=== PATIENT | female | born 1950 | race Caucasian/White ===

== ENCOUNTER 2020-11-22 14:11 | Inpatient (IN) | payer MEDICARE ==
[2020-11-23] MEDS ORDERED: FLEET ENEMA ADULT 1 EA BTL PR PRN (09:00)
[2020-11-23] MEDS ORDERED: BISACODYL 10 MG SUPP (DULCOLAX) PR PRN (09:00)
[2020-11-23] MEDS ORDERED: diphenhydrAMINE 25 MG TAB (BENADRYL) PO PRN (09:00)
[2020-11-23] MEDS ORDERED: DOCUSATE SODIUM 100 MG (COLACE) CAP PO PRN (09:00)
[2020-11-23] MEDS ORDERED: LACTULOSE SYRUP 10GM/15ML (ENULOSE) 30ML UDC PO PRN (09:00)
[2020-11-23] MEDS ORDERED: ONDANSETRON 4 MG (ZOFRAN) ORAL DISSOLVE TAB PO PRN (09:00)
[2020-11-23] MEDS ORDERED: LOPERAMIDE 2 MG (IMODIUM) TABLET PO PRN (09:00)
[2020-11-23] MEDS ORDERED: ALPRAZolam 0.25 MG (XANAX) TAB PO PRN (09:00)
[2020-11-23] MEDS ORDERED: CALCIUM CARBONATE 500 MG (TUMS) TAB.CHEW PO PRN (09:00)
[2020-11-23] MEDS ORDERED: guaiFENesin/CODEINE (ROBITUSSIN AC) 10ML UDC PO PRN (09:00)
[2020-11-23 11:19] VITALS: BP 172/81
[2020-11-23] MEDS ORDERED: OMEP40CA27 PO (12:07)
[2020-11-23] MEDS ORDERED: HYDR-700 PO (12:07)
[2020-11-23] MEDS ORDERED: LISI40TA9 PO (12:07)
[2020-11-23] MEDS ORDERED: AMLO-251 PO (12:07)
[2020-11-23] MEDS ORDERED: ROSU20TA32 PO (12:07)
[2020-11-23] MEDS ORDERED: PREG75CA PO (12:07)
[2020-11-23] MEDS ORDERED: CLOP75TA28 PO (12:07)
[2020-11-23] MEDS ORDERED: CALC-250 PO (12:07)
[2020-11-23] MEDS ORDERED: CETI10TA17 PO (12:07)
[2020-11-23] MEDS ORDERED: HYDR-3922 PO (12:07)
[2020-11-23] MEDS ORDERED: INSU100I23 SQ (12:07)
[2020-11-23] MEDS ORDERED: INSU300I SQ (12:07)
[2020-11-23] MEDS ORDERED: NETA2.5D OU (12:07)
[2020-11-23] MEDS ORDERED: LATA2.5D19 OU (12:07)
--- NOTE | 2020-11-23 12:29 | PM&R Post Admission Assessment ---
PM&R Date of Visit: Nov 23, 2020 Time of Visit: 12:30 History of Present Illness CC: CVA with left sided weakness HPI: This is a 70yoWF who presents from [facility] after suffering a catastrophic CVA. 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 Patient began having symptoms of left sided weakness on 11/13/20 so she began using a walker so she went to ER and they imaged cervical spine due to severe spinal disease of cervical. Patient worsened and on 11/15/20 she went back to ER and dx with CVA right occiptial region. Currently she is still very weak on left side but has improved over the last few days but needs aggressive therapy in order to return to independent living. Dr Case is her PCP who recommended this IRF. Past Ervyliw-Tyvxqe-Pontrq Hx Past Med/Social Hx: Reviewed Nursing Past Med/Soc Hx, Reviewed and Corrections made Patient Social History Marrital Status: Employed/Student: employed Alcohol Use: Denies Use Smoking Status: Former Smoker Past Medical History Cardiac: High Cholesterol, Hypertension Neurological: Neuropathy Gastrointestinal: Gastroesophageal Reflux gastroparesis Musculoskeletal: Fibromyalgia, Chronic Back Pain Endocrine: Diabetes, Non-Insulin dep HEENT: Glaucoma PM&R Allergy/Meds/Data Review Allergies Coded Allergies: Penicillins (Verified Allergy, Unknown, RASH, 11/23/20) atorvastatin (Verified Adverse Reaction, Unknown, MADE LEGS LIKE JELLY, 11/23/20) gabapentin (Verified Adverse Reaction, Unknown, 11/23/20) Uncoded Allergies: MUSHROOMS (Allergy, Severe, 11/23/20) Home Medications Scheduled Amlodipine Besylate (Amlodipine Besylate), 10 MG PO DAILY, (Reported) Cetirizine HCl (Cetirizine HCl), 10 MG PO DAILY, (Reported) Cholecalciferol (Vitamin D3) (Vitamin D3), 125 MCG PO DAILY, (Reported) Clopidogrel Bisulfate (Clopidogrel), 75 MG PO DAILY, (Reported) Insulin Glargine,Hum.rec.anlog (Toujeo Solostar), 40 UNIT SQ DAILY, (Reported) Insulin Lispro (Humalog Kwikpen), 7 UNIT SQ TIDAC, (Reported) Latanoprost (Xalatan), 1 DROP OU HS, (Reported) Lisinopril (Lisinopril), 40 MG PO DAILY, (Reported) Netarsudil Mesylate (Rhopressa), 1 DROP OU HS, (Reported) Omeprazole (Omeprazole), 40 MG PO DAILY, (Reported) Pregabalin (Lyrica), 75 MG PO BID, (Reported) Rosuvastatin Calcium (Rosuvastatin Calcium), 20 MG PO DAILY, (Reported) Scheduled PRN Hydralazine HCl (Hydralazine HCl), 10 MG PO QID PRN for SBP>160 OR DBP>110, (Reported) Hydroxyzine HCl (Hydroxyzine HCl), 25 MG PO TID PRN for ITCHING, (Reported) Current Medications Current Medications Reviewed Review of Systems Constitutional: see HPI, malaise, weakness Psychiatric/Neurological: Numbness, Tingling, Weakness Physical Exam Physical Exam Vital Signs Vital Signs - First Documented 11/23/20 11:19 Temp 36.2 Pulse 70 Resp 22 B/P (MAP) 172/81 (111) Pulse Ox 99 O2 Delivery Room Air Capillary Refill : Height, Weight, BMI Height: '" Weight: lbs. oz. kg; BMI Method: General Appearance: No Apparent Distress, WD/WN, Chronically ill, Obese Eyes: Bilateral Eye Normal Inspection, Bilateral Eye PERRL HEENT: PERRL/EOMI, Normal ENT Inspection, Pharynx Normal Neck: Full Range of Motion, Normal Inspection, Non Tender, Supple, Carotid Bruit Respiratory: Chest Non Tender, Lungs Clear, Normal Breath Sounds, No Accessory Muscle Use, No Respiratory Distress Cardiovascular: Regular Rate, Rhythm, No Edema, No Gallop, No JVD, No Murmur, Normal Peripheral Pulses Gastrointestinal: Normal Bowel Sounds, No Organomegaly, No Pulsatile Mass, Non Tender, Soft Back: Normal Inspection, No CVA Tenderness, No Vertebral Tenderness Extremity: Normal Capillary Refill, Normal Inspection, Normal Range of Motion, Non Tender, No Calf Tenderness, No Pedal Edema Neurologic/Psychiatric: Alert, Oriented x3, No Motor/Sensory Deficits, 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 Norm as Tested, Abnormal Gait, Depressed Affect, Motor Weakness (left side 2/5 upper and lower extremity) Skin: Normal Color, Warm/Dry Lymphatic: No Adenopathy PM&R Medical Assessment & Plan REHAB/MEDICAL ASSESSMENT AND PLAN: REHAB IMPAIRMENT GROUP: CVA ETIOLOGIC DIAGNOSIS: CVA The comorbidities that impact the patients function and/or functional outcome by: obesity, gastroparesis severe, fibromyalgia, poor reserve, DM, cervical spine disease REHAB PLAN: The patient is being admitted to our comprehensive inpatient rehabilitation facility and can tolerate the intensity of service consisting of at least: 180 minutes of therapy a day, 5 out of 7 days a week Rehab treatment will consist of: PT OT will focus on regaining function of the left sided weakness and improve ADL independence and increase use if assistive devices in order to return home to live independently The patient/family has a good understanding of our discharge process and will benefit from an interdisciplinary inpatient rehabilitation program. The patient has potential to make improvement and is in need of at least two of the following multidisciplinary therapies including but not limited to physical, occupational, speech, and prosthetics and orthotics. Additionally the patient will need services from respiratory, nutritional services, wound care, psychology, etc. (Customize this to each patient). Given the patients complex condition and risk of further medical complications, rehabilitation services cannot be safely or effectively provided at a lower level of care such as a penitentiary facility. BARRIERS TO DISCHARGE: Left sided weakness severe ESTIMATED LOS: 14 days DISPOSITION: Home RELEVANT CHANGES SINCE PREADMISSION SCREENING: I have compared the patients medical and functional status at the time of the preadmission screening and there are: no changes PROGNOSIS: Good REHABILITATION GOALS: 1. PT OT will focus on regaining function of the left sided weakness and improve ADL independence and increase use if assistive devices in order to return home to live independently All the above goals were reviewed with the patient and he/she is in agreement. By signing this document, I acknowledge that I have personally performed a full physical examination on this patient within 24 hours of admission to this inpatient rehabilitation facility and have determined the patient to be able to tolerate the above course of treatment at an intensive level for a reasonable period of time. I will be completing a detailed individualized Plan of Care for this patient by day #4 of the patients stay based upon the Preadmission Screen, the Post-Admission Evaluation, and the therapy evaluations. Admission Dx/Comorbidities: (1) Fibromyalgia ICD Codes: M79.7 - Fibromyalgia (2) Cervical spine disease ICD Codes: M48.9 - Spondylopathy, unspecified (3) Obesity ICD Codes: E66.9 - Obesity, unspecified (4) Diabetes ICD Codes: E11.9 - Type 2 diabetes mellitus without complications (5) Gastroparesis ICD Codes: K31.84 - Gastroparesis (6) GERD (gastroesophageal reflux disease) ICD Codes: K21.9 - Gastro-esophageal reflux disease without esophagitis (7) Neuropathy ICD Codes: G62.9 - Polyneuropathy, unspecified (8) Glaucoma ICD Codes: H40.9 - Unspecified glaucoma (9) Former smoker ICD Codes: Z87.891 - Personal history of nicotine dependence (10) CVA (cerebral vascular accident) ICD Codes: I63.9 - Cerebral infarction, unspecified Assessment/Plan Assessment and Plan Assess & Plan/Chief Complaint Assessment: CVA with left sided weakness Fibromyalgia GERD Gastroparesis Neuropathy DM HTN HLP Glaucoma Diabetic retinopathy Obesity Plan: IRF protocol Home meds DM management SALVADOR SPARKS DO Nov 23, 2020 12:29
--- NOTE | 2020-11-23 13:05 | Occupational Therapy Eval ---
OT Evaluation-General/PLF Medical Diagnosis Admission Date Nov 23, 2020 at 11:05 Medical Diagnosis: CVA: R occ/ temporal; L side weakness Onset Date: Nov 13, 2020 Therapy Diagnosis Therapy Diagnosis: Decreased ADL status Precautions Precautions/Isolations: Standard Precautions Weight Bear Status Weight Bearing Restriction: Full Weight Bearing Referral Physician: Ashley Riddle Reason: Activity Tolerance, Self Care, Evaluation/Treatment, Strengthening/ROM Medical History Pertinent Medical History: CVA, DM, Neuropathy Additional Medical History Diabetic retinopathy, DMII, peripheral neuropathy, gastroparesis, glaucoma, fibromyalgia, former smoker, bulging discs (per pt, 5 out of 7 cervical discs). Current History Pt stated a decreased cognition/ decreased strength Saturday (11/13) at [facility]. States she then went to ED at [facility] 11/15 with L side weakness; scan of back completed due to pmhx of cervical disc bulge. Pt then dx with subacute CVA of the R posterior occipaital/ temporal/ thalamus regions. Pt admits to ARU 11/23. Reviewed History: Yes Social History Home: Single Level Current Living Status: Spouse Entry Into Home: Ramp Steps Into Home: 0 ADL-Prior Level of Function SCALE: Activities may be completed with or without assistive devices. 5-Dikxfdvupq-neytnpi completes the activity by him/herself with no assistance from a helper. 5-Set-up or Clean-up Assistance-helper sets up or cleans up; patient completes activity. [place] assists only prior to or following the activity. 4-Supervision or Touching Assistance-helper provides verbal cues and/or touching/steadying and/or contact guard assistance as patient completes activity. Assistance may be provided throughout the activity or intermittently. 3-Partial/Moderate Assistance-helper does LESS THAN HALF the effort. [place] lifts, holds or supports trunk or limbs, but provides less than half the effort. 2-Substantial/Maximal Assistance-helper does MORE THAN HALF the effort. [place] lifts or holds trunk or limbs and provides more than half the effort. 5-Ypcbrmdio-nrmbxt does ALL the effort. Patient does none of the effort to complete the activity. Or, the assistance of 2 or more helpers is required for the patient to complete the activity. If activity was not attempted, code reason: 7-Patient Refused. 9-Not Applicable-not attempted and the patient did not perform the activity before the current illness, exacerbation or injury. 10-Not Attempted due to Environmental Limitations-(lack of equipment, weather restraints, etc.). 88-Not Attempted due to Medical Conditions or Safety Concerns. ADL PLOF Comments Pt states was IND with ADL tasks with use of SPC, then use of FWW beginning 11/13 (onset of sx). Pt completes sponge baths rather than showers due to garden tub. 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 Pt is assisted [facility] bed from [facility]. Pt AxO. Pt is oriented to ARU and expectations. Pt denies pain. States hx, accurate with notes. Pt expresses a decrease of sensation through L UE, general weakness of LUE and weakness of LUE. Pt agrees to tx: OT evaluation: 0615-2713 PT evaluation: 6280-7724 OT/ PT co-treat: 9921-4477: OT addresses UE movement, ADLs, balance/ righting, problem solving; PT addresses LE movement, gait/ mobility/ transfers, balance/ righting. OT individual treatment: 7420-5116 Mental Status/Objective Patient Orientation: Person, Place, Situation, Normal For Age Current Glasses/Contacts: Yes Hearing Aids: No Dentures/Partials: No Hand Dominance: Right Upper Extremity ROM WFL RUE Decreased LUE: decreased shoulder elevation/ abduction/ shoulder flexion/ in and ext rotation, decreased elbow flexion, decreased sup/ pronation, slight wrist ext/ flexion, slight finger flexion Upper Extremity Coordination Decreased: delayed and decreased AROM Upper Extremity Sensation Decreased; in dermatome pattern rather than CVA; more testing needed. Upper Extremity Strength R: WFL, 4/5 strength Decreased LUE: shoulder elevation 0/5 abduction: 0/5 shoulder flexion 1/5 elbow flexion 1/5 supination: 2/5 slight wrist ext: 2+/5 wrist flexion 2+/5 finger flexion: 3/5 finger extension: 1/5 ADL-Treatment Eating (QC): 5 (with use of RUE s/u) Oral Hygiene (QC): 5 (per clinical judgment, will require s/u at this time. ) Shower/Bathe Self (QC): 1 (per clinical judgment, will require Ax2 for safety and mobilty) Upper Body Dressing (QC): 2 (per clinical judgment, max A) Lower Body Dressing (QC): 1 (Pt sit to stands with Ax1, one person to doff pants and one to assist in mobility. Pt sits on commode, requires Ax2 for LB dressing tasks. ) On/Off Footwear (QC): 1 (TD at this time ) Toileting Hygiene (QC): 1 (Require Ax2 for safety and mobilty. Sit to stand with OT with mod A. Pt stands with min A to right while assist for clean-up. ) Other Treatments OT evaluation: 7123-0627 PT evaluation: 3704-6123 OT/ PT co-treat: 8601-3584: OT addresses UE movement, ADLs, balance/ righting, problem solving; PT addresses LE movement, gait/ mobility/ transfers, balance/ righting. Pt completes bed mob to EOB with assist. Pt sits with SBA. Completes MMT/ ROM as outlined. Pt has limited cervical ROM due to bulging discs. Pt has limited peripheral vision from prior level, however L more diminished. Eye tracking good in all planes, however convergence of L eye diminished. Pt states double vision during up-close (~6" from face) tasks. Pt completes sit to stand and transfers to w/c with Ax2 (see PT for assist). Pt is pushed to gym, attempt to complete RUE/ LE pushing (requires max A for steering, though RUE able to maintain push, RLE unable to guide). Pt stands at parallel bars and takes ~5 steps with Ax2 (OT guides LUE, PT guides LEs and gait). Pt sits to rest. Returns to room, sits in recliner with Ax1. All needs met, introduced to room, water provided, call light in reach. Pt expresses needs for urination. OT attempts to find BSC at this time. OT individual treatment: 2845-4482 OT returns with BSC. Pt states urinated in undergarments. Pt completes sit to stand with mod A, 5 side steps to strong side (R) to BSC. Ax2 for stance and LB management. Completes urination in BSC, requires Ax2 for cleansing and new undergarment hike over hips. Pt safe and cognitively aware of all tasks. Pt returns to (L/ weak) side/ recliner. Pt unable to bring hips to back of chair, requires Ax2 for sliding in chair with assist from RLE as well. Pt's LUE propped, all needs met, call light in reach. Education OT Patient Education: Correct positioning, Exercise program, Home exercise program, Purpose of tx/functional activities, Rehab process, Safety issues, Transfer techniques, W/C management Teaching Recipient: Patient Teaching Methods: Demonstration, Discussion Response to Teaching: Verbalize Understanding, Return Demonstration, Reinforcement Needed OT Short Term Goals Short Term Goals Time Frame: Dec 07, 2020 Eatin Oral hygiene: 6 Toileting hygiene: 2 Shower/bathe self: 2 Upper body dressin Lower body dressin Putting on/taking off footwear: 2 OT Senior Living Goals Senior Living Goals Time Frame: Dec 24, 2020 Eating (QC): 6 Oral Hygiene (QC): 6 Toileting Hygiene (QC): 4 Shower/Bathe Self (QC): 4 Upper Body Dressing (QC): 6 Lower Body Dressing (QC): 4 On/Off Footwear (QC): 3 Additional Goals: 1-Demonstrate ADL Tasks, 2-Verbalize Understanding, 3- ImproveStrength/Sola 1=Demonstrate adherence to instructed precautions during ADL tasks. 2=Patient will verbalize/demonstrate understanding of assistive devic es/modifications for ADL. 3=Patient will improve strength/tolerance for activity to enable patient to perform ADL's. OT Education/Plan Problem List/Assessment Assessment: Decreased Activ Tolerance, Decreased UE Strength, Dependent Transfers, Impaired Bed Mobility, Impaired Coordination, Impaired Funct Balance, Impaired I ADL's, Impaired Self-Care Skills, Restricted Funct UE ROM, Visual- Perceptual Deficit Discharge Recommendations Plan/Recommendations: Continue POC Therapy Discharge Recommendati: Scheduled Assistance, Home & Family, Post Acute OT Treatment Plan/Plan of Care Treatment,Training & Education: Yes Patient would benefit from OT for education, treatment and training to promote independence in ADL's, mobility, safety and/or upper extremity function for ADL's. Plan of Care: ADL Retraining, Caregiver Training, Concurrent Therapy, Functional Mobility, Group Exercise/Act as Ind, Orthotic Fitting/Training, UE Funct Exercise/Act, UE Neuromus Re-Ed/Coord, Visual/Perceptual Retrain, W/C Management Training Treatment Duration: Dec 24, 2020 Frequency: At least 5 of 7 days/Wk (IRF) Estimated Hrs Per Day: 1.5 hours per day Agreement: Yes Rehab Potential: Fair Time/GCodes Start Time: 11:05 Stop Time: 12:25 Total Time Billed (hr/min): 55 (10+35+15) Billed Treatment Time OT evaluation: 6477-4476: 1, ADL (10) PT evaluation: 7149-9633 OT/ PT co-treat: 6004-7881: 1, NM, EX (35) OT individual treatment: 3891-5602 (15): 1, ADL (15) Total: 60 OLIVA CLARK OTR Nov 23, 2020 13:05
--- NOTE | 2020-11-23 13:51 | Occupational Ther Daily Note ---
OT Current Status-Daily Note Subjective Pt alert, sitting in recliner. Nrsg in room. Pt agrees to therapy. No c/o pain at this time. Mental Status/Objective Patient Orientation: Person, Place, Time, Situation ADL-Treatment Therapy Code Descriptions/Definitions Functional [place] Measure: 0=Not Assessed/NA 4=Minimal Assistance 1=Total Assistance 5=Supervision or Setup 2=Maximal Assistance 6=Modified [place] 3=Moderate Assistance 7=Complete IndependenceSCALE: Activities may be completed with or without assistive devices. 1-Jvypybgxuf-ywjvbhq completes the activity by him/herself with no assistance from a helper. 5-Set-up or Clean-up Assistance-helper sets up or cleans up; patient completes activity. [place] assists only prior to or following the activity. 4-Supervision or Touching Assistance-helper provides verbal cues and/or touching/steadying and/or contact guard assistance as patient completes activity. Assistance may be provided throughout the activity or intermittently. 3-Partial/Moderate Assistance-helper does LESS THAN HALF the effort. [place] lifts, holds or supports trunk or limbs, but provides less than half the effort. 2-Substantial/Maximal Assistance-helper does MORE THAN HALF the effort. [place] lifts or holds trunk or limbs and provides more than half the effort. 4-Zksisqvhb-tcemqy does ALL the effort. Patient does none of the effort to complete the activity. Or, the assistance of 2 or more helpers is required for the patient to complete the activity. If activity was not attempted, code reason: 7-Patient Refused. 9-Not Applicable-not attempted and the patient did not perform the activity before the current illness, exacerbation or injury. 10-Not Attempted due to Environmental Limitations-(lack of equipment, weather restraints, etc.). 88-Not Attempted due to Medical Conditions or Safety Concerns. Eating (QC): 5 Other Treatment Pt has slight L side facial droop and slight slurring of words. Trace movement noted in shldr elevation and scapular retraction. Poor bicep muscle, able to flex ~10* actively. Fair supination/pronation ~20*. Wrist extension through tendonesis. Pt able to flex fingers and wrist WNL. Difficulty with finger extension, fair. Pt able to hold onto pudding cup with R hand and use L hand to feed self after setup. Educated pt on ARU expectations/description. After session, pt sitting in recliner with call light/phone in reach. All needs met in room. OT Irrigation System Operator Goals Intermediate Goals Time Frame: Dec 24, 2020 Eating (QC): 6 Oral Hygiene (QC): 6 Toileting Hygiene (QC): 4 Shower/Bathe Self (QC): 4 Upper Body Dressing (QC): 6 Lower Body Dressing (QC): 4 On/Off Footwear (QC): 3 1=Demonstrate adherence to instructed precautions during ADL tasks. 2=Patient will verbalize/demonstrate understanding of assistive devices/modifications for ADL. 3=Patient will improve strength/tolerance for activity to enable patient to perform ADL's. OT Education/Plan Problem List/Assessment Assessment: Decreased Activ Tolerance, Decreased Safety Aware, Decreased UE Strength, Impaired Bed Mobility, Impaired Coordination, Impaired Funct Balance, Impaired Self-Care Skills, Restricted Funct UE ROM Discharge Recommendations Plan/Recommendations: Continue POC Treatment Plan/Plan of Care Patient would benefit from OT for education, treatment and training to promote independence in ADL's, mobility, safety and/or upper extremity function for ADL's. Plan of Care: ADL Retraining, Caregiver Training, Concurrent Therapy, Functional Mobility, Group Exercise/Act as Ind, Orthotic Fitting/Training, UE Funct Exercise/Act, UE Neuromus Re-Ed/Coord, Visual/Perceptual Retrain, W/C Management Training Treatment Duration: Dec 24, 2020 Frequency: At least 5 of 7 days/Wk (IRF) Estimated Hrs Per Day: 1.5 hours per day Agreement: Yes Rehab Potential: Fair Time/GCodes Start Time: 13:00 Stop Time: 13:40 Total Time Billed (hr/min): 40 Billed Treatment Time 1 visit-NM 1 (15 min) FA 2 (25 min) ALLA MACDONALD Nov 23, 2020 13:51
--- NOTE | 2020-11-23 15:29 | ST Cognitive Linguistic Eval ---
Speech Evaluation-General Medical Diagnosis CVA: R occ/ temporal; L side weakness Onset Date: Nov 13, 2020 Therapy Diagnosis Therapy Diagnosis: Cognitive-communication Referral Referring Physician: Dr. Ramirez Medical History Pertinent Medical History: CVA, DM, Neuropathy Reviewed History: Yes Social History Current Living Status: Spouse Speech PLF-Current Status Prior Level of Function Patient lives at home with her . She was very active in their yarsanism and independent for her daily needs. Language Eval: Auditory Comprehends Simple Yes/No Ques: Functional Indent/Objects Multiple [place]: Functional Ident/Pics in Multiple [place]: Functional Follows 1-Step Commands: Functional Follows Complex Directions: Mild Follows General Conversations: Functional Language Eval: Verbal Language Completes Spontaneous Greeting: Functional Produces Auto, Serial Info: Functional Imitates Simple Words/Phrases: Functional Word Finding: Mild Requests Basic Needs: Functional States Basic Personal Info: Functional Expresses Complex Ideas: Mild Objective Cognitive Domain Attention: WNL Memory: WNL Problem Solving: Functional Executive Functions: Mild Visuospatial Skills: WNL Composite Severity Rating: WNL Clock Drawing Severity Rating: WNL Objective Formal/Standardized Tests [facility] Mental Status ([facility]) Results 26/30, Mild Neurocognitive Disorder range of function Oral Motor/Speech Production Patient's speech is at 80% with mild slurring noted as the patient became more tired. Impression The patient is a pleasant 70 y/o female who was admitted to the ARU s/p CVA with left side weakness. 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 The patient was given the [facility] with a score of 26/30 obtained. Patient's score is in the MNCD range of function and is indicative of warranted ST services. The patient will receive skilled services with focus on speech production, memory and safety awareness. Speech Patient Assess Expression of Ideas/Wants: Exhibits (3) Understanding Verbal Content: Usually Understands (3) Brief Interview-Mental Status: Yes Repetition of Three Words: Three (3) Temporal Orientation: Year: Correct (3) Temporal Orientation: Month: Accurate within 5 days(2) Temporal Orientation: Day: Correct (1) Recall : Wear to say "Sock": Yes,after cueing (1) Recall : Color: Yes, after cueing (1) Recall : Bed: Yes, no cue required (2) Memory/Recall Ability: Current season, That he or she is in a hsp/hsp unit Speech Short Term Goals Short Term Goals Short Term Goals 1) The patient will complete memory tasks related to her daily needs at 90% or greater. 2) The patient will complete safety awareness tasks related to her daily needs at 90% or greater. 3) The patient will complete problem solving tasks related to her daily needs at 90% or greater. 4) The patient will complete speech production tasks related to her communication needs at 90% or greater. Speech Residential Goals Sports Official Goals Patient will improve speech production to 90% or greater for effective communication. Patient will improve cognitive-communication necessary for safety and daily living tasks with minimal assist. Speech-Plan Patient/Family Goals Patient/Family Goals: Patient plans on returning to her home where she lives with her . Treatment Plan Speech Therapy Treatment Plan: Continue Plan of Care Treatment Duration: Dec 09, 2020 Frequency: 4 times per week (Patient will receive skilled ST 4-5x per week) Estimated Hrs Per Day: .5 hour per day Rehab Potential: Fair Barriers to Learning: Patient's recent CVA Pt/Family Agrees to Plan: Yes Safety Risks/Education Teaching Recipient: Patient Teaching Methods: Demonstration, Discussion Response to Teaching: Verbalize Understanding, Return Demonstration Education Topics Provided: Safety within her room, utilization of the call light as needed Time Speech Therapy Time In: 14:45 Speech Therapy Time Out: 15:15 Total Billed Time: 30 Billed Treatment Time 1, MAGDY KHAN [address] ST Nov 23, 2020 15:28
--- NOTE | 2020-11-23 16:13 | Physical Therapy Evaluation ---
PT Evaluation-General Medical Diagnosis Admission Date Nov 23, 2020 at 11:05 Medical Diagnosis: CVA: R occ/ temporal; L side weakness Onset Date: Nov 13, 2020 Therapy Diagnosis Therapy Diagnosis: Impaired mobility Precautions Precautions/Isolations: Standard Precautions Referral Physician: Ashley Reason for Referral: Evaluation/Treatment Medical History Pertinent Medical History: CVA, DM, Neuropathy Reviewed History: Yes Social History Home: Single Level Current Living Status: Spouse Entry Into Home: Ramp PT Steps Into Home: 0 Prior Prior Level of Function SCALE: Activities may be completed with or without assistive devices. 3-Ucfcjpwstp-nakboid completes the activity by him/herself with no assistance from a helper. 5-Set-up or Clean-up Assistance-helper sets up or cleans up; patient completes activity. [place] assists only prior to or following the activity. 4-Supervision or Touching Assistance-helper provides verbal cues and/or touching/steadying and/or contact guard assistance as patient completes activity. Assistance may be provided throughout the activity or intermittently. 3-Partial/Moderate Assistance-helper does LESS THAN HALF the effort. [place] lifts, holds or supports trunk or limbs, but provides less than half the effort. 2-Substantial/Maximal Assistance-helper does MORE THAN HALF the effort. [place] lifts or holds trunk or limbs and provides more than half the effort. 5-Qyktkesxn-mrvmrx does ALL the effort. Patient does none of the effort to complete the activity. Or, the assistance of 2 or more helpers is required for the patient to complete the activity. If activity was not attempted, code reason: 7-Patient Refused. 9-Not Applicable-not attempted and the patient did not perform the activity before the current illness, exacerbation or injury. 10-Not Attempted due to Environmental Limitations-(lack of equipment, weather restraints, etc.). 88-Not Attempted due to Medical Conditions or Safety Concerns. Bed Mobility: 6 Transfers (B,C,W/C): 6 Gait: 6 Stairs: 3 Indoor Mobility (Ambulation): Independent Stairs: Needed Some Help Prior Devices Use: Other-see list below Prior Device Use: cane Limited use of stairs due to LE pain. PT Evaluation-Current Subjective Pt denies pain on arrival. (R) UE/LE weakness and feeling of instability. Pt is highly motivated to return to PLOF. Objective Patient Orientation: Person, Place, Time, Situation ROM/Strength ROM Upper Extremities (R) shoulder flex/abd limited to ~90 degrees. (L) UE is only capable of PROM, with similar limits. ROM Lower Extremities (R) LE ROM WFL. (L) LE only capable of PROM. Strength Upper Extremities (R) UE gross MMT 4/5. (L) UE is 0-1/5 MMT for shoulder, upper trap, biceps, triceps. Slight improvement in MMT for (L) wrist and hand 2/5. Strength Lower Extremities (R) LE gross MMT 4/5. (L) hip and knee gross MMT 2/5. (L) lower leg MMT 2+/5. Neuromuscular (Tone, Coordination, Reflexes) 3+ patellar tendon reflex (R). Sensory Vision: Wears Glasses Hearing: Functional Hand Dominance: Right Sensation Right Upper Extremit: Impaired Sensation Left Upper Extremity: Impaired Sensation Up. Extremities Pt noted prior N/T in the digits on the palmar aspect prior to CVA. Sensation Right Lower Extremit: Intact Sensation Left Lower Extremity: Impaired Sensation Lower Extremities (L) LE sensation diminished beginning at 4cm proximal to the malleoli, with sensation nearly absent in the plantar surface. Transfers Roll Left & Right (QC): 2 Sit to Lying (QC): 2 Lying to Sitting/Side of Bed(Q: 2 Sit to Stand (QC): 3 Chair/Zxu-jc-Qhyul Xfer(QC): 3 Toilet Transfer (QC): 88 Car Transfer (QC): 88 Gait Mode of Locomotion: Walk Anticipated Mode of Locomotion: Walk Walk 10 feet (QC): 88 Walk 50 ft with 2 Turns(QC): 88 Walk 150 ft (QC): 88 Walking 10ft/uneven surface-QC: 88 Distance: 8ft Gait Assistive Device: Walker Kvng Comments/Gait Description Pt ambulated 4ft forward and 4 ft to the (L) with the kvng walker. Wheelchair Training Does the Pt Use a Wheelchair?: No Wheel 50 ft with 2 turns (QC): 9 Wheel 150 ft (QC): 9 Stairs 1 Step (curb) (QC): 88 4 Steps (QC): 88 12 Steps (QC): 88 Balance Sitting Static: Normal Sitting Dynamic: Fair Standing Static: Fair Standing Dynamic: Fair Picking up an Object (QC): 88 Special Test Comments Pt is entirely too unsteady to attempt picking up an item from the floor. Treatment Pt performed a supine to sit to stand transfer with OT assisting with (L) UE control. Able to take steps forward and side with the kvng walker and moderate assist with OT assisting with UE control and VCs for stepping. Assessment/Needs All muscle groups in the (L) LE are intact and functioning, but with less strength available at this time. Rehab Potential: Good PT Manager Food Safety Goals Fpc Goals PT Manager Food Safety Goals Time Frame: Dec 14, 2020 Roll Left & Right (QC): 5 Sit to Lying (QC): 5 Lying-Sitting on Side/Bed(QC): 5 Sit to Stand (QC): 5 Chair/Jcn-dr-Jjpjd Xfer(QC): 5 Toilet Transfer (QC): 5 Car Transfer (QC): 5 Does the Patient Walk: Yes Walk 10 feet (QC): 5 Walk 50ft with 2 Turns (QC): 5 Walk 150 ft (QC): 5 Walking 10ft on Uneven Surface: 5 1 Step (curb) (QC): 4 4 Steps (QC): 9 12 Steps (QC): 9 Picking up an Object (QC): 4 Does the Pt use WC or Scooter?: No Wheel 50 feet with 2 turns (QC: 9 Wheel 150 feet: 9 PT Plan Treatment/Plan Treatment Plan: Continue Plan of Care Treatment Duration: Dec 14, 2020 Frequency: At least 5 of 7 days/Wk (IRF) Estimated Hrs Per Day: 1.5 hours per day Patient and/or Family Agrees t: Yes Time/GCodes Time In: 1115 Time Out: 1200 Total Billed Treatment Time: 45 Total Billed Treatment 1, evm 10, ex 15, fa 20 Co treat with OT following the evaluation, with both disciplines necessary to aid in transfers and general mobility. FEEDRICO DE LUNA PT Nov 23, 2020 16:13
[2020-11-23] MEDS: DOCUSATE SODIUM 100 MG (COLACE) CAP PO SCH ×2 (16:22→21:14)
[2020-11-23] MEDS: polyethylene glycoL POWDER 17 GM (MIRALAX) PACK PO SCH ×2 (16:26→21:14)
[2020-11-23] MEDS: SENNA W/DOCUSATE (SENOKOT S) TABLET PO SCH ×2 (16:26→21:14)
--- NOTE | 2020-11-23 16:29 | Physical Therapy Daily Note ---
PT Daily Note-Current Subjective No complaints on arrival. Pt requesting to return to bed after PT. Mental Status Patient Orientation: Person, Place, Time, Situation Transfers SCALE: Activities may be completed with or without assistive devices. 5-Pyopvddgch-acytvkr completes the activity by him/herself with no assistance from a helper. 5-Set-up or Clean-up Assistance-helper sets up or cleans up; patient completes activity. [place] assists only prior to or following the activity. 4-Supervision or Touching Assistance-helper provides verbal cues and/or touching/steadying and/or contact guard assistance as patient completes activity. Assistance may be provided throughout the activity or intermittently. 3-Partial/Moderate Assistance-helper does LESS THAN HALF the effort. [place] lifts, holds or supports trunk or limbs, but provides less than half the effort. 2-Substantial/Maximal Assistance-helper does MORE THAN HALF the effort. [place] lifts or holds trunk or limbs and provides more than half the effort. 3-Lshmzjuhu-twcwuv does ALL the effort. Patient does none of the effort to complete the activity. Or, the assistance of 2 or more helpers is required for the patient to complete the activity. If activity was not attempted, code reason: 7-Patient Refused. 9-Not Applicable-not attempted and the patient did not perform the activity before the current illness, exacerbation or injury. 10-Not Attempted due to Environmental Limitations-(lack of equipment, weather restraints, etc.). 88-Not Attempted due to Medical Conditions or Safety Concerns. Roll Left & Right (QC): 3 Sit to Lying (QC): 3 Lying to Sitting/Side of Bed(Q: 3 Sit to Stand (QC): 3 Chair/Ybh-ka-Egfho Xfer(QC): 3 Good LE support during sit to stand and throughout transfer. Much more stable than this am. Gait Training Does the Patient Walk?: Yes Distance: 10ft Walk 10 feet (QC): 3 Gait Persons Needed: 1 Gait Assistive Device: Walker Kvng Exercises Supine Ex: LE Protocol Supine Reps: 20 Treatments PROM/AROM for (L) LE in supine and seated. Assessment Current Status: Good Progress, Fair Progress Pt was able to better assist with sit to stand. Fairly good stability with transfer relative to this am. PT Assisted Goals Assisted Goals PT Hand Ornament Maker Goals Time Frame: Dec 14, 2020 Roll Left & Right (QC): 5 Sit to Lying (QC): 5 Lying-Sitting on Side/Bed(QC): 5 Sit to Stand (QC): 5 Chair/Mqn-bz-Rdvtr Xfer(QC): 5 Toilet Transfer (QC): 5 Car Transfer (QC): 5 Does the Patient Walk: Yes Walk 10 feet (QC): 5 Walk 50ft with 2 Turns (QC): 5 Walk 150 ft (QC): 5 Walking 10ft on Uneven Surface: 5 1 Step (curb) (QC): 4 4 Steps (QC): 9 12 Steps (QC): 9 Picking up an Object (QC): 4 Does the Pt use WC or Scooter?: No Wheel 50 feet with 2 turns (QC: 9 Wheel 150 feet: 9 PT Plan Treatment/Plan Treatment Plan: Continue Plan of Care Treatment Duration: Dec 14, 2020 Frequency: At least 5 of 7 days/Wk (IRF) Estimated Hrs Per Day: 1.5 hours per day Patient and/or Family Agrees t: Yes Time/GCodes Time In: 1530 Time Out: 1600 Total Billed Treatment Time: 30 Total Billed Treatment 1, ex 15, fa 15 FEDERICO DE LUNA PT Nov 23, 2020 16:29
[2020-11-23 18:09] VITALS: BP 132/62
[2020-11-23] MEDS ORDERED: NON-FORMULARY MEDICATION 1 EA EA (Hydroxyzine HCl 25 MG) PO PRN (18:15)
[2020-11-23] MEDS ORDERED: PATIENT MAY USE OWN MED,SINGLE MED PO SCH (20:00)
[2020-11-23] MEDS: LATANOPROST 0.005% (XALATAN) OPHTH SOLN 2.5 ML OU SCH (20:04)
[2020-11-23] MEDS: OPTH OU SCH (20:07)
[2020-11-23] MEDS: RHOPRESSA 0.02% OU SCH (20:07)
[2020-11-23] MEDS: PREGABALIN 75 MG (LYRICA) CAP PO SCH (21:09)
[2020-11-24] MEDS: inSUlin ASPART (NovoLOG) 1 UNIT/0.01 ML (CHARGE PER UNIT) SC SCH ×7 (05:53→21:55)
[2020-11-24 06:03] VITALS: BP 156/70
[2020-11-24 06:22] LABS: BASOPHILS % (AUTO) 1 % (0-10); EOSINOPHILS # (AUTO) 0.3 10^3/uL (0.0-0.3); EOSINOPHILS % (AUTO) 7 % (0-10); HEMATOCRIT 40 % (35-52); HEMOGLOBIN 12.8 g/dL (11.5-16.0); LYMPHOCYTES # (AUTO) 1.5 10^3/uL (1.0-4.0); LYMPHOCYTES % (AUTO) 31 % (12-44); MEAN CORPUSCULAR HEMOGLOBIN 28 pg (25-34); MEAN CORPUSCULAR HGB CONC 32 g/dL (32-36); MEAN CORPUSCULAR VOLUME 88 fL (80-99); MEAN PLATELET VOLUME 11.1 fL (9.0-12.2); MONOCYTES # (AUTO) 0.5 10^3/uL (0.0-1.0); MONOCYTES % (AUTO) 10 % (0-12); NEUTROPHILS # (AUTO) 2.4 10^3/uL (1.8-7.8); NEUTROPHILS % (AUTO) 52 % (42-75); PLATELET COUNT 155 10^3/uL (130-400); WHITE BLOOD COUNT 4.7 10^3/uL (4.3-11.0)
[2020-11-24 06:40] LABS: ALBUMIN 3.5 GM/DL (3.2-4.5); BILIRUBIN,TOTAL 0.5 MG/DL (0.1-1.0); CALCIUM 9.4 MG/DL (8.5-10.1); CREATININE SERUM 1.05 MG/DL (0.60-1.30); POTASSIUM 4.1 MMOL/L (3.6-5.0); TOTAL PROTEIN 6.5 GM/DL (6.4-8.2)
[2020-11-24] MEDS ORDERED: INSULIN LISPRO 7 UNIT SQ SCH (07:00)
[2020-11-24] MEDS: PREGABALIN 75 MG (LYRICA) CAP PO SCH ×2 (07:45→20:33)
[2020-11-24] MEDS: VITAMIN D3 125 MCG (5,000 UNITS) CAPSULE PO SCH (07:45)
[2020-11-24] MEDS: SENNA W/DOCUSATE (SENOKOT S) TABLET PO SCH ×2 (07:45→21:55)
[2020-11-24] MEDS: LORATADINE (CLARITIN) 10 MG TAB PO SCH (07:45)
[2020-11-24] MEDS: CLOPIDOGREL 75 MG (PLAVIX) TABLET PO SCH (07:45)
[2020-11-24] MEDS: lisINopril 40 MG (PRINIVIL) TABLET PO SCH (07:45)
[2020-11-24] MEDS: DOCUSATE SODIUM 100 MG (COLACE) CAP PO SCH ×2 (07:45→21:54)
[2020-11-24] MEDS: amLODIPine 10 MG (NORVASC) TAB PO SCH (07:46)
[2020-11-24] MEDS: PANTOPRAZOLE 40 MG (PROTONIX) TAB PO SCH (07:46)
[2020-11-24] MEDS ORDERED: INSULIN GLARGINE HUM REC ANLOG 40 UNIT SQ SCH (09:00)
[2020-11-24] MEDS ORDERED: NON-FORMULARY MEDICATION 1 EA EA (Cetirizine HCl 10 MG) PO SCH (09:00)
[2020-11-24] MEDS ORDERED: [UNRECOGNIZED DRUG - OTHER] SQ SCH (09:00)
[2020-11-24] MEDS ORDERED: NON-FORMULARY MEDICATION 1 EA EA (Omeprazole 40 MG) PO SCH (09:00)
[2020-11-24] MEDS: polyethylene glycoL POWDER 17 GM (MIRALAX) PACK PO SCH ×2 (09:26→21:55)
--- NOTE | 2020-11-24 11:34 | Physical Therapy Daily Note ---
PT Daily Note-Current Subjective Pt on [facility] upon arrival. Pt agrees to PT/OT co-treat. Transfers SCALE: Activities may be completed with or without assistive devices. 8-Trbrkkcera-gvpvprc completes the activity by him/herself with no assistance from a helper. 5-Set-up or Clean-up Assistance-helper sets up or cleans up; patient completes activity. [place] assists only prior to or following the activity. 4-Supervision or Touching Assistance-helper provides verbal cues and/or touching/steadying and/or contact guard assistance as patient completes activity. Assistance may be provided throughout the activity or intermittently. 3-Partial/Moderate Assistance-helper does LESS THAN HALF the effort. [place] lifts, holds or supports trunk or limbs, but provides less than half the effort. 2-Substantial/Maximal Assistance-helper does MORE THAN HALF the effort. [place] lifts or holds trunk or limbs and provides more than half the effort. 0-Ljgeopmij-cfspaa does ALL the effort. Patient does none of the effort to complete the activity. Or, the assistance of 2 or more helpers is required for the patient to complete the activity. If activity was not attempted, code reason: 7-Patient Refused. 9-Not Applicable-not attempted and the patient did not perform the activity before the current illness, exacerbation or injury. 10-Not Attempted due to Environmental Limitations-(lack of equipment, weather restraints, etc.). 88-Not Attempted due to Medical Conditions or Safety Concerns. Exercises Supine Ex: Ankle pumps, Quad Set, Glut sets, Heel Slides, Straight leg raise, Hip abd/add Supine Reps: 10 Seated Therapy Exercises: Ankle pumps, Long arc quads, Hip flexion, Kicking activity Seated Reps: 10 Treatments PT/OT co-treat ([id number]), skilled instruction, care and modification required from 2 clinicians due to pt's fatigue, decreased mobility and fall prevention. PT focusing on transfers, standing and mobility while OT focusing on ADLs, L UE positioning during all mobility and standing. Mod to min A for sit to stand, blocking L knee to prevent buckling during standing or transfers. Pt able to complete upper body bathing except under L arm and all of R arm. Pt able to reach under pants to cleanse though required assist for elvis area/buttocks and lower legs/feet. Assist x2, one to stand and one to cleanse. Pt dependent with donning lower body clothing, max A for socks and max A for upper body clothing. Pt working on w/c mobility with assist to propel to therapy gym. Pt working on standing at parallel bars with assist from PT for standing and assist from OT to place L hand on bar. Pt able to stabilize hand on bar and was able to loosen police communications operator and move left hand on bar. After session, pt sitting in recliner with call light/phone in reach. All needs met in room. [id number]: Pt reviewed and was issued written HEP for Supine & Seated Ex. Pt rests in recliner with all needs met, call light in hand. Assessment Current Status: Good Progress Pt still remains weak, needing assist x2 for transfers but is very motivated and works as hard as possible to assist. L side still showing affect from CVA. PT Saturation Diver Goals Saturation Diver Goals PT Saturation Diver Goals Time Frame: Dec 14, 2020 Roll Left & Right (QC): 5 Sit to Lying (QC): 5 Lying-Sitting on Side/Bed(QC): 5 Sit to Stand (QC): 5 Chair/Htf-gt-Qxizy Xfer(QC): 5 Toilet Transfer (QC): 5 Car Transfer (QC): 5 Does the Patient Walk: Yes Walk 10 feet (QC): 5 Walk 50ft with 2 Turns (QC): 5 Walk 150 ft (QC): 5 Walking 10ft on Uneven Surface: 5 1 Step (curb) (QC): 4 4 Steps (QC): 9 12 Steps (QC): 9 Picking up an Object (QC): 4 Does the Pt use WC or Scooter?: No Wheel 50 feet with 2 turns (QC: 9 Wheel 150 feet: 9 PT Plan Problem List Problem List: Activity Tolerance, Functional Strength, Safety, Balance, Transfer Treatment/Plan Treatment Plan: Continue Plan of Care Treatment Duration: Dec 14, 2020 Frequency: At least 5 of 7 days/Wk (IRF) Estimated Hrs Per Day: 1.5 hours per day Patient and/or Family Agrees t: Yes Safety Risks/Education Patient Education: Transfer Techniques, Correct Positioning, W/C Management, Safety Issues Teaching Recipient: Patient Teaching Methods: Discussion Response to Teaching: Verbalize Understanding Time/GCodes Time In: 1000 Time Out: 1430 Total Billed Treatment Time: 75 Total Billed Treatment 1, FA x4 (60m) Co-treat w/OT for 60m ([id number]) [id number]: 1, EX (15m) EMILE CASTILLO EXTERNAL RELATIONS MANAGER Nov 24, 2020 11:34
--- NOTE | 2020-11-24 12:06 | Individualized Plan of Care ---
Individualized Plan of Care Rehab Nursing IPOC Order Admission Date Nov 23, 2020 at 11:05 Current Orders Orders Admission Order(Inpt,Obs,Sdc) (11/23/20 08:51) Vital Signs: Per Unit Policy ( 08,16,00 (11/23/20 08:51) Lang Al , (11/23/20 08:51) Sequential Compression Device Q4H (11/23/20 08:51) Drivematic Machine Operator-Inpt Rehab Con (11/23/20 08:51) Rehab Nursing Orders-Ipoc (11/23/20 08:51) Physical Therapy Rehab Orders (11/23/20 08:51) Occupational Therapy Rehab Ord (11/23/20 08:51) Speech Therapy Rehab Orders (11/23/20 08:51) Cbc With Automated Diff (11/24/20 06:00) Comprehensive Metabolic Panel (11/24/20 06:00) General/Regular (11/23/20 Breakfast) Intake & Output 06,14,22 (11/23/20 08:51) Precautions (Aru) (11/23/20 08:51) Weekly Weight WEEK (11/23/20 08:51) Rehab-Intensity Of Therapy (11/23/20 08:51) Initiate Admission Nursing Pro .admission (11/23/20 08:51) Alprazolam Tablet (Xanax Tablet) (11/23/20 09:00) Calcium Carbonate Chew Tablet (Antacid C (11/23/20 09:00) Diphenhydramine Tablet (Benadryl Tablet) (11/23/20 09:00) Docusate Sodium Capsule (Colace Capsule) (11/23/20 09:00) Docusate Sodium Capsule (Colace Capsule) (11/23/20 09:00) Bisacodyl Suppository (Dulcolax Supposit (11/23/20 09:00) Lactulose Oral Solution (Enulose Oral So (11/23/20 09:00) Na Phos/Na Biphos Enema (Fleet Enema Neno (11/23/20 09:00) Guaifenesin/Codeine Syrup (Robitussin Ac (11/23/20 09:00) Loperamide Tablet (Imodium Tablet) (11/23/20 09:00) Melatonin Tablet (Melatonin Tablet) (11/23/20 09:00) Polyethylene Glycol Powder Pkt (Miralax (11/23/20 09:00) Ondansetron Oral Dissolve Tab (Zofran (11/23/20 09:00) Senna S Tablet (Senokot S Tablet) (11/23/20 09:00) Initiate Admission Nursing Pro .admission (11/23/20 08:51) Admission Arrival Bed Request (11/23/20 11:17) General/Regular (11/23/20 Lunch) Acetaminophen Tablet/Caplet (Tylenol T (11/23/20 13:00) Dietary Consult (11/23/20 13:00) Dietary Consult (11/23/20 13:08) Dietary Consult (11/23/20 13:08) Patient Visit (11/23/20 ) Speech Sound Lang Comp (11/23/20 ) Treat. Speech/Lang/Voice (11/23/20 ) Patient Visit (11/23/20 ) Pt Eval Moderate Complexity (11/23/20 ) Exercise Therap, Ea 15 Min (11/23/20 ) Functional Activities, Ea 15 (11/23/20 ) Patient Visit (11/23/20 ) Exercise Therap, Ea 15 Min (11/23/20 ) Functional Activities, Ea 15 (11/23/20 ) Amlodipine Tablet (Norvasc Tablet) (11/24/20 09:00) Cholecalciferol Capsule/Tablet (Vitamin (11/24/20 09:00) Clopidogrel Tablet (Plavix Tablet) (11/24/20 09:00) Hydralazine Tablet (Apresoline Tablet) (11/23/20 18:15) Latanoprost 0.005% Ophth Soln (Xalatan 0 (11/23/20 21:00) Lisinopril Tablet (Zestril Tablet) (11/24/20 09:00) Pregabalin Capsule (Lyrica Capsule) (11/23/20 21:00) (Nf) Cetirizine Hcl (11/24/20 09:00) (Nf) Hydroxyzine Hcl (11/23/20 18:15) (Nf) Insulin Glargine,Hum.Rec.Anlog (Iker (11/24/20 09:00) (Nf) Insulin Lispro (Humalog Kwikpen) (11/24/20 07:00) (Nf) Netarsudil Mesylate (Rhopressa) (11/23/20 21:00) (Nf) Omeprazole (11/24/20 09:00) Loratadine Tablet (Claritin Tablet) (11/24/20 09:00) Pantoprazole Tablet (Protonix Tablet) (11/24/20 09:00) Insulin Aspart (Novolog) (Novolog (Charg (11/24/20 07:00) Hydroxyzine Cap/Tab (Vistaril) (11/23/20 18:30) Insulin Determir (Per Unit) (Levemir (Pe (11/24/20 09:00) Patient May Use Own Med,Single (Patient (11/23/20 20:00) Cho 75g/M 1snack (21-2400 Rufino) (11/24/20 Breakfast) Accucheck Achs ACHS (11/24/20 05:42) Insulin Aspart (Novolog) (Novolog (Charg (11/24/20 06:00) Hemoglobin A1c (11/24/20 06:00) Consult Cardiology (11/24/20 12:34) Patient Visit (11/24/20 ) Treat. Speech/Lang/Voice (11/24/20 ) Patient Visit (11/24/20 ) Functional Activities, Ea 15 (11/24/20 ) Exercise Therap, Ea 15 Min (11/24/20 ) Rehab Nursing Orders: Ongoing Assess. of Cognitive Status, Ongoing Assess. of Function Status, Bladder Management, Bladder Scan, Bladder Training, Bowel Management, Bowel Training, Disease Management & Educaiton, DVT Prophylaxis, Fall Prevention, Fluid/Electrolyte/Nutrition Mgmt, Infection Prevention, Medication Management & Education, Management of Risks & Complications, Management of Skin Intergrity, Nutrition Management, Pain Management, Patient/Family Support, Safety Management, Swallow Precautions Intensity of Therapy to be met Patient to be seen: Min.3h per day/5 of 7d PT IPOC Problem List: Activity Tolerance, Functional Strength, Safety, Balance, Gait, Transfer, ROM Treatment Plan: Continue Plan of Care Treatment Duration: Dec 14, 2020 Frequency: At least 5 of 7 days/Wk (IRF) Estimated Hrs Per Day: 1.5 hours per day OT IPOC Problems: Decreased Activ Tolerance, Decreased Safety Aware, Decreased UE Strength, Impaired Bed Mobility, Impaired Coordination, Impaired Funct Balance, Impaired Self-Care Skills, Restricted Funct UE ROM OT Treatment, Training and Edu: Yes Plan of Care: ADL Retraining, Caregiver Training, Concurrent Therapy, Functional Mobility, Group Exercise/Act as Ind, Orthotic Fitting/Training, UE Funct Exercise/Act, UE Neuromus Re-Ed/Coord, Visual/Perceptual Retrain, W/C Management Training Treatment Duration: Dec 24, 2020 Frequency: At least 5 of 7 days/Wk (IRF) Estimated Hrs Per Day: 1.[address] IPOC Speech Therapy Treatment Plan: Continue Plan of Care Treatment Duration: Dec 09, 2020 Frequency: 4 times per week (Patient will receive skilled ST 4-5x per week) Estimated Hrs Per Day: .5 hour per day Drivematic Machine Operator/Case Mgmt Drivematic Machine Operator/Case Managemen: Discharge Planning Dietitian/Gas Combustion Engineer Dietitian/Gas Combustion Engineer to monitor nutritional status and make changes and/or recommendations as needed and work with speech pathology on dietary upgrades as the occur. Physician IPOC Medical Issues being managed closely and that require the 24 hour availability of a physician: Recent catastrophic CVA will require close monitoring and Cardiology evaluation to prevent extension of the CVA and monitor sugar and BP closely Medical Issues: Bowel/Bladder Function, DVT Prophylaxis, Falls Precautions, Fluid/Electrolyte/Nutrition Balance, Infection Protection, Pain Management Brief Synthesis of Preadmission Screen, Post-Admission Evaluation, and Therapy Evaluations: PT OT will focus on regaining function of the left sided weakness and monitor for falls and teach energy conservation Medical Prognosis: Good Anticipated Length of Stay: 14 days SALVADOR SPARKS DO Nov 24, 2020 12:06
--- NOTE | 2020-11-24 12:06 | PM&R Progress Note ---
Subjective HPI/CC On Admission Date Seen by Provider: Nov 24, 2020 Time Seen by Provider: 12:30 Subjective/Events-last exam 11/24/20: Pt settling in pretty well Dizziness noted Bowels moved yesterday Reviewed home medications Review of Systems General: Fatigue, Malaise Neurological: Weakness, Incoordination Objective Exam Vital Signs Vital Signs Date Time Temp Pulse Resp B/P (MAP) Pulse Ox O2 Delivery O2 Flow Rate FiO2 11/24/20 20:20 Room Air 11/24/20 18:00 38.0 62 18 98/64 (75) 95 Capillary Refill : General Appearance: No Apparent Distress, WD/WN, Chronically ill, Obese HEENT: PERRL/EOMI, Normal ENT Inspection, Pharynx Normal Neck: Full Range of Motion, Normal Inspection, Non Tender, Supple, Carotid Br uit Respiratory: Chest Non Tender, Lungs Clear, Normal Breath Sounds, No Accessory Muscle Use, No Respiratory Distress Cardiovascular: Regular Rate, Rhythm, No Edema, No Gallop, No JVD, No Murmur, Normal Peripheral Pulses Gastrointestinal: Normal Bowel Sounds, No Organomegaly, No Pulsatile Mass, Non Tender, Soft Back: Normal Inspection, No CVA Tenderness, No Vertebral Tenderness Extremity: Normal Capillary Refill, Normal Inspection, Normal Range of Motion, Non Tender, No Calf Tenderness, No Pedal Edema Neurologic/Psychiatric: Alert, Oriented x3, No Motor/Sensory Deficits, bicycle inspector II- XII Norm as Tested, Abnormal Gait, Depressed Affect, Motor Weakness (left side 2/5 upper and lower extremity) Skin: Normal Color, Warm/Dry Lymphatic: No Adenopathy Results/Procedures Lab Laboratory Tests 11/24/20 06:11 Patient resulted labs reviewed. FIM Transfers Therapy Code Descriptions/Definitions Functional [place] Measure: 0=Not Assessed/NA 4=Minimal Assistance 1=Total Assistance 5=Supervision or Setup 2=Maximal Assistance 6=Modified [place] 3=Moderate Assistance 7=Complete IndependenceSCALE: Activities may be completed with or without assistive devices. 9-Fjlwdnbfmh-ihagxmb completes the activity by him/herself with no assistance from a helper. 5-Set-up or Clean-up Assistance-helper sets up or cleans up; patient completes activity. [place] assists only prior to or following the activity. 4-Supervision or Touching Assistance-helper provides verbal cues and/or touching/steadying and/or contact guard assistance as patient completes activity. Assistance may be provided throughout the activity or intermittently. 3-Partial/Moderate Assistance-helper does LESS THAN HALF the effort. [place] lifts, holds or supports trunk or limbs, but provides less than half the effort. 2-Substantial/Maximal Assistance-helper does MORE THAN HALF the effort. [place] lifts or holds trunk or limbs and provides more than half the effort. 6-Ipbilhyup-ztvhow does ALL the effort. Patient does none of the effort to complete the activity. Or, the assistance of 2 or more helpers is required for the patient to complete the activity. If activity was not attempted, code reason: 7-Patient Refused. 9-Not Applicable-not attempted and the patient did not perform the activity before the current illness, exacerbation or injury. 10-Not Attempted due to Environmental Limitations-(lack of equipment, weather restraints, etc.). 88-Not Attempted due to Medical Conditions or Safety Concerns. Roll Left to Right (QC): 3 Sit to Lying (QC): 3 Sit to Stand (QC): 3 Chair/Urz-li-Kcroa Xfer(QC): 3 Car Transfer (QC): 88 Gait Training Does the Patient Walk?: Yes Distance: 10ft Walk 10 feet (QC): 3 Walk 50 ft with 2 Turns(QC): 88 Walk 150 ft (QC): 88 Walking 10ft/uneven surface-QC: 88 Gait Persons Needed: 1 Gait Assistive Device: Walker Kvng Wheelchair Training Does the Pt Use a Wheelchair?: No Wheel 50 ft with 2 turns (QC): 9 Wheel 150 ft (QC): 9 Stair Training 1 Step (curb) (QC): 88 4 Steps (QC): 88 12 Steps (QC): 88 Balance Picking up an Object (QC): 88 ADL-Treatment Eating (QC): 5 (with use of RUE s/u) Oral Hygiene (QC): 5 (per clinical judgment, will require s/u at this time. ) Shower/Bathe Self (QC): 1 (per clinical judgment, will require Ax2 for safety and mobilty) Upper Body Dressing (QC): 2 (per clinical judgment, max A) Lower Body Dressing (QC): 1 (Pt sit to stands with Ax1, one person to doff pants and one to assist in mobility. Pt sits on commode, requires Ax2 for LB dressing tasks. ) On/Off Footwear (QC): 1 (TD at this time ) Toileting Hygiene (QC): 1 (Require Ax2 for safety and mobilty. Sit to stand with OT with mod A. Pt stands with min A to right while assist for clean-up. ) Assessment/Plan Assessment and Plan Assess & Plan/Chief Complaint Assessment: CVA with left sided weakness Fibromyalgia GERD Gastroparesis Neuropathy DM HTN HLP Glaucoma Diabetic retinopathy Obesity Plan: IRF protocol Home meds DM management 11/24/20: Sugar management Monitor pain Monitor dizziness (1) Fibromyalgia (2) Cervical spine disease (3) Obesity (4) Diabetes (5) Gastroparesis (6) GERD (gastroesophageal reflux disease) (7) Neuropathy (8) Glaucoma (9) Former smoker (10) CVA (cerebral vascular accident) SALVADOR SPARKS DO Nov 24, 2020 12:06
--- NOTE | 2020-11-24 13:04 | Occupational Ther Daily Note ---
OT Current Status-Daily Note Subjective Pt drowsy, sitting in recliner. Took pt BP 123/84. Pt had difficulty clearing drowsiness. Pt agrees to therapy. Mental Status/Objective Patient Orientation: Person, Place, Time, Situation Attachments: Other-See Comments (heart monitor) ADL-Treatment Pt agrees to sponge bath. Pt states that she has a garden tub at home and is not able to get into it so typically takes sponge bath. Pt requested to use BSC, 1 person to assist with transfer and 2nd person to manipulate clothing and cleanse after voiding. PT/OT co-treat ([id number]), skilled instruction, care and modification required from 2 clinicians due to pt's fatigue, decreased mobility and fall prevention. PT focusing on transfers, standing and mobility while OT focusing on ADLs, L UE positioning during all mobility and standing. Mod to min A for sit to stand, blocking L knee to prevent buckling during standing or transfers. Pt able to complete upper body bathing except under L arm and all of R arm. Pt able to reach under [place]annis to cleanse though required assist for elvis area/buttocks and lower legs/feet. Assist x2, one to stand and one to cleanse. Pt dependent with donning lower body clothing, max A for socks and max A for upper body clothing. Set up for oral care and eating. Therapy Code Descriptions/Definitions Functional [place] Measure: 0=Not Assessed/NA 4=Minimal Assistance 1=Total Assistance 5=Supervision or Setup 2=Maximal Assistance 6=Modified [place] 3=Moderate Assistance 7=Complete IndependenceSCALE: Activities may be completed with or without assistive devices. 0-Fkgfotaumq-yzmiafl completes the activity by him/herself with no assistance from a helper. 5-Set-up or Clean-up Assistance-helper sets up or cleans up; patient completes activity. [place] assists only prior to or following the activity. 4-Supervision or Touching Assistance-helper provides verbal cues and/or touching/steadying and/or contact guard assistance as patient completes activity. Assistance may be provided throughout the activity or intermittently. 3-Partial/Moderate Assistance-helper does LESS THAN HALF the effort. [place] lifts, holds or supports trunk or limbs, but provides less than half the effort. 2-Substantial/Maximal Assistance-helper does MORE THAN HALF the effort. [place] lifts or holds trunk or limbs and provides more than half the effort. 0-Npppnbtxx-rhrccv does ALL the effort. Patient does none of the effort to complete the activity. Or, the assistance of 2 or more helpers is required for the patient to complete the activity. If activity was not attempted, code reason: 7-Patient Refused. 9-Not Applicable-not attempted and the patient did not perform the activity befo re the current illness, exacerbation or injury. 10-Not Attempted due to Environmental Limitations-(lack of equipment, weather re straints, etc.). 88-Not Attempted due to Medical Conditions or Safety Concerns. Eating (QC): 5 Oral Hygiene (QC): 5 Shower/Bathe Self (QC): 1 Upper Body Dressing (QC): 2 Lower Body Dressing (QC): 1 On/Off Footwear: 2 Toileting Hygiene (QC): 1 Toilet Transfer (QC): 1 Other Treatment Pt working on w/c mobility with assist to propel to therapy gym. Pt working on standing at parallel bars with assist from PT for standing and assist from OT to place L hand on bar. Pt able to stabilize hand on bar and was able to loosen investigative analyst and move left hand on bar. After session, pt sitting in recliner with call light/phone in reach. All needs met in room. OT Short Term Goals Short Term Goals Time Frame: Dec 07, 2020 Eatin Oral hygiene: 6 Toileting hygiene: 2 Shower/bathe self: 2 Upper body dressin Lower body dressin Putting on/taking off footwear: 2 OT Strategic Marketing Specialist Goals Halfway Goals Time Frame: Dec 24, 2020 Eating (QC): 6 Oral Hygiene (QC): 6 Toileting Hygiene (QC): 4 Shower/Bathe Self (QC): 4 Upper Body Dressing (QC): 6 Lower Body Dressing (QC): 4 On/Off Footwear (QC): 3 Additional Goals: 1-Demonstrate ADL Tasks, 2-Verbalize Understanding, 3-ImproveStrength/Sola 1=Demonstrate adherence to instructed precautions during ADL tasks. 2=Patient will verbalize/demonstrate understanding of assistive devices/modifications for ADL. 3=Patient will improve strength/tolerance for activity to enable patient to perform ADL's. OT Education/Plan Problem List/Assessment Assessment: Decreased Activ Tolerance, Decreased UE Strength, Impaired Bed Mobility, Impaired Coordination, Impaired Funct Balance, Impaired I ADL's, Impaired Self-Care Skills, Restricted Funct UE ROM Discharge Recommendations Plan/Recommendations: Continue POC Treatment Plan/Plan of Care Patient would benefit from OT for education, treatment and training to promote independence in ADL's, mobility, safety and/or upper extremity function for ADL's. Plan of Care: ADL Retraining, Caregiver Training, Concurrent Therapy, Functional Mobility, Group Exercise/Act as Ind, Orthotic Fitting/Training, UE Funct Exercise/Act, UE Neuromus Re-Ed/Coord, Visual/Perceptual Retrain, W/C Management Training Treatment Duration: Dec 24, 2020 Frequency: At least 5 of 7 days/Wk (IRF) Estimated Hrs Per Day: 1.5 hours per day Agreement: Yes Rehab Potential: Good Time/GCodes Start Time: 09:45 Stop Time: 11:00 Total Time Billed (hr/min): 75 Billed Treatment Time 1 visit-ADL 4 (55 min) FA 1 (20 min) co-treat with PT [id number], individual [id number] ALLA MACDONALD Nov 24, 2020 13:04
--- NOTE | 2020-11-24 13:30 | Speech Therapy Daily Note ---
Speech Daily Progress Note Subjective Date Seen by Provider: Nov 24, 2020 Time Seen by Provider: 00:30 Patient was speaking with the regulatory affairs analyst when I entered her room. Patient participated well with ST today. Objective Patient completed a series of speech exercises with 80% accuracy given min to mod cues. Assessment Assessment Current Status: Good Progress Treatment Plan Continue Plan of Care Speech Short Term Goals Short Term Goals Short Term Goals 1) The patient will complete memory tasks related to her daily needs at 90% or greater. 2) The patient will complete safety awareness tasks related to her daily needs at 90% or greater. 3) The patient will complete problem solving tasks related to her daily needs at 90% or greater. 4) The patient will complete speech production tasks related to her communication needs at 90% or greater. Speech Spotter Goals [facility] Goals Patient will improve speech production to 90% or greater for effective communication. Patient will improve cognitive-communication necessary for safety and daily living tasks with minimal assist. Speech-Plan Patient/Family Goals Patient/Family Goals: Patient plans on returning home upon discharge. Treatment Plan Speech Therapy Treatment Plan: Continue Plan of Care Treatment Duration: Dec 09, 2020 Frequency: 4 times per week (Patient will receive skilled ST 4-5x per week) Estimated Hrs Per Day: .5 hour per day Rehab Potential: Good Barriers to Learning: Patient's recent CVA Pt/Family Agrees to Plan: Yes Safety Risks/Education Teaching Recipient: Patient Teaching Methods: Demonstration, Discussion Response to Teaching: Verbalize Understanding, Return Demonstration Education Topics Provided: Safety within her room, communication of wants/needs Time Speech Therapy Time In: 11:00 Speech Therapy Time Out: 11:30 Total Billed Time: 30 Billed Treatment Time 1MAGDY BETHANIA ST Nov 24, 2020 13:30
[2020-11-24 18:00] VITALS: BP 98/64
[2020-11-24] MEDS: ACETAMINOPHEN 325 MG TABLET PO PRN (18:54)
[2020-11-24] MEDS: RHOPRESSA 0.02% OU SCH (20:33)
[2020-11-24] MEDS: LATANOPROST 0.005% (XALATAN) OPHTH SOLN 2.5 ML OU SCH (20:33)
[2020-11-24] MEDS: OPTH OU SCH (20:33)
[2020-11-25] MEDS: inSUlin ASPART (NovoLOG) 1 UNIT/0.01 ML (CHARGE PER UNIT) SC SCH ×8 (06:08→21:08)
[2020-11-25 06:17] VITALS: BP 147/68
[2020-11-25] MEDS: CLOPIDOGREL 75 MG (PLAVIX) TABLET PO SCH (08:59)
[2020-11-25] MEDS: lisINopril 40 MG (PRINIVIL) TABLET PO SCH (08:59)
[2020-11-25] MEDS: PANTOPRAZOLE 40 MG (PROTONIX) TAB PO SCH (08:59)
[2020-11-25] MEDS: DOCUSATE SODIUM 100 MG (COLACE) CAP PO SCH ×2 (09:00→21:00)
[2020-11-25] MEDS: SENNA W/DOCUSATE (SENOKOT S) TABLET PO SCH ×2 (09:00→21:01)
[2020-11-25] MEDS: amLODIPine 10 MG (NORVASC) TAB PO SCH (09:00)
[2020-11-25] MEDS: PREGABALIN 75 MG (LYRICA) CAP PO SCH ×2 (09:00→21:00)
[2020-11-25] MEDS: VITAMIN D3 125 MCG (5,000 UNITS) CAPSULE PO SCH (09:00)
[2020-11-25] MEDS: polyethylene glycoL POWDER 17 GM (MIRALAX) PACK PO SCH ×2 (09:19→21:02)
[2020-11-25] MEDS: LORATADINE (CLARITIN) 10 MG TAB PO SCH (09:19)
--- NOTE | 2020-11-25 10:07 | Physical Therapy Daily Note ---
PT Daily Note-Current Subjective Pt. agrees to PT OT co Rx. No c/o except slight dizziness at times Pain Location: No Pain Reported Mental Status Patient Orientation: Normal For Age Transfers SCALE: Activities may be completed with or without assistive devices. 2-Zlmsgrxzse-noykgfd completes the activity by him/herself with no assistance from a helper. 5-Set-up or Clean-up Assistance-helper sets up or cleans up; patient completes activity. [place] assists only prior to or following the activity. 4-Supervision or Touching Assistance-helper provides verbal cues and/or touching/steadying and/or contact guard assistance as patient completes activity. Assistance may be provided throughout the activity or intermittently. 3-Partial/Moderate Assistance-helper does LESS THAN HALF the effort. [place] lifts, holds or supports trunk or limbs, but provides less than half the effort. 2-Substantial/Maximal Assistance-helper does MORE THAN HALF the effort. [place] lifts or holds trunk or limbs and provides more than half the effort. 3-Fvrhmffjr-vapjns does ALL the effort. Patient does none of the effort to complete the activity. Or, the assistance of 2 or more helpers is required for the patient to complete the activity. If activity was not attempted, code reason: 7-Patient Refused. 9-Not Applicable-not attempted and the patient did not perform the activity before the current illness, exacerbation or injury. 10-Not Attempted due to Environmental Limitations-(lack of equipment, weather restraints, etc.). 88-Not Attempted due to Medical Conditions or Safety Concerns. Roll Left & Right (QC): 3 Sit to Lying (QC): 3 Sit to Stand (QC): 3 Chair/Opi-zp-Jtqdr Xfer(QC): 3 Toilet Transfer (QC): 3 sit to stand and SPTs with OT focusing on UEs and instruction and PT on balance and wt shift and LE movement and steps Gait Training Does the Patient Walk?: Yes Gait Assistive Device: Parallel Bars 2-3 steps inside // bars pregait activity wt shift and sway OT focusing on safety with PT as well as LUE use and function Wheelchair Training Does the Pt Use a Wheelchair?: Yes Wheel 50 ft with 2 turns (QC): 3 Type of Wheelchair: Manual needs mod assist for steering and use of propulsion with RU&L extr Exercises Seated Therapy Exercises: Ankle pumps, Sit to stand, Long arc quads, Shoulder Abd Seated Reps: 12 Treatments PT OT co Rx for dressing, toileting, w/c ,mob, sit to stand and pre gait activity. pt. at low level activity requiring the participation of 2 skilled clinicians Assessment Current Status: Good Progress PT Senior Care Goals Senior Care Goals PT Hair Weaver Goals Time Frame: Dec 14, 2020 Roll Left & Right (QC): 5 Sit to Lying (QC): 5 Lying-Sitting on Side/Bed(QC): 5 Sit to Stand (QC): 5 Chair/Lft-br-Mmhqv Xfer(QC): 5 Toilet Transfer (QC): 5 Car Transfer (QC): 5 Does the Patient Walk: Yes Walk 10 feet (QC): 5 Walk 50ft with 2 Turns (QC): 5 Walk 150 ft (QC): 5 Walking 10ft on Uneven Surface: 5 1 Step (curb) (QC): 4 4 Steps (QC): 9 12 Steps (QC): 9 Picking up an Object (QC): 4 Does the Pt use WC or Scooter?: No Wheel 50 feet with 2 turns (QC: 9 Wheel 150 feet: 9 PT Plan Treatment/Plan Treatment Plan: Continue Plan of Care Treatment Duration: Dec 14, 2020 Frequency: At least 5 of 7 days/Wk (IRF) Estimated Hrs Per Day: 1.5 hours per day Patient and/or Family Agrees t: Yes Safety Risks/Education Patient Education: Gait Training, Transfer Techniques, Correct Positioning, W/C Management, Disease Process, Safety Issues Teaching Recipient: Patient Teaching Methods: Demonstration, Discussion Response to Teaching: Verbalize Understanding, Return Demonstration, Reinforcement Needed Time/GCodes Time In: 900 Time Out: 1000 Total Billed Treatment Time: 60 Total Billed Treatment 1,FA45m,WC15m RAVIN MANCERA YOKER MACHINE OPERATOR Nov 25, 2020 10:07
--- NOTE | 2020-11-25 10:18 | Occupational Ther Daily Note ---
OT Current Status-Daily Note Subjective Pt alert, sitting in recliner. Pt agrees to therapy. No c/o pain. Pt c/o increased blurriness in eyes. Mental Status/Objective Patient Orientation: Person, Place, Time, Situation Attachments: Other-See Comments (heart monitor) ADL-Treatment PT/OT co-treat ([id number]), skilled instruction, care and modification required from 2 clinicians due to pt's fatigue, decreased mobility and fall prevention. PT focusing on transfers, standing and mobility while OT focusing on ADLs, L UE positioning during all mobility and standing. Mod A x1 to transfer from recliner to [facility]. Assist x2 to complete toileting, clothing manipulation and hygiene. Pt dependent with lower body clothing. Max A for upper body dressing. Therapy Code Descriptions/Definitions Functional [place] Measure: 0=Not Assessed/NA 4=Minimal Assistance 1=Total Assistance 5=Supervision or Setup 2=Maximal Assistance 6=Modified [place] 3=Moderate Assistance 7=Complete IndependenceSCALE: Activities may be completed with or without assistive devices. 0-Zeabwpancy-rmhotoc completes the activity by him/herself with no assistance from a helper. 5-Set-up or Clean-up Assistance-helper sets up or cleans up; patient completes activity. [place] assists only prior to or following the activity. 4-Supervision or Touching Assistance-helper provides verbal cues and/or touching/steadying and/or contact guard assistance as patient completes activity. Assistance may be provided throughout the activity or intermittently. 3-Partial/Moderate Assistance-helper does LESS THAN HALF the effort. [place] lifts, holds or supports trunk or limbs, but provides less than half the effort. 2-Substantial/Maximal Assistance-helper does MORE THAN HALF the effort. [place] lifts or holds trunk or limbs and provides more than half the effort. 3-Rgbdemjfp-tqcbit does ALL the effort. Patient does none of the effort to complete the activity. Or, the assistance of 2 or more helpers is required for the patient to complete the activity. If activity was not attempted, code reason: 7-Patient Refused. 9-Not Applicable-not attempted and the patient did not perform the activity before the current illness, exacerbation or injury. 10-Not Attempted due to Environmental Limitations-(lack of equipment, weather restraints, etc.). 88-Not Attempted due to Medical Conditions or Safety Concerns. Upper Body Dressing (QC): 2 Lower Body Dressing (QC): 1 On/Off Footwear: 2 Toileting Hygiene (QC): 1 Toilet Transfer (QC): 2 Other Treatment Pt required assist to propel chair while attempting to propel on own. Pt standing at parallel bars using L hand to grasp bar after being placed, assist to bear weight thru arm by stabilizing L elbow. See PT notes for standing progress. Mod A for SPT from w/c to bed then mod A to go from sitting to supine. Pt then working on L UE AROM. Pt's L UE weak though is demonstrating increased AROM throughout L UE. Pt able to complete 10 shlr shrugs, 10 scapular retractions with movement diminishing by the end. APROM for shldr flexion. Tricep and bicep movement noted against gravity. Wrist extension noted when positioned to discourage compensatory patterns from bicep. Pt able to flex/extend fingers though requires concentration for extension. After therapy, pt on phone with . Call light/phone in reach. All needs met in room. OT Short Term Goals Short Term Goals Time Frame: Dec 07, 2020 Eatin Oral hygiene: 6 Toileting hygiene: 2 Shower/bathe self: 2 Upper body dressin Lower body dressin Putting on/taking off footwear: 2 OT [employer] Goals Residential Goals Time Frame: Dec 24, 2020 Eating (QC): 6 Oral Hygiene (QC): 6 Toileting Hygiene (QC): 4 Shower/Bathe Self (QC): 4 Upper Body Dressing (QC): 6 Lower Body Dressing (QC): 4 On/Off Footwear (QC): 3 Additional Goals: 1-Demonstrate ADL Tasks, 2-Verbalize Understanding, 3- ImproveStrength/Sola 1=Demonstrate adherence to instructed precautions during ADL tasks. 2=Patient will verbalize/demonstrate understanding of assistive devices/modifications for ADL. 3=Patient will improve strength/tolerance for activity to enable patient to perform ADL's. OT Education/Plan Problem List/Assessment Assessment: Decreased Activ Tolerance, Decreased UE Strength, Impaired Bed Mobility, Impaired Coordination, Impaired Funct Balance, Impaired Self-Care Skills, Restricted Funct UE ROM Discharge Recommendations Plan/Recommendations: Continue POC Treatment Plan/Plan of Care Patient would benefit from OT for education, treatment and training to promote independence in ADL's, mobility, safety and/or upper extremity function for ADL's. Plan of Care: ADL Retraining, Caregiver Training, Concurrent Therapy, Functional Mobility, Group Exercise/Act as Ind, Orthotic Fitting/Training, UE Funct Exercise/Act, UE Neuromus Re-Ed/Coord, Visual/Perceptual Retrain, W/C M anagement Training Treatment Duration: Dec 24, 2020 Frequency: At least 5 of 7 days/Wk (IRF) Estimated Hrs Per Day: 1.5 hours per day Agreement: Yes Rehab Potential: Good Time/GCodes Start Time: 09:00 Stop Time: 10:15 Total Time Billed (hr/min): 75 Billed Treatment Time 1 visit-ADL2 (30 min) NM 3 (45 min) co-treat with PT [id number], individual [id number] ALLA MACDONALD Nov 25, 2020 10:18
--- NOTE | 2020-11-25 12:40 | Consultation-Cardiology ---
HPI-Cardiology Cardiology Consultation Date of Consultation 11/25/20 Date of Admission Time Seen by Provider: 12:35 Indication: acute CVA HPI 70-year-old lady with history of hypertension, [facility]. She did not any previous history of stroke. She started to have signs and symptoms of left-sided weakness on November 13, 2020 and started using a walker then went to the emergency room and reported spinal disease, symptoms heart worsened and went to the emergency room and she was diagnosed with CVA in the right occipital region. She still having weakness on the left side. No chest pain. No palpitation. She had an event recorder placed to monitor for arrhythmia. Home Medications & Allergies Allergies: Coded Allergies: Penicillins (Verified Allergy, Unknown, RASH, 11/23/20) mushroom (Verified Adverse Reaction, Severe, 11/24/20) atorvastatin (Verified Adverse Reaction, Unknown, MADE LEGS LIKE JELLY, 11/23/20) gabapentin (Verified Adverse Reaction, Unknown, 11/23/20) Uncoded Allergies: MUSHROOMS (Allergy, Severe, Anaphylaxis, 11/24/20) Home Medication List Reviewed: Yes LYK-Nsvuvf-Rcfasx Hx Patient Social History Marital Status: Employed/Student: employed Recreational Drug Use: No Smoking Status: Former Smoker Recent Hopitalizations: Yes Physical Abuse Screen: No Sexual Abuse: No Have you traveled recently?: No Alcohol Use?: No Immunizations Up To Date Date of Influenza Vaccine: Sep 23, 2020 Past Medical History Discussed below Family Medical History Family Medical Hx Noncontributory Review of Systems-General Review of Systems Constitutional: see HPI, malaise, weakness EENTM: see HPI, no symptoms reported Respiratory: no symptoms reported, see HPI Cardiovascular: see HPI Gastrointestinal: no symptoms reported, see HPI Genitourinary: no symptoms reported, see HPI Musculoskeletal: see HPI, muscle weakness, other (CVA) Skin: no symptoms reported, see HPI Psychiatric/Neurological: Numbness, Tingling, Weakness Reviewed Test Results Reviewed Test Results Lab Laboratory Tests Test 11/24/20 16:12 11/24/20 20:32 11/25/20 06:05 11/25/20 11:00 Range/Units Glucometer 141 H 142 H 138 H 202 H 70-110 MG/DL Physical Exam Physical Exam Vital Signs Vital Signs - First Documented 11/23/20 11:19 Temp 36.2 Pulse 70 Resp 22 B/P (MAP) 172/81 (111) Pulse Ox 99 O2 Delivery Room Air Capillary Refill : Height, Weight, BMI Height: '" Weight: lbs. oz. kg; BMI Method: General Appearance: No Apparent Distress, WD/WN, Chronically ill, Obese Eyes: Bilateral Eye Normal Inspection, Bilateral Eye PERRL HEENT: PERRL/EOMI, Normal ENT Inspection, Pharynx Normal Neck: Full Range of Motion, Normal Inspection, Non Tender, Supple, Carotid Bruit Respiratory: Chest Non Tender, Lungs Clear, Normal Breath Sounds, No Accessory Muscle Use, No Respiratory Distress Cardiovascular: Regular Rate, Rhythm, No Edema, No Gallop, No JVD, No Murmur, Normal Peripheral Pulses Gastrointestinal: Normal Bowel Sounds, No Organomegaly, No Pulsatile Mass, Non Tender, Soft Back: Normal Inspection, No CVA Tenderness, No Vertebral Tenderness Extremity: Normal Capillary Refill, Normal Inspection, Non Tender, No Pedal Edema Neurologic/Psychiatric: Alert, Oriented x3, Abnormal Gait, Depressed Affect, Motor Weakness (left side 2/5 upper and lower extremity) Skin: Normal Color, Warm/Dry Lymphatic: No Adenopathy A/P-Cardiology Admission Diagnosis Cryptogenic stroke Hypertension Hyperlipidemia Diabetes mellitus Assessment/Plan 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 Continue with physical therapy at this time. Hypertension, restart home medication monitor blood pressure Diabetes mellitus, followed and managed by primary care physician Hyperlipidemia, patient is diabetic, had a recent stroke, will need to initiate statin treatment after evaluating lipid profile Diabetic retinopathy, followed and managed by primary care physician Fibromyalgia, followed and managed by primary care physician Gastroesophageal reflux disease, gastroparesis, obesity. RAMEZ THAKKAR MD Nov 25, 2020 12:40
--- NOTE | 2020-11-25 13:14 | PM&R Progress Note ---
Subjective HPI/CC On Admission Date Seen by Provider: Nov 25, 2020 Time Seen by Provider: 12:45 Subjective/Events-last exam 11/25/20: Vision is a significant issue for her now Cardiology will place loop recorder on Saturday No falls Able to regain some function left hand and leg 11/24/20: Pt settling in pretty well Dizziness noted Bowels moved yesterday Reviewed home medications Review of Systems General: Fatigue, Malaise Neurological: Weakness, Incoordination Objective Exam Vital Signs Vital Signs Date Time Temp Pulse Resp B/P (MAP) Pulse Ox O2 Delivery O2 Flow Rate FiO2 11/26/20 05:17 36.9 66 18 136/67 (90) 95 Room Air Capillary Refill : General Appearance: No Apparent Distress, WD/WN, Chronically ill, Obese HEENT: PERRL/EOMI, Normal ENT Inspection, Pharynx Normal Neck: Full Range of Motion, Normal Inspection, Non Tender, Supple, Carotid Bruit Respiratory: Chest Non Tender, Lungs Clear, Normal Breath Sounds, No Accessory Muscle Use, No Respiratory Distress Cardiovascular: Regular Rate, Rhythm, No Edema, No Gallop, No JVD, No Murmur, Normal Peripheral Pulses Gastrointestinal: Normal Bowel Sounds, No Organomegaly, No Pulsatile Mass, Non Tender, Soft Back: Normal Inspection, No CVA Tenderness, No Vertebral Tenderness Extremity: Normal Capillary Refill, Normal Inspection, Non Tender, No Pedal Edema Neurologic/Psychiatric: Alert, Oriented x3, Abnormal Gait, Depressed Affect, Motor Weakness (left side 2/5 upper and lower extremity) Skin: Normal Color, Warm/Dry Lymphatic: No Adenopathy Results/Procedures Lab Laboratory Tests 11/26/20 05:17 Patient resulted labs reviewed. FIM Transfers Therapy Code Descriptions/Definitions Functional [place] Measure: 0=Not Assessed/NA 4=Minimal Assistance 1=Total Assistance 5=Supervision or Setup 2=Maximal Assistance 6=Modified [place] 3=Moderate Assistance 7=Complete IndependenceSCALE: Activities may be completed with or without assistive devices. 4-Fmtchamoqa-lhphqbt completes the activity by him/herself with no assistance from a helper. 5-Set-up or Clean-up Assistance-helper sets up or cleans up; patient completes activity. [place] assists only prior to or following the activity. 4-Supervision or Touching Assistance-helper provides verbal cues and/or touching/steadying and/or contact guard assistance as patient completes activity. Assistance may be provided throughout the activity or intermittently. 3-Partial/Moderate Assistance-helper does LESS THAN HALF the effort. [place] lifts, holds or supports trunk or limbs, but provides less than half the effort. 2-Substantial/Maximal Assistance-helper does MORE THAN HALF the effort. [place] lifts or holds trunk or limbs and provides more than half the effort. 7-Blcmoonuf-uyerud does ALL the effort. Patient does none of the effort to complete the activity. Or, the assistance of 2 or more helpers is required for the patient to complete the activity. If activity was not attempted, code reason: 7-Patient Refused. 9-Not Applicable-not attempted and the patient did not perform the activity before the current illness, exacerbation or injury. 10-Not Attempted due to Environmental Limitations-(lack of equipment, weather restraints, etc.). 88-Not Attempted due to Medical Conditions or Safety Concerns. Roll Left to Right (QC): 3 Sit to Lying (QC): 3 Sit to Stand (QC): 3 Chair/Cac-ov-Agktz Xfer(QC): 3 Car Transfer (QC): 88 Gait Training Does the Patient Walk?: Yes Distance: 10ft Walk 10 feet (QC): 3 Walk 50 ft with 2 Turns(QC): 88 Walk 150 ft (QC): 88 Walking 10ft/uneven surface-QC: 88 Gait Persons Needed: 1 Gait Assistive Device: Parallel Bars Wheelchair Training Does the Pt Use a Wheelchair?: Yes Wheel 50 ft with 2 turns (QC): 3 Wheel 150 ft (QC): 9 Type of Wheelchair: Manual Stair Training 1 Step (curb) (QC): 88 4 Steps (QC): 88 12 Steps (QC): 88 Balance Picking up an Object (QC): 88 ADL-Treatment Eating (QC): 5 Oral Hygiene (QC): 5 Shower/Bathe Self (QC): 1 Upper Body Dressing (QC): 2 Lower Body Dressing (QC): 1 On/Off Footwear (QC): 2 Toileting Hygiene (QC): 1 Toilet Transfer (QC): 2 Assessment/Plan Assessment and Plan Assess & Plan/Chief Complaint Assessment: CVA with left sided weakness Fibromyalgia GERD Gastroparesis Neuropathy DM HTN HLP Glaucoma Diabetic retinopathy Obesity Plan: IRF protocol Home meds DM management 11/24/20: Sugar management Monitor pain Monitor dizziness 11/25/20: Vision loss is problematic Cardiology appreciated Monitor closely (1) Fibromyalgia (2) Cervical spine disease (3) Obesity (4) Diabetes (5) Gastroparesis (6) GERD (gastroesophageal reflux disease) (7) Neuropathy (8) Glaucoma (9) Former smoker (10) CVA (cerebral vascular accident) SALVADOR SPARKS DO Nov 25, 2020 13:14
[2020-11-25] MEDS: ACETAMINOPHEN 325 MG TABLET PO PRN (13:27)
--- NOTE | 2020-11-25 13:36 | Physical Therapy Daily Note ---
PT Daily Note-Current Subjective Up in recliner, agrees to Rx. Has headache at 7/10, requests pain meds. Wants to sit up in recliner this aftn Pain Numeric Pain Scale: 7 Location: Medial Location Body Site: Head Pain Description: Ache Mental Status Patient Orientation: Person, Place, Time, Situation Transfers SCALE: Activities may be completed with or without assistive devices. 6-Uyjxzvvdcw-pludaet completes the activity by him/herself with no assistance from a helper. 5-Set-up or Clean-up Assistance-helper sets up or cleans up; patient completes activity. [place] assists only prior to or following the activity. 4-Supervision or Touching Assistance-helper provides verbal cues and/or touching/steadying and/or contact guard assistance as patient completes activity. Assistance may be provided throughout the activity or intermittently. 3-Partial/Moderate Assistance-helper does LESS THAN HALF the effort. [place] lifts, holds or supports trunk or limbs, but provides less than half the effort. 2-Substantial/Maximal Assistance-helper does MORE THAN HALF the effort. [place] lifts or holds trunk or limbs and provides more than half the effort. 7-Gohbpnxsb-iwltna does ALL the effort. Patient does none of the effort to complete the activity. Or, the assistance of 2 or more helpers is required for the patient to complete the activity. If activity was not attempted, code reason: 7-Patient Refused. 9-Not Applicable-not attempted and the patient did not perform the activity before the current illness, exacerbation or injury. 10-Not Attempted due to Environmental Limitations-(lack of equipment, weather restraints, etc.). 88-Not Attempted due to Medical Conditions or Safety Concerns. pt. instructed in pushing up in recliner using bilat LEs and right UE, pt. in fully recliner position then rolled left to right slightly, sit to stand x 2 with mod to min assist and use of lift chair mechanism Exercises Supine Ex: Ankle pumps (assisted left'), Quad Set, Rolling, Glut sets, Heel Slides (assistd left), Scooting, Straight leg raise (assisted left), Hip abd/add (assisted left) Supine Reps: 15 Seated Therapy Exercises: Ankle pumps, Sit to stand, Long arc quads, Hip flexion Seated Reps: 15 Assessment Current Status: Good Progress PT [employer] Counselor Goals Snf Goals PT [employer] Counselor Goals Time Frame: Dec 14, 2020 Roll Left & Right (QC): 5 Sit to Lying (QC): 5 Lying-Sitting on Side/Bed(QC): 5 Sit to Stand (QC): 5 Chair/Lnt-dd-Qfsdf Xfer(QC): 5 Toilet Transfer (QC): 5 Car Transfer (QC): 5 Does the Patient Walk: Yes Walk 10 feet (QC): 5 Walk 50ft with 2 Turns (QC): 5 Walk 150 ft (QC): 5 Walking 10ft on Uneven Surface: 5 1 Step (curb) (QC): 4 4 Steps (QC): 9 12 Steps (QC): 9 Picking up an Object (QC): 4 Does the Pt use WC or Scooter?: No Wheel 50 feet with 2 turns (QC: 9 Wheel 150 feet: 9 PT Plan Treatment/Plan Treatment Plan: Continue Plan of Care Treatment Duration: Dec 14, 2020 Frequency: At least 5 of 7 days/Wk (IRF) Estimated Hrs Per Day: 1.5 hours per day Patient and/or Family Agrees t: Yes Safety Risks/Education Patient Education: Transfer Techniques, Correct Positioning, Disease Process, Safety Issues Teaching Recipient: Patient Teaching Methods: Demonstration, Discussion Response to Teaching: Verbalize Understanding, Return Demonstration, Reinforcement Needed Time/GCodes Time In: 1300 Time Out: 1330 Total Billed Treatment Time: 30 Total Billed Treatment 1,FA15,EX15m RAVIN MANCERA MECHANICAL REPAIR WORKER Nov 25, 2020 13:36
--- NOTE | 2020-11-25 15:15 | Speech Therapy Daily Note ---
Speech Daily Progress Note Subjective Date Seen by Provider: Nov 25, 2020 Time Seen by Provider: 00:30 Patient was sitting up in her recliner, c/o being unable to see to read the white board, her menu or her phone. Clinician called her to relay her room phone # and address. Objective Patient completed a series of "what if?" scenarios she may encounter upon her discharge home with 80% given moderate cues. Assessment Assessment Current Status: Fair Progress Treatment Plan Continue Plan of Care Speech Short Term Goals Short Term Goals Short Term Goals 1) The patient will complete memory tasks related to her daily needs at 90% or greater. 2) The patient will complete safety awareness tasks related to her daily needs at 90% or greater. 3) The patient will complete problem solving tasks related to her daily needs at 90% or greater. 4) The patient will complete speech production tasks related to her communication needs at 90% or greater. Speech [employer] Research Engineer Goals Assisted Goals Patient will improve speech production to 90% or greater for effective communication. Patient will improve cognitive-communication necessary for safety and daily living tasks with minimal assist. Speech-Plan Patient/Family Goals Patient/Family Goals: Patient plans on returning to her home where she lives with her . Treatment Plan Speech Therapy Treatment Plan: Continue Plan of Care Treatment Duration: Dec 09, 2020 Frequency: 4 times per week (Patient will receive skilled ST 4-5x per week) Estimated Hrs Per Day: .5 hour per day Rehab Potential: Good Barriers to Learning: Patient's recent CVA, decline in function Pt/Family Agrees to Plan: Yes Safety Risks/Education Teaching Recipient: Patient Teaching Methods: Demonstration, Discussion Response to Teaching: Verbalize Understanding, Return Demonstration Education Topics Provided: Safety within her room, communication of wants/needs Time Speech Therapy Time In: 08:30 Speech Therapy Time Out: 09:00 Total Billed Time: 30 Billed Treatment Time 1, PELON Gastelum Nov 25, 2020 15:15
[2020-11-25 16:21] VITALS: BP 118/56
[2020-11-25] MEDS: LATANOPROST 0.005% (XALATAN) OPHTH SOLN 2.5 ML OU SCH (20:59)
[2020-11-25] MEDS: MELATONIN 3 MG TABLET PO PRN (21:00)
[2020-11-25] MEDS: OPTH OU SCH (21:11)
[2020-11-25] MEDS: RHOPRESSA 0.02% OU SCH (21:11)
[2020-11-26 05:17] VITALS: BP 136/67
[2020-11-26 05:46] LABS: MEAN PLATELET VOLUME 11.8 fL (9.0-12.2); WHITE BLOOD COUNT 4.8 10^3/uL (4.3-11.0)
[2020-11-26 06:11] LABS: POTASSIUM 4.4 MMOL/L (3.6-5.0)
[2020-11-26 06:12] LABS: ALBUMIN 3.3 GM/DL (3.2-4.5)
[2020-11-26 06:13] LABS: CALCIUM 8.9 MG/DL (8.5-10.1)
[2020-11-26 06:14] LABS: TOTAL PROTEIN 6.2 GM/DL (6.4-8.2)
[2020-11-26 06:16] LABS: BILIRUBIN,TOTAL 0.5 MG/DL (0.1-1.0)
[2020-11-26] MEDS: inSUlin ASPART (NovoLOG) 1 UNIT/0.01 ML (CHARGE PER UNIT) SC SCH ×7 (06:16→20:40)
[2020-11-26 06:18] LABS: CREATININE SERUM 0.93 MG/DL (0.60-1.30)
[2020-11-26] MEDS: LORATADINE (CLARITIN) 10 MG TAB PO SCH (10:06)
[2020-11-26] MEDS: amLODIPine 10 MG (NORVASC) TAB PO SCH (10:07)
[2020-11-26] MEDS: DOCUSATE SODIUM 100 MG (COLACE) CAP PO SCH ×2 (10:07→20:35)
[2020-11-26] MEDS: lisINopril 40 MG (PRINIVIL) TABLET PO SCH (10:07)
[2020-11-26] MEDS: CLOPIDOGREL 75 MG (PLAVIX) TABLET PO SCH (10:07)
[2020-11-26] MEDS: PANTOPRAZOLE 40 MG (PROTONIX) TAB PO SCH (10:07)
[2020-11-26] MEDS: PREGABALIN 75 MG (LYRICA) CAP PO SCH ×2 (10:07→20:35)
[2020-11-26] MEDS: SENNA W/DOCUSATE (SENOKOT S) TABLET PO SCH ×2 (10:07→20:40)
[2020-11-26] MEDS: VITAMIN D3 125 MCG (5,000 UNITS) CAPSULE PO SCH (10:07)
[2020-11-26] MEDS: polyethylene glycoL POWDER 17 GM (MIRALAX) PACK PO SCH ×2 (10:08→20:40)
--- NOTE | 2020-11-26 10:32 | Cardiology Progress Note ---
Subjective Date Seen by Provider: Nov 26, 2020 Time Seen by Provider: 10:30 Subjective/Events-last exam Patient was seen at bedside, sitting comfortably, denied any active pain, improving slowly Review of Systems General: No Chills, No Night Sweats; Fatigue, Malaise; No Appetite, No Other HEENT: No Head Aches, No Visual Changes, No Eye Pain, No Ear Pain, No Dysphasi a, No Sinus Congestion, No Post Nasal Drip, No Sore Throat, No Other Pulmonary: No Dyspnea, No Cough, No Pleuritic Chest Pain, No Other Cardiovascular: No: Chest Pain, Palpitations, Orthopnea, Paroxysmal Noc. Dyspnea, Edema, Lt Headedness, Other Objective-Cardiology Exam Last Set of Vital Signs Vital Signs 11/26/20 05:17 Temp 36.9 Pulse 66 Resp 18 B/P (MAP) 136/67 (90) Pulse Ox 95 O2 Delivery Room Air Capillary Refill : I&O Intake and Output 11/26/20 00:00 Intake Total 1790 ml Balance 1790 ml Intake Oral 1790 ml # Voids 5 # Bowel Movements 1 General: Alert, Oriented X3, Cooperative HEENT: Atraumatic, PERRLA Neck: Supple, No JVD, No Thyromegaly Lungs: Clear to Auscultation, Normal Air Movement Heart: Regular Rate, Normal S1, Normal S2, No Murmurs Abdomen: Normal Bowel Sounds, Soft, No Tenderness, No Hepatosplenomegaly, No Masses Extremities: No Clubbing, No Cyanosis, No Edema, Normal Pulses, No Tenderness/Swelling Skin: No Rashes, No Breakdown, No Significant Lesion Neuro: Strength at 5/5 X4 Ext, Sensation Intact, Other (hemiplegia) Psych/Mental Status: Mood NL Results Lab Laboratory Tests 11/26/20 05:17 A/P-Cardiology Admission Diagnosis Cryptogenic stroke Hypertension Hyperlipidemia Diabetes mellitus Assessment/Plan 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 Continue with physical therapy at this time. Hypertension, continue current medication monitor blood pressure Diabetes mellitus, followed and managed by primary care physician Lipid profile done on November 26, 2020 showing total cholesterol 122, LDL 64. Continue to monitor Diabetic retinopathy, followed and managed by primary care physician Fibromyalgia, followed and managed by primary care physician Gastroesophageal reflux disease, gastroparesis, obesity. RAMEZ THAKKAR MD Nov 26, 2020 10:32
--- NOTE | 2020-11-26 12:08 | Physical Therapy Daily Note ---
PT Daily Note-Current Subjective Pt up in recliner, ready for PT. Pt requests to put on her clothes. Pt expresses at the end of treatment she is pleased with her performance and progress made today. Mental Status Patient Orientation: Person, Place, Situation Transfers SCALE: Activities may be completed with or without assistive devices. 7-Iiprgfpswc-fwfjpfv completes the activity by him/herself with no assistance from a helper. 5-Set-up or Clean-up Assistance-helper sets up or cleans up; patient completes activity. [place] assists only prior to or following the activity. 4-Supervision or Touching Assistance-helper provides verbal cues and/or touching/steadying and/or contact guard assistance as patient completes activity. Assistance may be provided throughout the activity or intermittently. 3-Partial/Moderate Assistance-helper does LESS THAN HALF the effort. [place] lifts, holds or supports trunk or limbs, but provides less than half the effort. 2-Substantial/Maximal Assistance-helper does MORE THAN HALF the effort. [place] lifts or holds trunk or limbs and provides more than half the effort. 8-Yepprujun-tlaxky does ALL the effort. Patient does none of the effort to complete the activity. Or, the assistance of 2 or more helpers is required for the patient to complete the activity. If activity was not attempted, code reason: 7-Patient Refused. 9-Not Applicable-not attempted and the patient did not perform the activity before the current illness, exacerbation or injury. 10-Not Attempted due to Environmental Limitations-(lack of equipment, weather restraints, etc.). 88-Not Attempted due to Medical Conditions or Safety Concerns. Treatments (L) LE ther ex: AP, LAQ and hip flexion x 10. Pt donned sweats and sweat shirt with mod A. Pt amb with lucita walker 1 x 10' and 1 x 6' with close f/u of w/c. Provided manual support and (L) shoulder joint approximation during ambulation. Pt felt she needed it for balance. Pt back to recliner with call light and all needs met. Assessment Current Status: Good Progress Pt able to advance (L) LE nicely. Pt showed good balance. Pt might benefit from platform walker as she felt she needed support to (L) UE for balance. Pt progressing nicely per pt. PT Grinder And Plater Goals Group Home Goals PT Grinder And Plater Goals Time Frame: Dec 14, 2020 Roll Left & Right (QC): 5 Sit to Lying (QC): 5 Lying-Sitting on Side/Bed(QC): 5 Sit to Stand (QC): 5 Chair/Utp-mz-Gmuxo Xfer(QC): 5 Toilet Transfer (QC): 5 Car Transfer (QC): 5 Does the Patient Walk: Yes Walk 10 feet (QC): 5 Walk 50ft with 2 Turns (QC): 5 Walk 150 ft (QC): 5 Walking 10ft on Uneven Surface: 5 1 Step (curb) (QC): 4 4 Steps (QC): 9 12 Steps (QC): 9 Picking up an Object (QC): 4 Does the Pt use WC or Scooter?: No Wheel 50 feet with 2 turns (QC: 9 Wheel 150 feet: 9 PT Plan Treatment/Plan Treatment Plan: Continue Plan of Care Treatment Duration: Dec 14, 2020 Frequency: At least 5 of 7 days/Wk (IRF) Estimated Hrs Per Day: 1.5 hours per day Patient and/or Family Agrees t: Yes Time/GCodes Time In: 850 Time Out: 915 Total Billed Treatment Time: 25 Total Billed Treatment 1, gait x 25' JOSE LUIS TEJEDA CPTA Nov 26, 2020 12:08
--- NOTE | 2020-11-26 12:34 | PM&R Progress Note ---
Subjective HPI/CC On Admission Date Seen by Provider: Nov 26, 2020 Time Seen by Provider: 12:45 Subjective/Events-last exam 11/26/20: Patient sleepy today Home CPAP will be brought in by family soon BM daily Walked 16 feet with hemicane Transfers are easier 11/25/20: Vision is a significant issue for her now Cardiology will place loop recorder on Saturday No falls Able to regain some function left hand and leg 11/24/20: Pt settling in pretty well Dizziness noted Bowels moved yesterday Reviewed home medications Review of Systems HEENT: Visual Changes Neurological: Weakness, Incoordination Objective Exam Vital Signs Vital Signs Date Time Temp Pulse Resp B/P (MAP) Pulse Ox O2 Delivery O2 Flow Rate FiO2 11/27/20 05:56 36.2 62 18 133/62 (85) 96 Room Air Capillary Refill : General Appearance: No Apparent Distress, WD/WN, Chronically ill, Obese HEENT: PERRL/EOMI, Normal ENT Inspection, Pharynx Normal Neck: Full Range of Motion, Normal Inspection, Non Tender, Supple, Carotid Bruit Respiratory: Chest Non Tender, Lungs Clear, Normal Breath Sounds, No Accessory Muscle Use, No Respiratory Distress Cardiovascular: Regular Rate, Rhythm, No Edema, No Gallop, No JVD, No Murmur, Normal Peripheral Pulses Gastrointestinal: Normal Bowel Sounds, No Organomegaly, No Pulsatile Mass, Non Tender, Soft Back: Normal Inspection, No CVA Tenderness, No Vertebral Tenderness Extremity: Normal Capillary Refill, Normal Inspection, Non Tender, No Pedal Edema Neurologic/Psychiatric: Alert, Oriented x3, Abnormal Gait, Depressed Affect, Motor Weakness (left side 2/5 upper and lower extremity) Skin: Normal Color, Warm/Dry Lymphatic: No Adenopathy Results/Procedures Lab Patient resulted labs reviewed. FIM Transfers Therapy Code Descriptions/Definitions Functional [place] Measure: 0=Not Assessed/NA 4=Minimal Assistance 1=Total Assistance 5=Supervision or Setup 2=Maximal Assistance 6=Modified [place] 3=Moderate Assistance 7=Complete IndependenceSCALE: Activities may be completed with or without assistive devices. 5-Ghkcnwoboz-uzqyypt completes the activity by him/herself with no assistance from a helper. 5-Set-up or Clean-up Assistance-helper sets up or cleans up; patient completes activity. [place] assists only prior to or following the activity. 4-Supervision or Touching Assistance-helper provides verbal cues and/or touching/steadying and/or contact guard assistance as patient completes activity. Assistance may be provided throughout the activity or intermittently. 3-Partial/Moderate Assistance-helper does LESS THAN HALF the effort. [place] lifts, holds or supports trunk or limbs, but provides less than half the effort. 2-Substantial/Maximal Assistance-helper does MORE THAN HALF the effort. [place] lifts or holds trunk or limbs and provides more than half the effort. 0-Vrrehumyo-wpruxd does ALL the effort. Patient does none of the effort to complete the activity. Or, the assistance of 2 or more helpers is required for the patient to complete the activity. If activity was not attempted, code reason: 7-Patient Refused. 9-Not Applicable-not attempted and the patient did not perform the activity before the current illness, exacerbation or injury. 10-Not Attempted due to Environmental Limitations-(lack of equipment, weather restraints, etc.). 88-Not Attempted due to Medical Conditions or Safety Concerns. Roll Left to Right (QC): 3 Sit to Lying (QC): 3 Sit to Stand (QC): 3 Chair/Ekt-xr-Tqibb Xfer(QC): 3 Car Transfer (QC): 88 Gait Training Does the Patient Walk?: Yes Distance: 10ft Walk 10 feet (QC): 3 Walk 50 ft with 2 Turns(QC): 88 Walk 150 ft (QC): 88 Walking 10ft/uneven surface-QC: 88 Gait Persons Needed: 1 Gait Assistive Device: Parallel Bars Wheelchair Training Does the Pt Use a Wheelchair?: Yes Wheel 50 ft with 2 turns (QC): 3 Wheel 150 ft (QC): 9 Type of Wheelchair: Manual Stair Training 1 Step (curb) (QC): 88 4 Steps (QC): 88 12 Steps (QC): 88 Balance Picking up an Object (QC): 88 ADL-Treatment Eating (QC): 5 Oral Hygiene (QC): 5 Shower/Bathe Self (QC): 1 Upper Body Dressing (QC): 2 Lower Body Dressing (QC): 1 On/Off Footwear (QC): 2 Toileting Hygiene (QC): 1 Toilet Transfer (QC): 2 Assessment/Plan Assessment and Plan Assess & Plan/Chief Complaint Assessment: CVA with left sided weakness Fibromyalgia GERD Gastroparesis Neuropathy DM HTN HLP Glaucoma Diabetic retinopathy Obesity Plan: IRF protocol Home meds DM management 11/24/20: Sugar management Monitor pain Monitor dizziness 11/25/20: Vision loss is problematic Cardiology appreciated Monitor closely 11/26/20: Improved ambulation with lucita-cane Doing well Vision loss limiting factor (1) Fibromyalgia (2) Cervical spine disease (3) Obesity (4) Diabetes (5) Gastroparesis (6) GERD (gastroesophageal reflux disease) (7) Neuropathy (8) Glaucoma (9) Former smoker (10) CVA (cerebral vascular accident) SALVADOR SPARKS DO Nov 26, 2020 12:34
[2020-11-26 16:34] VITALS: BP 130/63
[2020-11-26] MEDS: MELATONIN 3 MG TABLET PO PRN (20:35)
[2020-11-26] MEDS: LATANOPROST 0.005% (XALATAN) OPHTH SOLN 2.5 ML OU SCH (20:37)
[2020-11-26] MEDS: OPTH OU SCH (20:44)
[2020-11-26] MEDS: RHOPRESSA 0.02% OU SCH (20:44)
[2020-11-27 05:56] VITALS: BP 133/62
[2020-11-27] MEDS: inSUlin ASPART (NovoLOG) 1 UNIT/0.01 ML (CHARGE PER UNIT) SC SCH ×7 (06:00→20:57)
[2020-11-27 09:50] VITALS: BP 113/64
[2020-11-27] MEDS: lisINopril 40 MG (PRINIVIL) TABLET PO SCH (09:59)
[2020-11-27] MEDS: PREGABALIN 75 MG (LYRICA) CAP PO SCH ×2 (09:59→20:50)
[2020-11-27] MEDS: VITAMIN D3 125 MCG (5,000 UNITS) CAPSULE PO SCH (09:59)
[2020-11-27] MEDS: DOCUSATE SODIUM 100 MG (COLACE) CAP PO SCH ×2 (09:59→20:50)
[2020-11-27] MEDS: amLODIPine 10 MG (NORVASC) TAB PO SCH (09:59)
[2020-11-27] MEDS: SENNA W/DOCUSATE (SENOKOT S) TABLET PO SCH ×2 (09:59→20:56)
[2020-11-27] MEDS: CLOPIDOGREL 75 MG (PLAVIX) TABLET PO SCH (09:59)
[2020-11-27] MEDS: PANTOPRAZOLE 40 MG (PROTONIX) TAB PO SCH (09:59)
[2020-11-27] MEDS: LORATADINE (CLARITIN) 10 MG TAB PO SCH (09:59)
[2020-11-27] MEDS: polyethylene glycoL POWDER 17 GM (MIRALAX) PACK PO SCH ×2 (10:03→20:56)
--- NOTE | 2020-11-27 12:42 | PM&R Progress Note ---
Subjective HPI/CC On Admission Date Seen by Provider: Nov 27, 2020 Time Seen by Provider: 13:30 Subjective/Events-last exam 11/27/20: Used CPAP last night BM today BP good Feels like she is progressing 11/26/20: Patient sleepy today Home CPAP will be brought in by family soon BM daily Walked 16 feet with hemicane Transfers are easier 11/25/20: Vision is a significant issue for her now Cardiology will place loop recorder on Saturday No falls Able to regain some function left hand and leg 11/24/20: Pt settling in pretty well Dizziness noted Bowels moved yesterday Reviewed home medications Review of Systems General: Fatigue Pulmonary: Dyspnea Neurological: Weakness, Incoordination Objective Exam Vital Signs Vital Signs Date Time Temp Pulse Resp B/P (MAP) Pulse Ox O2 Delivery O2 Flow Rate FiO2 11/27/20 09:50 64 113/64 (80) 95 Room Air 11/27/20 05:56 36.2 18 Capillary Refill : General Appearance: No Apparent Distress, WD/WN, Chronically ill, Obese HEENT: PERRL/EOMI, Normal ENT Inspection, Pharynx Normal Neck: Full Range of Motion, Normal Inspection, Non Tender, Supple, Carotid Bruit Respiratory: Chest Non Tender, Lungs Clear, Normal Breath Sounds, No Accessory Muscle Use, No Respiratory Distress Cardiovascular: Regular Rate, Rhythm, No Edema, No Gallop, No JVD, No Murmur, Normal Peripheral Pulses Gastrointestinal: Normal Bowel Sounds, No Organomegaly, No Pulsatile Mass, Non Tender, Soft Back: Normal Inspection, No CVA Tenderness, No Vertebral Tenderness Extremity: Normal Capillary Refill, Normal Inspection, Non Tender, No Pedal Edema Neurologic/Psychiatric: Alert, Oriented x3, Abnormal Gait, Depressed Affect, Motor Weakness (left side 2/5 upper and lower extremity) Skin: Normal Color, Warm/Dry Lymphatic: No Adenopathy Results/Procedures Lab Patient resulted labs reviewed. FIM Transfers Therapy Code Descriptions/Definitions Functional [place] Measure: 0=Not Assessed/NA 4=Minimal Assistance 1=Total Assistance 5=Supervision or Setup 2=Maximal Assistance 6=Modified [place] 3=Moderate Assistance 7=Complete IndependenceSCALE: Activities may be completed with or without assistive devices. 0-Milcnvvpvp-jmpenpq completes the activity by him/herself with no assistance from a helper. 5-Set-up or Clean-up Assistance-helper sets up or cleans up; patient completes activity. [place] assists only prior to or following the activity. 4-Supervision or Touching Assistance-helper provides verbal cues and/or touching/steadying and/or contact guard assistance as patient completes activity. Assistance may be provided throughout the activity or intermittently. 3-Partial/Moderate Assistance-helper does LESS THAN HALF the effort. [place] lifts, holds or supports trunk or limbs, but provides less than half the effort. 2-Substantial/Maximal Assistance-helper does MORE THAN HALF the effort. [place] lifts or holds trunk or limbs and provides more than half the effort. 0-Ufktdezcc-nmlapg does ALL the effort. Patient does none of the effort to complete the activity. Or, the assistance of 2 or more helpers is required for the patient to complete the activity. If activity was not attempted, code reason: 7-Patient Refused. 9-Not Applicable-not attempted and the patient did not perform the activity before the current illness, exacerbation or injury. 10-Not Attempted due to Environmental Limitations-(lack of equipment, weather restraints, etc.). 88-Not Attempted due to Medical Conditions or Safety Concerns. Roll Left to Right (QC): 3 Sit to Lying (QC): 3 Sit to Stand (QC): 3 Chair/Bkl-hk-Shmuf Xfer(QC): 3 Car Transfer (QC): 88 Gait Training Does the Patient Walk?: Yes Distance: 10ft Walk 10 feet (QC): 3 Walk 50 ft with 2 Turns(QC): 88 Walk 150 ft (QC): 88 Walking 10ft/uneven surface-QC: 88 Gait Persons Needed: 1 Gait Assistive Device: Parallel Bars Wheelchair Training Does the Pt Use a Wheelchair?: Yes Wheel 50 ft with 2 turns (QC): 3 Wheel 150 ft (QC): 9 Type of Wheelchair: Manual Stair Training 1 Step (curb) (QC): 88 4 Steps (QC): 88 12 Steps (QC): 88 Balance Picking up an Object (QC): 88 ADL-Treatment Eating (QC): 5 Oral Hygiene (QC): 5 Shower/Bathe Self (QC): 1 Upper Body Dressing (QC): 2 Lower Body Dressing (QC): 1 On/Off Footwear (QC): 2 Toileting Hygiene (QC): 1 Toilet Transfer (QC): 2 Assessment/Plan Assessment and Plan Assess & Plan/Chief Complaint Assessment: CVA with left sided weakness Fibromyalgia GERD Gastroparesis Neuropathy GEREMIAS on CPAP DM HTN HLP Glaucoma Diabetic retinopathy Obesity Plan: IRF protocol Home meds DM management 11/24/20: Sugar management Monitor pain Monitor dizziness 11/25/20: Vision loss is problematic Cardiology appreciated Monitor closely 11/26/20: Improved ambulation with lucita-cane Doing well Vision loss limiting factor 11/27/20: Monitor BP Improved status CPAP use (1) Fibromyalgia (2) Cervical spine disease (3) Obesity (4) Diabetes (5) Gastroparesis (6) GERD (gastroesophageal reflux disease) (7) Neuropathy (8) Glaucoma (9) Former smoker (10) CVA (cerebral vascular accident) SALVADOR SPARKS DO Nov 27, 2020 12:42
--- NOTE | 2020-11-27 13:34 | Cardiology Progress Note ---
Subjective Date Seen by Provider: Nov 27, 2020 Time Seen by Provider: 13:33 Subjective/Events-last exam Vanita Morin is laying down in bed, complaining of itching and erythema at the site of the Zio patch Review of Systems General: No Chills, No Night Sweats, No Fatigue, No Malaise, No Appetite, No Other HEENT: No Head Aches, No Visual Changes, No Eye Pain, No Ear Pain, No Dysphasia, No Sinus Congestion, No Post Nasal Drip, No Sore Throat, No Other Pulmonary: No Dyspnea, No Cough, No Pleuritic Chest Pain, No Other Cardiovascular: No: Chest Pain, Palpitations, Orthopnea, Paroxysmal Noc. Dyspne a, Edema, Lt Headedness, Other Objective-Cardiology Exam Last Set of Vital Signs Vital Signs 11/27/20 11/27/20 05:56 09:50 Temp 36.2 Pulse 64 Resp 18 B/P (MAP) 113/64 (80) Pulse Ox 95 O2 Delivery Room Air Capillary Refill : I&O Intake and Output0 11/27/20 00:00 Intake Total 1330 ml Balance 1330 ml Intake Oral 1330 ml # Voids 5 General: Alert, Oriented X3, Cooperative HEENT: Atraumatic, PERRLA Neck: Supple, No JVD, No Thyromegaly Lungs: Clear to Auscultation, Normal Air Movement Heart: Regular Rate, Normal S1, Normal S2, No Murmurs Abdomen: Normal Bowel Sounds, Soft, No Tenderness, No Hepatosplenomegaly, No Masses Extremities: No Clubbing, No Cyanosis, No Edema, Normal Pulses, No Tenderness/Swelling Skin: No Rashes, No Breakdown, No Significant Lesion Neuro: Strength at 5/5 X4 Ext, Sensation Intact, Other (hemiplegia) Psych/Mental Status: Mood NL A/P-Cardiology Admission Diagnosis Cryptogenic stroke Hypertension Hyperlipidemia Diabetes mellitus Assessment/Plan 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 Continue to monitor Diabetic retinopathy, followed and managed by primary care physician Fibromyalgia, followed and managed by primary care physician Gastroesophageal reflux disease, gastroparesis, obesity. RAMEZ THAKKAR MD Nov 27, 2020 13:34
[2020-11-27 17:16] VITALS: BP 120/59
[2020-11-27 20:48] VITALS: BP 138/63
[2020-11-27] MEDS: LATANOPROST 0.005% (XALATAN) OPHTH SOLN 2.5 ML OU SCH (20:51)
[2020-11-27] MEDS: MELATONIN 3 MG TABLET PO PRN (20:51)
[2020-11-27] MEDS: OPTH OU SCH (20:55)
[2020-11-27] MEDS: RHOPRESSA 0.02% OU SCH (20:55)
[2020-11-28 05:41] LABS: BASOPHILS % (AUTO) 1 % (0-10); EOSINOPHILS # (AUTO) 0.3 10^3/uL (0.0-0.3); EOSINOPHILS % (AUTO) 6 % (0-10); HEMATOCRIT 37 % (35-52); HEMOGLOBIN 11.9 g/dL (11.5-16.0); LYMPHOCYTES # (AUTO) 1.4 10^3/uL (1.0-4.0); LYMPHOCYTES % (AUTO) 27 % (12-44); MEAN CORPUSCULAR HEMOGLOBIN 28 pg (25-34); MEAN CORPUSCULAR HGB CONC 32 g/dL (32-36); MEAN CORPUSCULAR VOLUME 88 fL (80-99); MONOCYTES # (AUTO) 0.5 10^3/uL (0.0-1.0); MONOCYTES % (AUTO) 10 % (0-12); NEUTROPHILS # (AUTO) 2.9 10^3/uL (1.8-7.8); NEUTROPHILS % (AUTO) 56 % (42-75); PLATELET COUNT 136 10^3/uL (130-400); WHITE BLOOD COUNT 5.1 10^3/uL (4.3-11.0)
[2020-11-28 05:42] VITALS: BP 105/58
[2020-11-28 05:43] LABS: ALBUMIN 3.4 GM/DL (3.2-4.5); POTASSIUM 4.6 MMOL/L (3.6-5.0)
[2020-11-28 05:44] LABS: CALCIUM 9.1 MG/DL (8.5-10.1)
[2020-11-28 05:46] LABS: TOTAL PROTEIN 6.4 GM/DL (6.4-8.2)
[2020-11-28 05:47] LABS: BILIRUBIN,TOTAL 0.5 MG/DL (0.1-1.0)
[2020-11-28 05:49] LABS: CREATININE SERUM 1.05 MG/DL (0.60-1.30)
[2020-11-28] MEDS: inSUlin ASPART (NovoLOG) 1 UNIT/0.01 ML (CHARGE PER UNIT) SC SCH ×7 (06:00→21:44)
[2020-11-28 07:58] VITALS: BP 110/54
[2020-11-28] MEDS: VITAMIN D3 125 MCG (5,000 UNITS) CAPSULE PO SCH (08:19)
[2020-11-28] MEDS: PANTOPRAZOLE 40 MG (PROTONIX) TAB PO SCH (08:20)
[2020-11-28] MEDS: SENNA W/DOCUSATE (SENOKOT S) TABLET PO SCH ×2 (08:20→21:50)
[2020-11-28] MEDS: lisINopril 40 MG (PRINIVIL) TABLET PO SCH (08:20)
[2020-11-28] MEDS: LORATADINE (CLARITIN) 10 MG TAB PO SCH (08:20)
[2020-11-28] MEDS: DOCUSATE SODIUM 100 MG (COLACE) CAP PO SCH ×2 (08:20→21:50)
[2020-11-28] MEDS: CLOPIDOGREL 75 MG (PLAVIX) TABLET PO SCH (08:20)
[2020-11-28] MEDS: amLODIPine 10 MG (NORVASC) TAB PO SCH (08:20)
[2020-11-28] MEDS: PREGABALIN 75 MG (LYRICA) CAP PO SCH ×2 (08:20→21:48)
[2020-11-28] MEDS: ACETAMINOPHEN 325 MG TABLET PO PRN (08:20)
[2020-11-28] MEDS: polyethylene glycoL POWDER 17 GM (MIRALAX) PACK PO SCH ×2 (08:21→21:56)
--- NOTE | 2020-11-28 08:37 | PM&R Progress Note ---
Subjective HPI/CC On Admission Date Seen by Provider: Nov 28, 2020 Time Seen by Provider: 08:45 Subjective/Events-last exam 11/28/20: Pt feels like she is progressing Loop recorder will be placed today Bowels moved yesterday will come to visit today Overall doing very well 11/27/20: Used CPAP last night BM today BP good Feels like she is progressing 11/26/20: Patient sleepy today Home CPAP will be brought in by family soon BM daily Walked 16 feet with hemicane Transfers are easier 11/25/20: Vision is a significant issue for her now Cardiology will place loop recorder on Saturday No falls Able to regain some function left hand and leg 11/24/20: Pt settling in pretty well Dizziness noted Bowels moved yesterday Reviewed home medications Review of Systems Neurological: Weakness, Incoordination Objective Exam Vital Signs Vital Signs Date Time Temp Pulse Resp B/P (MAP) Pulse Ox O2 Delivery O2 Flow Rate FiO2 11/28/20 20:10 Room Air 11/28/20 16:00 36.4 64 18 111/63 (79) 96 Capillary Refill : General Appearance: No Apparent Distress, WD/WN, Chronically ill, Obese HEENT: PERRL/EOMI, Normal ENT Inspection, Pharynx Normal Neck: Full Range of Motion, Normal Inspection, Non Tender, Supple, Carotid Bruit Respiratory: Chest Non Tender, Lungs Clear, Normal Breath Sounds, No Accessory Muscle Use, No Respiratory Distress Cardiovascular: Regular Rate, Rhythm, No Edema, No Gallop, No JVD, No Murmur, Normal Peripheral Pulses Gastrointestinal: Normal Bowel Sounds, No Organomegaly, No Pulsatile Mass, Non Tender, Soft Back: Normal Inspection, No CVA Tenderness, No Vertebral Tenderness Extremity: Normal Capillary Refill, Normal Inspection, Non Tender, No Pedal Edema Neurologic/Psychiatric: Alert, Oriented x3, Abnormal Gait, Depressed Affect, Motor Weakness (left side 2/5 upper and lower extremity) Skin: Normal Color, Warm/Dry Lymphatic: No Adenopathy Results/Procedures Lab Patient resulted labs reviewed. FIM Transfers Therapy Code Descriptions/Definitions Functional [place] Measure: 0=Not Assessed/NA 4=Minimal Assistance 1=Total Assistance 5=Supervision or Setup 2=Maximal Assistance 6=Modified [place] 3=Moderate Assistance 7=Complete IndependenceSCALE: Activities may be completed with or without assistive devices. 4-Srogoelawl-chzdrjc completes the activity by him/herself with no assistance from a helper. 5-Set-up or Clean-up Assistance-helper sets up or cleans up; patient completes activity. [place] assists only prior to or following the activity. 4-Supervision or Touching Assistance-helper provides verbal cues and/or touching/steadying and/or contact guard assistance as patient completes activity. Assistance may be provided throughout the activity or intermittently. 3-Partial/Moderate Assistance-helper does LESS THAN HALF the effort. [place] lifts, holds or supports trunk or limbs, but provides less than half the effort. 2-Substantial/Maximal Assistance-helper does MORE THAN HALF the effort. [place] lifts or holds trunk or limbs and provides more than half the effort. 3-Usowwokjn-qytufj does ALL the effort. Patient does none of the effort to complete the activity. Or, the assistance of 2 or more helpers is required for the patient to complete the activity. If activity was not attempted, code reason: 7-Patient Refused. 9-Not Applicable-not attempted and the patient did not perform the activity before the current illness, exacerbation or injury. 10-Not Attempted due to Environmental Limitations-(lack of equipment, weather restraints, etc.). 88-Not Attempted due to Medical Conditions or Safety Concerns. Roll Left to Right (QC): 3 Sit to Lying (QC): 3 Sit to Stand (QC): 3 Chair/Cpm-hm-Dxrki Xfer(QC): 3 Car Transfer (QC): 88 Gait Training Does the Patient Walk?: Yes Distance: 10ft Walk 10 feet (QC): 3 Walk 50 ft with 2 Turns(QC): 88 Walk 150 ft (QC): 88 Walking 10ft/uneven surface-QC: 88 Gait Persons Needed: 1 Gait Assistive Device: Parallel Bars Wheelchair Training Does the Pt Use a Wheelchair?: Yes Wheel 50 ft with 2 turns (QC): 3 Wheel 150 ft (QC): 9 Type of Wheelchair: Manual Stair Training 1 Step (curb) (QC): 88 4 Steps (QC): 88 12 Steps (QC): 88 Balance Picking up an Object (QC): 88 ADL-Treatment Eating (QC): 5 Oral Hygiene (QC): 5 Shower/Bathe Self (QC): 1 Upper Body Dressing (QC): 2 Lower Body Dressing (QC): 1 On/Off Footwear (QC): 2 Toileting Hygiene (QC): 1 Toilet Transfer (QC): 2 Assessment/Plan Assessment and Plan Assess & Plan/Chief Complaint Assessment: CVA with left sided weakness Fibromyalgia GERD Gastroparesis Neuropathy GEREMIAS on CPAP DM HTN HLP Glaucoma Diabetic retinopathy Obesity Plan: IRF protocol Home meds DM management 11/24/20: Sugar management Monitor pain Monitor dizziness 11/25/20: Vision loss is problematic Cardiology appreciated Monitor closely 11/26/20: Improved ambulation with lucita-cane Doing well Vision loss limiting factor 11/27/20: Monitor BP Improved status CPAP use 11/28/11: Monitor BP Labs reviewed Fall risk (1) Fibromyalgia (2) Cervical spine disease (3) Obesity (4) Diabetes (5) Gastroparesis (6) GERD (gastroesophageal reflux disease) (7) Neuropathy (8) Glaucoma (9) Former smoker (10) CVA (cerebral vascular accident) SALVADOR SPARKS DO Nov 28, 2020 08:37
--- NOTE | 2020-11-28 09:49 | Speech Therapy Daily Note ---
Speech Daily Progress Note Subjective Date Seen by Provider: Nov 28, 2020 Time Seen by Provider: 00:30 Patient was resting in her recliner waiting for Dr. Watson to place the loop for her heart. She states her vision has not improved over the weekend. Objective Patient completed a series of general information questions with 90% given minimal cuing. Assessment Assessment Current Status: Good Progress Treatment Plan Continue Plan of Care Speech Short Term Goals Short Term Goals Short Term Goals 1) The patient will complete memory tasks related to her daily needs at 90% or greater. 2) The patient will complete safety awareness tasks related to her daily needs at 90% or greater. 3) The patient will complete problem solving tasks related to her daily needs at 90% or greater. 4) The patient will complete speech production tasks related to her communication needs at 90% or greater. Speech Advisory Services Associate Goals Advisory Services Associate Goals Patient will improve speech production to 90% or greater for effective communication. Patient will improve cognitive-communication necessary for safety and daily living tasks with minimal assist. Speech-Plan Patient/Family Goals Patient/Family Goals: Patient plans on returning to her home where she lives with her . Treatment Plan Speech Therapy Treatment Plan: Continue Plan of Care Treatment Duration: Dec 09, 2020 Frequency: 4 times per week (Patient will receive skilled ST 4-5x per week) Estimated Hrs Per Day: .5 hour per day Rehab Potential: Good Barriers to Learning: Patient's recent CVA induced deficits, vision changes Pt/Family Agrees to Plan: Yes Safety Risks/Education Teaching Recipient: Patient Teaching Methods: Demonstration, Discussion Response to Teaching: Verbalize Understanding, Return Demonstration Education Topics Provided: Continued safety within her room, communication of wants/needs. Time Speech Therapy Time In: 09:00 Speech Therapy Time Out: 09:30 Total Billed Time: 30 Billed Treatment Time [address] Nov 28, 2020 09:49
--- NOTE | 2020-11-28 10:01 | Cardiology Progress Note ---
Subjective Date Seen by Provider: Nov 28, 2020 Time Seen by Provider: 10:00 Subjective/Events-last exam Patient is sitting up in chair, denies any chest pain. Continues to c/o irritation at zio patch site. Objective-Cardiology Exam Last Set of Vital Signs Vital Signs 11/28/20 11/28/20 05:42 07:58 Temp 36.0 Pulse 63 Resp 18 B/P (MAP) 110/54 (72) Pulse Ox 95 O2 Delivery Room Air Capillary Refill : I&O Intake and Output 11/28/20 00:00 Intake Total 1200 ml Balance 1200 ml Intake Oral 1200 ml # Voids 5 # Bowel Movements 1 General: Alert, Oriented X3, Cooperative HEENT: Atraumatic, PERRLA Neck: Supple, No JVD, No Thyromegaly Lungs: Clear to Auscultation, Normal Air Movement Heart: Regular Rate, Normal S1, Normal S2, No Murmurs Abdomen: Normal Bowel Sounds, Soft, No Tenderness, No Hepatosplenomegaly, No Masses Extremities: No Clubbing, No Cyanosis, No Edema, Normal Pulses, No Tenderness/Swelling Skin: No Rashes, No Breakdown, No Significant Lesion Neuro: Strength at 5/5 X4 Ext, Sensation Intact, Other (hemiplegia) Psych/Mental Status: Mood NL Results Lab Laboratory Tests 11/28/20 04:43 A/P-Cardiology Admission Diagnosis Cryptogenic stroke Hypertension Hyperlipidemia Diabetes mellitus Assessment/Plan Cryptogenic stroke at the right occipital region, workup for the source of embolization so far is negative, patient has itching and erythema at the site of the zio patch, she will benefit from long-term monitoring, discussed with her in length about implantable loop recorder and planning to proceed with the procedure this morning. Hypertension, controlled, continue to monitor blood pressure Diabetes mellitus, followed and managed by primary care physician Lipid profile done on November 26, 2020 showing total cholesterol 122, LDL 64. Continue to monitor Diabetic retinopathy, followed and managed by primary care physician Fibromyalgia, followed and managed by primary care physician Gastroesophageal reflux disease, gastroparesis, obesity. Patient was seen and evaluated with Jennifer, examination performed, management plan was discussed, agree with the current scribed note, I made few changes to t he note using Italic font Patient was seen and evaluated, doing well. No new complaint The monitor patch was removed, secondary to patient of the skin was noted, loop monitor implanted with no complication Continue to monitor blood pressure lipids JENNIFER HARMAN Nov 28, 2020 10:01 RAMEZ THAKKAR MD Nov 28, 2020 11:54
--- NOTE | 2020-11-28 12:20 | Physical Therapy Daily Note ---
PT Daily Note-Current Subjective Pt sitting in [facility] upon arrival. Pt agrees to PT/OT co-treat. Pt reports visual changes since CVA & will be monitored by Therapy & Nursing staff. Pain Location: No Pain Reported Mental Status Patient Orientation: Person, Place, Situation Transfers SCALE: Activities may be completed with or without assistive devices. 1-Jmehxgzjxp-sbqzhde completes the activity by him/herself with no assistance from a helper. 5-Set-up or Clean-up Assistance-helper sets up or cleans up; patient completes activity. [place] assists only prior to or following the activity. 4-Supervision or Touching Assistance-helper provides verbal cues and/or touching/steadying and/or contact guard assistance as patient completes activit y. Assistance may be provided throughout the activity or intermittently. 3-Partial/Moderate Assistance-helper does LESS THAN HALF the effort. [place] lifts, holds or supports trunk or limbs, but provides less than half the effort. 2-Substantial/Maximal Assistance-helper does MORE THAN HALF the effort. [place] lifts or holds trunk or limbs and provides more than half the effort. 6-Bpaulrxjp-dwfvgg does ALL the effort. Patient does none of the effort to complete the activity. Or, the assistance of 2 or more helpers is required for the patient to complete the activity. If activity was not attempted, code reason: 7-Patient Refused. 9-Not Applicable-not attempted and the patient did not perform the activity before the current illness, exacerbation or injury. 10-Not Attempted due to Environmental Limitations-(lack of equipment, weather restraints, etc.). 88-Not Attempted due to Medical Conditions or Safety Concerns. Sit to Stand (QC): 4 Toilet Transfer (QC): 4 Weight Bearing Full Weight Bearing Full Weight Bearing Gait Training Does the Patient Walk?: Yes Distance: 10' x2 Walk 10 feet (QC): 4 Gait Assistive Device: Walker Kvng VC for drifting to L side. Pt cannot see it well. Exercises Seated Therapy Exercises: Ankle pumps, Long arc quads, Hip flexion, Kicking activity Seated Reps: 15 Treatments PT/OT co-treat ([id number]), skilled instruction, care and modification required from 2 clinicians due to pt's decreased mobility and fall prevention. PT focusing on transfers, standing and mobility while OT focusing on ADLs, L UE positioning during all mobility and standing. Min A x1 to transfer from EOB to [facility]. Assist x1 for toileting, pt able to stand holding on to stabilize self and assist to complete clothing manipulation and cleansing. Assist x2 to complete bathing, clothing manipulation and hygiene. Pt declined donning clothing today due to fatigue from procedure this morning. Utilizing hemiwalker for R side, pt able to ambulate in room 2x's. Pt fatigued quickly. Pt then completed large peg board to work on visual fieldwork, significant L visual field cut. After session, pt sitting in recliner with call light/phone in reach. All needs met in room. Assessment Current Status: Good Progress Pt is gaining strength and activity tolerance which is seen in improved transfers and ambulation. PT Residential Goals [employer] Librarian Goals PT [employer] Librarian Goals Time Frame: Dec 14, 2020 Roll Left & Right (QC): 5 Sit to Lying (QC): 5 Lying-Sitting on Side/Bed(QC): 5 Sit to Stand (QC): 5 Chair/Dnd-qm-Tnare Xfer(QC): 5 Toilet Transfer (QC): 5 Car Transfer (QC): 5 Does the Patient Walk: Yes Walk 10 feet (QC): 5 Walk 50ft with 2 Turns (QC): 5 Walk 150 ft (QC): 5 Walking 10ft on Uneven Surface: 5 1 Step (curb) (QC): 4 4 Steps (QC): 9 12 Steps (QC): 9 Picking up an Object (QC): 4 Does the Pt use WC or Scooter?: No Wheel 50 feet with 2 turns (QC: 9 Wheel 150 feet: 9 PT Plan Problem List Problem List: Activity Tolerance, Gait Treatment/Plan Treatment Plan: Continue Plan of Care Treatment Duration: Dec 14, 2020 Frequency: At least 5 of 7 days/Wk (IRF) Estimated Hrs Per Day: 1.5 hours per day Patient and/or Family Agrees t: Yes Safety Risks/Education Patient Education: Gait Training, Transfer Techniques, Correct Positioning, Safety Issues Teaching Recipient: Patient Teaching Methods: Discussion Response to Teaching: Verbalize Understanding Time/GCodes Time In: 1100 Time Out: 1200 Total Billed Treatment Time: 60 Total Billed Treatment 1, FA x2 (30m), GT (15m) & EX (15m) Co-treat w/OT for 60m EMILE CASTILLO CONTINUOUS STILL OPERATOR Nov 28, 2020 12:20
--- NOTE | 2020-11-28 12:40 | Occupational Ther Daily Note ---
OT Current Status-Daily Note ADL-Treatment PT/OT co-treat ([id number]), skilled instruction, care and modification required from 2 clinicians due to pt's decreased mobility and fall prevention. PT focusing on transfers, standing and mobility while OT focusing on ADLs, L UE positioning during all mobility and standing. Min A x1 to transfer from EOB to [facility]. Assist x1 for toileting, pt able to stand holding on to stabilize self and assist to complete clothing manipulation and cleansing. Assist x2 to complete bathing, clothing manipulation and hygiene. Pt declined donning clothing today due to fatigue from procedure this morning. Therapy Code Descriptions/Definitions Functional [place] Measure: 0=Not Assessed/NA 4=Minimal Assistance 1=Total Assistance 5=Supervision or Setup 2=Maximal Assistance 6=Modified [place] 3=Moderate Assistance 7=Complete IndependenceSCALE: Activities may be completed with or without assistive devices. 4-Fprqvimyqs-dlqcqub completes the activity by him/herself with no assistance from a helper. 5-Set-up or Clean-up Assistance-helper sets up or cleans up; patient completes activity. [place] assists only prior to or following the activity. 4-Supervision or Touching Assistance-helper provides verbal cues and/or touching/steadying and/or contact guard assistance as patient completes activity. Assistance may be provided throughout the activity or intermittently. 3-Partial/Moderate Assistance-helper does LESS THAN HALF the effort. [place] lifts, holds or supports trunk or limbs, but provides less than half the effort. 2-Substantial/Maximal Assistance-helper does MORE THAN HALF the effort. [place] lifts or holds trunk or limbs and provides more than half the effort. 2-Auwucmbrg-xzbsng does ALL the effort. Patient does none of the effort to complete the activity. Or, the assistance of 2 or more helpers is required for the patient to complete the activity. If activity was not attempted, code reason: 7-Patient Refused. 9-Not Applicable-not attempted and the patient did not perform the activity before the current illness, exacerbation or injury. 10-Not Attempted due to Environmental Limitations-(lack of equipment, weather restraints, etc.). 88-Not Attempted due to Medical Conditions or Safety Concerns. Shower/Bathe Self (QC): 1 On/Off Footwear: 2 Toileting Hygiene (QC): 2 Toilet Transfer (QC): 3 Pt continues to have vision issues, blurriness and some visual field cuts L side. Other Treatment Utilizing hemiwalker for R side, pt able to ambulate in room 2x's. Pt fatigued quickly. Pt then completed large peg board to work on visual fieldwork, significant L visual field cut. See PT notes for ambulation and B LE stren gthening. After session, pt sitting in recliner with call light/phone in reach. All needs met in room. OT Short Term Goals Short Term Goals Time Frame: Dec 07, 2020 Eatin Oral hygiene: 6 Toileting hygiene: 2 Shower/bathe self: 2 Upper body dressin Lower body dressin Putting on/taking off footwear: 2 OT Police Dispatcher Goals Group Home Goals Time Frame: Dec 24, 2020 Eating (QC): 6 Oral Hygiene (QC): 6 Toileting Hygiene (QC): 4 Shower/Bathe Self (QC): 4 Upper Body Dressing (QC): 6 Lower Body Dressing (QC): 4 On/Off Footwear (QC): 3 Additional Goals: 1-Demonstrate ADL Tasks, 2-Verbalize Understanding, 3- ImproveStrength/Sola 1=Demonstrate adherence to instructed precautions during ADL tasks. 2=Patient will verbalize/demonstrate understanding of assistive devices/modifications for ADL. 3=Patient will improve strength/tolerance for activity to enable patient to perform ADL's. OT Education/Plan Problem List/Assessment Assessment: Decreased Activ Tolerance, Decreased UE Strength, Impaired Bed Mobility, Impaired Funct Balance, Impaired Self-Care Skills, Restricted Funct UE ROM Discharge Recommendations Plan/Recommendations: Continue POC Treatment Plan/Plan of Care Patient would benefit from OT for education, treatment and training to promote independence in ADL's, mobility, safety and/or upper extremity function for ADL's. Plan of Care: ADL Retraining, Caregiver Training, Concurrent Therapy, Functional Mobility, Group Exercise/Act as Ind, Orthotic Fitting/Training, UE Funct Exercise/Act, UE Neuromus Re-Ed/Coord, Visual/Perceptual Retrain, W/C Management Training Treatment Duration: Dec 24, 2020 Frequency: At least 5 of 7 days/Wk (IRF) Estimated Hrs Per Day: 1.5 hours per day Agreement: Yes Rehab Potential: Good Time/GCodes Start Time: 10:45 Stop Time: 12:00 Total Time Billed (hr/min): 75 Billed Treatment Time 1 visit-ADL 3 (45 min) FA 2 (30 min) co-treat with PT [id number], individual [phone] ALLA MACDONALD Nov 28, 2020 12:39
--- NOTE | 2020-11-28 15:13 | Physical Therapy Daily Note ---
PT Daily Note-Current Subjective Pt sitting in recliner visiting w/SP upon arrival. Pt agrees to PT. Pain Location: No Pain Reported Mental Status Patient Orientation: Person, Place, Time, Situation Transfers SCALE: Activities may be completed with or without assistive devices. 0-Ffrdskfeyv-pnejgol completes the activity by him/herself with no assistance from a helper. 5-Set-up or Clean-up Assistance-helper sets up or cleans up; patient completes activity. [place] assists only prior to or following the activity. 4-Supervision or Touching Assistance-helper provides verbal cues and/or touching/steadying and/or contact guard assistance as patient completes activity. Assistance may be provided throughout the activity or intermittently. 3-Partial/Moderate Assistance-helper does LESS THAN HALF the effort. [place] lifts, holds or supports trunk or limbs, but provides less than half the effort. 2-Substantial/Maximal Assistance-helper does MORE THAN HALF the effort. [place] lifts or holds trunk or limbs and provides more than half the effort. 1-Hmgzaxxyc-hfphqx does ALL the effort. Patient does none of the effort to complete the activity. Or, the assistance of 2 or more helpers is required for the patient to complete the activity. If activity was not attempted, code reason: 7-Patient Refused. 9-Not Applicable-not attempted and the patient did not perform the activity before the current illness, exacerbation or injury. 10-Not Attempted due to Environmental Limitations-(lack of equipment, weather restraints, etc.). 88-Not Attempted due to Medical Conditions or Safety Concerns. Weight Bearing Full Weight Bearing Full Weight Bearing Exercises Seated Therapy Exercises: Ankle pumps, Long arc quads, Hip flexion, Kicking activity, Glut set Seated Reps: 15 Treatments Pt completes Seated Ex in recliner. Sp asks questions regarding pt's progress and when pt might DC. MEDIA ANALYTICS MANAGER advised weekly meeting on Saturday to discuss progress and would see after that. MEDIA ANALYTICS MANAGER would like to have more time with patient due to making progress but still a long ways from PLOF. Pt declined needing change of position including needing to lay in bed. Pt resting at end of tx with all needs met, call light in hand. Assessment Current Status: Good Progress Pt marisela. tx well. PT Teller Supervisor Goals Teller Supervisor Goals PT Residential Goals Time Frame: Dec 14, 2020 Roll Left & Right (QC): 5 Sit to Lying (QC): 5 Lying-Sitting on Side/Bed(QC): 5 Sit to Stand (QC): 5 Chair/Upu-[place] Xfer(QC): 5 Toilet Transfer (QC): 5 Car Transfer (QC): 5 Does the Patient Walk: Yes Walk 10 feet (QC): 5 Walk 50ft with 2 Turns (QC): 5 Walk 150 ft (QC): 5 Walking 10ft on Uneven Surface: 5 1 Step (curb) (QC): 4 4 Steps (QC): 9 12 Steps (QC): 9 Picking up an Object (QC): 4 Does the Pt use WC or Scooter?: No Wheel 50 feet with 2 turns (QC: 9 Wheel 150 feet: 9 PT Plan Problem List Problem List: Activity Tolerance, Functional Strength, Gait Treatment/Plan Treatment Plan: Continue Plan of Care Treatment Duration: Dec 14, 2020 Frequency: At least 5 of 7 days/Wk (IRF) Estimated Hrs Per Day: 1.5 hours per day Patient and/or Family Agrees t: Yes Safety Risks/Education Patient Education: Correct Positioning, Safety Issues Teaching Recipient: Patient, Significant Other Teaching Methods: Discussion Response to Teaching: Verbalize Understanding Time/GCodes Time In: 1415 Time Out: 1445 Total Billed Treatment Time: 30 Total Billed Treatment 1, EX (20m) & FA (10m) EMILE CASTILLO PTA Nov 28, 2020 15:13
[2020-11-28 16:00] VITALS: BP 111/63
[2020-11-28] MEDS: LATANOPROST 0.005% (XALATAN) OPHTH SOLN 2.5 ML OU SCH (21:46)
[2020-11-28] MEDS: OPTH OU SCH (21:47)
[2020-11-28] MEDS: RHOPRESSA 0.02% OU SCH (21:47)
[2020-11-28] MEDS: MELATONIN 3 MG TABLET PO PRN (21:48)
[2020-11-29 05:44] VITALS: BP 120/63
[2020-11-29] MEDS: inSUlin ASPART (NovoLOG) 1 UNIT/0.01 ML (CHARGE PER UNIT) SC SCH ×7 (07:13→20:45)
--- NOTE | 2020-11-29 08:56 | Occupational Ther Daily Note ---
OT Current Status-Daily Note Subjective Pt alert, sitting in recliner. Pt agrees to therapy. No c/o pain at this time. Mental Status/Objective Patient Orientation: Person, Place, Time, Situation Attachments: Other-See Comments (Loop Recorder) ADL-Treatment Pt had urinary incontinent episode. Min A for sit to stand. Using hemiwalker, pt able to transfer from recliner to [facility] [place]. Max A to manipulate clothing and cleanse. Pt agrees to shower. Pt transfers using hemiwalker with min A from surface to surface. Pt transferred into shower, using shower bench, hand held shower and grabbars pt able to bathe all areas except buttocks. Assist to cleanse buttocks while pt using grabbar to stand/stabilize. Min A for upper body dressing. Max A for lower body dressing and footwear. Independent for oral care and grooming sitting at sink. Pt returned to recliner. C/o lower back pain, warm blanket placed. Therapy Code Descriptions/Definitions Functional [place] Measure: 0=Not Assessed/NA 4=Minimal Assistance 1=Total Assistance 5=Supervision or Setup 2=Maximal Assistance 6=Modified [place] 3=Moderate Assistance 7=Complete IndependenceSCALE: Activities may be completed with or without assistive devices. 0-Lqwykcuvph-eonmogm completes the activity by him/herself with no assistance from a helper. 5-Set-up or Clean-up Assistance-helper sets up or cleans up; patient completes activity. [place] assists only prior to or following the activity. 4-Supervision or Touching Assistance-helper provides verbal cues and/or touching/steadying and/or contact guard assistance as patient completes activity. Assistance may be provided throughout the activity or intermittently. 3-Partial/Moderate Assistance-helper does LESS THAN HALF the effort. [place] lifts, holds or supports trunk or limbs, but provides less than half the effort. 2-Substantial/Maximal Assistance-helper does MORE THAN HALF the effort. [place] lifts or holds trunk or limbs and provides more than half the effort. 3-Meaopfugh-kzxice does ALL the effort. Patient does none of the effort to complete the activity. Or, the assistance of 2 or more helpers is required for the patient to complete the activity. If activity was not attempted, code reason: 7-Patient Refused. 9-Not Applicable-not attempted and the patient did not perform the activity before the current illness, exacerbation or injury. 10-Not Attempted due to Environmental Limitations-(lack of equipment, weather restraints, etc.). 88-Not Attempted due to Medical Conditions or Safety Concerns. Oral Hygiene (QC): 6 Bathing Location: L Arm, R Arm, L Upper Leg, R Upper Leg, L Lower Leg (including foot), R Lower Leg (including foot), Chest, Abdomen, Perineal Area Shower/Bathe Self (QC): 3 Upper Body Dressing (QC): 3 Lower Body Dressing (QC): 2 On/Off Footwear: 2 Toileting Hygiene (QC): 2 Toilet Transfer (QC): 3 Pt is demonstrating increased movement with L UE while completing functional tasks. Shldr flexion ~35*, AROM. Other Treatment Pt demonstrating good eye scanning R<-->L, up<-->down though blurriness is worse today, according to pt. Pt's eye not converging with object. After therapy, pt sitting in recliner with call light/phone in reach. All needs met in room. OT Short Term Goals Short Term Goals Time Frame: Dec 07, 2020 Eatin Oral hygiene: 6 Toileting hygiene: 2 Shower/bathe self: 2 Upper body dressin Lower body dressin Putting on/taking off footwear: 2 OT Retail Advertising Sales Manager Goals Long-Term Goals Time Frame: Dec 24, 2020 Eating (QC): 6 Oral Hygiene (QC): 6 Toileting Hygiene (QC): 4 Shower/Bathe Self (QC): 4 Upper Body Dressing (QC): 6 Lower Body Dressing (QC): 4 On/Off Footwear (QC): 3 Additional Goals: 1-Demonstrate ADL Tasks, 2-Verbalize Understanding, 3- ImproveStrength/Sola 1=Demonstrate adherence to instructed precautions during ADL tasks. 2=Patient will verbalize/demonstrate understanding of assistive ehsan gail/modifications for ADL. 3=Patient will improve strength/tolerance for activity to enable patient to perform ADL's. OT Education/Plan Problem List/Assessment Assessment: Decreased Activ Tolerance, Decreased UE Strength, Impaired Bed Mobility, Impaired Coordination, Impaired Funct Balance, Impaired Self-Care Skills, Restricted Funct UE ROM (L) Discharge Recommendations Plan/Recommendations: Continue POC Treatment Plan/Plan of Care Patient would benefit from OT for education, treatment and training to promote independence in ADL's, mobility, safety and/or upper extremity function for ADL's. Plan of Care: ADL Retraining, Caregiver Training, Concurrent Therapy, Functional Mobility, Group Exercise/Act as Ind, Orthotic Fitting/Training, UE Funct Exercise/Act, UE Neuromus Re-Ed/Coord, Visual/Perceptual Retrain, W/C Management Training Treatment Duration: Dec 24, 2020 Frequency: At least 5 of 7 days/Wk (IRF) Estimated Hrs Per Day: 1.5 hours per day Agreement: Yes Rehab Potential: Good Time/GCodes Start Time: 07:30 Stop Time: 08:45 Total Time Billed (hr/min): 75 Billed Treatment Time 1 visit-ADL 4 (65 min) NM 1 (10 min) ALLA MACDONALD Nov 29, 2020 08:56
--- NOTE | 2020-11-29 09:15 | PM&R Progress Note ---
Subjective HPI/CC On Admission Date Seen by Provider: Nov 29, 2020 Time Seen by Provider: 09:30 Subjective/Events-last exam 11/29/20: Appreciate Dr Watson evaluating the patient s/p loop recorder yesterday Incontinent isolated incident No pain reported VIsion is a limitation Walking with hemicane 11/28/20: Pt feels like she is progressing Loop recorder will be placed today Bowels moved yesterday will come to visit today Overall doing very well 11/27/20: Used CPAP last night BM today BP good Feels like she is progressing 11/26/20: Patient sleepy today Home CPAP will be brought in by family soon BM daily Walked 16 feet with hemicane Transfers are easier 11/25/20: Vision is a significant issue for her now Cardiology will place loop recorder on Saturday No falls Able to regain some function left hand and leg 11/24/20: Pt settling in pretty well Dizziness noted Bowels moved yesterday Reviewed home medications Review of Systems General: Fatigue HEENT: Visual Changes Neurological: Weakness, Incoordination Objective Exam Vital Signs Vital Signs Date Time Temp Pulse Resp B/P (MAP) Pulse Ox O2 Delivery O2 Flow Rate FiO2 11/29/20 20:10 Room Air 11/29/20 16:37 73 20 117/66 (83) 11/29/20 16:00 36.6 98 Capillary Refill : General Appearance: No Apparent Distress, WD/WN, Chronically ill, Obese HEENT: PERRL/EOMI, Normal ENT Inspection, Pharynx Normal Neck: Full Range of Motion, Normal Inspection, Non Tender, Supple, Carotid Bruit Respiratory: Chest Non Tender, Lungs Clear, Normal Breath Sounds, No Accessory Muscle Use, No Respiratory Distress Cardiovascular: Regular Rate, Rhythm, No Edema, No Gallop, No JVD, No Murmur, Normal Peripheral Pulses Gastrointestinal: Normal Bowel Sounds, No Organomegaly, No Pulsatile Mass, Non Tender, Soft Back: Normal Inspection, No CVA Tenderness, No Vertebral Tenderness Extremity: Normal Capillary Refill, Normal Inspection, Non Tender, No Pedal Edema Neurologic/Psychiatric: Alert, Oriented x3, Abnormal Gait, Depressed Affect, Motor Weakness (left side 2/5 upper and lower extremity) Skin: Normal Color, Warm/Dry Lymphatic: No Adenopathy Results/Procedures Lab Patient resulted labs reviewed. FIM Transfers Therapy Code Descriptions/Definitions Functional [place] Measure: 0=Not Assessed/NA 4=Minimal Assistance 1=Total Assistance 5=Supervision or Setup 2=Maximal Assistance 6=Modified [place] 3=Moderate Assistance 7=Complete IndependenceSCALE: Activities may be completed with or without assistive devices. 2-Aujtojsglm-loiyehw completes the activity by him/herself with no assistance from a helper. 5-Set-up or Clean-up Assistance-helper sets up or cleans up; patient completes activity. Taylor assists only prior to or following the activity. 4-Supervision or Touching Assistance-helper provides verbal cues and/or touching/steadying and/or contact guard assistance as patient completes activity. Assistance may be provided throughout the activity or intermittently. 3-Partial/Moderate Assistance-helper does LESS THAN HALF the effort. Taylor lifts, holds or supports trunk or limbs, but provides less than half the effort. 2-Substantial/Maximal Assistance-helper does MORE THAN HALF the effort. Taylor lifts or holds trunk or limbs and provides more than half the effort. 1-Yfouugxqx-byunwo does ALL the effort. Patient does none of the effort to complete the activity. Or, the assistance of 2 or more helpers is required for the patient to complete the activity. If activity was not attempted, code reason: 7-Patient Refused. 9-Not Applicable-not attempted and the patient did not perform the activity before the current illness, exacerbation or injury. 10-Not Attempted due to Environmental Limitations-(lack of equipment, weather restraints, etc.). 88-Not Attempted due to Medical Conditions or Safety Concerns. Roll Left to Right (QC): 3 Sit to Lying (QC): 3 Sit to Stand (QC): 4 Chair/Chs-sm-Pcwhf Xfer(QC): 3 Car Transfer (QC): 88 Gait Training Distance: 10' x2 Walk 10 feet (QC): 4 Walk 50 ft with 2 Turns(QC): 88 Walk 150 ft (QC): 88 Walking 10ft/uneven surface-QC: 88 Gait Persons Needed: 1 Gait Assistive Device: Walker Kvng Wheelchair Training Wheel 50 ft with 2 turns (QC): 3 Wheel 150 ft (QC): 9 Stair Training 1 Step (curb) (QC): 88 4 Steps (QC): 88 12 Steps (QC): 88 Balance Picking up an Object (QC): 88 ADL-Treatment Eating (QC): 5 Oral Hygiene (QC): 6 Bathing Location: L Arm, R Arm, L Upper Leg, R Upper Leg, L Lower Leg (including foot), R Lower Leg (including foot), Chest, Abdomen, Perineal Area Shower/Bathe Self (QC): 3 Upper Body Dressing (QC): 3 Lower Body Dressing (QC): 2 On/Off Footwear (QC): 2 Toileting Hygiene (QC): 2 Toilet Transfer (QC): 3 Assessment/Plan Assessment and Plan Assess & Plan/Chief Complaint Assessment: CVA with left sided weakness Fibromyalgia GERD Gastroparesis Neuropathy GEREMIAS on CPAP DM HTN HLP Glaucoma Diabetic retinopathy Obesity s/p loop recorder placement Dr Watson 11/28/20 Plan: IRF protocol Home meds DM management 11/24/20: Sugar management Monitor pain Monitor dizziness 11/25/20: Vision loss is problematic Cardiology appreciated Monitor closely 11/26/20: Improved ambulation with kvng-cane Doing well Vision loss limiting factor 11/27/20: Monitor BP Improved status CPAP use 11/28/11: Monitor BP Labs reviewed Fall risk 11/29/20: Appreciate Dr Watson Loop recorder in place (1) Fibromyalgia (2) Cervical spine disease (3) Obesity (4) Diabetes (5) Gastroparesis (6) GERD (gastroesophageal reflux disease) (7) Neuropathy (8) Glaucoma (9) Former smoker (10) CVA (cerebral vascular accident) SALVADOR SPARKS DO Nov 29, 2020 09:15
[2020-11-29] MEDS: amLODIPine 10 MG (NORVASC) TAB PO SCH (09:51)
[2020-11-29] MEDS: lisINopril 40 MG (PRINIVIL) TABLET PO SCH (09:51)
[2020-11-29] MEDS: VITAMIN D3 125 MCG (5,000 UNITS) CAPSULE PO SCH (09:52)
[2020-11-29] MEDS: PANTOPRAZOLE 40 MG (PROTONIX) TAB PO SCH (09:52)
[2020-11-29] MEDS: PREGABALIN 75 MG (LYRICA) CAP PO SCH ×2 (09:52→20:45)
[2020-11-29] MEDS: LORATADINE (CLARITIN) 10 MG TAB PO SCH (09:52)
[2020-11-29] MEDS: CLOPIDOGREL 75 MG (PLAVIX) TABLET PO SCH (09:52)
[2020-11-29] MEDS: SENNA W/DOCUSATE (SENOKOT S) TABLET PO SCH ×2 (09:53→20:45)
[2020-11-29] MEDS: DOCUSATE SODIUM 100 MG (COLACE) CAP PO SCH ×2 (09:53→20:45)
[2020-11-29] MEDS: polyethylene glycoL POWDER 17 GM (MIRALAX) PACK PO SCH ×2 (09:53→20:46)
--- NOTE | 2020-11-29 09:54 | Cardiology Progress Note ---
Subjective Date Seen by Provider: Nov 29, 2020 Time Seen by Provider: 09:00 Subjective/Events-last exam Patient sitting up in chair, denies any chest pain or palpitations. Objective-Cardiology Exam Last Set of Vital Signs Vital Signs 11/29/20 05:44 Temp 36.3 Pulse 62 Resp 18 B/P (MAP) 120/63 (82) Pulse Ox 95 O2 Delivery NIV CPAP Capillary Refill : I&O Intake and Output 11/29/20 00:00 Intake Total 1290 ml Balance 1290 ml Intake Oral 1290 ml # Voids 4 # Bowel Movements 1 General: Alert, Oriented X3, Cooperative HEENT: Atraumatic, PERRLA Neck: Supple, No JVD, No Thyromegaly Lungs: Clear to Auscultation, Normal Air Movement Heart: Regular Rate, Normal S1, Normal S2, No Murmurs Abdomen: Normal Bowel Sounds, Soft, No Tenderness, No Hepatosplenomegaly, No Masses Extremities: No Clubbing, No Cyanosis, No Edema, Normal Pulses, No Tenderness/Swelling Skin: No Rashes, No Breakdown, No Significant Lesion Neuro: Strength at 5/5 X4 Ext, Sensation Intact, Other (hemiplegia) Psych/Mental Status: Mood NL A/P-Cardiology Admission Diagnosis Cryptogenic stroke Hypertension Hyperlipidemia Diabetes mellitus Assessment/Plan Cryptogenic stroke at the right occipital region, workup for the source of embolization so far is negative, patient has itching and erythema at the site of the zio patch, she will benefit from long-term monitoring, s/p LINq implantation done on 11/28/2020 Hypertension, controlled, continue to monitor blood pressure Diabetes mellitus, followed and managed by primary care physician Lipid profile done on November 26, 2020 showing total cholesterol 122, LDL 64. Continue to monitor Diabetic retinopathy, followed and managed by primary care physician Fibromyalgia, followed and managed by primary care physician Gastroesophageal reflux disease, gastroparesis, obesity. Patient was seen and evaluated with Jennifer, examination performed, management plan was discussed, agree with the current scribed note, I made few changes to the note using Italic font Patient was sitting in a chair comfortably Loop site is healing well, no bleeding Continue on current medication and continue to monitor JENNIFER HARMAN Nov 29, 2020 09:54 RAMEZ THAKKAR MD Nov 29, 2020 13:06
--- NOTE | 2020-11-29 10:09 | Speech Therapy Daily Note ---
Speech Daily Progress Note Subjective Date Seen by Provider: Nov 29, 2020 Time Seen by Provider: 00:30 Patient was resting in her recliner when I entered her room. She stated she had a shower this am with OT and it felt really good to get cleaned up. Objective Patient completed a series of q/a related to her needs upon her return home with 90% given minimal cues. Assessment Assessment Current Status: Good Progress Treatment Plan Continue Plan of Care Speech Short Term Goals Short Term Goals Short Term Goals 1) The patient will complete memory tasks related to her daily needs at 90% or greater. 2) The patient will complete safety awareness tasks related to her daily needs at 90% or greater. 3) The patient will complete problem solving tasks related to her daily needs at 90% or greater. 4) The patient will complete speech production tasks related to her communication needs at 90% or greater. Speech Usp Goals Financial Planning Analyst Goals Patient will improve speech production to 90% or greater for effective communication. Patient will improve cognitive-communication necessary for safety and daily living tasks with minimal assist. Speech-Plan Patient/Family Goals Patient/Family Goals: Patient plans on returning to her home where she lives with her . Treatment Plan Speech Therapy Treatment Plan: Continue Plan of Care Treatment Duration: Dec 09, 2020 Frequency: 4 times per week (Patient will receive skilled ST 4-5x per week) Estimated Hrs Per Day: .5 hour per day Rehab Potential: Good Barriers to Learning: Patient's recent CVA, vision deficits Pt/Family Agrees to Plan: Yes Safety Risks/Education Teaching Recipient: Patient Teaching Methods: Demonstration, Discussion Response to Teaching: Verbalize Understanding, Return Demonstration Education Topics Provided: Continued safety within her room, continued communication for assistance with visual needs Time Speech Therapy Time In: 09:00 Speech Therapy Time Out: 09:30 Total Billed Time: 30 Billed Treatment Time 1, SLPELON Bell Nov 29, 2020 10:09
[2020-11-29] MEDS: ACETAMINOPHEN 325 MG TABLET PO PRN (10:11)
--- NOTE | 2020-11-29 12:12 | Physical Therapy Daily Note ---
PT Daily Note-Current Subjective Pt sitting in recliner upon arrival. Pt agrees to PT. Pain Location: Anterior Location Body Site: Knee Pain Description: Ache Mental Status Patient Orientation: Person, Place, Situation Transfers SCALE: Activities may be completed with or without assistive devices. 2-Boocoiqocw-hysqbbv completes the activity by him/herself with no assistance from a helper. 5-Set-up or Clean-up Assistance-helper sets up or cleans up; patient completes activity. Carver assists only prior to or following the activity. 4-Supervision or Touching Assistance-helper provides verbal cues and/or touching/steadying and/or contact guard assistance as patient completes activity. Assistance may be provided throughout the activity or intermittently. 3-Partial/Moderate Assistance-helper does LESS THAN HALF the effort. Carver lifts, holds or supports trunk or limbs, but provides less than half the effort. 2-Substantial/Maximal Assistance-helper does MORE THAN HALF the effort. Carver lifts or holds trunk or limbs and provides more than half the effort. 2-Mlfthvcwh-uimnup does ALL the effort. Patient does none of the effort to complete the activity. Or, the assistance of 2 or more helpers is required for the patient to complete the activity. If activity was not attempted, code reason: 7-Patient Refused. 9-Not Applicable-not attempted and the patient did not perform the activity before the current illness, exacerbation or injury. 10-Not Attempted due to Environmental Limitations-(lack of equipment, weather restraints, etc.). 88-Not Attempted due to Medical Conditions or Safety Concerns. Sit to Stand (QC): 3 Toilet Transfer (QC): 3 Weight Bearing Full Weight Bearing Full Weight Bearing Gait Training Does the Patient Walk?: Yes Distance: 15', 10' Walk 10 feet (QC): 3 Gait Assistive Device: Walker Kvng Fatigues quickly, [facility] follows for RB Wheelchair Training Does the Pt Use a Wheelchair?: Yes Type of Wheelchair: Manual Exercises Seated Therapy Exercises: Ankle pumps, Long arc quads, Hip flexion, Kicking activity, Glut set Seated Reps: 20 Treatments Pt discusses w/ASSESSMENT SPECIALIST changes in vision since CVA as well as since yesterday. Pt reports L eye had been stronger before CVA and now R eye is stronger and visually hard to focus. Nurse is notified. Pt asks about progress and if visual changes are normal for CVA. Pt completes Seated Ex in recliner with EMILIANA CERDA. Pt asks to use BSC. ASSESSMENT SPECIALIST assists with pericare. Pt amb. in hallway (see gait note). Pt resting in [facility] and returns to room at end of tx to rest in recliner. All needs met, call light in hand. Assessment Current Status: Good Progress Pt is limited by visual changes and fatigue at this time. Pt is very motivated and pushes self for progress. PT Chcf Goals Paint Stockman Goals PT Paint Stockman Goals Time Frame: Dec 14, 2020 Roll Left & Right (QC): 5 Sit to Lying (QC): 5 Lying-Sitting on Side/Bed(QC): 5 Sit to Stand (QC): 5 Chair/Uae-qm-Bhoff Xfer(QC): 5 Toilet Transfer (QC): 5 Car Transfer (QC): 5 Does the Patient Walk: Yes Walk 10 feet (QC): 5 Walk 50ft with 2 Turns (QC): 5 Walk 150 ft (QC): 5 Walking 10ft on Uneven Surface: 5 1 Step (curb) (QC): 4 4 Steps (QC): 9 12 Steps (QC): 9 Picking up an Object (QC): 4 Does the Pt use WC or Scooter?: No Wheel 50 feet with 2 turns (QC: 9 Wheel 150 feet: 9 PT Plan Problem List Problem List: Activity Tolerance, Functional Strength, Gait Treatment/Plan Treatment Plan: Continue Plan of Care Treatment Duration: Dec 14, 2020 Frequency: At least 5 of 7 days/Wk (IRF) Estimated Hrs Per Day: 1.5 hours per day Patient and/or Family Agrees t: Yes Safety Risks/Education Patient Education: Gait Training, Transfer Techniques, Correct Positioning, W/C Management, Safety Issues Teaching Recipient: Patient Teaching Methods: Discussion Response to Teaching: Verbalize Understanding Time/GCodes Time In: 1015 Time Out: 1130 Total Billed Treatment Time: 75 Total Billed Treatment 1, FA x3 (35m), EX (20m) & GT (20m) EMILE CASTILLO PTA Nov 29, 2020 12:12
[2020-11-29 16:00] VITALS: BP 117/66
[2020-11-29 16:37] VITALS: BP 117/66
[2020-11-29] MEDS: RHOPRESSA 0.02% OU SCH (20:45)
[2020-11-29] MEDS: OPTH OU SCH (20:45)
[2020-11-29] MEDS: LATANOPROST 0.005% (XALATAN) OPHTH SOLN 2.5 ML OU SCH (20:45)
[2020-11-29] MEDS: HYDROCORTISONE 1% OINT 30 GM TUBE TOP SCH (20:47)
[2020-11-30] MEDS: inSUlin ASPART (NovoLOG) 1 UNIT/0.01 ML (CHARGE PER UNIT) SC SCH ×7 (05:57→21:23)
[2020-11-30 06:00] VITALS: BP 132/59
[2020-11-30] MEDS: amLODIPine 10 MG (NORVASC) TAB PO SCH ×2 (08:15→08:55)
[2020-11-30] MEDS: PREGABALIN 75 MG (LYRICA) CAP PO SCH ×2 (08:15→21:23)
[2020-11-30] MEDS: PANTOPRAZOLE 40 MG (PROTONIX) TAB PO SCH (08:15)
[2020-11-30] MEDS: LORATADINE (CLARITIN) 10 MG TAB PO SCH (08:16)
[2020-11-30] MEDS: lisINopril 40 MG (PRINIVIL) TABLET PO SCH (08:16)
[2020-11-30] MEDS: polyethylene glycoL POWDER 17 GM (MIRALAX) PACK PO SCH ×2 (08:16→21:20)
[2020-11-30] MEDS: CLOPIDOGREL 75 MG (PLAVIX) TABLET PO SCH (08:16)
[2020-11-30] MEDS: DOCUSATE SODIUM 100 MG (COLACE) CAP PO SCH ×2 (08:16→21:23)
[2020-11-30] MEDS: VITAMIN D3 125 MCG (5,000 UNITS) CAPSULE PO SCH (08:16)
[2020-11-30] MEDS: SENNA W/DOCUSATE (SENOKOT S) TABLET PO SCH ×2 (08:16→21:23)
[2020-11-30] MEDS: HYDROCORTISONE 1% OINT 30 GM TUBE TOP SCH ×2 (08:18→21:23)
--- NOTE | 2020-11-30 08:25 | PM&R Progress Note ---
Subjective HPI/CC On Admission Date Seen by Provider: Nov 30, 2020 Time Seen by Provider: 08:45 Subjective/Events-last exam 11/30/20: Pt doing pretty well Sugar is 177 Restarted Statin, although she is allergic to Lipitor she is okay with Crestor Has a chronic headache since the stroke Left arm is improved 11/29/20: Appreciate Dr Watson evaluating the patient s/p loop recorder yesterday Incontinent isolated incident No pain reported VIsion is a limitation Walking with hemicane 11/28/20: Pt feels like she is progressing Loop recorder will be placed today Bowels moved yesterday will come to visit today Overall doing very well 11/27/20: Used CPAP last night BM today BP good Feels like she is progressing 11/26/20: Patient sleepy today Home CPAP will be brought in by family soon BM daily Walked 16 feet with hemicane Transfers are easier 11/25/20: Vision is a significant issue for her now Cardiology will place loop recorder on Saturday No falls Able to regain some function left hand and leg 11/24/20: Pt settling in pretty well Dizziness noted Bowels moved yesterday Reviewed home medications Review of Systems Neurological: Weakness, Incoordination Objective Exam Vital Signs Vital Signs Date Time Temp Pulse Resp B/P (MAP) Pulse Ox O2 Delivery O2 Flow Rate FiO2 11/30/20 20:00 97 Room Air 11/30/20 17:37 36.9 73 18 132/62 (85) Capillary Refill : General Appearance: No Apparent Distress, WD/WN, Chronically ill, Obese HEENT: PERRL/EOMI, Normal ENT Inspection, Pharynx Normal Neck: Full Range of Motion, Normal Inspection, Non Tender, Supple, Carotid Bruit Respiratory: Chest Non Tender, Lungs Clear, Normal Breath Sounds, No Accessory Muscle Use, No Respiratory Distress Cardiovascular: Regular Rate, Rhythm, No Edema, No Gallop, No JVD, No Murmur, Normal Peripheral Pulses Gastrointestinal: Normal Bowel Sounds, No Organomegaly, No Pulsatile Mass, Non Tender, Soft Back: Normal Inspection, No CVA Tenderness, No Vertebral Tenderness Extremity: Normal Capillary Refill, Normal Inspection, Non Tender, No Pedal Edema Neurologic/Psychiatric: Alert, Oriented x3, Abnormal Gait, Depressed Affect, Motor Weakness (left side 2/5 upper and lower extremity) Skin: Normal Color, Warm/Dry Lymphatic: No Adenopathy Results/Procedures Lab Patient resulted labs reviewed. FIM Transfers Therapy Code Descriptions/Definitions Functional [place] Measure: 0=Not Assessed/NA 4=Minimal Assistance 1=Total Assistance 5=Supervision or Setup 2=Maximal Assistance 6=Modified [place] 3=Moderate Assistance 7=Complete IndependenceSCALE: Activities may be completed with or without assistive devices. 5-Zwvvmmagwy-edmazys completes the activity by him/herself with no assistance from a helper. 5-Set-up or Clean-up Assistance-helper sets up or cleans up; patient completes activity. [place] assists only prior to or following the activity. 4-Supervision or Touching Assistance-helper provides verbal cues and/or touching/steadying and/or contact guard assistance as patient completes activity. Assistance may be provided throughout the activity or intermittently. 3-Partial/Moderate Assistance-helper does LESS THAN HALF the effort. [place] lifts, holds or supports trunk or limbs, but provides less than half the effort. 2-Substantial/Maximal Assistance-helper does MORE THAN HALF the effort. [place] lifts or holds trunk or limbs and provides more than half the effort. 0-Zxwezhdxu-ugmmzh does ALL the effort. Patient does none of the effort to complete the activity. Or, the assistance of 2 or more helpers is required for the patient to complete the activity. If activity was not attempted, code reason: 7-Patient Refused. 9-Not Applicable-not attempted and the patient did not perform the activity before the current illness, exacerbation or injury. 10-Not Attempted due to Environmental Limitations-(lack of equipment, weather restraints, etc.). 88-Not Attempted due to Medical Conditions or Safety Concerns. Roll Left to Right (QC): 3 Sit to Lying (QC): 3 Sit to Stand (QC): 3 Chair/Bxs-pn-Ljgcq Xfer(QC): 3 Car Transfer (QC): 88 Gait Training Does the Patient Walk?: Yes Distance: 15', 10' Walk 10 feet (QC): 3 Walk 50 ft with 2 Turns(QC): 88 Walk 150 ft (QC): 88 Walking 10ft/uneven surface-QC: 88 Gait Persons Needed: 1 Gait Assistive Device: Walker Kvng Wheelchair Training Does the Pt Use a Wheelchair?: Yes Wheel 50 ft with 2 turns (QC): 3 Wheel 150 ft (QC): 9 Type of Wheelchair: Manual Stair Training 1 Step (curb) (QC): 88 4 Steps (QC): 88 12 Steps (QC): 88 Balance Picking up an Object (QC): 88 ADL-Treatment Eating (QC): 5 Oral Hygiene (QC): 6 Bathing Location: L Arm, R Arm, L Upper Leg, R Upper Leg, L Lower Leg (including foot), R Lower Leg (including foot), Chest, Abdomen, Perineal Area Shower/Bathe Self (QC): 3 Upper Body Dressing (QC): 3 Lower Body Dressing (QC): 2 On/Off Footwear (QC): 2 Toileting Hygiene (QC): 2 Toilet Transfer (QC): 3 Assessment/Plan Assessment and Plan Assess & Plan/Chief Complaint Assessment: CVA with left sided weakness Fibromyalgia GERD Gastroparesis Neuropathy GEREMIAS on CPAP DM HTN HLP Glaucoma Diabetic retinopathy Obesity s/p loop recorder placement Dr Watson 11/28/20 Plan: IRF protocol Home meds DM management 11/24/20: Sugar management Monitor pain Monitor dizziness 11/25/20: Vision loss is problematic Cardiology appreciated Monitor closely 11/26/20: Improved ambulation with kvng-cane Doing well Vision loss limiting factor 11/27/20: Monitor BP Improved status CPAP use 11/28/11: Monitor BP Labs reviewed Fall risk 11/29/20: Appreciate Dr Watson Loop recorder in place 11/30/20: Monitor closely Restart Crestor Loop recorder in place (1) Fibromyalgia (2) Cervical spine disease (3) Obesity (4) Diabetes (5) Gastroparesis (6) GERD (gastroesophageal reflux disease) (7) Neuropathy (8) Glaucoma (9) Former smoker (10) CVA (cerebral vascular accident) SALVADOR SPARKS DO Nov 30, 2020 08:25
[2020-11-30 08:47] VITALS: BP 104/55
[2020-11-30] MEDS: ROSUVASTATIN 20 MG (CRESTOR) TABLET PO SCH (08:58)
--- NOTE | 2020-11-30 09:17 | Cardiology Progress Note ---
Subjective Date Seen by Provider: Nov 30, 2020 Time Seen by Provider: 09:13 Subjective/Events-last exam Patient sitting up in chair, no new complaints, denies any chest pain. Objective-Cardiology Exam Last Set of Vital Signs Vital Signs 11/30/20 11/30/20 11/30/20 06:00 08:00 08:47 Temp 36.3 Pulse 61 Resp 16 B/P (MAP) 104/55 (71) Pulse Ox 93 O2 Delivery Room Air Capillary Refill : I&O Intake and Output 11/30/20 00:00 Intake Total 2000 ml Balance 2000 ml Intake Oral 2000 ml # Voids 8 # Bowel Movements 1 General: Alert, Oriented X3, Cooperative HEENT: Atraumatic, PERRLA Neck: Supple, No JVD, No Thyromegaly Lungs: Clear to Auscultation, Normal Air Movement Heart: Regular Rate, Normal S1, Normal S2, No Murmurs Abdomen: Normal Bowel Sounds, Soft, No Tenderness, No Hepatosplenomegaly, No Masses Extremities: No Clubbing, No Cyanosis, No Edema, Normal Pulses, No Tenderness/S welling Skin: No Rashes, No Breakdown, No Significant Lesion Neuro: Strength at 5/5 X4 Ext, Sensation Intact, Other (hemiplegia) Psych/Mental Status: Mood NL A/P-Cardiology Admission Diagnosis Cryptogenic stroke Hypertension Hyperlipidemia Diabetes mellitus Assessment/Plan Cryptogenic stroke at the right occipital region, workup for the source of embolization so far is negative, patient has itching and erythema at the site of the zio patch, she will benefit from long-term monitoring, s/p LINq implantation done on 11/28/2020 Hypertension, borderline hypotension, I will d/c Norvasc, continue to monitor. Diabetes mellitus, followed and managed by primary care physician Lipid profile done on November 26, 2020 showing total cholesterol 122, LDL 64. Continue to monitor Diabetic retinopathy, followed and managed by primary care physician Fibromyalgia, followed and managed by primary care physician Gastroesophageal reflux disease, gastroparesis, obesity. Patient was seen and evaluated with Jennifer, examination performed, management plan was discussed, agree with the current scribed note, I made few changes to the note using Italic font Loop site is healing well. Continue to monitor Continue to monitor blood pressure. No changes are recommended JENNIFER HARMAN Nov 30, 2020 9:17 am RAMEZ THAKKAR MD Nov 30, 2020 3:17 pm
--- NOTE | 2020-11-30 09:44 | Speech Therapy Daily Note ---
Speech Daily Progress Note Subjective Date Seen by Provider: Nov 30, 2020 Time Seen by Provider: 00:30 Patient was very proud of herself for how much she walked today. Patient also states she is seeing a little better today. Objective Patient completes safety awareness tasks related to her needs within her room at 85% given minimal cues. Assessment Assessment Current Status: Good Progress Treatment Plan Continue Plan of Care Speech Short Term Goals Short Term Goals Short Term Goals 1) The patient will complete memory tasks related to her daily needs at 90% or greater. 2) The patient will complete safety awareness tasks related to her daily needs at 90% or greater. 3) The patient will complete problem solving tasks related to her daily needs at 90% or greater. 4) The patient will complete speech production tasks related to her communication needs at 90% or greater. Speech Instructor [employer] Services Goals Instructor Ground Services Goals Patient will improve speech production to 90% or greater for effective communication. Patient will improve cognitive-communication necessary for safety and daily living tasks with minimal assist. Speech-Plan Patient/Family Goals Patient/Family Goals: Patient plans on returning to her home where she lives with her . Treatment Plan Speech Therapy Treatment Plan: Continue Plan of Care Treatment Duration: Dec 09, 2020 Frequency: 4 times per week (Patient will receive skilled ST 4-5x per week) Estimated Hrs Per Day: .5 hour per day Rehab Potential: Good Barriers to Learning: Patient's recent CVA, however cognitive deficits are resolving well Pt/Family Agrees to Plan: Yes Safety Risks/Education Teaching Recipient: Patient Teaching Methods: Demonstration, Discussion Response to Teaching: Verbalize Understanding, Return Demonstration Education Topics Provided: Continued safety and communication Time Speech Therapy Time In: 09:00 Speech Therapy Time Out: 09:30 Total Billed Time: 30 Billed Treatment Time 1, SLPELON Bell Nov 30, 2020 09:44
--- NOTE | 2020-11-30 10:14 | Occupational Ther Daily Note ---
OT Current Status-Daily Note Subjective Pt alert, sitting in recliner. Pt c/o blurriness and visual issues. During session, pt c/o numb lips which DOUGLAS reported to nrsg (see nrsg notes for BP). Pt agrees to therapy. Mental Status/Objective Patient Orientation: Person, Place, Time, Situation Attachments: Other-See Comments (loop recorder) ADL-Treatment Co-treat with PT ([phone]), skilled care and instruction requires 2 clinicians due to pt's decreased mobility, risk of falls. PT focusing on standing and transfers while OT focusing on ADLs, L UE placement during mobility. Pt able to bathe all areas in sitting except feet and buttocks. Pt requested to use BSC. Due to urinary urgency and decreased mobility, pt requires BSC in room. Assist to manipulate clothing and cleanse self. Pt completed sponge bathe and is able to to bathe all areas except buttocks. Long handle sponge given for feet. CGA while assist to cleanse buttocks. Min A for upper body dressing and max A for lower body dressing/footwear. Pt educated on biostatistics professor and sockaide to assist with lower body dressing. Pt is having blurriness, double vision and L side visual field cut which is hindering dressing. Independent for oral care. Therapy Code Descriptions/Definitions Functional [place] Measure: 0=Not Assessed/NA 4=Minimal Assistance 1=Total Assistance 5=Supervision or Setup 2=Maximal Assistance 6=Modified [place] 3=Moderate Assistance 7=Complete IndependenceSCALE: Activities may be completed with or without assistive devices. 0-Injgutkvfa-ctsnmtk completes the activity by him/herself with no assistance from a helper. 5-Set-up or Clean-up Assistance-helper sets up or cleans up; patient completes activity. [place] assists only prior to or following the activity. 4-Supervision or Touching Assistance-helper provides verbal cues and/or touching/steadying and/or contact guard assistance as patient completes activity. Assistance may be provided throughout the activity or intermittently. 3-Partial/Moderate Assistance-helper does LESS THAN HALF the effort. [place] lifts, holds or supports trunk or limbs, but provides less than half the effort. 2-Substantial/Maximal Assistance-helper does MORE THAN HALF the effort. [place] lifts or holds trunk or limbs and provides more than half the effort. 9-Tjdjwpvmn-mtdpky does ALL the effort. Patient does none of the effort to complete the activity. Or, the assistance of 2 or more helpers is required for the patient to complete the activity. If activity was not attempted, code reason: 7-Patient Refused. 9-Not Applicable-not attempted and the patient did not perform the activity before the current illness, exacerbation or injury. 10-Not Attempted due to Environmental Limitations-(lack of equipment, weather restraints, etc.). 88-Not Attempted due to Medical Conditions or Safety Concerns. Oral Hygiene (QC): 6 Upper Body Dressing (QC): 3 Lower Body Dressing (QC): 2 On/Off Footwear: 2 Toileting Hygiene (QC): 2 Toilet Transfer (QC): 2 Other Treatment Pt working at standing bedside holding onto bed rails to work on wt bearing with R UE. Pt required verbal cues to extend L UE and place wt into that hand. See PT notes for ambulation progress. After therapy, pt sitting in recliner with call light/phone in reach. All needs met in room. OT Short Term Goals Short Term Goals Time Frame: Dec 07, 2020 Eatin Oral hygiene: 6 Toileting hygiene: 2 Shower/bathe self: 2 Upper body dressin Lower body dressin Putting on/taking off footwear: 2 OT Senior Living Goals Senior Living Goals Time Frame: Dec 24, 2020 Eating (QC): 6 Oral Hygiene (QC): 6 Toileting Hygiene (QC): 4 Shower/Bathe Self (QC): 4 Upper Body Dressing (QC): 6 Lower Body Dressing (QC): 4 On/Off Footwear (QC): 3 Additional Goals: 1-Demonstrate ADL Tasks, 2-Verbalize Understanding, 3- ImproveStrength/Sola 1=Demonstrate adherence to instructed precautions during ADL tasks. 2=Patient will verbalize/demonstrate understanding of assistive devices/modifications for ADL. 3=Patient will improve strength/tolerance for activity to enable patient to perform ADL's. OT Education/Plan Problem List/Assessment Assessment: Decreased Activ Tolerance, Decreased UE Strength, Impaired Bed Mobility, Impaired Coordination, Impaired Funct Balance, Impaired Self-Care Skills, Restricted Funct UE ROM, Visual-Perceptual Deficit Discharge Recommendations Plan/Recommendations: Continue POC Treatment Plan/Plan of Care Patient would benefit from OT for education, treatment and training to promote independence in ADL's, mobility, safety and/or upper extremity function for ADL's. Plan of Care: ADL Retraining, Caregiver Training, Concurrent Therapy, Functional Mobility, Group Exercise/Act as Ind, Orthotic Fitting/Training, UE Funct Exercise/Act, UE Neuromus Re-Ed/Coord, Visual/Perceptual Retrain, W/C Management Training Treatment Duration: Dec 24, 2020 Frequency: At least 5 of 7 days/Wk (IRF) Estimated Hrs Per Day: 1.5 hours per day Agreement: Yes Rehab Potential: Good Time/GCodes Start Time: 07:30 Stop Time: 08:45 Total Time Billed (hr/min): 75 Billed Treatment Time 1 visit-ADL 2 (30 min) FA 2 (30 min) NM 1 (15 min) co-treat with PT [id number], individual [phone] ALLA MACDONALD Nov 30, 2020 10:14
--- NOTE | 2020-11-30 12:16 | Physical Therapy Daily Note ---
PT Daily Note-Current Subjective Pt alert, sitting in recliner. Pt c/o blurriness and visual issues. During session, pt c/o numb lips which DOUGLAS reported to nrsg (see nrsg notes for BP). Pt agrees to therapy. Pain Location: No Pain Reported Mental Status Patient Orientation: Person, Place Transfers SCALE: Activities may be completed with or without assistive devices. 8-Yylpvboptf-rzcueuw completes the activity by him/herself with no assistance from a helper. 5-Set-up or Clean-up Assistance-helper sets up or cleans up; patient completes activity. [place] assists only prior to or following the activity. 4-Supervision or Touching Assistance-helper provides verbal cues and/or touching/steadying and/or contact guard assistance as patient completes activity. Assistance may be provided throughout the activity or intermittently. 3-Partial/Moderate Assistance-helper does LESS THAN HALF the effort. [place] lifts, holds or supports trunk or limbs, but provides less than half the effort. 2-Substantial/Maximal Assistance-helper does MORE THAN HALF the effort. [place] lifts or holds trunk or limbs and provides more than half the effort. 2-Qevnkjvbd-fgeedc does ALL the effort. Patient does none of the effort to complete the activity. Or, the assistance of 2 or more helpers is required for the patient to complete the activity. If activity was not attempted, code reason: 7-Patient Refused. 9-Not Applicable-not attempted and the patient did not perform the activity before the current illness, exacerbation or injury. 10-Not Attempted due to Environmental Limitations-(lack of equipment, weather restraints, etc.). 88-Not Attempted due to Medical Conditions or Safety Concerns. Sit to Stand (QC): 3 Weight Bearing Full Weight Bearing Full Weight Bearing Gait Training Does the Patient Walk?: Yes Distance: 18', 15' Walk 10 feet (QC): 3 Gait Persons Needed: 1 Gait Assistive Device: Walker Kvng Follow with [facility] for safety and fatigue. Wheelchair Training Does the Pt Use a Wheelchair?: Yes Type of Wheelchair: Manual Treatments Co-treat with PT ([phone]), skilled care and instruction requires 2 clinicians due to pt's decreased mobility, risk of falls. PT focusing on standing and transfers while OT focusing on ADLs, L UE placement during mobility. Pt able to bathe all areas in sitting except feet and buttocks. Pt requested to use BSC. Due to urinary urgency and decreased mobility, pt requires BSC in room. Assist to manipulate clothing and cleanse self. TF to standing and amb in hallway. Resting in [facility] as needed for fatigue. Pt continues to work w/OT for additional tx. [id number]: Pt sitting in recliner upon arrival. Pt again discusses visual changes and impact on tx. OT will give visual assessment in afternoon to help address how this can be incorporated into therapy. Pt completes Seated EX, RB as needed and repositioning as lunch will arrive shortly. All needs met, call light in hand. Assessment Current Status: Good Progress Pt is improving with distance of ambulation and decreased fatigue. Pt is limited by vision at this time. PT Intermediate Goals Intermediate Goals PT Breakfast Bar Attendant Goals Time Frame: Dec 14, 2020 Roll Left & Right (QC): 5 Sit to Lying (QC): 5 Lying-Sitting on Side/Bed(QC): 5 Sit to Stand (QC): 5 Chair/Lvs-jb-Nvzvh Xfer(QC): 5 Toilet Transfer (QC): 5 Car Transfer (QC): 5 Does the Patient Walk: Yes Walk 10 feet (QC): 5 Walk 50ft with 2 Turns (QC): 5 Walk 150 ft (QC): 5 Walking 10ft on Uneven Surface: 5 1 Step (curb) (QC): 4 4 Steps (QC): 9 12 Steps (QC): 9 Picking up an Object (QC): 4 Does the Pt use WC or Scooter?: No Wheel 50 feet with 2 turns (QC: 9 Wheel 150 feet: 9 PT Plan Problem List Problem List: Activity Tolerance, Functional Strength, Safety, Balance, Gait Treatment/Plan Treatment Plan: Continue Plan of Care Treatment Duration: Dec 14, 2020 Frequency: At least 5 of 7 days/Wk (IRF) Estimated Hrs Per Day: 1.5 hours per day Patient and/or Family Agrees t: Yes Safety Risks/Education Patient Education: Gait Training, Correct Positioning, Disease Process Teaching Recipient: Patient Teaching Methods: Discussion Response to Teaching: Verbalize Understanding Time/GCodes Time In: 745 Time Out: 1200 Total Billed Treatment Time: 75 Total Billed Treatment 1, FA (15m) & [facility] (15m) Co-treat w/OT for 30m [id number]: 1, EX x2 (30m) & FA (15m) EMILE CASTILLO PTA Nov 30, 2020 12:16
--- NOTE | 2020-11-30 15:27 | Occ Therapy Progress Note ---
Therapy Progress Note Pt. was evaluated by this OT, this date for visual deficits s/p CVA, using the Brain Injury Assessment Battery for Adults. Therapy has noted significant visual issues that affect pt's performance with daily tasks. Pt. was interviewed, and then assessment was conducted. Interview- Pt. reports that previous to her CVA, she had the diagnosis of macular edema, diabetic retinopathy, and glaucoma. Pt. reports that she has two eye care providers, and did receive new glasses just previous to her CVA. She states that she has always had difficulty with depth perception, and uses a magnifying glass for reading. After pt. sustained her CVA, she began having double vision, which seems to be improving. However, she currently has difficulty differentiating faces, but can see the outline of a face. She does see colors okay, but reports having difficulty with color discrimination. She is aware of her visual deficits, and would like to know better what they are. Testing- Upon assessment, it is noted that pt's pupils are slightly enlarged, but do constrict quickly with light stimulation. Pt. states that her left eye is her stronger eye, and uses it as her dominant eye during evaluation. Pt. is unable to read words, and therefore reading acuity is not scored. Rudimentary acuity overall is as follows- right eye- 20/400. Left eye- 20/250. Eyes togeth er-20/250. It is noted that when pt. is attempting to read number lines, she leaves off the first one or two numbers on the left side. OT tested pt's visual de la fuente using the red dot test and the two person confrontation test. It is noted that pt. has field cut in left hemisphere of each eye. Pt. indicates vision from midline of each eye to approximately 45 degrees into right he misphere, but no visual information noted in left hemisphere. Pt. is able to see visual information from midline down, into inferior visual field, but has difficulty with information in superior visual field. Assessment- It should be noted that this is a test used for therapy and educational purposes, not pure diagnostic purposes. Pt. educated in findings, and therapist's that work with pt. are educated as well. This education will better help serve the pt. to increase therapy in obtaining goals with pt. This test indicates that goals are to increase pt's ability to attend to left side, and to turn head during tasks. Pt. does not seem to have true left sided neglect, more left sided field cuts. Therefore, cognitively she is aware of her inability to see to left without using the strategy of turning head to left. Other strategies will be implemented as well, as needed during therapy tasks. These may include using color discriminating methods for better awareness of food plate or items on table. Pt. is educated about possibly needing to use eye patch for double vision, if it does not continue to clear. Pt. is encouraged to see her primary eye physician at discharge, for continued resources and follow up with eye specialists as needed. [id number] 1, FA x 65minutes NILSON ZAPATA OT Nov 30, 2020 15:27
[2020-11-30] MEDS ORDERED: INSU100I23 SQ (16:09)
[2020-11-30] MEDS ORDERED: ZINC50TA51 PO (16:09)
[2020-11-30] MEDS ORDERED: FURO20TA4 PO (16:09)
[2020-11-30] MEDS ORDERED: ACET325T38 PO (16:09)
[2020-11-30] MEDS ORDERED: SIMV40TA25 PO (16:09)
[2020-11-30] MEDS ORDERED: MULT-974 PO (16:09)
[2020-11-30 17:37] VITALS: BP 132/62
[2020-11-30] MEDS: ACETAMINOPHEN 325 MG TABLET PO PRN (18:11)
[2020-11-30] MEDS: MELATONIN 3 MG TABLET PO PRN (21:24)
[2020-11-30] MEDS: LATANOPROST 0.005% (XALATAN) OPHTH SOLN 2.5 ML OU SCH (21:24)
[2020-11-30] MEDS: OPTH OU SCH (21:25)
[2020-11-30] MEDS: hydrOXYzine (VISTARIL/ATARAX) 25 MG capsule/tablet PO PRN (21:25)
[2020-11-30] MEDS: RHOPRESSA 0.02% OU SCH (21:25)
[2020-12-01] MEDS: inSUlin ASPART (NovoLOG) 1 UNIT/0.01 ML (CHARGE PER UNIT) SC SCH ×7 (06:23→20:33)
[2020-12-01 06:24] VITALS: BP 138/65
[2020-12-01] MEDS: SENNA W/DOCUSATE (SENOKOT S) TABLET PO SCH ×2 (07:29→20:34)
[2020-12-01] MEDS: ACETAMINOPHEN 325 MG TABLET PO PRN (07:31)
[2020-12-01] MEDS: HYDROCORTISONE 1% OINT 30 GM TUBE TOP SCH ×2 (07:31→20:30)
[2020-12-01] MEDS: PANTOPRAZOLE 40 MG (PROTONIX) TAB PO SCH (07:32)
[2020-12-01] MEDS: ROSUVASTATIN 20 MG (CRESTOR) TABLET PO SCH (07:32)
[2020-12-01] MEDS: LORATADINE (CLARITIN) 10 MG TAB PO SCH (07:32)
[2020-12-01] MEDS: DOCUSATE SODIUM 100 MG (COLACE) CAP PO SCH ×2 (07:32→20:25)
[2020-12-01] MEDS: lisINopril 40 MG (PRINIVIL) TABLET PO SCH (07:32)
[2020-12-01] MEDS: PREGABALIN 75 MG (LYRICA) CAP PO SCH ×2 (07:32→20:25)
[2020-12-01] MEDS: CLOPIDOGREL 75 MG (PLAVIX) TABLET PO SCH (07:32)
[2020-12-01] MEDS: VITAMIN D3 125 MCG (5,000 UNITS) CAPSULE PO SCH (07:32)
[2020-12-01] MEDS: polyethylene glycoL POWDER 17 GM (MIRALAX) PACK PO SCH ×2 (07:36→20:34)
--- NOTE | 2020-12-01 07:52 | Occupational Ther Daily Note ---
OT Current Status-Daily Note Subjective Pt alert, sitting in recliner. Pt agrees to therapy. No c/o pain. Mental Status/Objective Patient Orientation: Person, Place, Time, Situation ADL-Treatment Pt able to open packages/containers to eat breakfast by self. Pt agrees to sponge bath. Pt stated that she had an urinary incontinent episode before breakfast and nrsg cleaned her well. Pt set up for bathing and cleansed all areas in sitting except buttocks. Pt declined due to being cleansed after incontinence. After set up, pt able to don shirt by self with increased time. Using buying intern, pt able to thread clothing over feet with verbal/physical cues and increased time. Pt used L hand as an assist throughout session. Pt stood with CGA, assist to hike pants and pt utilized L hand to assist hiking pants. After set up, pt able to doff socks with buying intern then don socks with sock aide, increased time and physical cues. Pt continues to have difficulty with vision. After session, pt sitting in recliner with call light/phone in reach. All needs met in room. Therapy Code Descriptions/Definitions Functional [place] Measure: 0=Not Assessed/NA 4=Minimal Assistance 1=Total Assistance 5=Supervision or Setup 2=Maximal Assistance 6=Modified [place] 3=Moderate Assistance 7=Complete IndependenceSCALE: Activities may be completed with or without assistive devices. 2-Akvxchvwjy-wnlikna completes the activity by him/herself with no assistance from a helper. 5-Set-up or Clean-up Assistance-helper sets up or cleans up; patient completes activity. Badger assists only prior to or following the activity. 4-Supervision or Touching Assistance-helper provides verbal cues and/or touching/steadying and/or contact guard assistance as patient completes activity. Assistance may be provided throughout the activity or intermittently. 3-Partial/Moderate Assistance-helper does LESS THAN HALF the effort. Badger lifts, holds or supports trunk or limbs, but provides less than half the effort. 2-Substantial/Maximal Assistance-helper does MORE THAN HALF the effort. Badger lifts or holds trunk or limbs and provides more than half the effort. 7-Kndpgpcta-htrizt does ALL the effort. Patient does none of the effort to co mplete the activity. Or, the assistance of 2 or more helpers is required for the patient to complete the activity. If activity was not attempted, code reason: 7-Patient Refused. 9-Not Applicable-not attempted and the patient did not perform the activity before the current illness, exacerbation or injury. 10-Not Attempted due to Environmental Limitations-(lack of equipment, weather restraints, etc.). 88-Not Attempted due to Medical Conditions or Safety Concerns. OT Short Term Goals Short Term Goals Time Frame: Dec 07, 2020 Eatin Oral hygiene: 6 Toileting hygiene: 2 Shower/bathe self: 2 Upper body dressin Lower body dressin Putting on/taking off footwear: 2 OT Alf Goals Alf Goals Time Frame: Dec 24, 2020 Eating (QC): 6 Oral Hygiene (QC): 6 Toileting Hygiene (QC): 4 Shower/Bathe Self (QC): 4 Upper Body Dressing (QC): 6 Lower Body Dressing (QC): 4 On/Off Footwear (QC): 3 Additional Goals: 1-Demonstrate ADL Tasks, 2-Verbalize Understanding, 3-Impr oveStrength/Sola 1=Demonstrate adherence to instructed precautions during ADL tasks. 2=Patient will verbalize/demonstrate understanding of assistive devices/modifications for ADL. 3=Patient will improve strength/tolerance for activity to enable patient to perform ADL's. OT Education/Plan Problem List/Assessment Assessment: Decreased Activ Tolerance, Decreased UE Strength, Impaired Bed Mobility, Impaired Funct Balance, Impaired Self-Care Skills, Restricted Funct UE ROM Discharge Recommendations Plan/Recommendations: Continue POC Treatment Plan/Plan of Care Patient would benefit from OT for education, treatment and training to promote independence in ADL's, mobility, safety and/or upper extremity function for ADL's. Plan of Care: ADL Retraining, Caregiver Training, Concurrent Therapy, Functional Mobility, Group Exercise/Act as Ind, Orthotic Fitting/Training, UE Funct Exercise/Act, UE Neuromus Re-Ed/Coord, Visual/Perceptual Retrain, W/C Management Training Treatment Duration: Dec 24, 2020 Frequency: At least 5 of 7 days/Wk (IRF) Estimated Hrs Per Day: 1.5 hours per day Agreement: Yes Rehab Potential: Good Time/GCodes Start Time: 07:30 Stop Time: 08:45 Total Time Billed (hr/min): 75 Billed Treatment Time 1 visit-ADL 5 (75 min) ALLA MACDONALD Dec 01, 2020 07:51
--- NOTE | 2020-12-01 09:19 | Cardiology Progress Note ---
Subjective Date Seen by Provider: Dec 01, 2020 Time Seen by Provider: 09:18 Subjective/Events-last exam Sitting up in chair, no new complaints. Review of Systems General: No Chills, No Night Sweats, No Fatigue, No Malaise, No Appetite, No Other HEENT: No Head Aches, No Visual Changes, No Eye Pain, No Ear Pain, No Dysphasia, No Sinus Congestion, No Post Nasal Drip, No Sore Throat, No Other Pulmonary: No Dyspnea, No Cough, No Pleuritic Chest Pain, No Other Cardiovascular: No: Chest Pain, Palpitations, Orthopnea, Paroxysmal Noc. Dyspnea, Edema, Lt Headedness, Other Objective-Cardiology Exam Last Set of Vital Signs Vital Signs 12/01/20 12/01/20 06:24 08:00 Temp 36.2 Pulse 63 Resp 18 B/P (MAP) 138/65 (89) Pulse Ox 95 O2 Delivery Room Air Capillary Refill : I&O Intake and Output 12/01/20 00:00 Intake Total 1520 ml Balance 1520 ml Intake Oral 1520 ml # Voids 5 # Bowel Movements 1 General: Alert, Oriented X3, Cooperative HEENT: Atraumatic, PERRLA Neck: Supple, No JVD, No Thyromegaly Lungs: Clear to Auscultation, Normal Air Movement Heart: Regular Rate, Normal S1, Normal S2, No Murmurs Abdomen: Normal Bowel Sounds, Soft, No Tenderness, No Hepatosplenomegaly, No Masses Extremities: No Clubbing, No Cyanosis, No Edema, Normal Pulses, No Tenderness/Swelling Skin: No Rashes, No Breakdown, No Significant Lesion Neuro: Strength at 5/5 X4 Ext, Sensation Intact, Other (hemiplegia) Psych/Mental Status: Mood NL A/P-Cardiology Admission Diagnosis Cryptogenic stroke Hypertension Hyperlipidemia Diabetes mellitus Assessment/Plan Cryptogenic stroke at the right occipital region, workup for the source of embolization so far is negative, patient has itching and erythema at the site of the zio patch, she will benefit from long-term monitoring, s/p LINq implantation done on 11/28/2020 Hypertension, borderline hypotension, continue to monitor. Diabetes mellitus, followed and managed by primary care physician Lipid profile done on November 26, 2020 showing total cholesterol 122, LDL 64. Continue to monitor Diabetic retinopathy, followed and managed by primary care physician Fibromyalgia, followed and managed by primary care physician Gastroesophageal reflux disease, gastroparesis, obesity. Patient was seen and evaluated with Jennifer, examination performed, management plan was discussed, agree with the current scribed note, I made few changes to the note using Italic font Patient was seen at bedside, sitting comfortably, continue with current medication monitor blood pressure and lipids. No changes are recommended JENNIFER HARMAN Dec 01, 2020 09:19 RAMEZ THAKKAR MD Dec 01, 2020 15:21
[2020-12-01] MEDS: hydrOXYzine (VISTARIL/ATARAX) 25 MG capsule/tablet PO PRN (09:58)
--- NOTE | 2020-12-01 10:19 | Speech Therapy Daily Note ---
Speech Daily Progress Note Subjective Date Seen by Provider: Dec 01, 2020 Time Seen by Provider: 00:30 Patient was sitting up in her recliner trying to read/sign the discharge agreement given to her by the . Patient had some questions related to the papers, however she was unable to read them. Objective Patient completed a series of safety awareness questions related to her needs upon her return home. Assessment Assessment Current Status: Good Progress Treatment Plan Continue Plan of Care Speech Short Term Goals Short Term Goals Short Term Goals 1) The patient will complete memory tasks related to her daily needs at 90% or greater. 2) The patient will complete safety awareness tasks related to her daily needs at 90% or greater. 3) The patient will complete problem solving tasks related to her daily needs at 90% or greater. 4) The patient will complete speech production tasks related to her communication needs at 90% or greater. Speech Infantry Operations Specialist Goals Correction Goals Patient will improve speech production to 90% or greater for effective com munication. Patient will improve cognitive-communication necessary for safety and daily living tasks with minimal assist. Speech-Plan Patient/Family Goals Patient/Family Goals: Patient is scheduled to return home where she lives with her on 12/16/2020. Treatment Plan Speech Therapy Treatment Plan: Continue Plan of Care Treatment Duration: Dec 09, 2020 Frequency: 4 times per week (Patient will receive skilled ST 4-5x per week) Estimated Hrs Per Day: .5 hour per day Rehab Potential: Good Barriers to Learning: Patient's recent CVA, vision difficulty Pt/Family Agrees to Plan: Yes Safety Risks/Education Teaching Recipient: Patient Teaching Methods: Demonstration, Discussion Response to Teaching: Verbalize Understanding, Return Demonstration Education Topics Provided: Continued safety and communication of wants/needs Time Speech Therapy Time In: 09:00 Speech Therapy Time Out: 09:30 Total Billed Time: 30 Billed Treatment Time 1, PELON Gastelum Dec 01, 2020 10:18
--- NOTE | 2020-12-01 11:21 | PM&R Progress Note ---
Subjective HPI/CC On Admission Date Seen by Provider: Dec 01, 2020 Time Seen by Provider: 11:30 Subjective/Events-last exam 12/01/20: Progressing nicely No issues Incontinence noted periodically No pain except Fibromyalgia pain 11/30/20: Pt doing pretty well Sugar is 177 Restarted Statin, although she is allergic to Lipitor she is okay with Crestor Has a chronic headache since the stroke Left arm is improved 11/29/20: Appreciate Dr Watson evaluating the patient s/p loop recorder yesterday Incontinent isolated incident No pain reported VIsion is a limitation Walking with hemicane 11/28/20: Pt feels like she is progressing Loop recorder will be placed today Bowels moved yesterday will come to visit today Overall doing very well 11/27/20: Used CPAP last night BM today BP good Feels like she is progressing 11/26/20: Patient sleepy today Home CPAP will be brought in by family soon BM daily Walked 16 feet with hemicane Transfers are easier 11/25/20: Vision is a significant issue for her now Cardiology will place loop recorder on Saturday No falls Able to regain some function left hand and leg 11/24/20: Pt settling in pretty well Dizziness noted Bowels moved yesterday Reviewed home medications Review of Systems Neurological: Weakness, Incoordination Objective Exam Vital Signs Vital Signs Date Time Temp Pulse Resp B/P (MAP) Pulse Ox O2 Delivery O2 Flow Rate FiO2 12/01/20 20:35 Room Air 12/01/20 18:00 36.8 78 18 108/58 (75) 94 Capillary Refill : General Appearance: No Apparent Distress, WD/WN, Chronically ill, Obese HEENT: PERRL/EOMI, Normal ENT Inspection, Pharynx Normal Neck: Full Range of Motion, Normal Inspection, Non Tender, Supple, Carotid Bruit Respiratory: Chest Non Tender, Lungs Clear, Normal Breath Sounds, No Accessory Muscle Use, No Respiratory Distress Cardiovascular: Regular Rate, Rhythm, No Edema, No Gallop, No JVD, No Murmur, Normal Peripheral Pulses Gastrointestinal: Normal Bowel Sounds, No Organomegaly, No Pulsatile Mass, Non Tender, Soft Back: Normal Inspection, No CVA Tenderness, No Vertebral Tenderness Extremity: Normal Capillary Refill, Normal Inspection, Non Tender, No Pedal Edema Neurologic/Psychiatric: Alert, Oriented x3, Abnormal Gait, Depressed Affect, Motor Weakness (left side 2/5 upper and lower extremity) Skin: Normal Color, Warm/Dry Lymphatic: No Adenopathy Results/Procedures Lab Patient resulted labs reviewed. FIM Transfers Therapy Code Descriptions/Definitions Functional [place] Measure: 0=Not Assessed/NA 4=Minimal Assistance 1=Total Assistance 5=Supervision or Setup 2=Maximal Assistance 6=Modified [place] 3=Moderate Assistance 7=Complete IndependenceSCALE: Activities may be completed with or without assistive devices. 6-Ulheagyanw-rqjvdnz completes the activity by him/herself with no assistance from a helper. 5-Set-up or Clean-up Assistance-helper sets up or cleans up; patient completes activity. Paxton assists only prior to or following the activity. 4-Supervision or Touching Assistance-helper provides verbal cues and/or touching/steadying and/or contact guard assistance as patient completes activity. Assistance may be provided throughout the activity or intermittently. 3-Partial/Moderate Assistance-helper does LESS THAN HALF the effort. Paxton lifts, holds or supports trunk or limbs, but provides less than half the effort. 2-Substantial/Maximal Assistance-helper does MORE THAN HALF the effort. Paxton lifts or holds trunk or limbs and provides more than half the effort. 3-Yooobwxdx-gttkwk does ALL the effort. Patient does none of the effort to complete the activity. Or, the assistance of 2 or more helpers is required for the patient to complete the activity. If activity was not attempted, code reason: 7-Patient Refused. 9-Not Applicable-not attempted and the patient did not perform the activity before the current illness, exacerbation or injury. 10-Not Attempted due to Environmental Limitations-(lack of equipment, weather restraints, etc.). 88-Not Attempted due to Medical Conditions or Safety Concerns. Roll Left to Right (QC): 3 Sit to Lying (QC): 3 Sit to Stand (QC): 3 Chair/Jjr-jd-Emint Xfer(QC): 3 Car Transfer (QC): 88 Gait Training Does the Patient Walk?: Yes Distance: 18', 15' Walk 10 feet (QC): 3 Walk 50 ft with 2 Turns(QC): 88 Walk 150 ft (QC): 88 Walking 10ft/uneven surface-QC: 88 Gait Persons Needed: 1 Gait Assistive Device: Walker Kvng Wheelchair Training Does the Pt Use a Wheelchair?: Yes Wheel 50 ft with 2 turns (QC): 3 Wheel 150 ft (QC): 9 Type of Wheelchair: Manual Stair Training 1 Step (curb) (QC): 88 4 Steps (QC): 88 12 Steps (QC): 88 Balance Picking up an Object (QC): 88 ADL-Treatment Eating (QC): 5 Oral Hygiene (QC): 6 Bathing Location: L Arm, R Arm, L Upper Leg, R Upper Leg, L Lower Leg (including foot), R Lower Leg (including foot), Chest, Abdomen, Perineal Area Shower/Bathe Self (QC): 3 Upper Body Dressing (QC): 3 Lower Body Dressing (QC): 2 On/Off Footwear (QC): 2 Toileting Hygiene (QC): 2 Toilet Transfer (QC): 2 Assessment/Plan Assessment and Plan Assess & Plan/Chief Complaint Assessment: CVA with left sided weakness Fibromyalgia GERD Gastroparesis Neuropathy GEREMIAS on CPAP DM HTN HLP Glaucoma Diabetic retinopathy Obesity s/p loop recorder placement Dr Watson 11/28/20 Plan: IRF protocol Home meds DM management 11/24/20: Sugar management Monitor pain Monitor dizziness 11/25/20: Vision loss is problematic Cardiology appreciated Monitor closely 11/26/20: Improved ambulation with kvng-cane Doing well Vision loss limiting factor 11/27/20: Monitor BP Improved status CPAP use 11/28/11: Monitor BP Labs reviewed Fall risk 11/29/20: Appreciate Dr Watson Loop recorder in place 11/30/20: Monitor closely Restart Crestor Loop recorder in place 12/01/20: Progressing nicely Continue monitoring Needs eye exam with prisms (1) Fibromyalgia (2) Cervical spine disease (3) Obesity (4) Diabetes (5) Gastroparesis (6) GERD (gastroesophageal reflux disease) (7) Neuropathy (8) Glaucoma (9) Former smoker (10) CVA (cerebral vascular accident) SALVADOR SPARKS DO Dec 01, 2020 11:21
--- NOTE | 2020-12-01 12:17 | Physical Therapy Daily Note ---
PT Daily Note-Current Subjective Pt sitting in recliner upon arrival. Pt agrees to PT. SP arrives part way through tx. Pain Location: No Pain Reported Mental Status Patient Orientation: Person, Place, Situation Transfers SCALE: Activities may be completed with or without assistive devices. 3-Kpnifxzztj-fbaoewl completes the activity by him/herself with no assistance from a helper. 5-Set-up or Clean-up Assistance-helper sets up or cleans up; patient completes activity. [place] assists only prior to or following the activity. 4-Supervision or Touching Assistance-helper provides verbal cues and/or touching/steadying and/or contact guard assistance as patient completes activity. Assistance may be provided throughout the activity or intermittently. 3-Partial/Moderate Assistance-helper does LESS THAN HALF the effort. [place] lifts, holds or supports trunk or limbs, but provides less than half the effort. 2-Substantial/Maximal Assistance-helper does MORE THAN HALF the effort. [place] lifts or holds trunk or limbs and provides more than half the effort. 8-Zwvdmkfop-hkvocj does ALL the effort. Patient does none of the effort to complete the activity. Or, the assistance of 2 or more helpers is required for the patient to complete the activity. If activity was not attempted, code reason: 7-Patient Refused. 9-Not Applicable-not attempted and the patient did not perform the activity before the current illness, exacerbation or injury. 10-Not Attempted due to Environmental Limitations-(lack of equipment, weather restraints, etc.). 88-Not Attempted due to Medical Conditions or Safety Concerns. Sit to Stand (QC): 3 Weight Bearing Full Weight Bearing Full Weight Bearing Exercises Supine Ex: Ankle pumps, Quad Set, Glut sets, Hip abd/add Supine Reps: 15 Seated Therapy Exercises: Ankle pumps, Long arc quads, Hip flexion, Kicking activity, Hip abd/add Seated Reps: 15 Treatments Pt completes Supine & Seated Ex from recliner with RB as needed. Pt transfers to reposition. DIE CLEANER asks pt if she could sign Weekly Discharge Meeting paperwork. Pt cannot see to sign so DIE CLEANER reads it to pt and after SP arrives, he signs paperwork. SP ask about visual assessment and pt's progress. Lunch arrives during tx. Pt resting at end of tx with all needs met, call light in hand. Assessment Current Status: Good Progress Pt marisela. tx well and is gaining strength. Pt needs VC to stay on task as pt likes to visit. PT Correction Goals News Producer Goals PT News Producer Goals Time Frame: Dec 14, 2020 Roll Left & Right (QC): 5 Sit to Lying (QC): 5 Lying-Sitting on Side/Bed(QC): 5 Sit to Stand (QC): 5 Chair/Hix-co-Xsvgl Xfer(QC): 5 Toilet Transfer (QC): 5 Car Transfer (QC): 5 Does the Patient Walk: Yes Walk 10 feet (QC): 5 Walk 50ft with 2 Turns (QC): 5 Walk 150 ft (QC): 5 Walking 10ft on Uneven Surface: 5 1 Step (curb) (QC): 4 4 Steps (QC): 9 12 Steps (QC): 9 Picking up an Object (QC): 4 Does the Pt use WC or Scooter?: No Wheel 50 feet with 2 turns (QC: 9 Wheel 150 feet: 9 PT Plan Problem List Problem List: Activity Tolerance, Functional Strength, Balance, Gait Treatment/Plan Treatment Plan: Continue Plan of Care Treatment Duration: Dec 14, 2020 Frequency: At least 5 of 7 days/Wk (IRF) Estimated Hrs Per Day: 1.5 hours per day Patient and/or Family Agrees t: Yes Safety Risks/Education Patient Education: Transfer Techniques, Correct Positioning, Disease Process, Safety Issues Teaching Recipient: Patient, Significant Other Teaching Methods: Discussion Response to Teaching: Verbalize Understanding Time/GCodes Time In: 1115 Time Out: 1230 Total Billed Treatment Time: 75 Total Billed Treatment 1, FA x3 (45m) & EX x2 (30m) EMILE CASTILLO DIE CLEANER Dec 01, 2020 12:17
[2020-12-01 18:00] VITALS: BP 108/58
[2020-12-01] MEDS: MELATONIN 3 MG TABLET PO PRN (20:25)
[2020-12-01] MEDS: LATANOPROST 0.005% (XALATAN) OPHTH SOLN 2.5 ML OU SCH (20:28)
[2020-12-01] MEDS: RHOPRESSA 0.02% OU SCH (20:36)
[2020-12-01] MEDS: OPTH OU SCH (20:36)
[2020-12-02 05:59] VITALS: BP 127/62
[2020-12-02] MEDS: inSUlin ASPART (NovoLOG) 1 UNIT/0.01 ML (CHARGE PER UNIT) SC SCH ×7 (06:00→20:58)
--- NOTE | 2020-12-02 07:33 | Occupational Ther Daily Note ---
OT Current Status-Daily Note Subjective Pt dozing in chair, woke to name. Pt agrees to therapy. No c/o pain at this time. Pt is scanning and finding items on breakfast tray with only slight difficulty with small items. Mental Status/Objective Patient Orientation: Person, Place, Time, Situation Attachments: Other-See Comments (Loop Recorder) ADL-Treatment Pt is able to open containers and packages then uses regular utensils to eat. Increased strength in L pinch noted while pt was holding small package of salt/pepper and pt was able to pinch with R hand and open. Pt agrees to shower. Pt completes oral care sitting at sink, independently. Pt transfers to/from toilet with CGA. CGA in standing while pt manipulated clothing, cleansed self sitting on toilet. CGA for transfer to shower using grabbars and w/c. Pt then bathed all areas in sitting except buttocks, assist to bathe buttocks in stance. Due to time constraints assist with dressing. Pt is able to stabilize self with hemiwalker using L hand while R hand hiked R side of clothing over hip, assist with L side. Pt then transferred back to recliner. Pt has c/o back pain, nrsg notified and brought pain meds then DOUGLAS placed MHP to back for 20 min. After session, pt sitting in recliner with call light/phone in reach. All needs met in room. Therapy Code Descriptions/Definitions Functional [place] Measure: 0=Not Assessed/NA 4=Minimal Assistance 1=Total Assistance 5=Supervision or Setup 2=Maximal Assistance 6=Modified [place] 3=Moderate Assistance 7=Complete IndependenceSCALE: Activities may be completed with or without assistive devices. 7-Pccezlogae-hsdcgep completes the activity by him/herself with no assistance from a helper. 5-Set-up or Clean-up Assistance-helper sets up or cleans up; patient completes activity. [place] assists only prior to or following the activity. 4-Supervision or Touching Assistance-helper provides verbal cues and/or touching/steadying and/or contact guard assistance as patient completes activity. Assistance may be provided throughout the activity or intermittently. 3-Partial/Moderate Assistance-helper does LESS THAN HALF the effort. [place] lifts, holds or supports trunk or limbs, but provides less than half the effort. 2-Substantial/Maximal Assistance-helper does MORE THAN HALF the effort. [place] lifts or holds trunk or limbs and provides more than half the effort. 9-Bhauwwwxj-auzbol does ALL the effort. Patient does none of the effort to complete the activity. Or, the assistance of 2 or more helpers is required for the patient to complete the activity. If activity was not attempted, code reason: 7-Patient Refused. 9-Not Applicable-not attempted and the patient did not perform the activity before the current illness, exacerbation or injury. 10-Not Attempted due to Environmental Limitations-(lack of equipment, weather restraints, etc.). 88-Not Attempted due to Medical Conditions or Safety Concerns. Eating (QC): 6 Oral Hygiene (QC): 6 Bathing Location: L Arm, R Arm, L Upper Leg, R Upper Leg, L Lower Leg (including foot), R Lower Leg (including foot), Chest, Abdomen, Perineal Area Shower/Bathe Self (QC): 3 Lower Body Dressing (QC): 2 Toileting Hygiene (QC): 4 Toilet Transfer (QC): 4 OT Short Term Goals Short Term Goals Time Frame: Dec 07, 2020 Eatin Oral hygiene: 6 Toileting hygiene: 2 Shower/bathe self: 2 Upper body dressin Lower body dressin Putting on/taking off footwear: 2 OT Detention Goals Welder Fabricator Goals Time Frame: Dec 24, 2020 Eating (QC): 6 Oral Hygiene (QC): 6 Toileting Hygiene (QC): 4 Shower/Bathe Self (QC): 4 Upper Body Dressing (QC): 6 Lower Body Dressing (QC): 4 On/Off Footwear (QC): 3 Additional Goals: 1-Demonstrate ADL Tasks, 2-Verbalize Understanding, 3- ImproveStrength/Sola 1=Demonstrate adherence to instructed precautions during ADL tasks. 2=Patient will verbalize/demonstrate understanding of assistive devices/modifications for ADL. 3=Patient will improve strength/tolerance for activity to enable patient to perform ADL's. OT Education/Plan Problem List/Assessment Assessment: Decreased Activ Tolerance, Decreased UE Strength, Impaired Bed Mobility, Impaired Coordination, Impaired Funct Balance, Impaired I ADL's, Impaired Self-Care Skills, Restricted Funct UE ROM, Visual-Perceptual Deficit Discharge Recommendations Plan/Recommendations: Continue POC Treatment Plan/Plan of Care Patient would benefit from OT for education, treatment and training to promote independence in ADL's, mobility, safety and/or upper extremity function for ADL's. Plan of Care: ADL Retraining, Caregiver Training, Concurrent Therapy, Functional Mobility, Group Exercise/Act as Ind, Orthotic Fitting/Training, UE Funct Exercise/Act, UE Neuromus Re-Ed/Coord, Visual/Perceptual Retrain, W/C Management Training Treatment Duration: Dec 24, 2020 Frequency: At least 5 of 7 days/Wk (IRF) Estimated Hrs Per Day: 1.5 hours per day Agreement: Yes Rehab Potential: Good Time/GCodes Start Time: 07:15 Stop Time: 08:45 Total Time Billed (hr/min): 90 Billed Treatment Time 1 visit-ADL 6 (90 min) ALLA MACDONALD Dec 02, 2020 07:33
[2020-12-02] MEDS: PREGABALIN 75 MG (LYRICA) CAP PO SCH ×2 (08:19→20:56)
[2020-12-02] MEDS: VITAMIN D3 125 MCG (5,000 UNITS) CAPSULE PO SCH (08:19)
[2020-12-02] MEDS: PANTOPRAZOLE 40 MG (PROTONIX) TAB PO SCH (08:19)
[2020-12-02] MEDS: CLOPIDOGREL 75 MG (PLAVIX) TABLET PO SCH (08:19)
[2020-12-02] MEDS: DOCUSATE SODIUM 100 MG (COLACE) CAP PO SCH ×2 (08:19→20:56)
[2020-12-02] MEDS: SENNA W/DOCUSATE (SENOKOT S) TABLET PO SCH ×2 (08:19→20:56)
[2020-12-02] MEDS: ROSUVASTATIN 20 MG (CRESTOR) TABLET PO SCH (08:19)
[2020-12-02] MEDS: ACETAMINOPHEN 325 MG TABLET PO PRN (08:19)
[2020-12-02] MEDS: LORATADINE (CLARITIN) 10 MG TAB PO SCH (08:19)
[2020-12-02] MEDS: polyethylene glycoL POWDER 17 GM (MIRALAX) PACK PO SCH ×2 (08:20→20:58)
[2020-12-02] MEDS: lisINopril 40 MG (PRINIVIL) TABLET PO SCH (08:23)
[2020-12-02] MEDS: HYDROCORTISONE 1% OINT 30 GM TUBE TOP SCH ×2 (08:24→20:59)
--- NOTE | 2020-12-02 09:45 | PM&R Progress Note ---
Subjective HPI/CC On Admission Date Seen by Provider: Dec 02, 2020 Time Seen by Provider: 09:45 Subjective/Events-last exam 12/02/20: Atarax makes her too drowsy Itchiness is still an issue Monitoring closely Improved left arm movement 12/01/20: Progressing nicely No issues Incontinence noted periodically No pain except Fibromyalgia pain 11/30/20: Pt doing pretty well Sugar is 177 Restarted Statin, although she is allergic to Lipitor she is okay with Crestor Has a chronic headache since the stroke Left arm is improved 11/29/20: Appreciate Dr Watson evaluating the patient s/p loop recorder yesterday Incontinent isolated incident No pain reported VIsion is a limitation Walking with hemicane 11/28/20: Pt feels like she is progressing Loop recorder will be placed today Bowels moved yesterday will come to visit today Overall doing very well 11/27/20: Used CPAP last night BM today BP good Feels like she is progressing 11/26/20: Patient sleepy today Home CPAP will be brought in by family soon BM daily Walked 16 feet with hemicane Transfers are easier 11/25/20: Vision is a significant issue for her now Cardiology will place loop recorder on Saturday No falls Able to regain some function left hand and leg 11/24/20: Pt settling in pretty well Dizziness noted Bowels moved yesterday Reviewed home medications Review of Systems Neurological: Weakness, Incoordination Objective Exam Vital Signs Vital Signs Date Time Temp Pulse Resp B/P (MAP) Pulse Ox O2 Delivery O2 Flow Rate FiO2 12/02/20 20:50 95 Room Air 12/02/20 16:00 36.7 67 16 159/92 (114) Capillary Refill : General Appearance: No Apparent Distress, WD/WN, Chronically ill, Obese HEENT: PERRL/EOMI, Normal ENT Inspection, Pharynx Normal Neck: Full Range of Motion, Normal Inspection, Non Tender, Supple, Carotid Bruit Respiratory: Chest Non Tender, Lungs Clear, Normal Breath Sounds, No Accessory Muscle Use, No Respiratory Distress Cardiovascular: Regular Rate, Rhythm, No Edema, No Gallop, No JVD, No Murmur, Normal Peripheral Pulses Gastrointestinal: Normal Bowel Sounds, No Organomegaly, No Pulsatile Mass, Non Tender, Soft Back: Normal Inspection, No CVA Tenderness, No Vertebral Tenderness Extremity: Normal Capillary Refill, Normal Inspection, Non Tender, No Pedal Edema Neurologic/Psychiatric: Alert, Oriented x3, Abnormal Gait, Depressed Affect, Motor Weakness (left side 2/5 upper and lower extremity) Skin: Normal Color, Warm/Dry Lymphatic: No Adenopathy Results/Procedures Lab Patient resulted labs reviewed. FIM Transfers Therapy Code Descriptions/Definitions Functional [place] Measure: 0=Not Assessed/NA 4=Minimal Assistance 1=Total Assistance 5=Supervision or Setup 2=Maximal Assistance 6=Modified [place] 3=Moderate Assistance 7=Complete IndependenceSCALE: Activities may be completed with or without assistive devices. 0-Jycowwlhmx-rdxqiyh completes the activity by him/herself with no assistance from a helper. 5-Set-up or Clean-up Assistance-helper sets up or cleans up; patient completes activity. [place] assists only prior to or following the activity. 4-Supervision or Touching Assistance-helper provides verbal cues and/or touching/steadying and/or contact guard assistance as patient completes activity. Assistance may be provided throughout the activity or intermittently. 3-Partial/Moderate Assistance-helper does LESS THAN HALF the effort. [place] lifts, holds or supports trunk or limbs, but provides less than half the effort. 2-Substantial/Maximal Assistance-helper does MORE THAN HALF the effort. [place] lifts or holds trunk or limbs and provides more than half the effort. 7-Uvfaaldyo-ukgfgz does ALL the effort. Patient does none of the effort to complete the activity. Or, the assistance of 2 or more helpers is required for the patient to complete the activity. If activity was not attempted, code reason: 7-Patient Refused. 9-Not Applicable-not attempted and the patient did not perform the activity before the current illness, exacerbation or injury. 10-Not Attempted due to Environmental Limitations-(lack of equipment, weather restraints, etc.). 88-Not Attempted due to Medical Conditions or Safety Concerns. Roll Left to Right (QC): 3 Sit to Lying (QC): 3 Sit to Stand (QC): 3 Chair/Crk-bp-Zhgip Xfer(QC): 3 Car Transfer (QC): 88 Gait Training Does the Patient Walk?: Yes Distance: 18', 15' Walk 10 feet (QC): 3 Walk 50 ft with 2 Turns(QC): 88 Walk 150 ft (QC): 88 Walking 10ft/uneven surface-QC: 88 Gait Persons Needed: 1 Gait Assistive Device: Walker Kvng Wheelchair Training Does the Pt Use a Wheelchair?: Yes Wheel 50 ft with 2 turns (QC): 3 Wheel 150 ft (QC): 9 Type of Wheelchair: Manual Stair Training 1 Step (curb) (QC): 88 4 Steps (QC): 88 12 Steps (QC): 88 Balance Picking up an Object (QC): 88 ADL-Treatment Eating (QC): 6 Oral Hygiene (QC): 6 Bathing Location: L Arm, R Arm, L Upper Leg, R Upper Leg, L Lower Leg (including foot), R Lower Leg (including foot), Chest, Abdomen, Perineal Area Shower/Bathe Self (QC): 3 Upper Body Dressing (QC): 3 Lower Body Dressing (QC): 2 On/Off Footwear (QC): 2 Toileting Hygiene (QC): 4 Toilet Transfer (QC): 4 Assessment/Plan Assessment and Plan Assess & Plan/Chief Complaint Assessment: CVA with left sided weakness Fibromyalgia GERD Gastroparesis Neuropathy GEREMIAS on CPAP DM HTN HLP Glaucoma Diabetic retinopathy Obesity s/p loop recorder placement Dr Watson 11/28/20 Plan: IRF protocol Home meds DM management 11/24/20: Sugar management Monitor pain Monitor dizziness 11/25/20: Vision loss is problematic Cardiology appreciated Monitor closely 11/26/20: Improved ambulation with kvng-cane Doing well Vision loss limiting factor 11/27/20: Monitor BP Improved status CPAP use 11/28/11: Monitor BP Labs reviewed Fall risk 11/29/20: Appreciate Dr Watson Loop recorder in place 11/30/20: Monitor closely Restart Crestor Loop recorder in place 12/01/20: Progressing nicely Continue monitoring Needs eye exam with prisms 12/02/20: Improved left arm function Monitor rash Monitor BP (1) Fibromyalgia (2) Cervical spine disease (3) Obesity (4) Diabetes (5) Gastroparesis (6) GERD (gastroesophageal reflux disease) (7) Neuropathy (8) Glaucoma (9) Former smoker (10) CVA (cerebral vascular accident) SALVADOR SPARKS DO Dec 02, 2020 09:45
[2020-12-02] MEDS ORDERED: hydrOXYzine (ATARAX) 10 MG TAB PO PRN (10:00)
--- NOTE | 2020-12-02 12:21 | Physical Therapy Daily Note ---
PT Daily Note-Current Subjective Agreeable to PT. Reports she is groggy this morning. Mental Status Patient Orientation: Person, Place, Time, Situation Transfers SCALE: Activities may be completed with or without assistive devices. 9-Muuzbnawrv-xrpzkjr completes the activity by him/herself with no assistance from a helper. 5-Set-up or Clean-up Assistance-helper sets up or cleans up; patient completes activity. [place] assists only prior to or following the activity. 4-Supervision or Touching Assistance-helper provides verbal cues and/or touching/steadying and/or contact guard assistance as patient completes activity. Assistance may be provided throughout the activity or intermittently. 3-Partial/Moderate Assistance-helper does LESS THAN HALF the effort. [place] lifts, holds or supports trunk or limbs, but provides less than half the effort. 2-Substantial/Maximal Assistance-helper does MORE THAN HALF the effort. [place] lifts or holds trunk or limbs and provides more than half the effort. 3-Qprgzlxkb-rnuikc does ALL the effort. Patient does none of the effort to complete the activity. Or, the assistance of 2 or more helpers is required for the patient to complete the activity. If activity was not attempted, code reason: 7-Patient Refused. 9-Not Applicable-not attempted and the patient did not perform the activity before the current illness, exacerbation or injury. 10-Not Attempted due to Environmental Limitations-(lack of equipment, weather restraints, etc.). 88-Not Attempted due to Medical Conditions or Safety Concerns. Sit to Stand (QC): 3 (min to CGA; multiple sit to stand transfers during treatment; intermittent reminders for hand plcement.) Chair/Ukc-rx-Pgxwm Xfer(QC): 3 (used a hemiwalker) Weight Bearing Full Weight Bearing Full Weight Bearing Gait Training Gait training performed. Initially used hemiwalker for gait and pt ambulated 20 ft x 2 with min A and followed closely with WC. Then attempted platform left walker. Pt walked 30 ft x 3 with FWW platform with close CGA. Treatments Sit to stand at // bars several attempts to focus on hip/knee extension strength. Standing activities at bars for weight shift, mini squats, marching...all to facilitate WB left LE; functional dynamic balance and proglonged standing. This was a combo of ther ex and neuro training. Pt in room post visit with needs met. Assessment Current Status: Good Progress Improved functional balance with use of platform FWW; however she does have toe drag left with difficulty with pull through. Improve stance tolerance left with activity this date. PT Steel Post Installer Goals Senior Living Goals PT Senior Living Goals Time Frame: Dec 14, 2020 Roll Left & Right (QC): 5 Sit to Lying (QC): 5 Lying-Sitting on Side/Bed(QC): 5 Sit to Stand (QC): 5 Chair/Vun-xc-Oydwv Xfer(QC): 5 Toilet Transfer (QC): 5 Car Transfer (QC): 5 Does the Patient Walk: Yes Walk 10 feet (QC): 5 Walk 50ft with 2 Turns (QC): 5 Walk 150 ft (QC): 5 Walking 10ft on Uneven Surface: 5 1 Step (curb) (QC): 4 4 Steps (QC): 9 12 Steps (QC): 9 Picking up an Object (QC): 4 Does the Pt use WC or Scooter?: No Wheel 50 feet with 2 turns (QC: 9 Wheel 150 feet: 9 PT Plan Problem List Problem List: Activity Tolerance, Functional Strength, Safety, Balance, Gait, Transfer, Bed Mobility Treatment/Plan Treatment Plan: Continue Plan of Care Treatment Plan: Bed Mobility, Concurrent Therapy, Functional Activity Sola, Functional Strength, Gait, Safety, Therapeutic Exercise, Transfers Treatment Duration: Dec 14, 2020 Frequency: At least 5 of 7 days/Wk (IRF) Estimated Hrs Per Day: 1.5 hours per day Patient and/or Family Agrees t: Yes Safety Risks/Education Patient Education: Transfer Techniques, Safety Issues Teaching Recipient: Patient Teaching Methods: Discussion Response to Teaching: Reinforcement Needed Discharge Recommendations Plan Pt's spouse is to bring in shoes to try an AFO Time/GCodes Time In: 1015 Time Out: 1130 Total Billed Treatment Time: 75 Total Billed Treatment visit GT 30 EX 30 NM 15 ALLA MOTLEY PT Dec 02, 2020 12:21
--- NOTE | 2020-12-02 13:28 | Speech Therapy Daily Note ---
Speech Daily Progress Note Subjective Date Seen by Provider: Dec 02, 2020 Time Seen by Provider: 00:30 Patient was resting in her recliner when I entered her room. Patient states her is supposed to be her later. Objective Patient completed a series of general questions related to his daily needs at home with 90% given processing time and minimal repetitions. Assessment Assessment Current Status: Good Progress Treatment Plan Continue Plan of Care Speech Short Term Goals Short Term Goals Short Term Goals 1) The patient will complete memory tasks related to her daily needs at 90% or greater. 2) The patient will complete safety awareness tasks related to her daily needs at 90% or greater. 3) The patient will complete problem solving tasks related to her daily needs at 90% or greater. 4) The patient will complete speech production tasks related to her communication needs at 90% or greater. Speech Relief Man Goals Penitentiary Goals Patient will improve speech production to 90% or greater for effective communication. Patient will improve cognitive-communication necessary for safety and daily living tasks with minimal assist. Speech-Plan Patient/Family Goals Patient/Family Goals: Patient plans on returning to her home where she lives with her . Treatment Plan Speech Therapy Treatment Plan: Continue Plan of Care Treatment Duration: Dec 09, 2020 Frequency: 4 times per week (Patient will receive skilled ST 4-5x per week) Estimated Hrs Per Day: .5 hour per day Rehab Potential: Good Barriers to Learning: Patient's recent CVA, visual impairment Pt/Family Agrees to Plan: Yes Safety Risks/Education Teaching Recipient: Patient Teaching Methods: Demonstration, Discussion Response to Teaching: Verbalize Understanding, Return Demonstration Education Topics Provided: Continued safety within her room and upon her return home. Time Speech Therapy Time In: 09:00 Speech Therapy Time Out: 09:30 Total Billed Time: 30 Billed Treatment Time 1, PELON Gastelum Dec 02, 2020 13:28
[2020-12-02 16:00] VITALS: BP 159/92
[2020-12-02 20:50] VITALS: BP 136/60
[2020-12-02] MEDS: LATANOPROST 0.005% (XALATAN) OPHTH SOLN 2.5 ML OU SCH (20:54)
[2020-12-02] MEDS: MELATONIN 3 MG TABLET PO PRN (20:56)
[2020-12-02] MEDS: RHOPRESSA 0.02% OU SCH (21:03)
[2020-12-02] MEDS: OPTH OU SCH (21:03)
[2020-12-03] MEDS: inSUlin ASPART (NovoLOG) 1 UNIT/0.01 ML (CHARGE PER UNIT) SC SCH ×7 (06:00→21:28)
[2020-12-03 06:14] VITALS: BP 141/73
[2020-12-03] MEDS: PREGABALIN 75 MG (LYRICA) CAP PO SCH ×2 (08:43→21:27)
[2020-12-03] MEDS: CLOPIDOGREL 75 MG (PLAVIX) TABLET PO SCH (08:43)
[2020-12-03] MEDS: PANTOPRAZOLE 40 MG (PROTONIX) TAB PO SCH (08:43)
[2020-12-03] MEDS: DOCUSATE SODIUM 100 MG (COLACE) CAP PO SCH ×2 (08:43→21:27)
[2020-12-03] MEDS: SENNA W/DOCUSATE (SENOKOT S) TABLET PO SCH ×2 (08:43→21:27)
[2020-12-03] MEDS: ROSUVASTATIN 20 MG (CRESTOR) TABLET PO SCH (08:43)
[2020-12-03] MEDS: VITAMIN D3 125 MCG (5,000 UNITS) CAPSULE PO SCH (08:43)
[2020-12-03] MEDS: lisINopril 40 MG (PRINIVIL) TABLET PO SCH (08:43)
[2020-12-03 08:45] VITALS: BP 138/78
[2020-12-03] MEDS: LORATADINE (CLARITIN) 10 MG TAB PO SCH (08:45)
[2020-12-03] MEDS: HYDROCORTISONE 1% OINT 30 GM TUBE TOP SCH ×2 (08:45→21:38)
[2020-12-03] MEDS: polyethylene glycoL POWDER 17 GM (MIRALAX) PACK PO SCH ×2 (08:45→21:59)
--- NOTE | 2020-12-03 10:21 | Physical Therapy Daily Note ---
PT Daily Note-Current Subjective Pt sitting in recliner upon arrival. Pt agrees to amb. with PT. Pain Location: No Pain Reported Mental Status Patient Orientation: Person, Place, Situation Transfers SCALE: Activities may be completed with or without assistive devices. 2-Txzjlvymlj-zejbsxz completes the activity by him/herself with no assistance from a helper. 5-Set-up or Clean-up Assistance-helper sets up or cleans up; patient completes activity. [place] assists only prior to or following the activity. 4-Supervision or Touching Assistance-helper provides verbal cues and/or touching/steadying and/or contact guard assistance as patient completes activity. Assistance may be provided throughout the activity or intermittently. 3-Partial/Moderate Assistance-helper does LESS THAN HALF the effort. [place] lifts, holds or supports trunk or limbs, but provides less than half the effort. 2-Substantial/Maximal Assistance-helper does MORE THAN HALF the effort. [place] lifts or holds trunk or limbs and provides more than half the effort. 3-Zigeyybgx-sbtpgp does ALL the effort. Patient does none of the effort to compl ete the activity. Or, the assistance of 2 or more helpers is required for the patient to complete the activity. If activity was not attempted, code reason: 7-Patient Refused. 9-Not Applicable-not attempted and the patient did not perform the activity before the current illness, exacerbation or injury. 10-Not Attempted due to Environmental Limitations-(lack of equipment, weather restraints, etc.). 88-Not Attempted due to Medical Conditions or Safety Concerns. Sit to Stand (QC): 4 Weight Bearing Full Weight Bearing Full Weight Bearing Gait Training Does the Patient Walk?: Yes Distance: 30', 75' Walk 10 feet (QC): 4 Walk 50 ft with 2 Turns(QC): 4 Gait Persons Needed: 1 Gait Assistive Device: Walker Platform Pt needs VC for directions as pt is visually impaired. Pt fatigues so [facility] follows pt to rest as needed. Treatments Pt TF to standing and amb. using platform walker. Pt takes rest as needed. Returns to room to rest in recliner. Repositioned and resting with all needs met, call light in hand. Assessment Current Status: Good Progress Pt still fatigues needing WC to follow but is extending distance as able. Pt still requires VC for directions due to visual impairments. PT Custodial Goals Wheel Borer Goals PT Custodial Goals Time Frame: Dec 14, 2020 Roll Left & Right (QC): 5 Sit to Lying (QC): 5 Lying-Sitting on Side/Bed(QC): 5 Sit to Stand (QC): 5 Chair/Dfv-yd-Mpdkg Xfer(QC): 5 Toilet Transfer (QC): 5 Car Transfer (QC): 5 Does the Patient Walk: Yes Walk 10 feet (QC): 5 Walk 50ft with 2 Turns (QC): 5 Walk 150 ft (QC): 5 Walking 10ft on Uneven Surface: 5 1 Step (curb) (QC): 4 4 Steps (QC): 9 12 Steps (QC): 9 Picking up an Object (QC): 4 Does the Pt use WC or Scooter?: No Wheel 50 feet with 2 turns (QC: 9 Wheel 150 feet: 9 PT Plan Problem List Problem List: Activity Tolerance, Gait Treatment/Plan Treatment Plan: Continue Plan of Care Treatment Plan: Bed Mobility, Concurrent Therapy, Functional Activity Sola, Functional Strength, Gait, Safety, Therapeutic Exercise, Transfers Treatment Duration: Dec 14, 2020 Frequency: At least 5 of 7 days/Wk (IRF) Estimated Hrs Per Day: 1.5 hours per day Patient and/or Family Agrees t: Yes Safety Risks/Education Patient Education: Gait Training, Correct Positioning, Safety Issues Teaching Recipient: Patient Teaching Methods: Discussion Response to Teaching: Verbalize Understanding Time/GCodes Time In: 820 Time Out: 845 Total Billed Treatment Time: 25 Total Billed Treatment 1, GT (15m) & FA (10m) EMILE CASTILLO PTA Dec 03, 2020 10:21
--- NOTE | 2020-12-03 12:55 | PM&R Progress Note ---
Subjective HPI/CC On Admission Date Seen by Provider: Dec 03, 2020 Time Seen by Provider: 13:00 Subjective/Events-last exam 12/03/20: Patient doing well Met her at bedside today Vision will be addressed at [place] BM today on the commode Incontinence can occur Checked meds and labs 12/02/20: Atarax makes her too drowsy Itchiness is still an issue Monitoring closely Improved left arm movement 12/01/20: Progressing nicely No issues Incontinence noted periodically No pain except Fibromyalgia pain 11/30/20: Pt doing pretty well Sugar is 177 Restarted Statin, although she is allergic to Lipitor she is okay with Crestor Has a chronic headache since the stroke Left arm is improved 11/29/20: Appreciate Dr Watson evaluating the patient s/p loop recorder yesterday Incontinent isolated incident No pain reported VIsion is a limitation Walking with hemicane 11/28/20: Pt feels like she is progressing Loop recorder will be placed today Bowels moved yesterday will come to visit today Overall doing very well 11/27/20: Used CPAP last night BM today BP good Feels like she is progressing 11/26/20: Patient sleepy today Home CPAP will be brought in by family soon BM daily Walked 16 feet with hemicane Transfers are easier 11/25/20: Vision is a significant issue for her now Cardiology will place loop recorder on Saturday No falls Able to regain some function left hand and leg 11/24/20: Pt settling in pretty well Dizziness noted Bowels moved yesterday Reviewed home medications Review of Systems General: Fatigue HEENT: Visual Changes Neurological: Weakness, Incoordination Objective Exam Vital Signs Vital Signs Date Time Temp Pulse Resp B/P (MAP) Pulse Ox O2 Delivery O2 Flow Rate FiO2 12/04/20 06:00 36.4 65 17 138/63 (88) 97 Room Air Capillary Refill : General Appearance: No Apparent Distress, WD/WN, Chronically ill, Obese HEENT: PERRL/EOMI, Normal ENT Inspection, Pharynx Normal Neck: Full Range of Motion, Normal Inspection, Non Tender, Supple, Carotid Bruit Respiratory: Chest Non Tender, Lungs Clear, Normal Breath Sounds, No Accessory Muscle Use, No Respiratory Distress Cardiovascular: Regular Rate, Rhythm, No Edema, No Gallop, No JVD, No Murmur, Normal Peripheral Pulses Gastrointestinal: Normal Bowel Sounds, No Organomegaly, No Pulsatile Mass, Non Tender, Soft Back: Normal Inspection, No CVA Tenderness, No Vertebral Tenderness Extremity: Normal Capillary Refill, Normal Inspection, Non Tender, No Pedal Edema Neurologic/Psychiatric: Alert, Oriented x3, Abnormal Gait, Depressed Affect, Motor Weakness (left side 2/5 upper and lower extremity) Skin: Normal Color, Warm/Dry Lymphatic: No Adenopathy Results/Procedures Lab Patient resulted labs reviewed. FIM Transfers Therapy Code Descriptions/Definitions Functional [place] Measure: 0=Not Assessed/NA 4=Minimal Assistance 1=Total Assistance 5=Supervision or Setup 2=Maximal Assistance 6=Modified [place] 3=Moderate Assistance 7=Complete IndependenceSCALE: Activities may be completed with or without assistive devices. 0-Mzgsqyphbq-dmhjhne completes the activity by him/herself with no assistance from a helper. 5-Set-up or Clean-up Assistance-helper sets up or cleans up; patient completes activity. [place] assists only prior to or following the activity. 4-Supervision or Touching Assistance-helper provides verbal cues and/or umesh bety/steadying and/or contact guard assistance as patient completes activity. Assistance may be provided throughout the activity or intermittently. 3-Partial/Moderate Assistance-helper does LESS THAN HALF the effort. [place] lifts, holds or supports trunk or limbs, but provides less than half the effort. 2-Substantial/Maximal Assistance-helper does MORE THAN HALF the effort. [place] lifts or holds trunk or limbs and provides more than half the effort. 5-Fspcxfkpy-ezowos does ALL the effort. Patient does none of the effort to complete the activity. Or, the assistance of 2 or more helpers is required for the patient to complete the activity. If activity was not attempted, code reason: 7-Patient Refused. 9-Not Applicable-not attempted and the patient did not perform the activity before the current illness, exacerbation or injury. 10-Not Attempted due to Environmental Limitations-(lack of equipment, weather restraints, etc.). 88-Not Attempted due to Medical Conditions or Safety Concerns. Roll Left to Right (QC): 3 Sit to Lying (QC): 3 Sit to Stand (QC): 4 Chair/Fnv-cc-Sfbrt Xfer(QC): 3 (used a hemiwalker) Car Transfer (QC): 88 Gait Training Does the Patient Walk?: Yes Distance: 30', 75' Walk 10 feet (QC): 4 Walk 50 ft with 2 Turns(QC): 4 Walk 150 ft (QC): 88 Walking 10ft/uneven surface-QC: 88 Gait Persons Needed: 1 Gait Assistive Device: Walker Platform Wheelchair Training Does the Pt Use a Wheelchair?: Yes Wheel 50 ft with 2 turns (QC): 3 Wheel 150 ft (QC): 9 Type of Wheelchair: Manual Stair Training 1 Step (curb) (QC): 88 4 Steps (QC): 88 12 Steps (QC): 88 Balance Picking up an Object (QC): 88 ADL-Treatment Eating (QC): 6 Oral Hygiene (QC): 6 Bathing Location: L Arm, R Arm, L Upper Leg, R Upper Leg, L Lower Leg (including foot), R Lower Leg (including foot), Chest, Abdomen, Perineal Area Shower/Bathe Self (QC): 3 Upper Body Dressing (QC): 3 Lower Body Dressing (QC): 2 On/Off Footwear (QC): 2 Toileting Hygiene (QC): 4 Toilet Transfer (QC): 4 Assessment/Plan Assessment and Plan Assess & Plan/Chief Complaint Assessment: CVA with left sided weakness Fibromyalgia GERD Gastroparesis Neuropathy GEREMIAS on CPAP DM HTN HLP Glaucoma Diabetic retinopathy Obesity s/p loop recorder placement Dr Watson 11/28/20 Plan: IRF protocol Home meds DM management 11/24/20: Sugar management Monitor pain Monitor dizziness 11/25/20: Vision loss is problematic Cardiology appreciated Monitor closely 11/26/20: Improved ambulation with lucita-cane Doing well Vision loss limiting factor 11/27/20: Monitor BP Improved status CPAP use 11/28/11: Monitor BP Labs reviewed Fall risk 11/29/20: Appreciate Dr Watson Loop recorder in place 11/30/20: Monitor closely Restart Crestor Loop recorder in place 12/01/20: Progressing nicely Continue monitoring Needs eye exam with prisms 12/02/20: Improved left arm function Monitor rash Monitor BP 12/03/20: Monitor BP and BS VIsion will be addressed at DC with prisms Continue progress (1) Fibromyalgia (2) Cervical spine disease (3) Obesity (4) Diabetes (5) Gastroparesis (6) GERD (gastroesophageal reflux disease) (7) Neuropathy (8) Glaucoma (9) Former smoker (10) CVA (cerebral vascular accident) SALVADOR SPARKS DO Dec 03, 2020 12:55
[2020-12-03 16:30] VITALS: BP 114/68
[2020-12-03] MEDS ORDERED: hydrOXYzine (ATARAX) 10 MG TAB PO SCH (21:00)
[2020-12-03] MEDS: MELATONIN 3 MG TABLET PO PRN (21:27)
[2020-12-03] MEDS: LATANOPROST 0.005% (XALATAN) OPHTH SOLN 2.5 ML OU SCH (21:39)
[2020-12-03] MEDS: OPTH OU SCH (21:39)
[2020-12-03] MEDS: RHOPRESSA 0.02% OU SCH (21:39)
[2020-12-04] MEDS: inSUlin ASPART (NovoLOG) 1 UNIT/0.01 ML (CHARGE PER UNIT) SC SCH ×7 (05:50→20:58)
[2020-12-04 06:00] VITALS: BP 138/63
--- NOTE | 2020-12-04 07:09 | PM&R Progress Note ---
Subjective HPI/CC On Admission Date Seen by Provider: Dec 04, 2020 Time Seen by Provider: 13:00 Subjective/Events-last exam 12/04/20: Patient doing well except the itching 12/03/20: Patient doing well Met her at bedside today Vision will be addressed at [place] BM today on the commode Incontinence can occur Checked meds and labs 12/02/20: Atarax makes her too drowsy Itchiness is still an issue Monitoring closely Improved left arm movement 12/01/20: Progressing nicely No issues Incontinence noted periodically No pain except Fibromyalgia pain 11/30/20: Pt doing pretty well Sugar is 177 Restarted Statin, although she is allergic to Lipitor she is okay with Crestor Has a chronic headache since the stroke Left arm is improved 11/29/20: Appreciate Dr Watson evaluating the patient s/p loop recorder yesterday Incontinent isolated incident No pain reported VIsion is a limitation Walking with hemicane 11/28/20: Pt feels like she is progressing Loop recorder will be placed today Bowels moved yesterday will come to visit today Overall doing very well 11/27/20: Used CPAP last night BM today BP good Feels like she is progressing 11/26/20: Patient sleepy today Home CPAP will be brought in by family soon BM daily Walked 16 feet with hemicane Transfers are easier 11/25/20: Vision is a significant issue for her now Cardiology will place loop recorder on Saturday No falls Able to regain some function left hand and leg 11/24/20: Pt settling in pretty well Dizziness noted Bowels moved yesterday Reviewed home medications Review of Systems General: Fatigue HEENT: Visual Changes Neurological: Weakness, Incoordination Objective Exam Vital Signs Vital Signs Date Time Temp Pulse Resp B/P (MAP) Pulse Ox O2 Delivery O2 Flow Rate FiO2 12/04/20 18:12 36.8 68 20 115/52 (73) 95 Room Air Capillary Refill : General Appearance: No Apparent Distress, WD/WN, Chronically ill, Obese HEENT: PERRL/EOMI, Normal ENT Inspection, Pharynx Normal Neck: Full Range of Motion, Normal Inspection, Non Tender, Supple, Carotid Bruit Respiratory: Chest Non Tender, Lungs Clear, Normal Breath Sounds, No Accessory Muscle Use, No Respiratory Distress Cardiovascular: Regular Rate, Rhythm, No Edema, No Gallop, No JVD, No Murmur, Normal Peripheral Pulses Gastrointestinal: Normal Bowel Sounds, No Organomegaly, No Pulsatile Mass, Non Tender, Soft Back: Normal Inspection, No CVA Tenderness, No Vertebral Tenderness Extremity: Normal Capillary Refill, Normal Inspection, Non Tender, No Pedal Edema Neurologic/Psychiatric: Alert, Oriented x3, Abnormal Gait, Depressed Affect, Motor Weakness (left side 2/5 upper and lower extremity) Skin: Normal Color, Warm/Dry Lymphatic: No Adenopathy Results/Procedures Lab Patient resulted labs reviewed. FIM Transfers Therapy Code Descriptions/Definitions Functional [place] Measure: 0=Not Assessed/NA 4=Minimal Assistance 1=Total Assistance 5=Supervision or Setup 2=Maximal Assistance 6=Modified [place] 3=Moderate Assistance 7=Complete IndependenceSCALE: Activities may be completed with or without assistive devices. 6-Kseupobflh-kbxwlfn completes the activity by him/herself with no assistance from a helper. 5-Set-up or Clean-up Assistance-helper sets up or cleans up; patient completes activity. [place] assists only prior to or following the activity. 4-Supervision or Touching Assistance-helper provides verbal cues and/or touching/steadying and/or contact guard assistance as patient completes activity. Assistance may be provided throughout the activity or intermittently. 3-Partial/Moderate Assistance-helper does LESS THAN HALF the effort. [place] lifts, holds or supports trunk or limbs, but provides less than half the effort. 2-Substantial/Maximal Assistance-helper does MORE THAN HALF the effort. [place] lifts or holds trunk or limbs and provides more than half the effort. 2-Wxbbmvfol-ykbxri does ALL the effort. Patient does none of the effort to complete the activity. Or, the assistance of 2 or more helpers is required for the patient to complete the activity. If activity was not attempted, code reason: 7-Patient Refused. 9-Not Applicable-not attempted and the patient did not perform the activity before the current illness, exacerbation or injury. 10-Not Attempted due to Environmental Limitations-(lack of equipment, weather restraints, etc.). 88-Not Attempted due to Medical Conditions or Safety Concerns. Roll Left to Right (QC): 3 Sit to Lying (QC): 3 Sit to Stand (QC): 4 Chair/Ztl-mi-Duihh Xfer(QC): 3 (used a hemiwalker) Car Transfer (QC): 88 Gait Training Does the Patient Walk?: Yes Distance: 30', 75' Walk 10 feet (QC): 4 Walk 50 ft with 2 Turns(QC): 4 Walk 150 ft (QC): 88 Walking 10ft/uneven surface-QC: 88 Gait Persons Needed: 1 Gait Assistive Device: Walker Platform Wheelchair Training Does the Pt Use a Wheelchair?: Yes Wheel 50 ft with 2 turns (QC): 3 Wheel 150 ft (QC): 9 Type of Wheelchair: Manual Stair Training 1 Step (curb) (QC): 88 4 Steps (QC): 88 12 Steps (QC): 88 Balance Picking up an Object (QC): 88 ADL-Treatment Eating (QC): 6 Oral Hygiene (QC): 6 Bathing Location: L Arm, R Arm, L Upper Leg, R Upper Leg, L Lower Leg (including foot), R Lower Leg (including foot), Chest, Abdomen, Perineal Area Shower/Bathe Self (QC): 3 Upper Body Dressing (QC): 3 Lower Body Dressing (QC): 2 On/Off Footwear (QC): 2 Toileting Hygiene (QC): 4 Toilet Transfer (QC): 4 Assessment/Plan Assessment and Plan Assess & Plan/Chief Complaint Assessment: CVA with left sided weakness Fibromyalgia GERD Gastroparesis Neuropathy GEREMIAS on CPAP DM HTN HLP Glaucoma Diabetic retinopathy Obesity s/p loop recorder placement Dr Watson 11/28/20 Plan: IRF protocol Home meds DM management 11/24/20: Sugar management Monitor pain Monitor dizziness 11/25/20: Vision loss is problematic Cardiology appreciated Monitor closely 11/26/20: Improved ambulation with lucita-cane Doing well Vision loss limiting factor 11/27/20: Monitor BP Improved status CPAP use 11/28/11: Monitor BP Labs reviewed Fall risk 11/29/20: Appreciate Dr Watson Loop recorder in place 11/30/20: Monitor closely Restart Crestor Loop recorder in place 12/01/20: Progressing nicely Continue monitoring Needs eye exam with prisms 12/02/20: Improved left arm function Monitor rash Monitor BP 12/03/20: Monitor BP and BS VIsion will be addressed at DC with prisms Continue progress 12/04/20: Add Pecid Claritin BID Itchiness is an issue Monitor closely Stop scheduled Atarax due to AM drowsiness (1) Fibromyalgia (2) Cervical spine disease (3) Obesity (4) Diabetes (5) Gastroparesis (6) GERD (gastroesophageal reflux disease) (7) Neuropathy (8) Glaucoma (9) Former smoker (10) CVA (cerebral vascular accident) SALVADOR SPARKS DO Dec 04, 2020 07:09
[2020-12-04] MEDS: ROSUVASTATIN 20 MG (CRESTOR) TABLET PO SCH (09:12)
[2020-12-04] MEDS: LORATADINE (CLARITIN) 10 MG TAB PO SCH ×2 (09:12→20:48)
[2020-12-04] MEDS: PREGABALIN 75 MG (LYRICA) CAP PO SCH ×2 (09:12→20:49)
[2020-12-04] MEDS: lisINopril 40 MG (PRINIVIL) TABLET PO SCH (09:12)
[2020-12-04] MEDS: DOCUSATE SODIUM 100 MG (COLACE) CAP PO SCH ×2 (09:12→20:54)
[2020-12-04] MEDS: PANTOPRAZOLE 40 MG (PROTONIX) TAB PO SCH (09:12)
[2020-12-04] MEDS: SENNA W/DOCUSATE (SENOKOT S) TABLET PO SCH ×2 (09:12→20:48)
[2020-12-04] MEDS: VITAMIN D3 125 MCG (5,000 UNITS) CAPSULE PO SCH (09:12)
[2020-12-04] MEDS: CLOPIDOGREL 75 MG (PLAVIX) TABLET PO SCH (09:12)
[2020-12-04] MEDS: HYDROCORTISONE 1% OINT 30 GM TUBE TOP SCH ×2 (09:13→20:59)
[2020-12-04] MEDS: polyethylene glycoL POWDER 17 GM (MIRALAX) PACK PO SCH ×2 (13:13→20:58)
[2020-12-04 18:12] VITALS: BP 115/52
[2020-12-04] MEDS: MELATONIN 3 MG TABLET PO PRN (20:48)
[2020-12-04] MEDS: FAMOTIDINE 20 MG (PEPCID) TABLET PO SCH (20:48)
[2020-12-04 20:50] VITALS: BP 154/66
[2020-12-04] MEDS: LATANOPROST 0.005% (XALATAN) OPHTH SOLN 2.5 ML OU SCH (20:55)
[2020-12-04] MEDS: OPTH OU SCH (21:02)
[2020-12-04] MEDS: RHOPRESSA 0.02% OU SCH (21:02)
--- NOTE | 2020-12-05 05:49 | PM&R Progress Note ---
Subjective HPI/CC On Admission Date Seen by Provider: Dec 05, 2020 Time Seen by Provider: 10:30 Subjective/Events-last exam 12/05/20: Left side is improved Labs look good Walked 60 feet which is great Doing pretty well Labs with blood sugar good 12/04/20: Patient doing well except the itching 12/03/20: Patient doing well Met her at bedside today Vision will be addressed at [place] BM today on the commode Incontinence can occur Checked meds and labs 12/02/20: Atarax makes her too drowsy Itchiness is still an issue Monitoring closely Improved left arm movement 12/01/20: Progressing nicely No issues Incontinence noted periodically No pain except Fibromyalgia pain 11/30/20: Pt doing pretty well Sugar is 177 Restarted Statin, although she is allergic to Lipitor she is okay with Crestor Has a chronic headache since the stroke Left arm is improved 11/29/20: Appreciate Dr Watson evaluating the patient s/p loop recorder yesterday Incontinent isolated incident No pain reported VIsion is a limitation Walking with hemicane 11/28/20: Pt feels like she is progressing Loop recorder will be placed today Bowels moved yesterday will come to visit today Overall doing very well 11/27/20: Used CPAP last night BM today BP good Feels like she is progressing 11/26/20: Patient sleepy today Home CPAP will be brought in by family soon BM daily Walked 16 feet with hemicane Transfers are easier 11/25/20: Vision is a significant issue for her now Cardiology will place loop recorder on Saturday No falls Able to regain some function left hand and leg 11/24/20: Pt settling in pretty well Dizziness noted Bowels moved yesterday Reviewed home medications Review of Systems Neurological: Weakness, Incoordination Objective Exam Vital Signs Vital Signs Date Time Temp Pulse Resp B/P (MAP) Pulse Ox O2 Delivery O2 Flow Rate FiO2 12/05/20 20:55 98 Room Air 12/05/20 20:50 66 16 133/63 (86) 12/05/20 16:34 36.4 Capillary Refill : General Appearance: No Apparent Distress, WD/WN, Chronically ill, Obese HEENT: PERRL/EOMI, Normal ENT Inspection, Pharynx Normal Neck: Full Range of Motion, Normal Inspection, Non Tender, Supple, Carotid Bruit Respiratory: Chest Non Tender, Lungs Clear, Normal Breath Sounds, No Accessory Muscle Use, No Respiratory Distress Cardiovascular: Regular Rate, Rhythm, No Edema, No Gallop, No JVD, No Murmur, Normal Peripheral Pulses Gastrointestinal: Normal Bowel Sounds, No Organomegaly, No Pulsatile Mass, Non Tender, Soft Back: Normal Inspection, No CVA Tenderness, No Vertebral Tenderness Extremity: Normal Capillary Refill, Normal Inspection, Non Tender, No Pedal Edema Neurologic/Psychiatric: Alert, Oriented x3, Abnormal Gait, Depressed Affect, Motor Weakness (left side 2/5 upper and lower extremity) Skin: Normal Color, Warm/Dry Lymphatic: No Adenopathy Results/Procedures Lab Laboratory Tests 12/05/20 06:12 Patient resulted labs reviewed. FIM Transfers Therapy Code Descriptions/Definitions Functional [place] Measure: 0=Not Assessed/NA 4=Minimal Assistance 1=Total Assistance 5=Supervision or Setup 2=Maximal Assistance 6=Modified [place] 3=Moderate Assistance 7=Complete IndependenceSCALE: Activities may be completed with or without assistive devices. 3-Twijefajok-gwukrxy completes the activity by him/herself with no assistance from a helper. 5-Set-up or Clean-up Assistance-helper sets up or cleans up; patient completes activity. [place] assists only prior to or following the activity. 4-Supervision or Touching Assistance-helper provides verbal cues and/or touching/steadying and/or contact guard assistance as patient completes activity. Assistance may be provided throughout the activity or intermittently. 3-Partial/Moderate Assistance-helper does LESS THAN HALF the effort. [place] lifts, holds or supports trunk or limbs, but provides less than half the effort. 2-Substantial/Maximal Assistance-helper does MORE THAN HALF the effort. [place] lifts or holds trunk or limbs and provides more than half the effort. 2-Jyhmohdyc-vjvwgi does ALL the effort. Patient does none of the effort to complete the activity. Or, the assistance of 2 or more helpers is required for the patient to complete the activity. If activity was not attempted, code reason: 7-Patient Refused. 9-Not Applicable-not attempted and the patient did not perform the activity before the current illness, exacerbation or injury. 10-Not Attempted due to Environmental Limitations-(lack of equipment, weather restraints, etc.). 88-Not Attempted due to Medical Conditions or Safety Concerns. Roll Left to Right (QC): 3 Sit to Lying (QC): 3 Sit to Stand (QC): 4 Chair/Txs-zi-Finej Xfer(QC): 3 (used a hemiwalker) Car Transfer (QC): 88 Gait Training Does the Patient Walk?: Yes Distance: 30', 75' Walk 10 feet (QC): 4 Walk 50 ft with 2 Turns(QC): 4 Walk 150 ft (QC): 88 Walking 10ft/uneven surface-QC: 88 Gait Persons Needed: 1 Gait Assistive Device: Walker Platform Wheelchair Training Does the Pt Use a Wheelchair?: Yes Wheel 50 ft with 2 turns (QC): 3 Wheel 150 ft (QC): 9 Type of Wheelchair: Manual Stair Training 1 Step (curb) (QC): 88 4 Steps (QC): 88 12 Steps (QC): 88 Balance Picking up an Object (QC): 88 ADL-Treatment Eating (QC): 6 Oral Hygiene (QC): 6 Bathing Location: L Arm, R Arm, L Upper Leg, R Upper Leg, L Lower Leg (including foot), R Lower Leg (including foot), Chest, Abdomen, Perineal Area Shower/Bathe Self (QC): 3 Upper Body Dressing (QC): 3 Lower Body Dressing (QC): 2 On/Off Footwear (QC): 2 Toileting Hygiene (QC): 4 Toilet Transfer (QC): 4 Assessment/Plan Assessment and Plan Assess & Plan/Chief Complaint Assessment: CVA with left sided weakness Fibromyalgia GERD Gastroparesis Neuropathy GEREMIAS on CPAP DM HTN HLP Glaucoma Diabetic retinopathy Obesity s/p loop recorder placement Dr Watson 11/28/20 Plan: IRF protocol Home meds DM management 11/24/20: Sugar management Monitor pain Monitor dizziness 11/25/20: Vision loss is problematic Cardiology appreciated Monitor closely 11/26/20: Improved ambulation with lucita-cane Doing well Vision loss limiting factor 11/27/20: Monitor BP Improved status CPAP use 11/28/11: Monitor BP Labs reviewed Fall risk 11/29/20: Appreciate Dr Watson Loop recorder in place 11/30/20: Monitor closely Restart Crestor Loop recorder in place 12/01/20: Progressing nicely Continue monitoring Needs eye exam with prisms 12/02/20: Improved left arm function Monitor rash Monitor BP 12/03/20: Monitor BP and BS VIsion will be addressed at DC with prisms Continue progress 12/04/20: Add Pecid Claritin BID Itchiness is an issue Monitor closely Stop scheduled Atarax due to AM drowsiness 12/05/20: Added meds yesterday for the itching Monitor left arm progress Fall risk (1) Fibromyalgia (2) Cervical spine disease (3) Obesity (4) Diabetes (5) Gastroparesis (6) GERD (gastroesophageal reflux disease) (7) Neuropathy (8) Glaucoma (9) Former smoker (10) CVA (cerebral vascular accident) SALVADOR SPARKS DO Dec 05, 2020 05:49
[2020-12-05] MEDS: inSUlin ASPART (NovoLOG) 1 UNIT/0.01 ML (CHARGE PER UNIT) SC SCH ×7 (06:00→21:01)
[2020-12-05 06:07] VITALS: BP 129/59
[2020-12-05 06:09] LABS: ALBUMIN 3.2 GM/DL (3.2-4.5); POTASSIUM 4.9 MMOL/L (3.6-5.0)
[2020-12-05 06:10] LABS: CALCIUM 8.5 MG/DL (8.5-10.1)
[2020-12-05 06:11] LABS: TOTAL PROTEIN 5.7 GM/DL (6.4-8.2)
[2020-12-05 06:13] LABS: BILIRUBIN,TOTAL 0.4 MG/DL (0.1-1.0)
[2020-12-05 06:15] LABS: CREATININE SERUM 1.01 MG/DL (0.60-1.30)
[2020-12-05 06:26] LABS: BASOPHILS # (AUTO) 0.1 10^3/uL (0.0-0.1); BASOPHILS % (AUTO) 1 % (0-10); EOSINOPHILS # (AUTO) 0.3 10^3/uL (0.0-0.3); EOSINOPHILS % (AUTO) 6 % (0-10); HEMATOCRIT 36 % (35-52); HEMOGLOBIN 11.9 g/dL (11.5-16.0); LYMPHOCYTES # (AUTO) 1.4 10^3/uL (1.0-4.0); LYMPHOCYTES % (AUTO) 32 % (12-44); MEAN CORPUSCULAR HEMOGLOBIN 29 pg (25-34); MEAN CORPUSCULAR HGB CONC 33 g/dL (32-36); MEAN CORPUSCULAR VOLUME 88 fL (80-99); MEAN PLATELET VOLUME 11.8 fL (9.0-12.2); MONOCYTES # (AUTO) 0.3 10^3/uL (0.0-1.0); MONOCYTES % (AUTO) 7 % (0-12); NEUTROPHILS # (AUTO) 2.3 10^3/uL (1.8-7.8); NEUTROPHILS % (AUTO) 53 % (42-75); PLATELET COUNT 141 10^3/uL (130-400); WHITE BLOOD COUNT 4.3 10^3/uL (4.3-11.0)
--- NOTE | 2020-12-05 09:02 | Occupational Ther Daily Note ---
OT Current Status-Daily Note Subjective Pt alert, sitting in recliner. Pt agrees to therapy. No c/o pain. Mental Status/Objective Patient Orientation: Person, Place, Time, Situation Attachments: Other-See Comments (loop recorder) ADL-Treatment Pt is demonstrating increase functional movement with L UE/LE. Pt agrees to shower. Pt independent with set up of meal and uses regular utensils. CGA for SPT using hemiwalker for surface to surface. Transferred to toilet from w/c using grabbar. Using grabbar and CGA for pt to manipulate clothing and pt sat to cleanse self after urination. Pt then transferred to shower bench with CGA using grabbars. Pt bathed all areas in sitting by self except buttocks when pt stood with grabbars while assist to cleanse. Min A to don upper body clothing. Max A for lower body clothing, pt assists with hiking R side up. After setup, pt able to don socks by self with sock aide. Assist to don shoes. After therapy, pt sitting in recliner with call light/phone in reach. All needs met in room. Therapy Code Descriptions/Definitions Functional [place] Measure: 0=Not Assessed/NA 4=Minimal Assistance 1=Total Assistance 5=Supervision or Setup 2=Maximal Assistance 6=Modified [place] 3=Moderate Assistance 7=Complete IndependenceSCALE: Activities may be completed with or without assistive devices. 2-Fvvgdnsyby-xufuuvp completes the activity by him/herself with no assistance from a helper. 5-Set-up or Clean-up Assistance-helper sets up or cleans up; patient completes activity. [place] assists only prior to or following the activity. 4-Supervision or Touching Assistance-helper provides verbal cues and/or touching/steadying and/or contact guard assistance as patient completes activity. Assistance may be provided throughout the activity or intermittently. 3-Partial/Moderate Assistance-helper does LESS THAN HALF the effort. [place] lifts, holds or supports trunk or limbs, but provides less than half the effort. 2-Substantial/Maximal Assistance-helper does MORE THAN HALF the effort. [place] lifts or holds trunk or limbs and provides more than half the effort. 9-Gdrsbqvzf-xpwyai does ALL the effort. Patient does none of the effort to complete the activity. Or, the assistance of 2 or more helpers is required for the patient to complete the activity. If activity was not attempted, code reason: 7-Patient Refused. 9-Not Applicable-not attempted and the patient did not perform the activity before the current illness, exacerbation or injury. 10-Not Attempted due to Environmental Limitations-(lack of equipment, weather restraints, etc.). 88-Not Attempted due to Medical Conditions or Safety Concerns. Eating (QC): 6 Oral Hygiene (QC): 6 (Sitting at sink.) Shower/Bathe Self (QC): 3 Upper Body Dressing (QC): 3 Lower Body Dressing (QC): 2 On/Off Footwear: 2 Toileting Hygiene (QC): 4 Toilet Transfer (QC): 4 OT Short Term Goals Short Term Goals Time Frame: Dec 07, 2020 Eatin Oral hygiene: 6 Toileting hygiene: 2 Shower/bathe self: 2 Upper body dressin Lower body dressin Putting on/taking off footwear: 2 OT Halfway Goals Landscape Engineer Goals Time Frame: Dec 24, 2020 Eating (QC): 6 Oral Hygiene (QC): 6 Toileting Hygiene (QC): 4 Shower/Bathe Self (QC): 4 Upper Body Dressing (QC): 6 Lower Body Dressing (QC): 4 On/Off Footwear (QC): 3 Additional Goals: 1-Demonstrate ADL Tasks, 2-Verbalize Understanding, 3-ImproveStrength/Sola 1=Demonstrate adherence to instructed precautions during ADL tasks. 2=Patient will verbalize/demonstrate understanding of assistive devices/modifications for ADL. 3=Patient will improve strength/tolerance for activity to enable patient to perform ADL's. OT Education/Plan Problem List/Assessment Assessment: Decreased Activ Tolerance, Decreased UE Strength, Impaired Funct Balance, Impaired Self-Care Skills, Restricted Funct UE ROM (L UE) Discharge Recommendations Plan/Recommendations: Continue POC Treatment Plan/Plan of Care Patient would benefit from OT for education, treatment and training to promote independence in ADL's, mobility, safety and/or upper extremity function for ADL's. Plan of Care: ADL Retraining, Caregiver Training, Concurrent Therapy, Functi onal Mobility, Group Exercise/Act as Ind, Orthotic Fitting/Training, UE Funct Exercise/Act, UE Neuromus Re-Ed/Coord, Visual/Perceptual Retrain, W/C Management Training Treatment Duration: Dec 24, 2020 Frequency: At least 5 of 7 days/Wk (IRF) Estimated Hrs Per Day: 1.5 hours per day Agreement: Yes Rehab Potential: Good Time/GCodes Start Time: 07:30 Stop Time: 08:45 Total Time Billed (hr/min): 75 Billed Treatment Time 1 visit-ADL 5 (75 min) ALLA MACDONALD Dec 05, 2020 09:02
[2020-12-05] MEDS: PANTOPRAZOLE 40 MG (PROTONIX) TAB PO SCH (09:47)
[2020-12-05] MEDS: lisINopril 40 MG (PRINIVIL) TABLET PO SCH (09:47)
[2020-12-05] MEDS: LORATADINE (CLARITIN) 10 MG TAB PO SCH ×2 (09:47→20:53)
[2020-12-05] MEDS: ROSUVASTATIN 20 MG (CRESTOR) TABLET PO SCH (09:47)
[2020-12-05] MEDS: VITAMIN D3 125 MCG (5,000 UNITS) CAPSULE PO SCH (09:48)
[2020-12-05] MEDS: PREGABALIN 75 MG (LYRICA) CAP PO SCH ×2 (09:48→20:53)
[2020-12-05] MEDS: FAMOTIDINE 20 MG (PEPCID) TABLET PO SCH ×2 (09:48→20:53)
[2020-12-05] MEDS: CLOPIDOGREL 75 MG (PLAVIX) TABLET PO SCH (09:48)
[2020-12-05] MEDS: HYDROCORTISONE 1% OINT 30 GM TUBE TOP SCH ×2 (09:49→21:07)
[2020-12-05] MEDS: SENNA W/DOCUSATE (SENOKOT S) TABLET PO SCH ×2 (10:36→21:01)
[2020-12-05] MEDS: polyethylene glycoL POWDER 17 GM (MIRALAX) PACK PO SCH ×2 (10:36→21:01)
[2020-12-05] MEDS: DOCUSATE SODIUM 100 MG (COLACE) CAP PO SCH ×2 (10:36→20:53)
--- NOTE | 2020-12-05 11:12 | Physical Therapy Daily Note ---
PT Daily Note-Current Subjective Agreeable to PT. Reports she feels like she is seeing a bit better. Reports her weekend was good. Mental Status Patient Orientation: Person, Place, Time, Situation Transfers SCALE: Activities may be completed with or without assistive devices. 2-Pvdywxugaj-fgcpgvi completes the activity by him/herself with no assistance from a helper. 5-Set-up or Clean-up Assistance-helper sets up or cleans up; patient completes activity. [place] assists only prior to or following the activity. 4-Supervision or Touching Assistance-helper provides verbal cues and/or touching/steadying and/or contact guard assistance as patient completes activity. Assistance may be provided throughout the activity or intermittently. 3-Partial/Moderate Assistance-helper does LESS THAN HALF the effort. [place] lifts, holds or supports trunk or limbs, but provides less than half the effort. 2-Substantial/Maximal Assistance-helper does MORE THAN HALF the effort. [place] lifts or holds trunk or limbs and provides more than half the effort. 8-Apnuptrbz-aynpln does ALL the effort. Patient does none of the effort to complete the activity. Or, the assistance of 2 or more helpers is required for the patient to complete the activity. If activity was not attempted, code reason: 7-Patient Refused. 9-Not Applicable-not attempted and the patient did not perform the activity before the current illness, exacerbation or injury. 10-Not Attempted due to Environmental Limitations-(lack of equipment, weather restraints, etc.). 88-Not Attempted due to Medical Conditions or Safety Concerns. Sit to Stand (QC): 3 (min to CGA with cues / reminders to push up from the chair with her right hand.) Chair/Rby-dt-Pzkwd Xfer(QC): 3 (used hemiwalker for SPT) Weight Bearing Full Weight Bearing Full Weight Bearing Gait Training Does the Patient Walk?: Yes Walk 10 feet (QC): 3 Walk 50 ft with 2 Turns(QC): 3 Gait Assistive Device: Walker Platform Pt ambulated x 100 ft, 60 ft x 3 with Platform FWW with min to CGA followed clos varun by WC. Skilled cues to attend to the left and to stay straight as she tends to veer left, able to correct with cues. As she tires, decreased foot clearance left and decreased knee extension control left. Exercises Standing activities in // bars for mini squats 2 x 8; high marching x 5. Seated activities to promote DF strength and terminal extension strength for improved gait pattern for DF and LAQ 3 x 10 each. Treatments Attempted to apply AFO left, but we do not have an AFO that fits her Assessment Current Status: Good Progress Pt is progressing and she was more steady with gait today and able to DF better. PT Mcfp Goals Airport Operations Specialist Goals PT Airport Operations Specialist Goals Time Frame: Dec 14, 2020 Roll Left & Right (QC): 5 Sit to Lying (QC): 5 Lying-Sitting on Side/Bed(QC): 5 Sit to Stand (QC): 5 Chair/Boi-mw-Izlfm Xfer(QC): 5 Toilet Transfer (QC): 5 Car Transfer (QC): 5 Does the Patient Walk: Yes Walk 10 feet (QC): 5 Walk 50ft with 2 Turns (QC): 5 Walk 150 ft (QC): 5 Walking 10ft on Uneven Surface: 5 1 Step (curb) (QC): 4 4 Steps (QC): 9 12 Steps (QC): 9 Picking up an Object (QC): 4 Does the Pt use WC or Scooter?: No Wheel 50 feet with 2 turns (QC: 9 Wheel 150 feet: 9 PT Plan Problem List Problem List: Activity Tolerance, Functional Strength, Safety, Balance, Gait, Transfer Treatment/Plan Treatment Plan: Continue Plan of Care Treatment Plan: Bed Mobility, Concurrent Therapy, Functional Activity Sola, Functional Strength, Gait, Safety, Therapeutic Exercise, Transfers Treatment Duration: Dec 14, 2020 Frequency: At least 5 of 7 days/Wk (IRF) Estimated Hrs Per Day: 1.5 hours per day Patient and/or Family Agrees t: Yes Safety Risks/Education Patient Education: Gait Training, Safety Issues Teaching Recipient: Patient Teaching Methods: Discussion Response to Teaching: Verbalize Understanding Time/GCodes Time In: 915 Time Out: 1025 Total Billed Treatment Time: 70 Total Billed Treatment visit GT 45 EX 25 ALLA MOTLEY PT Dec 05, 2020 11:12
--- NOTE | 2020-12-05 11:31 | Speech Therapy Daily Note ---
Speech Daily Progress Note Subjective Date Seen by Provider: Dec 05, 2020 Time Seen by Provider: 00:30 Patient was resting in her recliner following her PT when I entered her room. She was very pleased with her progress this am. Objective Patient completed a series of memory questions related to the past 48 hours with 90% accuracy given minimal cuing. Assessment Assessment Current Status: Good Progress Treatment Plan Continue Plan of Care Speech Short Term Goals Short Term Goals Short Term Goals 1) The patient will complete memory tasks related to her daily needs at 90% or greater. 2) The patient will complete safety awareness tasks related to her daily needs at 90% or greater. 3) The patient will complete problem solving tasks related to her daily needs at 90% or greater. 4) The patient will complete speech production tasks related to her communication needs at 90% or greater. Speech Mining Engineering Technologist Goals Senior Living Goals Patient will improve speech production to 90% or greater for effective communication. Patient will improve cognitive-communication necessary for safety and daily living tasks with minimal assist. Speech-Plan Patient/Family Goals Patient/Family Goals: Patient is scheduled to return to her home on 12/16/2020. Treatment Plan Speech Therapy Treatment Plan: Continue Plan of Care Treatment Duration: Dec 09, 2020 Frequency: 4 times per week (Patient will receive skilled ST 4-5x per week) Estimated Hrs Per Day: .5 hour per day Rehab Potential: Good Barriers to Learning: Patient's recent CVA Pt/Family Agrees to Plan: Yes Safety Risks/Education Teaching Recipient: Patient Teaching Methods: Demonstration, Discussion Response to Teaching: Verbalize Understanding, Return Demonstration Education Topics Provided: Continued safety within her room and effective communication Time Speech Therapy Time In: 10:30 Speech Therapy Time Out: 11:00 Total Billed Time: 30 Billed Treatment Time 1, PELON Gastelum Dec 05, 2020 11:31
--- NOTE | 2020-12-05 14:45 | Physical Therapy Daily Note ---
PT Daily Note-Current Subjective Agrees to PT., No complaints. Mental Status Patient Orientation: Person, Place, Time, Situation Transfers SCALE: Activities may be completed with or without assistive devices. 4-Owpesomhym-wiydlvp completes the activity by him/herself with no assistance from a helper. 5-Set-up or Clean-up Assistance-helper sets up or cleans up; patient completes activity. [place] assists only prior to or following the activity. 4-Supervision or Touching Assistance-helper provides verbal cues and/or touching/steadying and/or contact guard assistance as patient completes activity. Assistance may be provided throughout the activity or intermittently. 3-Partial/Moderate Assistance-helper does LESS THAN HALF the effort. [place] lifts, holds or supports trunk or limbs, but provides less than half the effort. 2-Substantial/Maximal Assistance-helper does MORE THAN HALF the effort. [place] lifts or holds trunk or limbs and provides more than half the effort. 2-Wsndaqegl-vwmecp does ALL the effort. Patient does none of the effort to complete the activity. Or, the assistance of 2 or more helpers is required for the patient to complete the activity. If activity was not attempted, code reason: 7-Patient Refused. 9-Not Applicable-not attempted and the patient did not perform the activity before the current illness, exacerbation or injury. 10-Not Attempted due to Environmental Limitations-(lack of equipment, weather restraints, etc.). 88-Not Attempted due to Medical Conditions or Safety Concerns. Sit to Stand (QC): 4 (Pt able to complete each time wihtout lifting assist. ) Weight Bearing Full Weight Bearing Full Weight Bearing Gait Training Walk 50 ft with 2 Turns(QC): 4 (CGA) Gait Assistive Device: Walker Platform 80 ft x 2 with FWW platform left with CGA; skilled cues for posture and foot clearance left; intermittent assist to guide walker due to visual deficits. Treatments Pt in recliner post visit with needs met. Assessment Current Status: Good Progress Improved gait pattern and distance this visit. PT Cigar Packer Goals Senior Living Goals PT Senior Living Goals Time Frame: Dec 14, 2020 Roll Left & Right (QC): 5 Sit to Lying (QC): 5 Lying-Sitting on Side/Bed(QC): 5 Sit to Stand (QC): 5 Chair/Cvb-lf-Adkae Xfer(QC): 5 Toilet Transfer (QC): 5 Car Transfer (QC): 5 Does the Patient Walk: Yes Walk 10 feet (QC): 5 Walk 50ft with 2 Turns (QC): 5 Walk 150 ft (QC): 5 Walking 10ft on Uneven Surface: 5 1 Step (curb) (QC): 4 4 Steps (QC): 9 12 Steps (QC): 9 Picking up an Object (QC): 4 Does the Pt use WC or Scooter?: No Wheel 50 feet with 2 turns (QC: 9 Wheel 150 feet: 9 PT Plan Problem List Problem List: Activity Tolerance, Functional Strength, Safety, Balance, Gait, Transfer, Bed Mobility Treatment/Plan Treatment Plan: Continue Plan of Care Treatment Plan: Bed Mobility, Concurrent Therapy, Functional Activity Sola, Functional Strength, Gait, Safety, Therapeutic Exercise, Transfers Treatment Duration: Dec 14, 2020 Frequency: At least 5 of 7 days/Wk (IRF) Estimated Hrs Per Day: 1.5 hours per day Patient and/or Family Agrees t: Yes Safety Risks/Education Patient Education: Gait Training Teaching Recipient: Patient Teaching Methods: Discussion Response to Teaching: Return Demonstration, Reinforcement Needed Time/GCodes Time In: 1300 Time Out: 1325 Total Billed Treatment Time: 25 Total Billed Treatment visit GT 25 ALLA MOTLEY PT Dec 05, 2020 14:45
[2020-12-05 16:34] VITALS: BP 117/68
[2020-12-05 20:50] VITALS: BP 133/63
[2020-12-05] MEDS: LATANOPROST 0.005% (XALATAN) OPHTH SOLN 2.5 ML OU SCH (20:52)
[2020-12-05] MEDS: MELATONIN 3 MG TABLET PO PRN (20:54)
[2020-12-05] MEDS: OPTH OU SCH (21:00)
[2020-12-05] MEDS: RHOPRESSA 0.02% OU SCH (21:00)
[2020-12-06] MEDS: inSUlin ASPART (NovoLOG) 1 UNIT/0.01 ML (CHARGE PER UNIT) SC SCH ×7 (06:00→21:00)
[2020-12-06 06:52] VITALS: BP 124/59
--- NOTE | 2020-12-06 08:06 | Occupational Ther Daily Note ---
OT Current Status-Daily Note Subjective Pt sleeping in chair, woke to name. Pt stated that she had slept hard and feels foggy this morning. Pt agrees to therapy. No c/o pain at this time. Mental Status/Objective Patient Orientation: Person, Place, Time, Situation ADL-Treatment Pt minimal unsteady today due to feeling foggy this morning. CGA to transfer from recliner <--> w/c using hemiwalker SPT. Pt then transferred to toilet with CGA then CGA while pt manipulated clothing using grabbar to stabilize. Pt cleansed self while sitting on toilet. Pt able to doff clothing with SBA. Assist to thread feet into pants then pt able to assist hiking pants over hips. Independent sitting at sink to complete oral care. Pt used sample book maker with min A due to vision deficits to doff socks. Set up to don R sock with sock aide. Min A to apply sock to sock aide then pt able to don sock using sock aide. Assist to don/doff shoes. Pt independent with set up of meal and uses regular utensils to eat. After session, pt sitting in recliner with call light/phone in reach. All needs met in room. Therapy Code Descriptions/Definitions Functional [place] Measure: 0=Not Assessed/NA 4=Minimal Assistance 1=Total Assistance 5=Supervision or Setup 2=Maximal Assistance 6=Modified [place] 3=Moderate Assistance 7=Complete IndependenceSCALE: Activities may be completed with or without assistive devices. 1-Pbcdinuuul-kzwmyqj completes the activity by him/herself with no assistance from a helper. 5-Set-up or Clean-up Assistance-helper sets up or cleans up; patient completes activity. [place] assists only prior to or following the activity. 4-Supervision or Touching Assistance-helper provides verbal cues and/or touching /steadying and/or contact guard assistance as patient completes activity. Assistance may be provided throughout the activity or intermittently. 3-Partial/Moderate Assistance-helper does LESS THAN HALF the effort. [place] lifts, holds or supports trunk or limbs, but provides less than half the effort. 2-Substantial/Maximal Assistance-helper does MORE THAN HALF the effort. [place] lifts or holds trunk or limbs and provides more than half the effort. 7-Zbsymdday-bkncht does ALL the effort. Patient does none of the effort to complete the activity. Or, the assistance of 2 or more helpers is required for the patient to complete the activity. If activity was not attempted, code reason: 7-Patient Refused. 9-Not Applicable-not attempted and the patient did not perform the activity before the current illness, exacerbation or injury. 10-Not Attempted due to Environmental Limitations-(lack of equipment, weather restraints, etc.). 88-Not Attempted due to Medical Conditions or Safety Concerns. Eating (QC): 6 Oral Hygiene (QC): 6 Upper Body Dressing (QC): 5 Lower Body Dressing (QC): 2 On/Off Footwear: 3 Toileting Hygiene (QC): 3 Toilet Transfer (QC): 4 OT Short Term Goals Short Term Goals Time Frame: Dec 07, 2020 Eatin Oral hygiene: 6 Toileting hygiene: 2 Shower/bathe self: 2 Upper body dressin Lower body dressin Putting on/taking off footwear: 2 OT Line Pilot Goals Correction Goals Time Frame: Dec 24, 2020 Eating (QC): 6 Oral Hygiene (QC): 6 Toileting Hygiene (QC): 4 Shower/Bathe Self (QC): 4 Upper Body Dressing (QC): 6 Lower Body Dressing (QC): 4 On/Off Footwear (QC): 3 Additional Goals: 1-Demonstrate ADL Tasks, 2-Verbalize Understanding, 3- ImproveStrength/Sola 1=Demonstrate adherence to instructed precautions during ADL tasks. 2=Patient will verbalize/demonstrate understanding of assistive devices/modifications for ADL. 3=Patient will improve strength/tolerance for activity to enable patient to perform ADL's. OT Education/Plan Problem List/Assessment Assessment: Decreased Activ Tolerance, Impaired Coordination, Impaired Funct Balance, Impaired Self-Care Skills, Restricted Funct UE ROM (LUE) Discharge Recommendations Plan/Recommendations: Continue POC Treatment Plan/Plan of Care Patient would benefit from OT for education, treatment and training to promote independence in ADL's, mobility, safety and/or upper extremity function for ADL's. Plan of Care: ADL Retraining, Caregiver Training, Concurrent Therapy, Functional Mobility, Group Exercise/Act as Ind, Orthotic Fitting/Training, UE Funct Exercise/Act, UE Neuromus Re-Ed/Coord, Visual/Perceptual Retrain, W/C Management Training Treatment Duration: Dec 24, 2020 Frequency: At least 5 of 7 days/Wk (IRF) Estimated Hrs Per Day: 1.5 hours per day Agreement: Yes Rehab Potential: Good Time/GCodes Start Time: 07:15 Stop Time: 09:00 Total Time Billed (hr/min): 105 Billed Treatment Time 1 visit-ADL 7 (105 min) ALLA MACDONALD Dec 06, 2020 08:05
[2020-12-06] MEDS: LORATADINE (CLARITIN) 10 MG TAB PO SCH ×2 (08:14→21:14)
[2020-12-06] MEDS: PREGABALIN 75 MG (LYRICA) CAP PO SCH ×2 (08:14→21:14)
[2020-12-06] MEDS: CLOPIDOGREL 75 MG (PLAVIX) TABLET PO SCH (08:14)
[2020-12-06] MEDS: ROSUVASTATIN 20 MG (CRESTOR) TABLET PO SCH (08:14)
[2020-12-06] MEDS: lisINopril 40 MG (PRINIVIL) TABLET PO SCH (08:14)
[2020-12-06] MEDS: FAMOTIDINE 20 MG (PEPCID) TABLET PO SCH ×2 (08:14→21:14)
[2020-12-06] MEDS: VITAMIN D3 125 MCG (5,000 UNITS) CAPSULE PO SCH (08:14)
[2020-12-06] MEDS: PANTOPRAZOLE 40 MG (PROTONIX) TAB PO SCH (08:14)
[2020-12-06] MEDS: polyethylene glycoL POWDER 17 GM (MIRALAX) PACK PO SCH ×2 (08:15→19:53)
[2020-12-06] MEDS: SENNA W/DOCUSATE (SENOKOT S) TABLET PO SCH ×2 (08:15→21:15)
[2020-12-06] MEDS: DOCUSATE SODIUM 100 MG (COLACE) CAP PO SCH ×2 (08:15→21:14)
[2020-12-06] MEDS: HYDROCORTISONE 1% OINT 30 GM TUBE TOP SCH ×2 (08:17→21:14)
[2020-12-06 08:18] VITALS: BP 146/72
--- NOTE | 2020-12-06 08:33 | PM&R Progress Note ---
Subjective HPI/CC On Admission Date Seen by Provider: Dec 06, 2020 Time Seen by Provider: 08:40 Subjective/Events-last exam 12/06/20: No major issues Will likely stop the Atarax since it makes her so drowsy Bladder training for incontinence will be completed 12/05/20: Left side is improved Labs look good Walked 60 feet which is great Doing pretty well Labs with blood sugar good 12/04/20: Patient doing well except the itching 12/03/20: Patient doing well Met her at bedside today Vision will be addressed at [place] BM today on the commode Incontinence can occur Checked meds and labs 12/02/20: Atarax makes her too drowsy Itchiness is still an issue Monitoring closely Improved left arm movement 12/01/20: Progressing nicely No issues Incontinence noted periodically No pain except Fibromyalgia pain 11/30/20: Pt doing pretty well Sugar is 177 Restarted Statin, although she is allergic to Lipitor she is okay with Crestor Has a chronic headache since the stroke Left arm is improved 11/29/20: Appreciate Dr Watson evaluating the patient s/p loop recorder yesterday Incontinent isolated incident No pain reported VIsion is a limitation Walking with hemicane 11/28/20: Pt feels like she is progressing Loop recorder will be placed today Bowels moved yesterday will come to visit today Overall doing very well 11/27/20: Used CPAP last night BM today BP good Feels like she is progressing 11/26/20: Patient sleepy today Home CPAP will be brought in by family soon BM daily Walked 16 feet with hemicane Transfers are easier 11/25/20: Vision is a significant issue for her now Cardiology will place loop recorder on Saturday No falls Able to regain some function left hand and leg 11/24/20: Pt settling in pretty well Dizziness noted Bowels moved yesterday Reviewed home medications Review of Systems General: Fatigue, Malaise Objective Exam Vital Signs Vital Signs Date Time Temp Pulse Resp B/P (MAP) Pulse Ox O2 Delivery O2 Flow Rate FiO2 12/06/20 20:10 Room Air 12/06/20 16:00 36.2 92 16 132/62 (85) 97 Capillary Refill : General Appearance: No Apparent Distress, WD/WN, Chronically ill, Obese HEENT: PERRL/EOMI, Normal ENT Inspection, Pharynx Normal Neck: Full Range of Motion, Normal Inspection, Non Tender, Supple, Carotid Bruit Respiratory: Chest Non Tender, Lungs Clear, Normal Breath Sounds, No Accessory Muscle Use, No Respiratory Distress Cardiovascular: Regular Rate, Rhythm, No Edema, No Gallop, No JVD, No Murmur, Normal Peripheral Pulses Gastrointestinal: Normal Bowel Sounds, No Organomegaly, No Pulsatile Mass, Non Tender, Soft Back: Normal Inspection, No CVA Tenderness, No Vertebral Tenderness Extremity: Normal Capillary Refill, Normal Inspection, Non Tender, No Pedal Edema Neurologic/Psychiatric: Alert, Oriented x3, Abnormal Gait, Depressed Affect, Motor Weakness (left side 2/5 upper and lower extremity) Skin: Normal Color, Warm/Dry Lymphatic: No Adenopathy Results/Procedures Lab Patient resulted labs reviewed. FIM Transfers Therapy Code Descriptions/Definitions Functional [place] Measure: 0=Not Assessed/NA 4=Minimal Assistance 1=Total Assistance 5=Supervision or Setup 2=Maximal Assistance 6=Modified [place] 3=Moderate Assistance 7=Complete IndependenceSCALE: Activities may be completed with or without assistive devices. 5-Uughadqjrt-mczqmiv completes the activity by him/herself with no assistance from a helper. 5-Set-up or Clean-up Assistance-helper sets up or cleans up; patient completes activity. [place] assists only prior to or following the activity. 4-Supervision or Touching Assistance-helper provides verbal cues and/or touching/steadying and/or contact guard assistance as patient completes activity. Assistance may be provided throughout the activity or intermittently. 3-Partial/Moderate Assistance-helper does LESS THAN HALF the effort. [place] lifts, holds or supports trunk or limbs, but provides less than half the effort. 2-Substantial/Maximal Assistance-helper does MORE THAN HALF the effort. [place] lifts or holds trunk or limbs and provides more than half the effort. 7-Vlrrhvtqg-ouztbd does ALL the effort. Patient does none of the effort to complete the activity. Or, the assistance of 2 or more helpers is required for the patient to complete the activity. If activity was not attempted, code reason: 7-Patient Refused. 9-Not Applicable-not attempted and the patient did not perform the activity before the current illness, exacerbation or injury. 10-Not Attempted due to Environmental Limitations-(lack of equipment, weather restraints, etc.). 88-Not Attempted due to Medical Conditions or Safety Concerns. Roll Left to Right (QC): 3 Sit to Lying (QC): 3 Sit to Stand (QC): 4 (Pt able to complete each time wihtout lifting assist. ) Chair/Rhs-yr-Zuueh Xfer(QC): 3 (used hemiwalker for SPT) Car Transfer (QC): 88 Gait Training Does the Patient Walk?: Yes Distance: 30', 75' Walk 10 feet (QC): 3 Walk 50 ft with 2 Turns(QC): 4 (CGA) Walk 150 ft (QC): 88 Walking 10ft/uneven surface-QC: 88 Gait Persons Needed: 1 Gait Assistive Device: Walker Platform Wheelchair Training Does the Pt Use a Wheelchair?: Yes Wheel 50 ft with 2 turns (QC): 3 Wheel 150 ft (QC): 9 Type of Wheelchair: Manual Stair Training 1 Step (curb) (QC): 88 4 Steps (QC): 88 12 Steps (QC): 88 Balance Picking up an Object (QC): 88 ADL-Treatment Eating (QC): 6 Oral Hygiene (QC): 6 (Sitting at sink.) Bathing Location: L Arm, R Arm, L Upper Leg, R Upper Leg, L Lower Leg (including foot), R Lower Leg (including foot), Chest, Abdomen, Perineal Area Shower/Bathe Self (QC): 3 Upper Body Dressing (QC): 3 Lower Body Dressing (QC): 2 On/Off Footwear (QC): 2 Toileting Hygiene (QC): 4 Toilet Transfer (QC): 4 Assessment/Plan Assessment and Plan Assess & Plan/Chief Complaint Assessment: CVA with left sided weakness Fibromyalgia GERD Gastroparesis Neuropathy GEREMIAS on CPAP DM HTN HLP Glaucoma Diabetic retinopathy Obesity s/p loop recorder placement Dr Watson 11/28/20 Plan: IRF protocol Home meds DM management 11/24/20: Sugar management Monitor pain Monitor dizziness 11/25/20: Vision loss is problematic Cardiology appreciated Monitor closely 11/26/20: Improved ambulation with lucita-cane Doing well Vision loss limiting factor 11/27/20: Monitor BP Improved status CPAP use 11/28/11: Monitor BP Labs reviewed Fall risk 11/29/20: Appreciate Dr Watson Loop recorder in place 11/30/20: Monitor closely Restart Crestor Loop recorder in place 12/01/20: Progressing nicely Continue monitoring Needs eye exam with prisms 12/02/20: Improved left arm function Monitor rash Monitor BP 12/03/20: Monitor BP and BS VIsion will be addressed at DC with prisms Continue progress 12/04/20: Add Pecid Claritin BID Itchiness is an issue Monitor closely Stop scheduled Atarax due to AM drowsiness 12/05/20: Added meds yesterday for the itching Monitor left arm progress Fall risk 12/06/20: Monitor BP Itchiness is diff to manage Pepcid and Claritin BID (1) Fibromyalgia (2) Cervical spine disease (3) Obesity (4) Diabetes (5) Gastroparesis (6) GERD (gastroesophageal reflux disease) (7) Neuropathy (8) Glaucoma (9) Former smoker (10) CVA (cerebral vascular accident) SALVADOR SPARKS DO Dec 06, 2020 08:33
--- NOTE | 2020-12-06 12:27 | Physical Therapy Daily Note ---
PT Daily Note-Current Subjective Pt sitting in recliner asleep upon arrival. Pt agrees to PT but continues to remain drowsy. Pt has Nutrition Services call for rest of days meals as well as breakfast tomorrow (12/07). Pain Location: No Pain Reported Mental Status Patient Orientation: Person, Place Transfers SCALE: Activities may be completed with or without assistive devices. 6-Dfmruexjqd-kgqperl completes the activity by him/herself with no assistance from a helper. 5-Set-up or Clean-up Assistance-helper sets up or cleans up; patient completes activity. [place] assists only prior to or following the activity. 4-Supervision or Touching Assistance-helper provides verbal cues and/or touching/steadying and/or contact guard assistance as patient completes activity. Assistance may be provided throughout the activity or intermittently. 3-Partial/Moderate Assistance-helper does LESS THAN HALF the effort. [place] lifts, holds or supports trunk or limbs, but provides less than half the effort. 2-Substantial/Maximal Assistance-helper does MORE THAN HALF the effort. [place] lifts or holds trunk or limbs and provides more than half the effort. 7-Hzbaoafsg-vxbnbd does ALL the effort. Patient does none of the effort to complete the activity. Or, the assistance of 2 or more helpers is required for the patient to complete the activity. If activity was not attempted, code reason: 7-Patient Refused. 9-Not Applicable-not attempted and the patient did not perform the activity before the current illness, exacerbation or injury. 10-Not Attempted due to Environmental Limitations-(lack of equipment, weather restraints, etc.). 88-Not Attempted due to Medical Conditions or Safety Concerns. Weight Bearing Full Weight Bearing Full Weight Bearing Gait Training Pt not attempted due to pt is very drowsy and loopy this morning. Nursing a ezequiel. Exercises Seated Therapy Exercises: Ankle pumps, Long arc quads, Hip flexion, Kicking ac tivity, Hip abd/add, Glut set Seated Reps: 15 (2 sets) Treatments [id number]: LANDSCAPE MANAGEMENT TECHNICIAN awakens pt and pt asks which medications could make pt drowsy. After looking up meds for pt, pt completes Seated Ex in recliner. LANDSCAPE MANAGEMENT TECHNICIAN again awakens pt and Nutrition Services calls to step up meals for rest of day and tomorrow's breakfast. Pt completes Seated EX. Pt resting at end of tx. All needs met, call light in hand. [id number]: Pt TF to standing and amb. in hallway taking a couple of RB as needed. Pt resting in recliner with all needs met, call light in hand. Assessment Current Status: Poor Progress Pt remains very drowsy during tx and when cognitive, pt is preoccupied with get food scheduled for future meals and medications. PT Lead Applier Goals [facility] Goals PT Lead Applier Goals Time Frame: Dec 14, 2020 Roll Left & Right (QC): 5 Sit to Lying (QC): 5 Lying-Sitting on Side/Bed(QC): 5 Sit to Stand (QC): 5 Chair/Tli-lu-Sbkgn Xfer(QC): 5 Toilet Transfer (QC): 5 Car Transfer (QC): 5 Does the Patient Walk: Yes Walk 10 feet (QC): 5 Walk 50ft with 2 Turns (QC): 5 Walk 150 ft (QC): 5 Walking 10ft on Uneven Surface: 5 1 Step (curb) (QC): 4 4 Steps (QC): 9 12 Steps (QC): 9 Picking up an Object (QC): 4 Does the Pt use WC or Scooter?: No Wheel 50 feet with 2 turns (QC: 9 Wheel 150 feet: 9 PT Plan Problem List Problem List: Activity Tolerance, Functional Strength, Safety, Gait Treatment/Plan Treatment Plan: Continue Plan of Care Treatment Plan: Bed Mobility, Concurrent Therapy, Functional Activity Sola, Functional Strength, Gait, Safety, Therapeutic Exercise, Transfers Treatment Duration: Dec 14, 2020 Frequency: At least 5 of 7 days/Wk (IRF) Estimated Hrs Per Day: 1.5 hours per day Patient and/or Family Agrees t: Yes Safety Risks/Education Patient Education: Gait Training, Correct Positioning, Safety Issues Teaching Recipient: Patient Teaching Methods: Discussion Response to Teaching: Verbalize Understanding Time/GCodes Time In: 1000 Time Out: 1450 Total Billed Treatment Time: 80 Total Billed Treatment [id number]: 1, FA x2 (25m) & EX x2 (35m) [id number]: 1, GT (20m) EMILE CASTILLO LANDSCAPE MANAGEMENT TECHNICIAN Dec 06, 2020 12:27
[2020-12-06 16:00] VITALS: BP 132/62
[2020-12-06] MEDS: MELATONIN 3 MG TABLET PO PRN (21:14)
[2020-12-06] MEDS: LATANOPROST 0.005% (XALATAN) OPHTH SOLN 2.5 ML OU SCH (21:14)
[2020-12-06] MEDS: RHOPRESSA 0.02% OU SCH (21:15)
[2020-12-06] MEDS: OPTH OU SCH (21:15)
[2020-12-07] MEDS: inSUlin ASPART (NovoLOG) 1 UNIT/0.01 ML (CHARGE PER UNIT) SC SCH ×9 (05:46→21:02)
[2020-12-07 05:58] VITALS: BP 165/72
[2020-12-07] MEDS: polyethylene glycoL POWDER 17 GM (MIRALAX) PACK PO SCH ×2 (09:00→21:02)
[2020-12-07] MEDS: PANTOPRAZOLE 40 MG (PROTONIX) TAB PO SCH (09:12)
[2020-12-07] MEDS: LORATADINE (CLARITIN) 10 MG TAB PO SCH ×2 (09:13→21:00)
[2020-12-07] MEDS: SENNA W/DOCUSATE (SENOKOT S) TABLET PO SCH ×2 (09:13→21:02)
[2020-12-07] MEDS: DOCUSATE SODIUM 100 MG (COLACE) CAP PO SCH ×2 (09:13→21:00)
[2020-12-07] MEDS: FAMOTIDINE 20 MG (PEPCID) TABLET PO SCH ×2 (09:13→21:00)
[2020-12-07] MEDS: CLOPIDOGREL 75 MG (PLAVIX) TABLET PO SCH (09:13)
[2020-12-07] MEDS: VITAMIN D3 125 MCG (5,000 UNITS) CAPSULE PO SCH (09:13)
[2020-12-07] MEDS: lisINopril 40 MG (PRINIVIL) TABLET PO SCH (09:13)
[2020-12-07] MEDS: PREGABALIN 75 MG (LYRICA) CAP PO SCH ×2 (09:13→21:00)
[2020-12-07] MEDS: ROSUVASTATIN 20 MG (CRESTOR) TABLET PO SCH (09:13)
[2020-12-07] MEDS: HYDROCORTISONE 1% OINT 30 GM TUBE TOP SCH ×2 (09:14→21:04)
--- NOTE | 2020-12-07 09:28 | PM&R Progress Note ---
Subjective HPI/CC On Admission Date Seen by Provider: Dec 07, 2020 Time Seen by Provider: 09:30 Subjective/Events-last exam 12/07/20: Bladder training last night A bit groggy last night, did not take Atarax Overall doing pretty well 12/06/20: No major issues Will likely stop the Atarax since it makes her so drowsy Bladder training for incontinence will be completed 12/05/20: Left side is improved Labs look good Walked 60 feet which is great Doing pretty well Labs with blood sugar good 12/04/20: Patient doing well except the itching 12/03/20: Patient doing well Met her at bedside today Vision will be addressed at [place] BM today on the commode Incontinence can occur Checked meds and labs 12/02/20: Atarax makes her too drowsy Itchiness is still an issue Monitoring closely Improved left arm movement 12/01/20: Progressing nicely No issues Incontinence noted periodically No pain except Fibromyalgia pain 11/30/20: Pt doing pretty well Sugar is 177 Restarted Statin, although she is allergic to Lipitor she is okay with Crestor Has a chronic headache since the stroke Left arm is improved 11/29/20: Appreciate Dr Watson evaluating the patient s/p loop recorder yesterday Incontinent isolated incident No pain reported VIsion is a limitation Walking with hemicane 11/28/20: Pt feels like she is progressing Loop recorder will be placed today Bowels moved yesterday will come to visit today Overall doing very well 11/27/20: Used CPAP last night BM today BP good Feels like she is progressing 11/26/20: Patient sleepy today Home CPAP will be brought in by family soon BM daily Walked 16 feet with hemicane Transfers are easier 11/25/20: Vision is a significant issue for her now Cardiology will place loop recorder on Saturday No falls Able to regain some function left hand and leg 11/24/20: Pt settling in pretty well Dizziness noted Bowels moved yesterday Reviewed home medications Review of Systems General: Fatigue, Malaise Neurological: Weakness, Incoordination Objective Exam Vital Signs Vital Signs Date Time Temp Pulse Resp B/P (MAP) Pulse Ox O2 Delivery O2 Flow Rate FiO2 12/07/20 20:55 Room Air 12/07/20 18:17 36.8 62 18 124/72 (89) 99 Capillary Refill : General Appearance: No Apparent Distress, WD/WN, Chronically ill, Obese HEENT: PERRL/EOMI, Normal ENT Inspection, Pharynx Normal Neck: Full Range of Motion, Normal Inspection, Non Tender, Supple, Carotid Bruit Respiratory: Chest Non Tender, Lungs Clear, Normal Breath Sounds, No Accessory Muscle Use, No Respiratory Distress Cardiovascular: Regular Rate, Rhythm, No Edema, No Gallop, No JVD, No Murmur, Normal Peripheral Pulses Gastrointestinal: Normal Bowel Sounds, No Organomegaly, No Pulsatile Mass, Non Tender, Soft Back: Normal Inspection, No CVA Tenderness, No Vertebral Tenderness Extremity: Normal Capillary Refill, Normal Inspection, Non Tender, No Pedal Edema Neurologic/Psychiatric: Alert, Oriented x3, Abnormal Gait, Depressed Affect, Motor Weakness (left side 2/5 upper and lower extremity) Skin: Normal Color, Warm/Dry Lymphatic: No Adenopathy Results/Procedures Lab Patient resulted labs reviewed. FIM Transfers Therapy Code Descriptions/Definitions Functional [place] Measure: 0=Not Assessed/NA 4=Minimal Assistance 1=Total Assistance 5=Supervision or Setup 2=Maximal Assistance 6=Modified [place] 3=Moderate Assistance 7=Complete IndependenceSCALE: Activities may be completed with or without assistive devices. 1-Yflmikthzq-rmtdbzz completes the activity by him/herself with no assistance from a helper. 5-Set-up or Clean-up Assistance-helper sets up or cleans up; patient completes activity. [place] assists only prior to or following the activity. 4-Supervision or Touching Assistance-helper provides verbal cues and/or touching/steadying and/or contact guard assistance as patient completes activity. Assistance may be provided throughout the activity or intermittently. 3-Partial/Moderate Assistance-helper does LESS THAN HALF the effort. [place] lifts, holds or supports trunk or limbs, but provides less than half the effort. 2-Substantial/Maximal Assistance-helper does MORE THAN HALF the effort. [place] lifts or holds trunk or limbs and provides more than half the effort. 8-Xeniqtdwx-qzklng does ALL the effort. Patient does none of the effort to complete the activity. Or, the assistance of 2 or more helpers is required for the patient to complete the activity. If activity was not attempted, code reason: 7-Patient Refused. 9-Not Applicable-not attempted and the patient did not perform the activity before the current illness, exacerbation or injury. 10-Not Attempted due to Environmental Limitations-(lack of equipment, weather restraints, etc.). 88-Not Attempted due to Medical Conditions or Safety Concerns. Roll Left to Right (QC): 3 Sit to Lying (QC): 3 Sit to Stand (QC): 4 (Pt able to complete each time wihtout lifting assist. ) Chair/Sul-qw-Owlbd Xfer(QC): 3 (used hemiwalker for SPT) Car Transfer (QC): 88 Gait Training Does the Patient Walk?: Yes Distance: 30', 75' Walk 10 feet (QC): 3 Walk 50 ft with 2 Turns(QC): 4 (CGA) Walk 150 ft (QC): 88 Walking 10ft/uneven surface-QC: 88 Gait Persons Needed: 1 Gait Assistive Device: Walker Platform Wheelchair Training Does the Pt Use a Wheelchair?: Yes Wheel 50 ft with 2 turns (QC): 3 Wheel 150 ft (QC): 9 Type of Wheelchair: Manual Stair Training 1 Step (curb) (QC): 88 4 Steps (QC): 88 12 Steps (QC): 88 Balance Picking up an Object (QC): 88 ADL-Treatment Eating (QC): 6 Oral Hygiene (QC): 6 Bathing Location: L Arm, R Arm, L Upper Leg, R Upper Leg, L Lower Leg (including foot), R Lower Leg (including foot), Chest, Abdomen, Perineal Area Shower/Bathe Self (QC): 3 Upper Body Dressing (QC): 5 Lower Body Dressing (QC): 2 On/Off Footwear (QC): 3 Toileting Hygiene (QC): 3 Toilet Transfer (QC): 4 Assessment/Plan Assessment and Plan Assess & Plan/Chief Complaint Assessment: CVA with left sided weakness Fibromyalgia GERD Gastroparesis Neuropathy GEREMIAS on CPAP DM HTN HLP Glaucoma Diabetic retinopathy Obesity s/p loop recorder placement Dr Watson 11/28/20 Plan: IRF protocol Home meds DM management 11/24/20: Sugar management Monitor pain Monitor dizziness 11/25/20: Vision loss is problematic Cardiology appreciated Monitor closely 11/26/20: Improved ambulation with lucita-cane Doing well Vision loss limiting factor 11/27/20: Monitor BP Improved status CPAP use 11/28/11: Monitor BP Labs reviewed Fall risk 11/29/20: Appreciate Dr Watson Loop recorder in place 11/30/20: Monitor closely Restart Crestor Loop recorder in place 12/01/20: Progressing nicely Continue monitoring Needs eye exam with prisms 12/02/20: Improved left arm function Monitor rash Monitor BP 12/03/20: Monitor BP and BS VIsion will be addressed at DC with prisms Continue progress 12/04/20: Add Pecid Claritin BID Itchiness is an issue Monitor closely Stop scheduled Atarax due to AM drowsiness 12/05/20: Added meds yesterday for the itching Monitor left arm progress Fall risk 12/06/20: Monitor BP Itchiness is diff to manage Pepcid and Claritin BID 12/07/20: Making significant progress Monitor rash Monitor BP (1) Fibromyalgia (2) Cervical spine disease (3) Obesity (4) Diabetes (5) Gastroparesis (6) GERD (gastroesophageal reflux disease) (7) Neuropathy (8) Glaucoma (9) Former smoker (10) CVA (cerebral vascular accident) SALVADOR SPARKS DO Dec 07, 2020 09:28
--- NOTE | 2020-12-07 10:31 | Physical Therapy Daily Note ---
PT Daily Note-Current Subjective Pt is done with OT and ready for PT. No issues or complaints on arrival. Mental Status Patient Orientation: Person, Place, Time, Situation Transfers SCALE: Activities may be completed with or without assistive devices. 9-Qoatbqlafw-rwstaqp completes the activity by him/herself with no assistance from a helper. 5-Set-up or Clean-up Assistance-helper sets up or cleans up; patient completes activity. [place] assists only prior to or following the activity. 4-Supervision or Touching Assistance-helper provides verbal cues and/or touching/steadying and/or contact guard assistance as patient completes activity. Assistance may be provided throughout the activity or intermittently. 3-Partial/Moderate Assistance-helper does LESS THAN HALF the effort. [place] lifts, holds or supports trunk or limbs, but provides less than half the effort. 2-Substantial/Maximal Assistance-helper does MORE THAN HALF the effort. [place] lifts or holds trunk or limbs and provides more than half the effort. 3-Ftnqsswre-iqryss does ALL the effort. Patient does none of the effort to complete the activity. Or, the assistance of 2 or more helpers is required for the patient to complete the activity. If activity was not attempted, code reason: 7-Patient Refused. 9-Not Applicable-not attempted and the patient did not perform the activity before the current illness, exacerbation or injury. 10-Not Attempted due to Environmental Limitations-(lack of equipment, weather restraints, etc.). 88-Not Attempted due to Medical Conditions or Safety Concerns. Sit to Stand (QC): 5 Chair/Cmq-kh-Ejlsf Xfer(QC): 5 Weight Bearing Full Weight Bearing Full Weight Bearing Gait Training Does the Patient Walk?: Yes Distance: 60ft x3, 150ft x2 Walk 10 feet (QC): 5 Walk 50 ft with 2 Turns(QC): 5 Walk 150 ft (QC): 5 Gait Persons Needed: 1 Gait Assistive Device: Walker Platform Ambulated the first 60ft with the hemiwalker and then used the platform. Since her (L) UE is regaining mobility, the platform walker is a safer option. She was able to place the (L) UE in/out of the platform (I). The platform walker was a very safe and stable AD. Wheelchair Training Does the Pt Use a Wheelchair?: No Exercises Seated Therapy Exercises: LE Protocol Seated Reps: 20 Standing: Hamstring curls, Heel/toe raises, 3 way Ex=Flex, Abd, Ext, Marching, Retro gait, Sit to Stand, Side steps Standing Reps: 20 Treatments Ambulation training with verbal cues for more visual engagement to the (L). Pt cued to turn the head (L) to include more (L) side information. Assessment Current Status: Excellent Progress Pt is more aware of the (L) visual neglect and is reminding herself to look (L) while ambulating or while exercising to ensure proper movement. Improving activity tolerance with no dyspnea. PT Char Filter Operator Helper Goals Char Filter Operator Helper Goals PT Char Filter Operator Helper Goals Time Frame: Dec 14, 2020 Roll Left & Right (QC): 5 Sit to Lying (QC): 5 Lying-Sitting on Side/Bed(QC): 5 Sit to Stand (QC): 5 Chair/Tih-uz-Udgeu Xfer(QC): 5 Toilet Transfer (QC): 5 Car Transfer (QC): 5 Does the Patient Walk: Yes Walk 10 feet (QC): 5 Walk 50ft with 2 Turns (QC): 5 Walk 150 ft (QC): 5 Walking 10ft on Uneven Surface: 5 1 Step (curb) (QC): 4 4 Steps (QC): 9 12 Steps (QC): 9 Picking up an Object (QC): 4 Does the Pt use WC or Scooter?: No Wheel 50 feet with 2 turns (QC: 9 Wheel 150 feet: 9 PT Plan Treatment/Plan Treatment Plan: Continue Plan of Care Treatment Plan: Bed Mobility, Concurrent Therapy, Functional Activity Sola, Functional Strength, Gait, Safety, Therapeutic Exercise, Transfers Treatment Duration: Dec 14, 2020 Frequency: At least 5 of 7 days/Wk (IRF) Estimated Hrs Per Day: 1.5 hours per day Patient and/or Family Agrees t: Yes Time/GCodes Time In: 0900 Time Out: 1015 Total Billed Treatment Time: 75 Total Billed Treatment 1, gt x2 (30), ex x3 (45) FEDERICO DE LUNA PT Dec 07, 2020 10:30
--- NOTE | 2020-12-07 11:55 | Occupational Ther Daily Note ---
OT Current Status-Daily Note Subjective Pt alert, sitting in recliner. Pt agrees to therapy. No c/o pain. Mental Status/Objective Patient Orientation: Person, Place, Time, Situation ADL-Treatment Pt agrees to shower. Close SBA to complete SPT using hemiwalker or grabbars. CGA in standing to manipulate clothing for toileting and independent with cleansing after urination while sitting. Pt completed shower using grabbars, hand held shower and shower bench. CGA assist while standing as pt cleansed buttocks, pt completed all other areas sitting on bench. After setup, pt donned shirt independently. Pt then used fisherman helper with verbal instructions to thread underwear over feet then min A to hike over hips. Due to pt fatigue, pt required increased assistance to thread pants over feet then CGA in standing while pt hiked pants over hips. Pt uses sock aide to don socks and hand to doff socks. Independent for oral hygiene. After therapy, pt sitting in recliner with call light/phone in reach. All needs met in room. Therapy Code Descriptions/Definitions Functional [place] Measure: 0=Not Assessed/NA 4=Minimal Assistance 1=Total Assistance 5=Supervision or Setup 2=Maximal Assistance 6=Modified [place] 3=Moderate Assistance 7=Complete IndependenceSCALE: Activities may be completed with or without assistive devices. 9-Ykflsgnfun-fuyzgyx completes the activity by him/herself with no assistance from a helper. 5-Set-up or Clean-up Assistance-helper sets up or cleans up; patient completes activity. [place] assists only prior to or following the activity. 4-Supervision or Touching Assistance-helper provides verbal cues and/or touching/steadying and/or contact guard assistance as patient completes ac tivity. Assistance may be provided throughout the activity or intermittently. 3-Partial/Moderate Assistance-helper does LESS THAN HALF the effort. [place] lifts, holds or supports trunk or limbs, but provides less than half the effort. 2-Substantial/Maximal Assistance-helper does MORE THAN HALF the effort. [place] lifts or holds trunk or limbs and provides more than half the effort. 7-Xjfklqydb-rjpwbo does ALL the effort. Patient does none of the effort to complete the activity. Or, the assistance of 2 or more helpers is required for the patient to complete the activity. If activity was not attempted, code reason: 7-Patient Refused. 9-Not Applicable-not attempted and the patient did not perform the activity before the current illness, exacerbation or injury. 10-Not Attempted due to Environmental Limitations-(lack of equipment, weather restraints, etc.). 88-Not Attempted due to Medical Conditions or Safety Concerns. 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 2=Patient will verbalize/demonstrate understanding of assistive devices/modifications for ADL. 3=Patient will improve strength/tolerance for activity to enable patient to perform ADL's. OT Education/Plan Problem List/Assessment Assessment: Decreased Activ Tolerance, Decreased UE Strength, Impaired Funct Balance, Impaired Self-Care Skills, Restricted Funct UE ROM Discharge Recommendations Plan/Recommendations: Continue POC Treatment Plan/Plan of Care Patient would benefit from OT for education, treatment and training to promote independence in ADL's, mobility, safety and/or upper extremity function for ADL's. Plan of Care: ADL Retraining, Caregiver Training, Concurrent Therapy, Functional Mobility, Group Exercise/Act as Ind, Orthotic Fitting/Training, UE Funct Exercise/Act, UE Neuromus Re-Ed/Coord, Visual/Perceptual Retrain, W/C Management Training Treatment Duration: Dec 24, 2020 Frequency: At least 5 of 7 days/Wk (IRF) Estimated Hrs Per Day: 1.5 hours per day Agreement: Yes Rehab Potential: Good Time/GCodes Start Time: 07:30 Stop Time: 08:45 Total Time Billed (hr/min): 75 Billed Treatment Time 1 visit-ADL 5 (75 min) ALLA MACDONALD Dec 07, 2020 11:55
--- NOTE | 2020-12-07 14:24 | Speech Therapy Daily Note ---
Speech Daily Progress Note Subjective Date Seen by Provider: Dec 07, 2020 Time Seen by Provider: 00:30 Patient was resting in her recliner following her lunch. Objective Patient completed safety awareness scenarios presented verbally that she may encounter upon her return home with 85% reasoning skills given minimal cuing. Assessment Assessment Current Status: Good Progress Treatment Plan Continue Plan of Care Speech Short Term Goals Short Term Goals Short Term Goals 1) The patient will complete memory tasks related to her daily needs at 90% or greater. 2) The patient will complete safety awareness tasks related to her daily needs at 90% or greater. 3) The patient will complete problem solving tasks related to her daily needs at 90% or greater. 4) The patient will complete speech production tasks related to her communicati on needs at 90% or greater. Speech Care Home Goals Care Home Goals Patient will improve speech production to 90% or greater for effective communication. Patient will improve cognitive-communication necessary for safety and daily living tasks with minimal assist. Speech-Plan Patient/Family Goals Patient/Family Goals: Patient will return to her home where she lives with her . Treatment Plan Speech Therapy Treatment Plan: Continue Plan of Care Treatment Duration: Dec 09, 2020 Frequency: 4 times per week (Patient will receive skilled ST 4-5x per week) Estimated Hrs Per Day: .5 hour per day Rehab Potential: Good Barriers to Learning: Patient's initial cognitive deficits which are resolving well Pt/Family Agrees to Plan: Yes Safety Risks/Education Teaching Recipient: Patient Teaching Methods: Discussion Response to Teaching: Verbalize Understanding Education Topics Provided: Continued safety within her room and communication of wants/needs Time Speech Therapy Time In: 13:00 Speech Therapy Time Out: 13:30 Total Billed Time: 30 Billed Treatment Time 1MAG[address] ST Dec 07, 2020 14:24
[2020-12-07 18:17] VITALS: BP 124/72
[2020-12-07] MEDS: MELATONIN 3 MG TABLET PO PRN (21:00)
[2020-12-07] MEDS: LATANOPROST 0.005% (XALATAN) OPHTH SOLN 2.5 ML OU SCH (21:04)
[2020-12-07] MEDS: OPTH OU SCH (21:09)
[2020-12-07] MEDS: RHOPRESSA 0.02% OU SCH (21:09)
--- NOTE | 2020-12-08 05:53 | PM&R Progress Note ---
Subjective HPI/CC On Admission Date Seen by Provider: Dec 08, 2020 Time Seen by Provider: 10:00 Subjective/Events-last exam 12/08/20: Patient progressing nicely Left arm and left leg increased in function Monitoring BP No falls BM+ 12/07/20: Bladder training last night A bit groggy last night, did not take Atarax Overall doing pretty well 12/06/20: No major issues Will likely stop the Atarax since it makes her so drowsy Bladder training for incontinence will be completed 12/05/20: Left side is improved Labs look good Walked 60 feet which is great Doing pretty well Labs with blood sugar good 12/04/20: Patient doing well except the itching 12/03/20: Patient doing well Met her at bedside today Vision will be addressed at SD BM today on the commode Incontinence can occur Checked meds and labs 12/02/20: Atarax makes her too drowsy Itchiness is still an issue Monitoring closely Improved left arm movement 12/01/20: Progressing nicely No issues Incontinence noted periodically No pain except Fibromyalgia pain 11/30/20: Pt doing pretty well Sugar is 177 Restarted Statin, although she is allergic to Lipitor she is okay with Crestor Has a chronic headache since the stroke Left arm is improved 11/29/20: Appreciate Dr Watson evaluating the patient s/p loop recorder yesterday Incontinent isolated incident No pain reported VIsion is a limitation Walking with hemicane 11/28/20: Pt feels like she is progressing Loop recorder will be placed today Bowels moved yesterday will come to visit today Overall doing very well 11/27/20: Used CPAP last night BM today BP good Feels like she is progressing 11/26/20: Patient sleepy today Home CPAP will be brought in by family soon BM daily Walked 16 feet with hemicane Transfers are easier 11/25/20: Vision is a significant issue for her now Cardiology will place loop recorder on Saturday No falls Able to regain some function left hand and leg 11/24/20: Pt settling in pretty well Dizziness noted Bowels moved yesterday Reviewed home medications Review of Systems General: Fatigue, Malaise Neurological: Weakness, Incoordination Objective Exam Vital Signs Vital Signs Date Time Temp Pulse Resp B/P (MAP) Pulse Ox O2 Delivery O2 Flow Rate FiO2 12/08/20 20:00 Room Air 12/08/20 18:00 36.8 62 18 133/60 (84) 99 Capillary Refill : General Appearance: No Apparent Distress, WD/WN, Chronically ill, Obese HEENT: PERRL/EOMI, Normal ENT Inspection, Pharynx Normal Neck: Full Range of Motion, Normal Inspection, Non Tender, Supple, Carotid Bruit Respiratory: Chest Non Tender, Lungs Clear, Normal Breath Sounds, No Accessory Muscle Use, No Respiratory Distress Cardiovascular: Regular Rate, Rhythm, No Edema, No Gallop, No JVD, No Murmur, Normal Peripheral Pulses Gastrointestinal: Normal Bowel Sounds, No Organomegaly, No Pulsatile Mass, Non Tender, Soft Back: Normal Inspection, No CVA Tenderness, No Vertebral Tenderness Extremity: Normal Capillary Refill, Normal Inspection, Non Tender, No Pedal Edema Neurologic/Psychiatric: Alert, Oriented x3, Abnormal Gait, Depressed Affect, Motor Weakness (left side 2/5 upper and lower extremity) Skin: Normal Color, Warm/Dry Lymphatic: No Adenopathy Results/Procedures Lab Patient resulted labs reviewed. FIM Transfers Therapy Code Descriptions/Definitions Functional [place] Measure: 0=Not Assessed/NA 4=Minimal Assistance 1=Total Assistance 5=Supervision or Setup 2=Maximal Assistance 6=Modified [place] 3=Moderate Assistance 7=Complete IndependenceSCALE: Activities may be completed with or without assistive devices. 6-Oqbiyeyiio-axnoqca completes the activity by him/herself with no assistance from a helper. 5-Set-up or Clean-up Assistance-helper sets up or cleans up; patient completes activity. [place] assists only prior to or following the activity. 4-Supervision or Touching Assistance-helper provides verbal cues and/or touching/steadying and/or contact guard assistance as patient completes activity. Assistance may be provided throughout the activity or intermittently. 3-Partial/Moderate Assistance-helper does LESS THAN HALF the effort. [place] lifts, holds or supports trunk or limbs, but provides less than half the effort. 2-Substantial/Maximal Assistance-helper does MORE THAN HALF the effort. [place] lifts or holds trunk or limbs and provides more than half the effort. 0-Vidvgbcnf-ucwdyp does ALL the effort. Patient does none of the effort to complete the activity. Or, the assistance of 2 or more helpers is required for the patient to complete the activity. If activity was not attempted, code reason: 7-Patient Refused. 9-Not Applicable-not attempted and the patient did not perform the activity before the current illness, exacerbation or injury. 10-Not Attempted due to Environmental Limitations-(lack of equipment, weather restraints, etc.). 88-Not Attempted due to Medical Conditions or Safety Concerns. Roll Left to Right (QC): 3 Sit to Lying (QC): 3 Sit to Stand (QC): 5 Chair/Ytr-fa-Gtqpj Xfer(QC): 5 Car Transfer (QC): 88 Gait Training Does the Patient Walk?: Yes Distance: 60ft x3, 150ft x2 Walk 10 feet (QC): 5 Walk 50 ft with 2 Turns(QC): 5 Walk 150 ft (QC): 5 Walking 10ft/uneven surface-QC: 88 Gait Persons Needed: 1 Gait Assistive Device: Walker Platform Wheelchair Training Does the Pt Use a Wheelchair?: No Wheel 50 ft with 2 turns (QC): 3 Wheel 150 ft (QC): 9 Type of Wheelchair: Manual Stair Training 1 Step (curb) (QC): 88 4 Steps (QC): 88 12 Steps (QC): 88 Balance Picking up an Object (QC): 88 ADL-Treatment Eating (QC): 6 Oral Hygiene (QC): 6 Bathing Location: L Arm, R Arm, L Upper Leg, R Upper Leg, L Lower Leg (including foot), R Lower Leg (including foot), Chest, Abdomen, Perineal Area Shower/Bathe Self (QC): 4 Upper Body Dressing (QC): 5 Lower Body Dressing (QC): 2 On/Off Footwear (QC): 5 Toileting Hygiene (QC): 4 Toilet Transfer (QC): 4 Assessment/Plan Assessment and Plan Assess & Plan/Chief Complaint Assessment: 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 Fibromyalgia GERD Gastroparesis Neuropathy GEREMIAS on CPAP DM HTN HLP Glaucoma Diabetic retinopathy Obesity s/p loop recorder placement Dr Watson 11/28/20 Plan: IRF protocol Home meds DM management 11/24/20: Sugar management Monitor pain Monitor dizziness 11/25/20: Vision loss is problematic Cardiology appreciated Monitor closely 11/26/20: Improved ambulation with lucita-cane Doing well Vision loss limiting factor 11/27/20: Monitor BP Improved status CPAP use 11/28/11: Monitor BP Labs reviewed Fall risk 11/29/20: Appreciate Dr Watson Loop recorder in place 11/30/20: Monitor closely Restart Rajior Loop recorder in place 12/01/20: Progressing nicely Continue monitoring Needs eye exam with prisms 12/02/20: Improved left arm function Monitor rash Monitor BP 12/03/20: Monitor BP and BS VIsion will be addressed at DC with prisms Continue progress 12/04/20: Add Pecid Claritin BID Itchiness is an issue Monitor closely Stop scheduled Atarax due to AM drowsiness 12/05/20: Added meds yesterday for the itching Monitor left arm progress Fall risk 12/06/20: Monitor BP Itchiness is diff to manage Pepcid and Claritin BID 12/07/20: Making significant progress Monitor rash Monitor BP 12/08/20: Monitor BP Left side weakness improved Fall risk (1) Fibromyalgia (2) Cervical spine disease (3) Obesity (4) Diabetes (5) Gastroparesis (6) GERD (gastroesophageal reflux disease) (7) Neuropathy (8) Glaucoma (9) Former smoker (10) CVA (cerebral vascular accident) SALVADOR SPARKS DO Dec 08, 2020 05:53
[2020-12-08 06:00] VITALS: BP 135/63
[2020-12-08] MEDS: inSUlin ASPART (NovoLOG) 1 UNIT/0.01 ML (CHARGE PER UNIT) SC SCH ×7 (06:00→21:22)
[2020-12-08] MEDS: PANTOPRAZOLE 40 MG (PROTONIX) TAB PO SCH (07:56)
[2020-12-08] MEDS: SENNA W/DOCUSATE (SENOKOT S) TABLET PO SCH ×2 (07:56→21:58)
[2020-12-08] MEDS: CLOPIDOGREL 75 MG (PLAVIX) TABLET PO SCH (07:57)
[2020-12-08] MEDS: DOCUSATE SODIUM 100 MG (COLACE) CAP PO SCH ×2 (07:57→21:58)
[2020-12-08] MEDS: VITAMIN D3 125 MCG (5,000 UNITS) CAPSULE PO SCH (07:57)
[2020-12-08] MEDS: ROSUVASTATIN 20 MG (CRESTOR) TABLET PO SCH (07:57)
[2020-12-08] MEDS: FAMOTIDINE 20 MG (PEPCID) TABLET PO SCH ×2 (07:57→20:25)
[2020-12-08] MEDS: LORATADINE (CLARITIN) 10 MG TAB PO SCH ×2 (07:57→20:25)
[2020-12-08] MEDS: PREGABALIN 75 MG (LYRICA) CAP PO SCH ×2 (07:57→20:24)
[2020-12-08] MEDS: lisINopril 40 MG (PRINIVIL) TABLET PO SCH (08:01)
[2020-12-08] MEDS: polyethylene glycoL POWDER 17 GM (MIRALAX) PACK PO SCH ×2 (09:00→21:58)
[2020-12-08] MEDS: HYDROCORTISONE 1% OINT 30 GM TUBE TOP SCH ×2 (09:00→20:25)
--- NOTE | 2020-12-08 10:11 | Occupational Ther Daily Note ---
OT Current Status-Daily Note Subjective Pt alert, sitting in recliner. Pt worried about the state of her office and if everything is running okay. Pt agrees to therapy. C/o back pain, warm blanket placed at back while she ate breakfast. Mental Status/Objective Patient Orientation: Person, Place, Time, Situation Attachments: Other-See Comments (loop recorder) ADL-Treatment SPT to w/c close SBA. SBA to transfer from w/c <--> toilet and to manipulate clothing. Independent sitting on toilet to cleanse after urination. Due to time constraints assist to doff socks and don underwear. Min A to thread L foot into pant leg and pt threaded R leg. Pt stood with close SBA to hike own pants. Mod A to don shoes. Elastic shoelaces and long handle shoe horn given to pt to use. Pt independent with donning/doffing shirt after set up. Independent with upper body bathing and oral care sitting at sink. Pt independent with eating. After therapy, pt sitting in recliner with call light/phone in reach. All needs met in room. Therapy Code Descriptions/Definitions Functional [place] Measure: 0=Not Assessed/NA 4=Minimal Assistance 1=Total Assistance 5=Supervision or Setup 2=Maximal Assistance 6=Modified [place] 3=Moderate Assistance 7=Complete IndependenceSCALE: Activities may be completed with or without assistive devices. 0-Zqgykcnujh-hfhhssv completes the activity by him/herself with no assistance from a helper. 5-Set-up or Clean-up Assistance-helper sets up or cleans up; patient completes activity. [place] assists only prior to or following the activity. 4-Supervision or Touching Assistance-helper provides verbal cues and/or touching/steadying and/or contact guard assistance as patient completes activity. Assistance may be provided throughout the activity or intermittently. 3-Partial/Moderate Assistance-helper does LESS THAN HALF the effort. [place] lifts, holds or supports trunk or limbs, but provides less than half the effort. 2-Substantial/Maximal Assistance-helper does MORE THAN HALF the effort. [place] lifts or holds trunk or limbs and provides more than half the effort. 4-Bizvrzilv-oyybuu does ALL the effort. Patient does none of the effort to complete the activity. Or, the assistance of 2 or more helpers is required for the patient to complete the activity. If activity was not attempted, code reason: 7-Patient Refused. 9-Not Applicable-not attempted and the patient did not perform the activity before the current illness, exacerbation or injury. 10-Not Attempted due to Environmental Limitations-(lack of equipment, weather restraints, etc.). 88-Not Attempted due to Medical Conditions or Safety Concerns. Eating (QC): 6 Oral Hygiene (QC): 6 Upper Body Dressing (QC): 5 Lower Body Dressing (QC): 3 (Mod A) On/Off Footwear: 3 (Mod A) Toileting Hygiene (QC): 4 Toilet Transfer (QC): 4 OT Short Term Goals Short Term Goals Time Frame: Dec 07, 2020 Eatin Oral hygiene: 6 Toileting hygiene: 2 Shower/bathe self: 2 Upper body dressin Lower body dressin Putting on/taking off footwear: 2 OT Machine Ii Engraver Goals Machine Ii Engraver Goals Time Frame: Dec 24, 2020 Eating (QC): 6 Oral Hygiene (QC): 6 Toileting Hygiene (QC): 4 Shower/Bathe Self (QC): 4 Upper Body Dressing (QC): 6 Lower Body Dressing (QC): 4 On/Off Footwear (QC): 3 Additional Goals: 1-Demonstrate ADL Tasks, 2-Verbalize Understanding, 3- ImproveStrength/Sola 1=Demonstrate adherence to instructed precautions during ADL tasks. 2=Patient will verbalize/demonstrate understanding of assistive devices/modifications for ADL. 3=Patient will improve strength/tolerance for activity to enable patient to perform ADL's. OT Education/Plan Problem List/Assessment Assessment: Decreased Activ Tolerance, Decreased UE Strength, Impaired Funct Balance, Impaired Self-Care Skills, Restricted Funct UE ROM (L UE) Discharge Recommendations Plan/Recommendations: Continue POC Treatment Plan/Plan of Care Patient would benefit from OT for education, treatment and training to promote independence in ADL's, mobility, safety and/or upper extremity function for ADL's. Plan of Care: ADL Retraining, Caregiver Training, Concurrent Therapy, Functional Mobility, Group Exercise/Act as Ind, Orthotic Fitting/Training, UE Funct Exercise/Act, UE Neuromus Re-Ed/Coord, Visual/Perceptual Retrain, W/C Management Training Treatment Duration: Dec 24, 2020 Frequency: At least 5 of 7 days/Wk (IRF) Estimated Hrs Per Day: 1.5 hours per day Agreement: Yes Rehab Potential: Good Time/GCodes Start Time: 07:15 Stop Time: 08:40 Total Time Billed (hr/min): 85 Billed Treatment Time 1 visit-ADL 6 (85 min) ALLA MACDONALD Dec 08, 2020 10:11
--- NOTE | 2020-12-08 11:18 | Physical Therapy Daily Note ---
PT Daily Note-Current Subjective Pt sitting in recliner upon arrival. Pt agrees to PT. Pain Pain Description: Pricking, Tingling Comment: Pt reports L LE falling asleep but not pain. Mental Status Patient Orientation: Person, Place, Time, Situation Transfers SCALE: Activities may be completed with or without assistive devices. 8-Rukcxtqfvt-kfgipne completes the activity by him/herself with no assistance from a helper. 5-Set-up or Clean-up Assistance-helper sets up or cleans up; patient completes activity. [place] assists only prior to or following the activity. 4-Supervision or Touching Assistance-helper provides verbal cues and/or touching/steadying and/or contact guard assistance as patient completes acti vity. Assistance may be provided throughout the activity or intermittently. 3-Partial/Moderate Assistance-helper does LESS THAN HALF the effort. [place] lifts, holds or supports trunk or limbs, but provides less than half the effort. 2-Substantial/Maximal Assistance-helper does MORE THAN HALF the effort. [place] lifts or holds trunk or limbs and provides more than half the effort. 5-Vgizjdtlt-lyfoge does ALL the effort. Patient does none of the effort to complete the activity. Or, the assistance of 2 or more helpers is required for the patient to complete the activity. If activity was not attempted, code reason: 7-Patient Refused. 9-Not Applicable-not attempted and the patient did not perform the activity before the current illness, exacerbation or injury. 10-Not Attempted due to Environmental Limitations-(lack of equipment, weather restraints, etc.). 88-Not Attempted due to Medical Conditions or Safety Concerns. Sit to Stand (QC): 5 Toilet Transfer (QC): 5 VC for directional assistance due to visual deficits. Weight Bearing Full Weight Bearing Full Weight Bearing Gait Training Does the Patient Walk?: Yes Distance: 200', 75' Walk 10 feet (QC): 4 Walk 50 ft with 2 Turns(QC): 4 Walk 150 ft (QC): 4 Gait Persons Needed: 1 Gait Assistive Device: Walker Platform VC given during amb. Exercises Seated Therapy Exercises: Ankle pumps, Long arc quads, Hip flexion, Kicking act ivity, Hip abd/add, Glut set Seated Reps: 15 Treatments TF to standing and amb. to BR. After finishing, pt amb. in hallway and to Therapy Gym. Pt takes short RB then completes Seated Ex before amb. Pt returns to room to rest with all needs met, call light in hand. Assessment Current Status: Good Progress Pt needs VC for amb. Pt marisela. tx well. PT [facility] Goals Best [employer] Goals PT [facility] Goals Time Frame: Dec 14, 2020 Roll Left & Right (QC): 5 Sit to Lying (QC): 5 Lying-Sitting on Side/Bed(QC): 5 Sit to Stand (QC): 5 Chair/[place] Xfer(QC): 5 Toilet Transfer (QC): 5 Car Transfer (QC): 5 Does the Patient Walk: Yes Walk 10 feet (QC): 5 Walk 50ft with 2 Turns (QC): 5 Walk 150 ft (QC): 5 Walking 10ft on Uneven Surface: 5 1 Step (curb) (QC): 4 4 Steps (QC): 9 12 Steps (QC): 9 Picking up an Object (QC): 4 Does the Pt use WC or Scooter?: No Wheel 50 feet with 2 turns (QC: 9 Wheel 150 feet: 9 PT Plan Problem List Problem List: Activity Tolerance, Functional Strength Treatment/Plan Treatment Plan: Continue Plan of Care Treatment Plan: Bed Mobility, Concurrent Therapy, Functional Activity Sola, Functional Strength, Gait, Safety, Therapeutic Exercise, Transfers Treatment Duration: Dec 14, 2020 Frequency: At least 5 of 7 days/Wk (IRF) Estimated Hrs Per Day: 1.5 hours per day Patient and/or Family Agrees t: Yes Safety Risks/Education Patient Education: Gait Training, Correct Positioning, Safety Issues Teaching Recipient: Patient Teaching Methods: Discussion Response to Teaching: Verbalize Understanding Time/GCodes Time In: 945 Time Out: 1030 Total Billed Treatment Time: 45 Total Billed Treatment 1, GT (20m), FA (10m) & EX (15m) EMILE CASTILLO ANODE WORKER Dec 08, 2020 11:18
--- NOTE | 2020-12-08 13:50 | Occupational Ther Daily Note ---
OT Current Status-Daily Note Subjective Pt alert, sitting in recliner. Pt agrees to therapy. present in room. No c/o pain. Mental Status/Objective Patient Orientation: Person, Place, Time, Situation Attachments: Other-See Comments (loop recorder) ADL-Treatment Therapy Code Descriptions/Definitions Functional [place] Measure: 0=Not Assessed/NA 4=Minimal Assistance 1=Total Assistance 5=Supervision or Setup 2=Maximal Assistance 6=Modified [place] 3=Moderate Assistance 7=Complete IndependenceSCALE: Activities may be completed with or without assistive devices. 1-Xtvetvgggv-pbsqrcx completes the activity by him/herself with no assistance from a helper. 5-Set-up or Clean-up Assistance-helper sets up or cleans up; patient completes activity. [place] assists only prior to or following the activity. 4-Supervision or Touching Assistance-helper provides verbal cues and/or touching/steadying and/or contact guard assistance as patient completes activity. Assistance may be provided throughout the activity or intermittently. 3-Partial/Moderate Assistance-helper does LESS THAN HALF the effort. [place] lifts, holds or supports trunk or limbs, but provides less than half the effort. 2-Substantial/Maximal Assistance-helper does MORE THAN HALF the effort. [place] lifts or holds trunk or limbs and provides more than half the effort. 2-Wqbfdzmgj-disajn does ALL the effort. Patient does none of the effort to complete the activity. Or, the assistance of 2 or more helpers is required for the patient to complete the activity. If activity was not attempted, code reason: 7-Patient Refused. 9-Not Applicable-not attempted and the patient did not perform the activity before the current illness, exacerbation or injury. 10-Not Attempted due to Environmental Limitations-(lack of equipment, weather restraints, etc.). 88-Not Attempted due to Medical Conditions or Safety Concerns. Other Treatment Pt educated on tub bench transfer. Pt then completed tub bench transfer with mod A. Pt able to transfer onto bench then lifting R LE into tub then L LE using leg table machine operator, min A. Pt is able to lift legs out in same manner though difficulties with pivoting on transfer bench safely to place both feet on ground. Pt able to complete this with mod A. CGA to stand from bench and ambulate to w/c outside of bathroom with CGA. Transfer <--> with CGA for safety. After therapy, pt sitting in recliner with call light/phone in reach. All needs met in room. OT Short Term Goals Short Term Goals Time Frame: Dec 07, 2020 Eatin Oral hygiene: 6 Toileting hygiene: 2 Shower/bathe self: 2 Upper body dressin Lower body dressin Putting on/taking off footwear: 2 OT Senior Interior Designer Goals Senior Interior Designer Goals Time Frame: Dec 24, 2020 Eating (QC): 6 Oral Hygiene (QC): 6 Toileting Hygiene (QC): 4 Shower/Bathe Self (QC): 4 Upper Body Dressing (QC): 6 Lower Body Dressing (QC): 4 On/Off Footwear (QC): 3 Additional Goals: 1-Demonstrate ADL Tasks, 2-Verbalize Understanding, 3- ImproveStrength/Sola 1=Demonstrate adherence to instructed precautions during ADL tasks. 2=Patient will verbalize/demonstrate understanding of assistive devices/modifications for ADL. 3=Patient will improve strength/tolerance for activity to enable patient to perform ADL's. OT Education/Plan Problem List/Assessment Assessment: Decreased Activ Tolerance, Impaired Self-Care Skills, Restricted Funct UE ROM Discharge Recommendations Plan/Recommendations: Continue POC Treatment Plan/Plan of Care Patient would benefit from OT for education, treatment and training to promote independence in ADL's, mobility, safety and/or upper extremity function for ADL's. Plan of Care: ADL Retraining, Caregiver Training, Concurrent Therapy, Functional Mobility, Group Exercise/Act as Ind, Orthotic Fitting/Training, UE Funct Exercise/Act, UE Neuromus Re-Ed/Coord, Visual/Perceptual Retrain, W/C Management Training Treatment Duration: Dec 24, 2020 Frequency: At least 5 of 7 days/Wk (IRF) Estimated Hrs Per Day: 1.5 hours per day Agreement: Yes Rehab Potential: Good Time/GCodes Start Time: 13:00 Stop Time: 13:35 Total Time Billed (hr/min): 35 Billed Treatment Time 1 visit-FA 2 (35 min) ALLA MACDONALD Dec 08, 2020 13:50
--- NOTE | 2020-12-08 14:03 | Speech Therapy Daily Note ---
Speech Daily Progress Note Subjective Date Seen by Provider: Dec 08, 2020 Time Seen by Provider: 00:30 Patient was sitting up getting ready to eat her lunch when I entered her room. Her was present for today's session as well. Objective Patient completed a series of safety awareness tasks with 90% given minimal cues. Her vision has continued to be a challenge for her with all of her daily needs. Assessment Assessment Current Status: Good Progress Treatment Plan Continue Plan of Care Speech Short Term Goals Short Term Goals Short Term Goals 1) The patient will complete memory tasks related to her daily needs at 90% or greater. 2) The patient will complete safety awareness tasks related to her daily needs at 90% or greater. 3) The patient will complete problem solving tasks related to her daily needs at 90% or greater. 4) The patient will complete speech production tasks related to her communication needs at 90% or greater. Speech Highway Truck Driver Goals Long-Term Goals Patient will improve speech production to 90% or greater for effective c ommunication. Patient will improve cognitive-communication necessary for safety and daily living tasks with minimal assist. Speech-Plan Patient/Family Goals Patient/Family Goals: Patient plans on returning to her home where she lives with her . Treatment Plan Speech Therapy Treatment Plan: Continue Plan of Care Treatment Duration: Dec 09, 2020 Frequency: 4 times per week (Patient will receive skilled ST 4-5x per week) Estimated Hrs Per Day: .5 hour per day Rehab Potential: Good Barriers to Learning: Patient's decline in function following her recent CVA. She has made good progress with ST goals Pt/Family Agrees to Plan: Yes Safety Risks/Education Teaching Recipient: Patient, Significant Other Teaching Methods: Demonstration, Discussion Response to Teaching: Verbalize Understanding, Return Demonstration Education Topics Provided: Continued safety awareness with her needs Time Speech Therapy Time In: 11:30 Speech Therapy Time Out: 12:00 Total Billed Time: 30 Billed Treatment Time MAGDY Veliz [facility] Dec 08, 2020 14:03
[2020-12-08 18:00] VITALS: BP 133/60
[2020-12-08] MEDS: LATANOPROST 0.005% (XALATAN) OPHTH SOLN 2.5 ML OU SCH (20:24)
[2020-12-08] MEDS: MELATONIN 3 MG TABLET PO PRN (20:25)
[2020-12-08] MEDS: ACETAMINOPHEN 325 MG TABLET PO PRN (20:25)
[2020-12-08] MEDS: RHOPRESSA 0.02% OU SCH (20:29)
[2020-12-08] MEDS: OPTH OU SCH (20:29)
[2020-12-09] MEDS: inSUlin ASPART (NovoLOG) 1 UNIT/0.01 ML (CHARGE PER UNIT) SC SCH ×7 (05:41→22:36)
[2020-12-09 06:24] VITALS: BP 131/59
[2020-12-09] MEDS: PREGABALIN 75 MG (LYRICA) CAP PO SCH ×2 (08:16→22:57)
[2020-12-09] MEDS: DOCUSATE SODIUM 100 MG (COLACE) CAP PO SCH ×2 (08:16→22:58)
[2020-12-09] MEDS: ROSUVASTATIN 20 MG (CRESTOR) TABLET PO SCH (08:17)
[2020-12-09] MEDS: CLOPIDOGREL 75 MG (PLAVIX) TABLET PO SCH (08:17)
[2020-12-09] MEDS: PANTOPRAZOLE 40 MG (PROTONIX) TAB PO SCH (08:17)
[2020-12-09] MEDS: VITAMIN D3 125 MCG (5,000 UNITS) CAPSULE PO SCH (08:17)
[2020-12-09] MEDS: FAMOTIDINE 20 MG (PEPCID) TABLET PO SCH ×2 (08:17→22:57)
[2020-12-09] MEDS: SENNA W/DOCUSATE (SENOKOT S) TABLET PO SCH ×2 (08:17→22:58)
[2020-12-09] MEDS: lisINopril 40 MG (PRINIVIL) TABLET PO SCH (08:17)
[2020-12-09] MEDS: polyethylene glycoL POWDER 17 GM (MIRALAX) PACK PO SCH ×2 (08:18→23:04)
[2020-12-09] MEDS: LORATADINE (CLARITIN) 10 MG TAB PO SCH ×2 (08:18→22:57)
[2020-12-09] MEDS: HYDROCORTISONE 1% OINT 30 GM TUBE TOP SCH ×2 (08:19→22:56)
--- NOTE | 2020-12-09 10:22 | PM&R Progress Note ---
Subjective HPI/CC On Admission Date Seen by Provider: Dec 09, 2020 Time Seen by Provider: 10:15 Subjective/Events-last exam 12/09/20: Patient progressing very well Walking is more deliberate and steady Platform walker is helping a great deal No falls 12/08/20: Patient progressing nicely Left arm and left leg increased in function Monitoring BP No falls BM+ 12/07/20: Bladder training last night A bit groggy last night, did not take Atarax Overall doing pretty well 12/06/20: No major issues Will likely stop the Atarax since it makes her so drowsy Bladder training for incontinence will be completed 12/05/20: Left side is improved Labs look good Walked 60 feet which is great Doing pretty well Labs with blood sugar good 12/04/20: Patient doing well except the itching 12/03/20: Patient doing well Met her at bedside today Vision will be addressed at [place] BM today on the commode Incontinence can occur Checked meds and labs 12/02/20: Atarax makes her too drowsy Itchiness is still an issue Monitoring closely Improved left arm movement 12/01/20: Progressing nicely No issues Incontinence noted periodically No pain except Fibromyalgia pain 11/30/20: Pt doing pretty well Sugar is 177 Restarted Statin, although she is allergic to Lipitor she is okay with Crestor Has a chronic headache since the stroke Left arm is improved 11/29/20: Appreciate Dr Watson evaluating the patient s/p loop recorder yesterday Incontinent isolated incident No pain reported VIsion is a limitation Walking with hemicane 11/28/20: Pt feels like she is progressing Loop recorder will be placed today Bowels moved yesterday will come to visit today Overall doing very well 11/27/20: Used CPAP last night BM today BP good Feels like she is progressing 11/26/20: Patient sleepy today Home CPAP will be brought in by family soon BM daily Walked 16 feet with hemicane Transfers are easier 11/25/20: Vision is a significant issue for her now Cardiology will place loop recorder on Saturday No falls Able to regain some function left hand and leg 11/24/20: Pt settling in pretty well Dizziness noted Bowels moved yesterday Reviewed home medications Review of Systems General: Fatigue, Malaise Neurological: Weakness, Incoordination Objective Exam Vital Signs Vital Signs Date Time Temp Pulse Resp B/P (MAP) Pulse Ox O2 Delivery O2 Flow Rate FiO2 12/09/20 20:10 Room Air 12/09/20 17:11 36.5 67 18 146/65 (92) 97 Capillary Refill : General Appearance: No Apparent Distress, WD/WN, Chronically ill, Obese HEENT: PERRL/EOMI, Normal ENT Inspection, Pharynx Normal Neck: Full Range of Motion, Normal Inspection, Non Tender, Supple, Carotid Bruit Respiratory: Chest Non Tender, Lungs Clear, Normal Breath Sounds, No Accessory Muscle Use, No Respiratory Distress Cardiovascular: Regular Rate, Rhythm, No Edema, No Gallop, No JVD, No Murmur, Normal Peripheral Pulses Gastrointestinal: Normal Bowel Sounds, No Organomegaly, No Pulsatile Mass, Non Tender, Soft Back: Normal Inspection, No CVA Tenderness, No Vertebral Tenderness Extremity: Normal Capillary Refill, Normal Inspection, Non Tender, No Pedal Edema Neurologic/Psychiatric: Alert, Oriented x3, Abnormal Gait, Depressed Affect, Motor Weakness (left side 2/5 upper and lower extremity) Skin: Normal Color, Warm/Dry Lymphatic: No Adenopathy Results/Procedures Lab Patient resulted labs reviewed. FIM Transfers Therapy Code Descriptions/Definitions Functional [place] Measure: 0=Not Assessed/NA 4=Minimal Assistance 1=Total Assistance 5=Supervision or Setup 2=Maximal Assistance 6=Modified [place] 3=Moderate Assistance 7=Complete IndependenceSCALE: Activities may be completed with or without assistive devices. 5-Uuewxfzqmi-eunwvdh completes the activity by him/herself with no assistance from a helper. 5-Set-up or Clean-up Assistance-helper sets up or cleans up; patient completes activity. [place] assists only prior to or following the activity. 4-Supervision or Touching Assistance-helper provides verbal cues and/or touching/steadying and/or contact guard assistance as patient completes activity. Assistance may be provided throughout the activity or intermittently. 3-Partial/Moderate Assistance-helper does LESS THAN HALF the effort. [place] lifts, holds or supports trunk or limbs, but provides less than half the effort. 2-Substantial/Maximal Assistance-helper does MORE THAN HALF the effort. [place] lifts or holds trunk or limbs and provides more than half the effort. 8-Rfyfcsukx-uoouba does ALL the effort. Patient does none of the effort to complete the activity. Or, the assistance of 2 or more helpers is required for the patient to complete the activity. If activity was not attempted, code reason: 7-Patient Refused. 9-Not Applicable-not attempted and the patient did not perform the activity before the current illness, exacerbation or injury. 10-Not Attempted due to Environmental Limitations-(lack of equipment, weather restraints, etc.). 88-Not Attempted due to Medical Conditions or Safety Concerns. Roll Left to Right (QC): 3 Sit to Lying (QC): 3 Sit to Stand (QC): 5 Chair/Umv-pg-Einta Xfer(QC): 5 Car Transfer (QC): 88 Gait Training Does the Patient Walk?: Yes Distance: 200', 75' Walk 10 feet (QC): 4 Walk 50 ft with 2 Turns(QC): 4 Walk 150 ft (QC): 4 Walking 10ft/uneven surface-QC: 88 Gait Persons Needed: 1 Gait Assistive Device: Walker Platform Wheelchair Training Does the Pt Use a Wheelchair?: No Wheel 50 ft with 2 turns (QC): 3 Wheel 150 ft (QC): 9 Type of Wheelchair: Manual Stair Training 1 Step (curb) (QC): 88 4 Steps (QC): 88 12 Steps (QC): 88 Balance Picking up an Object (QC): 88 ADL-Treatment Eating (QC): 6 Oral Hygiene (QC): 6 Bathing Location: L Arm, R Arm, L Upper Leg, R Upper Leg, L Lower Leg (including foot), R Lower Leg (including foot), Chest, Abdomen, Perineal Area Shower/Bathe Self (QC): 4 Upper Body Dressing (QC): 5 Lower Body Dressing (QC): 3 (Mod A) On/Off Footwear (QC): 3 (Mod A) Toileting Hygiene (QC): 4 Toilet Transfer (QC): 4 Assessment/Plan Assessment and Plan Assess & Plan/Chief Complaint Assessment: 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 Fibromyalgia GERD Gastroparesis Neuropathy GEREMIAS on CPAP DM HTN HLP Glaucoma Diabetic retinopathy Obesity s/p loop recorder placement Dr Watson 11/28/20 Plan: IRF protocol Home meds DM management 11/24/20: Sugar management Monitor pain Monitor dizziness 11/25/20: Vision loss is problematic Cardiology appreciated Monitor closely 11/26/20: Improved ambulation with lucita-cane Doing well Vision loss limiting factor 11/27/20: Monitor BP Improved status CPAP use 11/28/11: Monitor BP Labs reviewed Fall risk 11/29/20: Appreciate Dr Watson Loop recorder in place 11/30/20: Monitor closely Restart Crestor Loop recorder in place 12/01/20: Progressing nicely Continue monitoring Needs eye exam with prisms 12/02/20: Improved left arm function Monitor rash Monitor BP 12/03/20: Monitor BP and BS VIsion will be addressed at [place] with prisms Continue progress 12/04/20: Add Pecid Claritin BID Itchiness is an issue Monitor closely Stop scheduled Atarax due to AM drowsiness 12/05/20: Added meds yesterday for the itching Monitor left arm progress Fall risk 12/06/20: Monitor BP Itchiness is diff to manage Pepcid and Claritin BID 12/07/20: Making significant progress Monitor rash Monitor BP 12/08/20: Monitor BP Left side weakness improved Fall risk 12/09/20: Platform walker Monitor left sided weakness Eye exam at [place] (1) Fibromyalgia (2) Cervical spine disease (3) Obesity (4) Diabetes (5) Gastroparesis (6) GERD (gastroesophageal reflux disease) (7) Neuropathy (8) Glaucoma (9) Former smoker (10) CVA (cerebral vascular accident) SALVADOR SPARKS DO Dec 09, 2020 10:22
--- NOTE | 2020-12-09 10:30 | Occupational Ther Daily Note ---
OT Current Status-Daily Note Subjective Pt alert, sitting in recliner. Pt agrees to therapy. No c/o pain at this time. Mental Status/Objective Patient Orientation: Person, Place, Time, Situation Attachments: Other-See Comments (loop recorder) ADL-Treatment Pt agrees to shower. Pt completes own meal set up and uses regular utensils. Pt transfers from surface to surface with SBA using grabbars or arms of chair for stabilization. Pt able to complete clothing manipulation with SBA and cleanses self on toilet independently. Pt complete bathing self in sitting independently though when rinsing pt stood and CGA for safety while pt rinsed. Pt sitting at sink to complete oral care independently. Due to time constraints, assist for all dressing. After session, pt sitting in recliner with call light/phone in reach. All needs met in room. Therapy Code Descriptions/Definitions Functional [place] Measure: 0=Not Assessed/NA 4=Minimal Assistance 1=Total Assistance 5=Supervision or Setup 2=Maximal Assistance 6=Modified [place] 3=Moderate Assistance 7=Complete IndependenceSCALE: Activities may be completed with or without assistive devices. 8-Ihtzrftctv-npizknu completes the activity by him/herself with no assistance from a helper. 5-Set-up or Clean-up Assistance-helper sets up or cleans up; patient completes activity. [place] assists only prior to or following the activity. 4-Supervision or Touching Assistance-helper provides verbal cues and/or touching/steadying and/or contact guard assistance as patient completes activity. Assistance may be provided throughout the activity or intermittently. 3-Partial/Moderate Assistance-helper does LESS THAN HALF the effort. [place] lifts, holds or supports trunk or limbs, but provides less than half the effort. 2-Substantial/Maximal Assistance-helper does MORE THAN HALF the effort. [place] lifts or holds trunk or limbs and provides more than half the effort. 5-Mngjpijct-rkatws does ALL the effort. Patient does none of the effort to complete the activity. Or, the assistance of 2 or more helpers is required for the patient to complete the activity. If activity was not attempted, code reason: 7-Patient Refused. 9-Not Applicable-not attempted and the patient did not perform the activity before the current illness, exacerbation or injury. 10-Not Attempted due to Environmental Limitations-(lack of equipment, weather restraints, etc.). 88-Not Attempted due to Medical Conditions or Safety Concerns. Eating (QC): 6 Oral Hygiene (QC): 6 Shower/Bathe Self (QC): 4 Toileting Hygiene (QC): 4 Toilet Transfer (QC): 4 Other Treatment Pt states that vision is more fuzzy in morning and night, vision clears throughout the day. Pt has increasing strength and AROM of L UE. Discussing with PT using regular FWW without platform. Discussion about using w/c for longer mobility due to vision and fatigue. OT Short Term Goals Short Term Goals Time Frame: Dec 07, 2020 Eatin Oral hygiene: 6 Toileting hygiene: 2 Shower/bathe self: 2 Upper body dressin Lower body dressin Putting on/taking off footwear: 2 OT Collector Of Aquarium Specimens Goals Fpc Goals Time Frame: Dec 24, 2020 Eating (QC): 6 Oral Hygiene (QC): 6 Toileting Hygiene (QC): 4 Shower/Bathe Self (QC): 4 Upper Body Dressing (QC): 6 Lower Body Dressing (QC): 4 On/Off Footwear (QC): 3 Additional Goals: 1-Demonstrate ADL Tasks, 2-Verbalize Understanding, 3- ImproveStrength/Sola 1=Demonstrate adherence to instructed precautions during ADL tasks. 2=Patient will verbalize/demonstrate understanding of assistive devices/modifications for ADL. 3=Patient will improve strength/tolerance for activity to enable patient to perform ADL's. OT Education/Plan Problem List/Assessment Assessment: Decreased Activ Tolerance, Decreased UE Strength, Impaired Funct Balance, Impaired Self-Care Skills, Restricted Funct UE ROM Discharge Recommendations Plan/Recommendations: Continue POC Treatment Plan/Plan of Care Patient would benefit from OT for education, treatment and training to promote independence in ADL's, mobility, safety and/or upper extremity function for ADL's. Plan of Care: ADL Retraining, Caregiver Training, Concurrent Therapy, Functional Mobility, Group Exercise/Act as Ind, Orthotic Fitting/Training, UE Funct Exercise/Act, UE Neuromus Re-Ed/Coord, Visual/Perceptual Retrain, W/C Management Training Treatment Duration: Dec 24, 2020 Frequency: At least 5 of 7 days/Wk (IRF) Estimated Hrs Per Day: 1.5 hours per day Agreement: Yes Rehab Potential: Good Time/GCodes Start Time: 07:15 Stop Time: 08:45 Total Time Billed (hr/min): 90 Billed Treatment Time 1 visit-ADL 6 (90 min) ALLA MACDONALD Dec 09, 2020 10:30
--- NOTE | 2020-12-09 11:08 | Physical Therapy Daily Note ---
PT Daily Note-Current Subjective Pt. agrees to Rx, denies pain. States she is hoping to find all the equipment she needs through folks at [employer]. Pt. is frustrated by low vision and left weakness Pain Location: No Pain Reported Mental Status Patient Orientation: Person, Place, Situation Transfers SCALE: Activities may be completed with or without assistive devices. 2-Pnopioxwfe-getumuf completes the activity by him/herself with no assistance from a helper. 5-Set-up or Clean-up Assistance-helper sets up or cleans up; patient completes activity. [place] assists only prior to or following the activity. 4-Supervision or Touching Assistance-helper provides verbal cues and/or touching/steadying and/or contact guard assistance as patient completes activity. Assistance may be provided throughout the activity or intermittently. 3-Partial/Moderate Assistance-helper does LESS THAN HALF the effort. [place] lifts, holds or supports trunk or limbs, but provides less than half the effort. 2-Substantial/Maximal Assistance-helper does MORE THAN HALF the effort. [place] lifts or holds trunk or limbs and provides more than half the effort. 7-Dhttfmfyi-lpvqoe does ALL the effort. Patient does none of the effort to complete the activity. Or, the assistance of 2 or more helpers is required for the patient to complete the activity. If activity was not attempted, code reason: 7-Patient Refused. 9-Not Applicable-not attempted and the patient did not perform the activity before the current illness, exacerbation or injury. 10-Not Attempted due to Environmental Limitations-(lack of equipment, weather restraints, etc.). 88-Not Attempted due to Medical Conditions or Safety Concerns. Roll Left & Right (QC): 5 Sit to Stand (QC): 5 Chair/Atk-pl-Tadea Xfer(QC): 5 pt. needs step by step instruction for SPT as pt oversteps and misses goal or walks past it repeatedly Weight Bearing Full Weight Bearing Full Weight Bearing Gait Training Does the Patient Walk?: Yes Walk 10 feet (QC): 4 Walk 50 ft with 2 Turns(QC): 4 Gait Persons Needed: 1 gait with platform and without was trialed per OT request. Pt. is safer with ambulation with platform in place but still requires CGA to min assist and mostly nuclear engineering technician guidance instruction secondary to low vision issues. Pt. guides walker in to objects frequently Wheelchair Training Does the Pt Use a Wheelchair?: Yes Wheel 50 ft with 2 turns (QC): 3 Wheel 150 ft (QC): 3 Type of Wheelchair: Manual pt. needs repeated instruction for braking and propelling, pt. veers to one side as she seldom advances left foot to propel self and has even less independence using UEs. However pt may need w/c for home mobility safety etc. Exercises Seated Therapy Exercises: Ankle pumps, Sit to stand, Long arc quads, Hip flexion, Hip abd/add Seated Reps: 15 NuStep Minutes: 10 NuStep Workload: 3 Treatments with respect to DC plans for home environment pt. would need w/c, FWW w platform as well as BSC. The resources for meeting these needs is in question. will follow with SW Assessment Current Status: Fair Progress pt. continues dependent for safety in all mobility PT Intermediate Goals Human Geography Instructor Goals PT Intermediate Goals Time Frame: Dec 14, 2020 Roll Left & Right (QC): 5 Sit to Lying (QC): 5 Lying-Sitting on Side/Bed(QC): 5 Sit to Stand (QC): 5 Chair/Bvg-qc-Pjqff Xfer(QC): 5 Toilet Transfer (QC): 5 Car Transfer (QC): 5 Does the Patient Walk: Yes Walk 10 feet (QC): 5 Walk 50ft with 2 Turns (QC): 5 Walk 150 ft (QC): 5 Walking 10ft on Uneven Surface: 5 1 Step (curb) (QC): 4 4 Steps (QC): 9 12 Steps (QC): 9 Picking up an Object (QC): 4 Does the Pt use WC or Scooter?: No Wheel 50 feet with 2 turns (QC: 9 Wheel 150 feet: 9 PT Plan Treatment/Plan Treatment Plan: Continue Plan of Care Treatment Plan: Bed Mobility, Concurrent Therapy, Functional Activity Sola, Functional Strength, Gait, Safety, Therapeutic Exercise, Transfers Treatment Duration: Dec 14, 2020 Frequency: At least 5 of 7 days/Wk (IRF) Estimated Hrs Per Day: 1.5 hours per day Patient and/or Family Agrees t: Yes Safety Risks/Education Patient Education: Gait Training, Transfer Techniques, Correct Positioning, W/C Management, Disease Process, Safety Issues Teaching Recipient: Patient Teaching Methods: Demonstration, Discussion Response to Teaching: Verbalize Understanding, Return Demonstration, Rein forcement Needed Time/GCodes Time In: 1000 Time Out: 1100 Total Billed Treatment Time: 60 Total Billed Treatment 1,EX25m,WC20m,EX15m RAVIN MANCERA HVAC REFRIGERATION TECHNICIAN Dec 09, 2020 11:08
--- NOTE | 2020-12-09 13:33 | Speech Therapy Daily Note ---
Speech Daily Progress Note Subjective Date Seen by Provider: Dec 09, 2020 Time Seen by Provider: 00:30 Patient was resting in her recliner following her PT session. Objective Patient completed a series of cognitive questions related to her meal planning and turning in her orders through tomorrow with 85% given minimal cues. Assessment Assessment Current Status: Good Progress Treatment Plan Continue Plan of Care Speech Short Term Goals Short Term Goals Short Term Goals 1) The patient will complete memory tasks related to her daily needs at 90% or greater. 2) The patient will complete safety awareness tasks related to her daily needs at 90% or greater. 3) The patient will complete problem solving tasks related to her daily needs at 90% or greater. 4) The patient will complete speech production tasks related to her communicat ion needs at 90% or greater. Speech Head Of Stock Goals Head Of Stock Goals Patient will improve speech production to 90% or greater for effective communication. Patient will improve cognitive-communication necessary for safety and daily living tasks with minimal assist. Speech-Plan Patient/Family Goals Patient/Family Goals: Patient is scheduled for discharge to her home where she lives with her on 12/16/2020. Treatment Plan Speech Therapy Treatment Plan: Continue Plan of Care Treatment Duration: Dec 16, 2020 Frequency: 4 times per week (Patient will receive skilled ST 4-5x per week) Estimated Hrs Per Day: .5 hour per day Rehab Potential: Good Barriers to Learning: Patient's recent CVA, mild cognitive deficits which are resolving well Pt/Family Agrees to Plan: Yes Safety Risks/Education Teaching Recipient: Patient Teaching Methods: Demonstration, Discussion Response to Teaching: Verbalize Understanding, Return Demonstration Education Topics Provided: Continued safety and communication Time Speech Therapy Time In: 11:00 Speech Therapy Time Out: 11:30 Total Billed Time: 30 Billed Treatment Time 1, PELON Gastelum Dec 09, 2020 13:33
[2020-12-09 17:11] VITALS: BP 146/65
[2020-12-09] MEDS: LATANOPROST 0.005% (XALATAN) OPHTH SOLN 2.5 ML OU SCH (22:56)
[2020-12-09] MEDS: MELATONIN 3 MG TABLET PO PRN (22:57)
[2020-12-09] MEDS: RHOPRESSA 0.02% OU SCH (22:58)
[2020-12-09] MEDS: OPTH OU SCH (22:58)
[2020-12-10] MEDS: inSUlin ASPART (NovoLOG) 1 UNIT/0.01 ML (CHARGE PER UNIT) SC SCH ×7 (06:01→21:02)
[2020-12-10 06:07] VITALS: BP 144/76
[2020-12-10] MEDS: CLOPIDOGREL 75 MG (PLAVIX) TABLET PO SCH (08:53)
[2020-12-10] MEDS: ROSUVASTATIN 20 MG (CRESTOR) TABLET PO SCH (08:53)
[2020-12-10] MEDS: DOCUSATE SODIUM 100 MG (COLACE) CAP PO SCH ×2 (08:53→21:30)
[2020-12-10] MEDS: PREGABALIN 75 MG (LYRICA) CAP PO SCH ×2 (08:53→21:30)
[2020-12-10] MEDS: PANTOPRAZOLE 40 MG (PROTONIX) TAB PO SCH (08:53)
[2020-12-10] MEDS: LORATADINE (CLARITIN) 10 MG TAB PO SCH ×2 (08:53→21:30)
[2020-12-10] MEDS: SENNA W/DOCUSATE (SENOKOT S) TABLET PO SCH ×2 (08:53→21:30)
[2020-12-10] MEDS: VITAMIN D3 125 MCG (5,000 UNITS) CAPSULE PO SCH (08:53)
[2020-12-10] MEDS: lisINopril 40 MG (PRINIVIL) TABLET PO SCH (08:53)
[2020-12-10] MEDS: FAMOTIDINE 20 MG (PEPCID) TABLET PO SCH ×2 (08:53→21:30)
[2020-12-10] MEDS: HYDROCORTISONE 1% OINT 30 GM TUBE TOP SCH ×2 (08:53→21:30)
[2020-12-10] MEDS: polyethylene glycoL POWDER 17 GM (MIRALAX) PACK PO SCH ×2 (09:00→19:26)
--- NOTE | 2020-12-10 09:25 | Physical Therapy Daily Note ---
PT Daily Note-Current Subjective Pt. agreeable to Rx. States she can afford to acquire a w/c on her own if necessary but a sister Uatsdin will likely help her with these expenses Pain Location: No Pain Reported Mental Status Patient Orientation: Person, Place, Time, Situation Transfers SCALE: Activities may be completed with or without assistive devices. 2-Ttqncybcse-flqcfyx completes the activity by him/herself with no assistance from a helper. 5-Set-up or Clean-up Assistance-helper sets up or cleans up; patient completes activity. [place] assists only prior to or following the activity. 4-Supervision or Touching Assistance-helper provides verbal cues and/or touching/steadying and/or contact guard assistance as patient completes ac tivity. Assistance may be provided throughout the activity or intermittently. 3-Partial/Moderate Assistance-helper does LESS THAN HALF the effort. [place] lifts, holds or supports trunk or limbs, but provides less than half the effort. 2-Substantial/Maximal Assistance-helper does MORE THAN HALF the effort. [place] lifts or holds trunk or limbs and provides more than half the effort. 5-Wgujnjayv-lpspfy does ALL the effort. Patient does none of the effort to complete the activity. Or, the assistance of 2 or more helpers is required for the patient to complete the activity. If activity was not attempted, code reason: 7-Patient Refused. 9-Not Applicable-not attempted and the patient did not perform the activity before the current illness, exacerbation or injury. 10-Not Attempted due to Environmental Limitations-(lack of equipment, weather restraints, etc.). 88-Not Attempted due to Medical Conditions or Safety Concerns. Sit to Stand (QC): 6 Chair/Zdo-sh-Zmybz Xfer(QC): 4 chair to w/c and w/c to recliner practiced multiple trials , some with FWW and some dance fashion with pt. having good results toward right in dance fashion but struggling and needing more assist to left Weight Bearing Full Weight Bearing Full Weight Bearing Wheelchair Training Does the Pt Use a Wheelchair?: Yes Wheel 50 ft with 2 turns (QC): 4 Type of Wheelchair: Manual improved w/c skills this date with pt. only using feet no hands to guide and propel Assessment Current Status: Good Progress PT Senior Center Manager Goals Senior Care Goals PT Senior [facility] Manager Goals Time Frame: Dec 14, 2020 Roll Left & Right (QC): 5 Sit to Lying (QC): 5 Lying-Sitting on Side/Bed(QC): 5 Sit to Stand (QC): 5 Chair/Gkj-ad-Bkbpw Xfer(QC): 5 Toilet Transfer (QC): 5 Car Transfer (QC): 5 Does the Patient Walk: Yes Walk 10 feet (QC): 5 Walk 50ft with 2 Turns (QC): 5 Walk 150 ft (QC): 5 Walking 10ft on Uneven Surface: 5 1 Step (curb) (QC): 4 4 Steps (QC): 9 12 Steps (QC): 9 Picking up an Object (QC): 4 Does the Pt use WC or Scooter?: No Wheel 50 feet with 2 turns (QC: 9 Wheel 150 feet: 9 PT Plan Treatment/Plan Treatment Plan: Continue Plan of Care Treatment Plan: Bed Mobility, Concurrent Therapy, Functional Activity Sola, Functional Strength, Gait, Safety, Therapeutic Exercise, Transfers Treatment Duration: Dec 14, 2020 Frequency: At least 5 of 7 days/Wk (IRF) Estimated Hrs Per Day: 1.5 hours per day Patient and/or Family Agrees t: Yes Safety Risks/Education Patient Education: Transfer Techniques, W/C Management Teaching Recipient: Patient Teaching Methods: Demonstration, Discussion Response to Teaching: Verbalize Understanding, Return Demonstration, Reinforcement Needed Time/GCodes Time In: 825 Time Out: 855 Total Billed Treatment Time: 30 Total Billed Treatment 1,FA15m,W/C15m RAVIN MANCERA HAND CANDLE DIPPER Dec 10, 2020 09:25
--- NOTE | 2020-12-10 11:54 | PM&R Progress Note ---
Subjective HPI/CC On Admission Date Seen by Provider: Dec 10, 2020 Time Seen by Provider: 12:15 Subjective/Events-last exam 12/10/20: Monitoring ambulation closely Uses platform walker well No pain reported Vision loss precludes fast recovery 12/09/20: Patient progressing very well Walking is more deliberate and steady Platform walker is helping a great deal No falls 12/08/20: Patient progressing nicely Left arm and left leg increased in function Monitoring BP No falls BM+ 12/07/20: Bladder training last night A bit groggy last night, did not take Atarax Overall doing pretty well 12/06/20: No major issues Will likely stop the Atarax since it makes her so drowsy Bladder training for incontinence will be completed 12/05/20: Left side is improved Labs look good Walked 60 feet which is great Doing pretty well Labs with blood sugar good 12/04/20: Patient doing well except the itching 12/03/20: Patient doing well Met her at bedside today Vision will be addressed at [place] BM today on the commode Incontinence can occur Checked meds and labs 12/02/20: Atarax makes her too drowsy Itchiness is still an issue Monitoring closely Improved left arm movement 12/01/20: Progressing nicely No issues Incontinence noted periodically No pain except Fibromyalgia pain 11/30/20: Pt doing pretty well Sugar is 177 Restarted Statin, although she is allergic to Lipitor she is okay with Crestor Has a chronic headache since the stroke Left arm is improved 11/29/20: Appreciate Dr Watson evaluating the patient s/p loop recorder yesterday Incontinent isolated incident No pain reported VIsion is a limitation Walking with hemicane 11/28/20: Pt feels like she is progressing Loop recorder will be placed today Bowels moved yesterday will come to visit today Overall doing very well 11/27/20: Used CPAP last night BM today BP good Feels like she is progressing 11/26/20: Patient sleepy today Home CPAP will be brought in by family soon BM daily Walked 16 feet with hemicane Transfers are easier 11/25/20: Vision is a significant issue for her now Cardiology will place loop recorder on Saturday No falls Able to regain some function left hand and leg 11/24/20: Pt settling in pretty well Dizziness noted Bowels moved yesterday Reviewed home medications Review of Systems Neurological: Weakness, Incoordination Objective Exam Vital Signs Vital Signs Date Time Temp Pulse Resp B/P (MAP) Pulse Ox O2 Delivery O2 Flow Rate FiO2 12/11/20 05:06 36.5 62 20 139/64 (89) 95 Room Air Capillary Refill : General Appearance: No Apparent Distress, WD/WN, Chronically ill, Obese HEENT: PERRL/EOMI, Normal ENT Inspection, Pharynx Normal Neck: Full Range of Motion, Normal Inspection, Non Tender, Supple, Carotid Bruit Respiratory: Chest Non Tender, Lungs Clear, Normal Breath Sounds, No Accessory Muscle Use, No Respiratory Distress Cardiovascular: Regular Rate, Rhythm, No Edema, No Gallop, No JVD, No Murmur, Normal Peripheral Pulses Gastrointestinal: Normal Bowel Sounds, No Organomegaly, No Pulsatile Mass, Non Tender, Soft Back: Normal Inspection, No CVA Tenderness, No Vertebral Tenderness Extremity: Normal Capillary Refill, Normal Inspection, Non Tender, No Pedal Edema Neurologic/Psychiatric: Alert, Oriented x3, Abnormal Gait, Depressed Affect, Motor Weakness (left side 2/5 upper and lower extremity) Skin: Normal Color, Warm/Dry Lymphatic: No Adenopathy Results/Procedures Lab Patient resulted labs reviewed. FIM Transfers Therapy Code Descriptions/Definitions Functional [place] Measure: 0=Not Assessed/NA 4=Minimal Assistance 1=Total Assistance 5=Supervision or Setup 2=Maximal Assistance 6=Modified [place] 3=Moderate Assistance 7=Complete IndependenceSCALE: Activities may be completed with or without assistive devices. 7-Oljevlhkdd-ilkhcfw completes the activity by him/herself with no assistance from a helper. 5-Set-up or Clean-up Assistance-helper sets up or cleans up; patient completes activity. [place] assists only prior to or following the activity. 4-Supervision or Touching Assistance-helper provides verbal cues and/or touching/steadying and/or contact guard assistance as patient completes a ctivity. Assistance may be provided throughout the activity or intermittently. 3-Partial/Moderate Assistance-helper does LESS THAN HALF the effort. [place] lifts, holds or supports trunk or limbs, but provides less than half the effort. 2-Substantial/Maximal Assistance-helper does MORE THAN HALF the effort. [place] lifts or holds trunk or limbs and provides more than half the effort. 9-Kxfoprsoq-omolaq does ALL the effort. Patient does none of the effort to complete the activity. Or, the assistance of 2 or more helpers is required for the patient to complete the activity. If activity was not attempted, code reason: 7-Patient Refused. 9-Not Applicable-not attempted and the patient did not perform the activity before the current illness, exacerbation or injury. 10-Not Attempted due to Environmental Limitations-(lack of equipment, weather restraints, etc.). 88-Not Attempted due to Medical Conditions or Safety Concerns. Roll Left to Right (QC): 5 Sit to Lying (QC): 3 Sit to Stand (QC): 6 Chair/Hkw-vv-Dyvbn Xfer(QC): 4 Car Transfer (QC): 88 Gait Training Does the Patient Walk?: Yes Distance: 200', 75' Walk 10 feet (QC): 4 Walk 50 ft with 2 Turns(QC): 4 Walk 150 ft (QC): 4 Walking 10ft/uneven surface-QC: 88 Gait Persons Needed: 1 Gait Assistive Device: Walker Platform Wheelchair Training Does the Pt Use a Wheelchair?: Yes Wheel 50 ft with 2 turns (QC): 4 Wheel 150 ft (QC): 3 Type of Wheelchair: Manual Stair Training 1 Step (curb) (QC): 88 4 Steps (QC): 88 12 Steps (QC): 88 Balance Picking up an Object (QC): 88 ADL-Treatment Eating (QC): 6 Oral Hygiene (QC): 6 Bathing Location: L Arm, R Arm, L Upper Leg, R Upper Leg, L Lower Leg (including foot), R Lower Leg (including foot), Chest, Abdomen, Perineal Area Shower/Bathe Self (QC): 4 Upper Body Dressing (QC): 5 Lower Body Dressing (QC): 3 (Mod A) On/Off Footwear (QC): 3 (Mod A) Toileting Hygiene (QC): 4 Toilet Transfer (QC): 4 Assessment/Plan Assessment and Plan Assess & Plan/Chief Complaint Assessment: 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 Fibromyalgia GERD Gastroparesis Neuropathy GEREMIAS on CPAP DM HTN HLP Glaucoma Diabetic retinopathy Obesity s/p loop recorder placement Dr Watson 11/28/20 Plan: IRF protocol Home meds DM management 11/24/20: Sugar management Monitor pain Monitor dizziness 11/25/20: Vision loss is problematic Cardiology appreciated Monitor closely 11/26/20: Improved ambulation with lucita-cane Doing well Vision loss limiting factor 11/27/20: Monitor BP Improved status CPAP use 11/28/11: Monitor BP Labs reviewed Fall risk 11/29/20: Appreciate Dr Watson Loop recorder in place 11/30/20: Monitor closely Restart Crestor Loop recorder in place 12/01/20: Progressing nicely Continue monitoring Needs eye exam with prisms 12/02/20: Improved left arm function Monitor rash Monitor BP 12/03/20: Monitor BP and BS VIsion will be addressed at DC with prisms Continue progress 12/04/20: Add Pecid Claritin BID Itchiness is an issue Monitor closely Stop scheduled Atarax due to AM drowsiness 12/05/20: Added meds yesterday for the itching Monitor left arm progress Fall risk 12/06/20: Monitor BP Itchiness is diff to manage Pepcid and Claritin BID 12/07/20: Making significant progress Monitor rash Monitor BP 12/08/20: Monitor BP Left side weakness improved Fall risk 12/09/20: Platform walker Monitor left sided weakness Eye exam at DC 12/10/20: Monitor vision loss PT OT Platform walker (1) Fibromyalgia (2) Cervical spine disease (3) Obesity (4) Diabetes (5) Gastroparesis (6) GERD (gastroesophageal reflux disease) (7) Neuropathy (8) Glaucoma (9) Former smoker (10) CVA (cerebral vascular accident) SALVADOR SPARKS DO Dec 10, 2020 11:54
[2020-12-10 16:22] VITALS: BP 133/61
[2020-12-10] MEDS: LATANOPROST 0.005% (XALATAN) OPHTH SOLN 2.5 ML OU SCH (21:28)
[2020-12-10] MEDS: RHOPRESSA 0.02% OU SCH (21:29)
[2020-12-10] MEDS: OPTH OU SCH (21:29)
[2020-12-10] MEDS: MELATONIN 3 MG TABLET PO PRN (21:30)
[2020-12-11 05:06] VITALS: BP 139/64
[2020-12-11] MEDS: inSUlin ASPART (NovoLOG) 1 UNIT/0.01 ML (CHARGE PER UNIT) SC SCH ×7 (06:58→20:15)
[2020-12-11] MEDS: ROSUVASTATIN 20 MG (CRESTOR) TABLET PO SCH (07:58)
[2020-12-11] MEDS: FAMOTIDINE 20 MG (PEPCID) TABLET PO SCH ×2 (07:58→21:22)
[2020-12-11] MEDS: VITAMIN D3 125 MCG (5,000 UNITS) CAPSULE PO SCH (07:58)
[2020-12-11] MEDS: lisINopril 40 MG (PRINIVIL) TABLET PO SCH (07:58)
[2020-12-11] MEDS: PANTOPRAZOLE 40 MG (PROTONIX) TAB PO SCH (07:59)
[2020-12-11] MEDS: DOCUSATE SODIUM 100 MG (COLACE) CAP PO SCH ×2 (07:59→21:23)
[2020-12-11] MEDS: PREGABALIN 75 MG (LYRICA) CAP PO SCH ×2 (07:59→21:23)
[2020-12-11] MEDS: SENNA W/DOCUSATE (SENOKOT S) TABLET PO SCH ×2 (07:59→21:22)
[2020-12-11] MEDS: LORATADINE (CLARITIN) 10 MG TAB PO SCH ×2 (07:59→21:22)
[2020-12-11] MEDS: HYDROCORTISONE 1% OINT 30 GM TUBE TOP SCH ×2 (07:59→21:22)
[2020-12-11] MEDS: CLOPIDOGREL 75 MG (PLAVIX) TABLET PO SCH (07:59)
[2020-12-11] MEDS: polyethylene glycoL POWDER 17 GM (MIRALAX) PACK PO SCH ×2 (08:00→19:23)
--- NOTE | 2020-12-11 11:45 | PM&R Progress Note ---
Subjective HPI/CC On Admission Date Seen by Provider: Dec 11, 2020 Time Seen by Provider: 12:00 Subjective/Events-last exam 12/11/20: Patient feels like she is progressing well No issues Improved bladder training 12/10/20: Monitoring ambulation closely Uses platform walker well No pain reported Vision loss precludes fast recovery 12/09/20: Patient progressing very well Walking is more deliberate and steady Platform walker is helping a great deal No falls 12/08/20: Patient progressing nicely Left arm and left leg increased in function Monitoring BP No falls BM+ 12/07/20: Bladder training last night A bit groggy last night, did not take Atarax Overall doing pretty well 12/06/20: No major issues Will likely stop the Atarax since it makes her so drowsy Bladder training for incontinence will be completed 12/05/20: Left side is improved Labs look good Walked 60 feet which is great Doing pretty well Labs with blood sugar good 12/04/20: Patient doing well except the itching 12/03/20: Patient doing well Met her at bedside today Vision will be addressed at [place] BM today on the commode Incontinence can occur Checked meds and labs 12/02/20: Atarax makes her too drowsy Itchiness is still an issue Monitoring closely Improved left arm movement 12/01/20: Progressing nicely No issues Incontinence noted periodically No pain except Fibromyalgia pain 11/30/20: Pt doing pretty well Sugar is 177 Restarted Statin, although she is allergic to Lipitor she is okay with Crestor Has a chronic headache since the stroke Left arm is improved 11/29/20: Appreciate Dr Watson evaluating the patient s/p loop recorder yesterday Incontinent isolated incident No pain reported VIsion is a limitation Walking with hemicane 11/28/20: Pt feels like she is progressing Loop recorder will be placed today Bowels moved yesterday will come to visit today Overall doing very well 11/27/20: Used CPAP last night BM today BP good Feels like she is progressing 11/26/20: Patient sleepy today Home CPAP will be brought in by family soon BM daily Walked 16 feet with hemicane Transfers are easier 11/25/20: Vision is a significant issue for her now Cardiology will place loop recorder on Saturday No falls Able to regain some function left hand and leg 11/24/20: Pt settling in pretty well Dizziness noted Bowels moved yesterday Reviewed home medications Review of Systems General: Fatigue, Malaise Neurological: Weakness, Incoordination Objective Exam Vital Signs Vital Signs Date Time Temp Pulse Resp B/P (MAP) Pulse Ox O2 Delivery O2 Flow Rate FiO2 12/11/20 08:00 Room Air 12/11/20 05:06 36.5 62 20 139/64 (89) 95 Capillary Refill : General Appearance: No Apparent Distress, WD/WN, Chronically ill, Obese HEENT: PERRL/EOMI, Normal ENT Inspection, Pharynx Normal Neck: Full Range of Motion, Normal Inspection, Non Tender, Supple, Carotid Bruit Respiratory: Chest Non Tender, Lungs Clear, Normal Breath Sounds, No Accessory Muscle Use, No Respiratory Distress Cardiovascular: Regular Rate, Rhythm, No Edema, No Gallop, No JVD, No Murmur, Normal Peripheral Pulses Gastrointestinal: Normal Bowel Sounds, No Organomegaly, No Pulsatile Mass, Non Tender, Soft Back: Normal Inspection, No CVA Tenderness, No Vertebral Tenderness Extremity: Normal Capillary Refill, Normal Inspection, Non Tender, No Pedal [place] ma Neurologic/Psychiatric: Alert, Oriented x3, Abnormal Gait, Depressed Affect, Motor Weakness (left side 2/5 upper and lower extremity) Skin: Normal Color, Warm/Dry Lymphatic: No Adenopathy Results/Procedures Lab Patient resulted labs reviewed. FIM Transfers Therapy Code Descriptions/Definitions Functional [place] Measure: 0=Not Assessed/NA 4=Minimal Assistance 1=Total Assistance 5=Supervision or Setup 2=Maximal Assistance 6=Modified [place] 3=Moderate Assistance 7=Complete IndependenceSCALE: Activities may be completed with or without assistive devices. 8-Tkprpntowf-rjzzgch completes the activity by him/herself with no assistance from a helper. 5-Set-up or Clean-up Assistance-helper sets up or cleans up; patient completes activity. [place] assists only prior to or following the activity. 4-Supervision or Touching Assistance-helper provides verbal cues and/or touching/steadying and/or contact guard assistance as patient completes activity. Assistance may be provided throughout the activity or intermittently. 3-Partial/Moderate Assistance-helper does LESS THAN HALF the effort. [place] lifts, holds or supports trunk or limbs, but provides less than half the effort. 2-Substantial/Maximal Assistance-helper does MORE THAN HALF the effort. [place] lifts or holds trunk or limbs and provides more than half the effort. 8-Zflzwgtkp-jlzzsc does ALL the effort. Patient does none of the effort to complete the activity. Or, the assistance of 2 or more helpers is required for the patient to complete the activity. If activity was not attempted, code reason: 7-Patient Refused. 9-Not Applicable-not attempted and the patient did not perform the activity before the current illness, exacerbation or injury. 10-Not Attempted due to Environmental Limitations-(lack of equipment, weather restraints, etc.). 88-Not Attempted due to Medical Conditions or Safety Concerns. Roll Left to Right (QC): 5 Sit to Lying (QC): 3 Sit to Stand (QC): 6 Chair/Qqf-be-Kxqgl Xfer(QC): 4 Car Transfer (QC): 88 Gait Training Does the Patient Walk?: Yes Distance: 200', 75' Walk 10 feet (QC): 4 Walk 50 ft with 2 Turns(QC): 4 Walk 150 ft (QC): 4 Walking 10ft/uneven surface-QC: 88 Gait Persons Needed: 1 Gait Assistive Device: Walker Platform Wheelchair Training Does the Pt Use a Wheelchair?: Yes Wheel 50 ft with 2 turns (QC): 4 Wheel 150 ft (QC): 3 Type of Wheelchair: Manual Stair Training 1 Step (curb) (QC): 88 4 Steps (QC): 88 12 Steps (QC): 88 Balance Picking up an Object (QC): 88 ADL-Treatment Eating (QC): 6 Oral Hygiene (QC): 6 Bathing Location: L Arm, R Arm, L Upper Leg, R Upper Leg, L Lower Leg (including foot), R Lower Leg (including foot), Chest, Abdomen, Perineal Area Shower/Bathe Self (QC): 4 Upper Body Dressing (QC): 5 Lower Body Dressing (QC): 3 (Mod A) On/Off Footwear (QC): 3 (Mod A) Toileting Hygiene (QC): 4 Toilet Transfer (QC): 4 Assessment/Plan Assessment and Plan Assess & Plan/Chief Complaint Assessment: 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 Fibromyalgia GERD Gastroparesis Neuropathy GEREMIAS on CPAP DM HTN HLP Glaucoma Diabetic retinopathy Obesity s/p loop recorder placement Dr Watson 11/28/20 Plan: IRF protocol Home meds DM management 11/24/20: Sugar management Monitor pain Monitor dizziness 11/25/20: Vision loss is problematic Cardiology appreciated Monitor closely 11/26/20: Improved ambulation with lucita-cane Doing well Vision loss limiting factor 11/27/20: Monitor BP Improved status CPAP use 11/28/11: Monitor BP Labs reviewed Fall risk 11/29/20: Appreciate Dr Watson Loop recorder in place 11/30/20: Monitor closely Restart Crestor Loop recorder in place 12/01/20: Progressing nicely Continue monitoring Needs eye exam with prisms 12/02/20: Improved left arm function Monitor rash Monitor BP 12/03/20: Monitor BP and BS VIsion will be addressed at DC with prisms Continue progress 12/04/20: Add Pecid Claritin BID Itchiness is an issue Monitor closely Stop scheduled Atarax due to AM drowsiness 12/05/20: Added meds yesterday for the itching Monitor left arm progress Fall risk 12/06/20: Monitor BP Itchiness is diff to manage Pepcid and Claritin BID 12/07/20: Making significant progress Monitor rash Monitor BP 12/08/20: Monitor BP Left side weakness improved Fall risk 12/09/20: Platform walker Monitor left sided weakness Eye exam at DC 12/10/20: Monitor vision loss PT OT Platform walker 12/11/20: Improved bladder function Monitor for falls (1) Fibromyalgia (2) Cervical spine disease (3) Obesity (4) Diabetes (5) Gastroparesis (6) GERD (gastroesophageal reflux disease) (7) Neuropathy (8) Glaucoma (9) Former smoker (10) CVA (cerebral vascular accident) SALVADOR SPARKS DO Dec 11, 2020 11:45
[2020-12-11 17:08] VITALS: BP 131/76
[2020-12-11] MEDS: LATANOPROST 0.005% (XALATAN) OPHTH SOLN 2.5 ML OU SCH (21:22)
[2020-12-11] MEDS: MELATONIN 3 MG TABLET PO PRN (21:23)
[2020-12-11] MEDS: OPTH OU SCH (21:23)
[2020-12-11] MEDS: RHOPRESSA 0.02% OU SCH (21:23)
[2020-12-12] MEDS: ACETAMINOPHEN 325 MG TABLET PO PRN (00:55)
[2020-12-12 05:55] VITALS: BP 149/68
[2020-12-12] MEDS: inSUlin ASPART (NovoLOG) 1 UNIT/0.01 ML (CHARGE PER UNIT) SC SCH ×7 (05:57→21:10)
[2020-12-12 06:39] LABS: BASOPHILS % (AUTO) 0 % (0-10); EOSINOPHILS # (AUTO) 0.3 10^3/uL (0.0-0.3); EOSINOPHILS % (AUTO) 6 % (0-10); HEMATOCRIT 36 % (35-52); HEMOGLOBIN 11.9 g/dL (11.5-16.0); LYMPHOCYTES # (AUTO) 1.4 10^3/uL (1.0-4.0); LYMPHOCYTES % (AUTO) 29 % (12-44); MEAN CORPUSCULAR HEMOGLOBIN 29 pg (25-34); MEAN CORPUSCULAR HGB CONC 33 g/dL (32-36); MEAN CORPUSCULAR VOLUME 87 fL (80-99); MEAN PLATELET VOLUME 12.1 fL (9.0-12.2); MONOCYTES # (AUTO) 0.4 10^3/uL (0.0-1.0); MONOCYTES % (AUTO) 9 % (0-12); NEUTROPHILS # (AUTO) 2.7 10^3/uL (1.8-7.8); NEUTROPHILS % (AUTO) 56 % (42-75); PLATELET COUNT 130 10^3/uL (130-400); WHITE BLOOD COUNT 4.8 10^3/uL (4.3-11.0)
[2020-12-12 06:45] LABS: ALBUMIN 3.6 GM/DL (3.2-4.5); POTASSIUM 4.2 MMOL/L (3.6-5.0)
[2020-12-12 06:46] LABS: CALCIUM 8.8 MG/DL (8.5-10.1)
[2020-12-12 06:47] LABS: TOTAL PROTEIN 6.6 GM/DL (6.4-8.2)
[2020-12-12 06:49] LABS: BILIRUBIN,TOTAL 0.5 MG/DL (0.1-1.0)
[2020-12-12 06:51] LABS: CREATININE SERUM 0.94 MG/DL (0.60-1.30)
--- NOTE | 2020-12-12 06:57 | PM&R Progress Note ---
Subjective HPI/CC On Admission Date Seen by Provider: Dec 12, 2020 Time Seen by Provider: 11:00 Subjective/Events-last exam 12/12/20: Patient doing well No pain reported Ambulating with platform walker well BM yesterday 12/11/20: Patient feels like she is progressing well No issues Improved bladder training 12/10/20: Monitoring ambulation closely Uses platform walker well No pain reported Vision loss precludes fast recovery 12/09/20: Patient progressing very well Walking is more deliberate and steady Platform walker is helping a great deal No falls 12/08/20: Patient progressing nicely Left arm and left leg increased in function Monitoring BP No falls BM+ 12/07/20: Bladder training last night A bit groggy last night, did not take Atarax Overall doing pretty well 12/06/20: No major issues Will likely stop the Atarax since it makes her so drowsy Bladder training for incontinence will be completed 12/05/20: Left side is improved Labs look good Walked 60 feet which is great Doing pretty well Labs with blood sugar good 12/04/20: Patient doing well except the itching 12/03/20: Patient doing well Met her at bedside today Vision will be addressed at ND BM today on the commode Incontinence can occur Checked meds and labs 12/02/20: Atarax makes her too drowsy Itchiness is still an issue Monitoring closely Improved left arm movement 12/01/20: Progressing nicely No issues Incontinence noted periodically No pain except Fibromyalgia pain 11/30/20: Pt doing pretty well Sugar is 177 Restarted Statin, although she is allergic to Lipitor she is okay with Crestor Has a chronic headache since the stroke Left arm is improved 11/29/20: Appreciate Dr Watson evaluating the patient s/p loop recorder yesterday Incontinent isolated incident No pain reported VIsion is a limitation Walking with hemicane 11/28/20: Pt feels like she is progressing Loop recorder will be placed today Bowels moved yesterday will come to visit today Overall doing very well 11/27/20: Used CPAP last night BM today BP good Feels like she is progressing 11/26/20: Patient sleepy today Home CPAP will be brought in by family soon BM daily Walked 16 feet with hemicane Transfers are easier 11/25/20: Vision is a significant issue for her now Cardiology will place loop recorder on Saturday No falls Able to regain some function left hand and leg 11/24/20: Pt settling in pretty well Dizziness noted Bowels moved yesterday Reviewed home medications Review of Systems General: Fatigue, Malaise Neurological: Weakness, Incoordination Objective Exam Vital Signs Vital Signs Date Time Temp Pulse Resp B/P (MAP) Pulse Ox O2 Delivery O2 Flow Rate FiO2 12/13/20 06:10 36.6 62 20 141/65 (90) 95 NIV CPAP Capillary Refill : General Appearance: No Apparent Distress, WD/WN, Chronically ill, Obese HEENT: PERRL/EOMI, Normal ENT Inspection, Pharynx Normal Neck: Full Range of Motion, Normal Inspection, Non Tender, Supple, Carotid Bruit Respiratory: Chest Non Tender, Lungs Clear, Normal Breath Sounds, No Accessory Muscle Use, No Respiratory Distress Cardiovascular: Regular Rate, Rhythm, No Edema, No Gallop, No JVD, No Murmur, N ormal Peripheral Pulses Gastrointestinal: Normal Bowel Sounds, No Organomegaly, No Pulsatile Mass, Non Tender, Soft Back: Normal Inspection, No CVA Tenderness, No Vertebral Tenderness Extremity: Normal Capillary Refill, Normal Inspection, Non Tender, No Pedal Edema Neurologic/Psychiatric: Alert, Oriented x3, Abnormal Gait, Depressed Affect, Motor Weakness (left side 2/5 upper and lower extremity) Skin: Normal Color, Warm/Dry Lymphatic: No Adenopathy Results/Procedures Lab Patient resulted labs reviewed. FIM Transfers Therapy Code Descriptions/Definitions Functional [place] Measure: 0=Not Assessed/NA 4=Minimal Assistance 1=Total Assistance 5=Supervision or Setup 2=Maximal Assistance 6=Modified [place] 3=Moderate Assistance 7=Complete IndependenceSCALE: Activities may be completed with or without assistive devices. 3-Oypdxrkjsl-irjbhua completes the activity by him/herself with no assistance from a helper. 5-Set-up or Clean-up Assistance-helper sets up or cleans up; patient completes activity. [place] assists only prior to or following the activity. 4-Supervision or Touching Assistance-helper provides verbal cues and/or touching/steadying and/or contact guard assistance as patient completes activity. Assistance may be provided throughout the activity or intermittently. 3-Partial/Moderate Assistance-helper does LESS THAN HALF the effort. [place] lifts, holds or supports trunk or limbs, but provides less than half the effort. 2-Substantial/Maximal Assistance-helper does MORE THAN HALF the effort. [place] lifts or holds trunk or limbs and provides more than half the effort. 7-Jhqjynscc-ldxfoo does ALL the effort. Patient does none of the effort to complete the activity. Or, the assistance of 2 or more helpers is required for the patient to complete the activity. If activity was not attempted, code reason: 7-Patient Refused. 9-Not Applicable-not attempted and the patient did not perform the activity before the current illness, exacerbation or injury. 10-Not Attempted due to Environmental Limitations-(lack of equipment, weather restraints, etc.). 88-Not Attempted due to Medical Conditions or Safety Concerns. Roll Left to Right (QC): 5 Sit to Lying (QC): 3 Sit to Stand (QC): 6 Chair/Bds-nv-Ssitb Xfer(QC): 4 Car Transfer (QC): 88 Gait Training Does the Patient Walk?: Yes Distance: 200', 75' Walk 10 feet (QC): 4 Walk 50 ft with 2 Turns(QC): 4 Walk 150 ft (QC): 4 Walking 10ft/uneven surface-QC: 88 Gait Persons Needed: 1 Gait Assistive Device: Walker Platform Wheelchair Training Does the Pt Use a Wheelchair?: Yes Wheel 50 ft with 2 turns (QC): 4 Wheel 150 ft (QC): 3 Type of Wheelchair: Manual Stair Training 1 Step (curb) (QC): 88 4 Steps (QC): 88 12 Steps (QC): 88 Balance Picking up an Object (QC): 88 ADL-Treatment Eating (QC): 6 Oral Hygiene (QC): 6 Bathing Location: L Arm, R Arm, L Upper Leg, R Upper Leg, L Lower Leg (including foot), R Lower Leg (including foot), Chest, Abdomen, Perineal Area Shower/Bathe Self (QC): 4 Upper Body Dressing (QC): 5 Lower Body Dressing (QC): 3 (Mod A) On/Off Footwear (QC): 3 (Mod A) Toileting Hygiene (QC): 4 Toilet Transfer (QC): 4 Assessment/Plan Assessment and Plan Assess & Plan/Chief Complaint Assessment: 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 Fibromyalgia GERD Gastroparesis Neuropathy GEREMIAS on CPAP DM HTN HLP Glaucoma Diabetic retinopathy Obesity s/p loop recorder placement Dr Watson 11/28/20 Plan: IRF protocol Home meds DM management 11/24/20: Sugar management Monitor pain Monitor dizziness 11/25/20: Vision loss is problematic Cardiology appreciated Monitor closely 11/26/20: Improved ambulation with lucita-cane Doing well Vision loss limiting factor 11/27/20: Monitor BP Improved status CPAP use 11/28/11: Monitor BP Labs reviewed Fall risk 11/29/20: Appreciate Dr Watson Loop recorder in place 11/30/20: Monitor closely Restart Crestor Loop recorder in place 12/01/20: Progressing nicely Continue monitoring Needs eye exam with prisms 12/02/20: Improved left arm function Monitor rash Monitor BP 12/03/20: Monitor BP and BS VIsion will be addressed at DC with prisms Continue progress 12/04/20: Add Pecid Claritin BID Itchiness is an issue Monitor closely Stop scheduled Atarax due to AM drowsiness 12/05/20: Added meds yesterday for the itching Monitor left arm progress Fall risk 12/06/20: Monitor BP Itchiness is diff to manage Pepcid and Claritin BID 12/07/20: Making significant progress Monitor rash Monitor BP 12/08/20: Monitor BP Left side weakness improved Fall risk 12/09/20: Platform walker Monitor left sided weakness Eye exam at DC 12/10/20: Monitor vision loss PT OT Platform walker 12/11/20: Improved bladder function Monitor for falls 12/12/20: Improved ambulation No pain reported Eye exam at DC (1) Fibromyalgia (2) Cervical spine disease (3) Obesity (4) Diabetes (5) Gastroparesis (6) GERD (gastroesophageal reflux disease) (7) Neuropathy (8) Glaucoma (9) Former smoker (10) CVA (cerebral vascular accident) SALVADOR SPARKS DO Dec 12, 2020 06:57
[2020-12-12] MEDS: HYDROCORTISONE 1% OINT 30 GM TUBE TOP SCH ×2 (08:00→20:53)
[2020-12-12] MEDS: PREGABALIN 75 MG (LYRICA) CAP PO SCH ×2 (08:00→20:52)
[2020-12-12] MEDS: FAMOTIDINE 20 MG (PEPCID) TABLET PO SCH ×2 (08:00→20:52)
[2020-12-12] MEDS: ROSUVASTATIN 20 MG (CRESTOR) TABLET PO SCH (08:00)
[2020-12-12] MEDS: LORATADINE (CLARITIN) 10 MG TAB PO SCH ×2 (08:01→20:52)
[2020-12-12] MEDS: lisINopril 40 MG (PRINIVIL) TABLET PO SCH (08:01)
[2020-12-12] MEDS: PANTOPRAZOLE 40 MG (PROTONIX) TAB PO SCH (08:01)
[2020-12-12] MEDS: CLOPIDOGREL 75 MG (PLAVIX) TABLET PO SCH (08:01)
[2020-12-12] MEDS: SENNA W/DOCUSATE (SENOKOT S) TABLET PO SCH ×2 (08:01→20:52)
[2020-12-12] MEDS: VITAMIN D3 125 MCG (5,000 UNITS) CAPSULE PO SCH (08:01)
[2020-12-12] MEDS: polyethylene glycoL POWDER 17 GM (MIRALAX) PACK PO SCH ×2 (08:01→20:55)
[2020-12-12] MEDS: DOCUSATE SODIUM 100 MG (COLACE) CAP PO SCH ×2 (08:01→20:52)
--- NOTE | 2020-12-12 08:56 | Occupational Ther Daily Note ---
OT Current Status-Daily Note Subjective Pt alert, transferring to toilet with nrsg. Pt agrees to therapy. No c/o pain. Mental Status/Objective Patient Orientation: Person, Place, Time, Situation ADL-Treatment 1st session ()Pt agrees to therapy. CGA for toilet transfer and toileting using platform FWW, grabbars and BSC. Pt stood at sink with platform FWW to complete oral care with supervision. Verbal cues and CGA for shower transfer using platform FWW, grabbars and shower bench. Using shower bench, grabbars and hand held shower pt able to bathe self sitting, lean side to side to side to cleanse buttocks independently. After set up, pt able to don/doff upper body clothing by self. Using AE, pt able to don/doff lower body clothing with SBA while pt hiked pants over hips. Sock aide to don socks after set up, industrial psychologist to doff socks. LH shoe horn and elastic laces used to don shoes with min A. After session, pt sitting in recliner with call light/phone in reach. All needs met in room. Therapy Code Descriptions/Definitions Functional [place] Measure: 0=Not Assessed/NA 4=Minimal Assistance 1=Total Assistance 5=Supervision or Setup 2=Maximal Assistance 6=Modified [place] 3=Moderate Assistance 7=Complete IndependenceSCALE: Activities may be completed with or without assistive devices. 3-Kxsnwnftzo-jbmplof completes the activity by him/herself with no assistance from a helper. 5-Set-up or Clean-up Assistance-helper sets up or cleans up; patient completes activity. [place] assists only prior to or following the activity. 4-Supervision or Touching Assistance-helper provides verbal cues and/or touching/steadying and/or contact guard assistance as patient completes activity. Assistance may be provided throughout the activity or intermittently. 3-Partial/Moderate Assistance-helper does LESS THAN HALF the effort. [place] lifts, holds or supports trunk or limbs, but provides less than half the effort. 2-Substantial/Maximal Assistance-helper does MORE THAN HALF the effort. [place] lifts or holds trunk or limbs and provides more than half the effort. 0-Faywijlxc-hzmppc does ALL the effort. Patient does none of the effort to complete the activity. Or, the assistance of 2 or more helpers is required for the patient to complete the activity. If activity was not attempted, code reason: 7-Patient Refused. 9-Not Applicable-not attempted and the patient did not perform the activity before the current illness, exacerbation or injury. 10-Not Attempted due to Environmental Limitations-(lack of equipment, weather restraints, etc.). 88-Not Attempted due to Medical Conditions or Safety Concerns. Eating (QC): 6 Oral Hygiene (QC): 4 (SBA while standing at the sink. When sitting it is independent.) Bathing Location: L Arm, R Arm, L Upper Leg, R Upper Leg, L Lower Leg (including foot), R Lower Leg (including foot), Chest, Abdomen, Buttocks, Perineal Area Shower/Bathe Self (QC): 6 Upper Body Dressing (QC): 5 Lower Body Dressing (QC): 4 On/Off Footwear: 3 Toileting Hygiene (QC): 4 Toilet Transfer (QC): 4 Other Treatment 2nd session(): Co-treat with PT ([id number]) for skilled instruction and care due to decreased mobility and fall risk. PT focusing on ambulation, FWW placement while OT focusing on shower transfer with tub transfer bench. Due to decreased vision, pt requires verbal and sometimes physical cues to see environment for safe transfers and ambulation. Verbal cues to complete ambulation up to and sit on tub transfer bench. Leg biomedical equipment support specialist placed then pt able to lift R then L LE into tub with CGA for safety. Verbal cues for pt to reposition self onto bench for safety. Pt ambulated to and from bathroom using platform FWW with w/c behind for safety. Pt ambulated to therapy gym. Pt left in care of PT. All needs met. Education OT Patient Education: Transfer techniques, Use of adapted equipment Teaching Recipient: Patient Teaching Methods: Demonstration, Discussion Response to Teaching: Verbalize Understanding, Return Demonstration, Reinforcement Needed OT Short Term Goals Short Term Goals Time Frame: Dec 07, 2020 Eatin Oral hygiene: 6 Toileting hygiene: 2 Shower/bathe self: 2 Upper body dressin Lower body dressin Putting on/taking off footwear: 2 OT Penitentiary Goals Penitentiary Goals Time Frame: Dec 24, 2020 Eating (QC): 6 Oral Hygiene (QC): 6 Toileting Hygiene (QC): 4 Shower/Bathe Self (QC): 4 Upper Body Dressing (QC): 6 Lower Body Dressing (QC): 4 On/Off Footwear (QC): 3 Additional Goals: 1-Demonstrate ADL Tasks, 2-Verbalize Understanding, 3-ImproveStrength/Sola 1=Demonstrate adherence to instructed precautions during ADL tasks. 2=Patient will verbalize/demonstrate understanding of assistive devices/modifications for ADL. 3=Patient will improve strength/tolerance for activity to enable patient to perform ADL's. OT Education/Plan Problem List/Assessment Assessment: Decreased Safety Aware, Decreased UE Strength, Impaired Funct Balance, Impaired Self-Care Skills, Restricted Funct UE ROM, Visual-Perceptual Deficit Discharge Recommendations Plan/Recommendations: Continue POC Treatment Plan/Plan of Care Patient would benefit from OT for education, treatment and training to promote independence in ADL's, mobility, safety and/or upper extremity function for ADL's. Plan of Care: ADL Retraining, Caregiver Training, Concurrent Therapy, Functional Mobility, Group Exercise/Act as Ind, Orthotic Fitting/Training, UE Funct Exercise/Act, UE Neuromus Re-Ed/Coord, Visual/Perceptual Retrain, W/C Management Training Treatment Duration: Dec 24, 2020 Frequency: At least 5 of 7 days/Wk (IRF) Estimated Hrs Per Day: 1.5 hours per day Agreement: Yes Rehab Potential: Good Time/GCodes Start Time: 07:30 (1000) Stop Time: 08:45 (1030) Total Time Billed (hr/min): 105 Billed Treatment Time 1 visit-ADL 5 (75 min) 2nd visit-FA 2 (30 min) co-treat with PT [id number] ALLA MACDONALD Dec 12, 2020 08:56
--- NOTE | 2020-12-12 11:54 | Physical Therapy Daily Note ---
PT Daily Note-Current Subjective Agreeable to PT. No complaints. Reports she feels she is doing much better. Transfers SCALE: Activities may be completed with or without assistive devices. 0-Ezmtcpemnk-npkuqcf completes the activity by him/herself with no assistance from a helper. 5-Set-up or Clean-up Assistance-helper sets up or cleans up; patient completes activity. [place] assists only prior to or following the activity. 4-Supervision or Touching Assistance-helper provides verbal cues and/or touching/steadying and/or contact guard assistance as patient completes activity. Assistance may be provided throughout the activity or intermittently. 3-Partial/Moderate Assistance-helper does LESS THAN HALF the effort. [place] lifts, holds or supports trunk or limbs, but provides less than half the effort. 2-Substantial/Maximal Assistance-helper does MORE THAN HALF the effort. [place] lifts or holds trunk or limbs and provides more than half the effort. 7-Prffuiyxc-yytmmr does ALL the effort. Patient does none of the effort to complete the activity. Or, the assistance of 2 or more helpers is required for the patient to complete the activity. If activity was not attempted, code reason: 7-Patient Refused. 9-Not Applicable-not attempted and the patient did not perform the activity before the current illness, exacerbation or injury. 10-Not Attempted due to Environmental Limitations-(lack of equipment, weather restraints, etc.). 88-Not Attempted due to Medical Conditions or Safety Concerns. Lying to Sitting/Side of Bed(Q: 4 (SBA with no cues.) Weight Bearing Full Weight Bearing Full Weight Bearing Gait Training Walk 50 ft with 2 Turns(QC): 4 (walked 50 ft x 4 reps with FWW platform. Skilled cues for obstacle avoidance due to visual deficit) Treatments Functional gait training. Assessment Current Status: Good Progress Transfers and gait are much improved since last seen by this PT./ PT Chcf Goals Chcf Goals PT Chcf Goals Time Frame: Dec 14, 2020 Roll Left & Right (QC): 5 Sit to Lying (QC): 5 Lying-Sitting on Side/Bed(QC): 5 Sit to Stand (QC): 5 Chair/Ezs-pu-Wazro Xfer(QC): 5 Toilet Transfer (QC): 5 Car Transfer (QC): 5 Does the Patient Walk: Yes Walk 10 feet (QC): 5 Walk 50ft with 2 Turns (QC): 5 Walk 150 ft (QC): 5 Walking 10ft on Uneven Surface: 5 1 Step (curb) (QC): 4 4 Steps (QC): 9 12 Steps (QC): 9 Picking up an Object (QC): 4 Does the Pt use WC or Scooter?: No Wheel 50 feet with 2 turns (QC: 9 Wheel 150 feet: 9 PT Plan Problem List Problem List: Activity Tolerance, Functional Strength, Safety, Balance, Gait, Transfer Treatment/Plan Treatment Plan: Continue Plan of Care Treatment Plan: Bed Mobility, Concurrent Therapy, Functional Activity Sola, Functional Strength, Gait, Safety, Therapeutic Exercise, Transfers Treatment Duration: Dec 14, 2020 Frequency: At least 5 of 7 days/Wk (IRF) Estimated Hrs Per Day: 1.5 hours per day Patient and/or Family Agrees t: Yes Safety Risks/Education Patient Education: Gait Training, Safety Issues Teaching Recipient: Patient Teaching Methods: Demonstration, Discussion Response to Teaching: Return Demonstration, Reinforcement Needed Discharge Recommendations Therapy Discharge Recommendati: Post Acute PT ([facility]HC PT) Time/GCodes Time In: 1130 Time Out: 1145 Total Billed Treatment Time: 15 Total Billed Treatment visit GT 15 ALLA MOTLEY PT Dec 12, 2020 11:54
--- NOTE | 2020-12-12 12:31 | Speech Therapy Daily Note ---
Speech Daily Progress Note Subjective Date Seen by Provider: Dec 12, 2020 Time Seen by Provider: 00:30 Patient was sitting in her recliner following her PT when I entered her room. Objective Patient completed cognitive task of word expansion given the last letter of the previous word at 85% with minimal cues. Assessment Assessment Current Status: Good Progress Treatment Plan Continue Plan of Care Speech Short Term Goals Short Term Goals Short Term Goals 1) The patient will complete memory tasks related to her daily needs at 90% or greater. 2) The patient will complete safety awareness tasks related to her daily needs at 90% or greater. 3) The patient will complete problem solving tasks related to her daily needs at 90% or greater. 4) The patient will complete speech production tasks related to her communication needs at 90% or greater. Speech Post Secondary Professional Goals Post Secondary Professional Goals Patient will improve speech production to 90% or greater for effective communication. Patient will improve cognitive-communication necessary for safety and daily living tasks with minimal assist. Speech-Plan Patient/Family Goals Patient/Family Goals: Patient is planning to return to her home where she lives with her on 12/16/2020. Treatment Plan Speech Therapy Treatment Plan: Continue Plan of Care Treatment Duration: Dec 16, 2020 Frequency: 4 times per week (Patient will receive skilled ST 4-5x per week) Estimated Hrs Per Day: .5 hour per day Rehab Potential: Good Barriers to Learning: Patient's mild cognitive deficits, although these have mostly resolved.. Pt/Family Agrees to Plan: Yes Safety Risks/Education Teaching Recipient: Patient Teaching Methods: Demonstration, Discussion Response to Teaching: Verbalize Understanding, Return Demonstration Education Topics Provided: Continued safety awareness within her room and upon her return home Time Speech Therapy Time In: 11:50 Speech Therapy Time Out: 12:20 Total Billed Time: 30 Billed Treatment Time 1, PELON Gastelum Dec 12, 2020 12:31
--- NOTE | 2020-12-12 13:49 | Physical Therapy Daily Note ---
PT Daily Note-Current Subjective Pt. up in chair, agrees to PT and says "I'm having a good day!" Transfers SCALE: Activities may be completed with or without assistive devices. 7-Sutitsymft-qimxlzy completes the activity by him/herself with no assistance from a helper. 5-Set-up or Clean-up Assistance-helper sets up or cleans up; patient completes activity. [place] assists only prior to or following the activity. 4-Supervision or Touching Assistance-helper provides verbal cues and/or touching/steadying and/or contact guard assistance as patient completes activity . Assistance may be provided throughout the activity or intermittently. 3-Partial/Moderate Assistance-helper does LESS THAN HALF the effort. [place] lifts, holds or supports trunk or limbs, but provides less than half the effort. 2-Substantial/Maximal Assistance-helper does MORE THAN HALF the effort. [place] lifts or holds trunk or limbs and provides more than half the effort. 3-Wofklidsc-hyrxsb does ALL the effort. Patient does none of the effort to complete the activity. Or, the assistance of 2 or more helpers is required for the patient to complete the activity. If activity was not attempted, code reason: 7-Patient Refused. 9-Not Applicable-not attempted and the patient did not perform the activity before the current illness, exacerbation or injury. 10-Not Attempted due to Environmental Limitations-(lack of equipment, weather restraints, etc.). 88-Not Attempted due to Medical Conditions or Safety Concerns. Sit to Stand (QC): 4 w/c to chair transfers CGA/SBA Weight Bearing Full Weight Bearing Full Weight Bearing Gait Training Does the Patient Walk?: Yes Distance: x 60 ft, x 150 ft, x 50 ft Walk 10 feet (QC): 4 Walk 150 ft (QC): 4 Gait Persons Needed: 1 Gait Assistive Device: FWW min A/CGA and cues to lift toes on L Wheelchair Training Does the Pt Use a Wheelchair?: Yes Wheel 50 ft with 2 turns (QC): 4 Type of Wheelchair: Manual uses LE only and needs cues to direction and to avoid stationary objects per low vision Exercises NuStep Minutes: 12 NuStep Workload: 3 Treatments tub/shower transfer with OT co-treat for assist x 2, transfers, LE exercises, gait training, w/c mobility Assessment Current Status: Good Progress Pt. needed assist x 2 to practice tub transfer on shower bench with OT assisting LE's using AD and PT for sitting balance and cues for positioning. Pt. was CGA/SBA with all sit to stand transfers but does continue to need cuing during ambulation/transfers due to vision deficits and L-sided neglect. Pt. returned to lift chair in room post session, call light and all needs met. PT Senior Living Goals Senior Living Goals PT Heat And Vent Aircraft Mechanic Goals Time Frame: Dec 14, 2020 Roll Left & Right (QC): 5 Sit to Lying (QC): 5 Lying-Sitting on Side/Bed(QC): 5 Sit to Stand (QC): 5 Chair/Gke-ij-Xomya Xfer(QC): 5 Toilet Transfer (QC): 5 Car Transfer (QC): 5 Does the Patient Walk: Yes Walk 10 feet (QC): 5 Walk 50ft with 2 Turns (QC): 5 Walk 150 ft (QC): 5 Walking 10ft on Uneven Surface: 5 1 Step (curb) (QC): 4 4 Steps (QC): 9 12 Steps (QC): 9 Picking up an Object (QC): 4 Does the Pt use WC or Scooter?: No Wheel 50 feet with 2 turns (QC: 9 Wheel 150 feet: 9 PT Plan Treatment/Plan Treatment Plan: Continue Plan of Care Treatment Plan: Bed Mobility, Concurrent Therapy, Functional Activity Sola, Functional Strength, Gait, Safety, Therapeutic Exercise, Transfers Treatment Duration: Dec 14, 2020 Frequency: At least 5 of 7 days/Wk (IRF) Estimated Hrs Per Day: 1.5 hours per day Patient and/or Family Agrees t: Yes Time/GCodes Time In: 1000 Time Out: 1100 Total Billed Treatment Time: 60 Total Billed Treatment 1, GT, Ex, FA x 2 BLANCHE BRUNNER PT Dec 12, 2020 13:49
[2020-12-12 18:00] VITALS: BP 143/63
[2020-12-12] MEDS: LATANOPROST 0.005% (XALATAN) OPHTH SOLN 2.5 ML OU SCH (20:51)
[2020-12-12] MEDS: MELATONIN 3 MG TABLET PO PRN (20:52)
[2020-12-12] MEDS: OPTH OU SCH (20:59)
[2020-12-12] MEDS: RHOPRESSA 0.02% OU SCH (20:59)
[2020-12-13] MEDS: inSUlin ASPART (NovoLOG) 1 UNIT/0.01 ML (CHARGE PER UNIT) SC SCH ×7 (06:00→20:52)
[2020-12-13 06:10] VITALS: BP 141/65
--- NOTE | 2020-12-13 08:50 | Occupational Ther Daily Note ---
OT Current Status-Daily Note Subjective Pt alert, sitting in recliner. Pt agrees to therapy. No c/o pain. Pt did state that she did not sleep well last night. Mental Status/Objective Patient Orientation: Person, Place, Time, Situation ADL-Treatment Pt agrees to sponge bath. After set up, pt able to reach upper body and lower body to bathe. Pt stated that she needed to use toilet. Pt donned shirt by self after set up. Pt ambulated using platform FWW to toilet and transferred with CGA for safety. Pt manipulated clothing by self with SBA. Pt completed hygiene sitting on toilet with bath pack. Pt stood at sink to wash hands and complete oral care with SBA for safety. Pt then ambulated back to room and sat on recliner to finish dressing. After set up, pt able to thread lower body clothing over feet, minimal verbal cues due to vision deficits, by self. SBA while standing to hike own pants over hips. Pt then transferred to bed to work on rolling side to side and scooting side to side/up in bed. Using rigid leg market master, pt able to go from EOB to supine independently. With instructions pt able to scoot self side to side and up in bed using bed rails. Pt then educated on sequence of rolling onto both sides. Pt able to complete independently using bed rails. Pt has increased AROM and functional use of both L UE/LE. Pt does state that she feels slight pain at L side of neck. After session, pt lying in bed with call light/phone in reach. All needs met in room. Therapy Code Descriptions/Definitions Functional [place] Measure: 0=Not Assessed/NA 4=Minimal Assistance 1=Total Assistance 5=Supervision or Setup 2=Maximal Assistance 6=Modified [place] 3=Moderate Assistance 7=Complete IndependenceSCALE: Activities may be completed with or without assistive devices. 4-Mjfhccvzpn-zuwqunp completes the activity by him/herself with no assistance from a helper. 5-Set-up or Clean-up Assistance-helper sets up or cleans up; patient completes activity. [place] assists only prior to or following the activity. 4-Supervision or Touching Assistance-helper provides verbal cues and/or touching/steadying and/or contact guard assistance as patient completes activity. Assistance may be provided throughout the activity or intermittently. 3-Partial/Moderate Assistance-helper does LESS THAN HALF the effort. [place] lifts, holds or supports trunk or limbs, but provides less than half the effort. 2-Substantial/Maximal Assistance-helper does MORE THAN HALF the effort. [place] lifts or holds trunk or limbs and provides more than half the effort. 0-Adunakxkn-mhkhid does ALL the effort. Patient does none of the effort to complete the activity. Or, the assistance of 2 or more helpers is required for the patient to complete the activity. If activity was not attempted, code reason: 7-Patient Refused. 9-Not Applicable-not attempted and the patient did not perform the activity before the current illness, exacerbation or injury. 10-Not Attempted due to Environmental Limitations-(lack of equipment, weather restraints, etc.). 88-Not Attempted due to Medical Conditions or Safety Concerns. Eating (QC): 6 Oral Hygiene (QC): 4 Shower/Bathe Self (QC): 5 Upper Body Dressing (QC): 5 Lower Body Dressing (QC): 4 Toileting Hygiene (QC): 4 Toilet Transfer (QC): 4 OT Short Term Goals Short Term Goals Time Frame: Dec 07, 2020 Eatin Oral hygiene: 6 Toileting hygiene: 2 Shower/bathe self: 2 Upper body dressin Lower body dressin Putting on/taking off footwear: 2 OT Senior Care Goals Senior Care Goals Time Frame: Dec 24, 2020 Eating (QC): 6 Oral Hygiene (QC): 6 Toileting Hygiene (QC): 4 Shower/Bathe Self (QC): 4 Upper Body Dressing (QC): 6 Lower Body Dressing (QC): 4 On/Off Footwear (QC): 3 Additional Goals: 1-Demonstrate ADL Tasks, 2-Verbalize Understanding, 3- ImproveStrength/Sola 1=Demonstrate adherence to instructed precautions during ADL tasks. 2=Patient will verbalize/demonstrate understanding of assistive ehsan gail/modifications for ADL. 3=Patient will improve strength/tolerance for activity to enable patient to perform ADL's. OT Education/Plan Problem List/Assessment Assessment: Impaired Self-Care Skills, Restricted Funct UE ROM, Visual- Perceptual Deficit Discharge Recommendations Plan/Recommendations: Continue POC Treatment Plan/Plan of Care Patient would benefit from OT for education, treatment and training to promote independence in ADL's, mobility, safety and/or upper extremity function for ADL's. Plan of Care: ADL Retraining, Caregiver Training, Concurrent Therapy, Functional Mobility, Group Exercise/Act as Ind, Orthotic Fitting/Training, UE Funct Exercise/Act, UE Neuromus Re-Ed/Coord, Visual/Perceptual Retrain, W/C Management Training Treatment Duration: Dec 24, 2020 Frequency: At least 5 of 7 days/Wk (IRF) Estimated Hrs Per Day: 1.5 hours per day Agreement: Yes Rehab Potential: Good Time/GCodes Start Time: 07:30 Stop Time: 08:45 Total Time Billed (hr/min): 75 Billed Treatment Time 1 visit-ADL 5 (75 min) ALLA MACDONALD Dec 13, 2020 08:50
[2020-12-13] MEDS: FAMOTIDINE 20 MG (PEPCID) TABLET PO SCH ×2 (08:59→20:50)
[2020-12-13] MEDS: VITAMIN D3 125 MCG (5,000 UNITS) CAPSULE PO SCH (08:59)
[2020-12-13] MEDS: ROSUVASTATIN 20 MG (CRESTOR) TABLET PO SCH (08:59)
[2020-12-13] MEDS: PREGABALIN 75 MG (LYRICA) CAP PO SCH ×2 (08:59→20:49)
[2020-12-13] MEDS: lisINopril 40 MG (PRINIVIL) TABLET PO SCH (08:59)
[2020-12-13] MEDS: SENNA W/DOCUSATE (SENOKOT S) TABLET PO SCH ×2 (09:00→20:58)
[2020-12-13] MEDS: CLOPIDOGREL 75 MG (PLAVIX) TABLET PO SCH (09:00)
[2020-12-13] MEDS: DOCUSATE SODIUM 100 MG (COLACE) CAP PO SCH ×2 (09:00→20:58)
[2020-12-13] MEDS: ACETAMINOPHEN 325 MG TABLET PO PRN ×2 (09:00→20:49)
[2020-12-13] MEDS: PANTOPRAZOLE 40 MG (PROTONIX) TAB PO SCH (09:00)
[2020-12-13] MEDS: LORATADINE (CLARITIN) 10 MG TAB PO SCH ×2 (09:00→20:49)
[2020-12-13] MEDS: polyethylene glycoL POWDER 17 GM (MIRALAX) PACK PO SCH ×2 (09:15→20:58)
[2020-12-13] MEDS: HYDROCORTISONE 1% OINT 30 GM TUBE TOP SCH ×2 (09:16→20:52)
--- NOTE | 2020-12-13 09:38 | Speech Therapy Daily Note ---
Speech Daily Progress Note Subjective Date Seen by Provider: Dec 13, 2020 Time Seen by Provider: 00:30 Patient was resting in her bed following OT. Objective Patient answered general information questions with 90% accuracy given min v/c's and/or repetitions. Assessment Assessment Current Status: Good Progress Treatment Plan Continue Plan of Care Speech Short Term Goals Short Term Goals Short Term Goals 1) The patient will complete memory tasks related to her daily needs at 90% or greater. 2) The patient will complete safety awareness tasks related to her daily needs at 90% or greater. 3) The patient will complete problem solving tasks related to her daily needs at 90% or greater. 4) The patient will complete speech production tasks related to her communication needs at 90% or greater. Speech Puppy Trainer Goals Half-Way Goals Patient will improve speech production to 90% or greater for effective communication. Patient will improve cognitive-communication necessary for safety and daily living tasks with minimal assist. Speech-Plan Patient/Family Goals Patient/Family Goals: Patient will be discharging this week to her home. Treatment Plan Speech Therapy Treatment Plan: Continue Plan of Care Treatment Duration: Dec 16, 2020 Frequency: 4 times per week (Patient will receive skilled ST 4-5x per week) Estimated Hrs Per Day: .5 hour per day Rehab Potential: Good Barriers to Learning: Patient's recent CVA affects. Pt/Family Agrees to Plan: Yes Safety Risks/Education Teaching Recipient: Patient Teaching Methods: Demonstration, Discussion Response to Teaching: Verbalize Understanding, Return Demonstration Education Topics Provided: Continued safety within her room and upon her return home. Time Speech Therapy Time In: 09:30 Speech Therapy Time Out: 10:00 Total Billed Time: 30 Billed Treatment Time 1MAGDY [address] ST Dec 13, 2020 09:38
--- NOTE | 2020-12-13 11:19 | PM&R Progress Note ---
Subjective HPI/CC On Admission Date Seen by Provider: Dec 13, 2020 Time Seen by Provider: 11:30 Subjective/Events-last exam 12/13/20: Patient doing well Voltaren gel for right shoulder will be ordered DC on Saturday Edema is present but chronic issue 12/12/20: Patient doing well No pain reported Ambulating with platform walker well BM yesterday 12/11/20: Patient feels like she is progressing well No issues Improved bladder training 12/10/20: Monitoring ambulation closely Uses platform walker well No pain reported Vision loss precludes fast recovery 12/09/20: Patient progressing very well Walking is more deliberate and steady Platform walker is helping a great deal No falls 12/08/20: Patient progressing nicely Left arm and left leg increased in function Monitoring BP No falls BM+ 12/07/20: Bladder training last night A bit groggy last night, did not take Atarax Overall doing pretty well 12/06/20: No major issues Will likely stop the Atarax since it makes her so drowsy Bladder training for incontinence will be completed 12/05/20: Left side is improved Labs look good Walked 60 feet which is great Doing pretty well Labs with blood sugar good 12/04/20: Patient doing well except the itching 12/03/20: Patient doing well Met her at bedside today Vision will be addressed at DC BM today on the commode Incontinence can occur Checked meds and labs 12/02/20: Atarax makes her too drowsy Itchiness is still an issue Monitoring closely Improved left arm movement 12/01/20: Progressing nicely No issues Incontinence noted periodically No pain except Fibromyalgia pain 11/30/20: Pt doing pretty well Sugar is 177 Restarted Statin, although she is allergic to Lipitor she is okay with Crestor Has a chronic headache since the stroke Left arm is improved 11/29/20: Appreciate Dr Watson evaluating the patient s/p loop recorder yesterday Incontinent isolated incident No pain reported VIsion is a limitation Walking with hemicane 11/28/20: Pt feels like she is progressing Loop recorder will be placed today Bowels moved yesterday will come to visit today Overall doing very well 11/27/20: Used CPAP last night BM today BP good Feels like she is progressing 11/26/20: Patient sleepy today Home CPAP will be brought in by family soon BM daily Walked 16 feet with hemicane Transfers are easier 11/25/20: Vision is a significant issue for her now Cardiology will place loop recorder on Saturday No falls Able to regain some function left hand and leg 11/24/20: Pt settling in pretty well Dizziness noted Bowels moved yesterday Reviewed home medications Review of Systems General: Fatigue, Malaise Neurological: Weakness Objective Exam Vital Signs Vital Signs Date Time Temp Pulse Resp B/P (MAP) Pulse Ox O2 Delivery O2 Flow Rate FiO2 12/14/20 06:25 36.1 61 19 141/61 (87) 94 Room Air Capillary Refill : General Appearance: No Apparent Distress, WD/WN, Chronically ill, Obese HEENT: PERRL/EOMI, Normal ENT Inspection, Pharynx Normal Neck: Full Range of Motion, Normal Inspection, Non Tender, Supple, Carotid Bruit Respiratory: Chest Non Tender, Lungs Clear, Normal Breath Sounds, No Accessory Muscle Use, No Respiratory Distress Cardiovascular: Regular Rate, Rhythm, No Edema, No Gallop, No JVD, No Murmur, Normal Peripheral Pulses Gastrointestinal: Normal Bowel Sounds, No Organomegaly, No Pulsatile Mass, Non Tender, Soft Back: Normal Inspection, No CVA Tenderness, No Vertebral Tenderness Extremity: Normal Capillary Refill, Normal Inspection, Non Tender, No Pedal Edema Neurologic/Psychiatric: Alert, Oriented x3, Abnormal Gait, Depressed Affect, Motor Weakness (left side 2/5 upper and lower extremity) Skin: Normal Color, Warm/Dry Lymphatic: No Adenopathy Results/Procedures Lab Patient resulted labs reviewed. FIM Transfers Therapy Code Descriptions/Definitions Functional [place] Measure: 0=Not Assessed/NA 4=Minimal Assistance 1=Total Assistance 5=Supervision or Setup 2=Maximal Assistance 6=Modified [place] 3=Moderate Assistance 7=Complete IndependenceSCALE: Activities may be completed with or without assistive devices. 0-Leuieqfkrk-naadozy completes the activity by him/herself with no assistance from a helper. 5-Set-up or Clean-up Assistance-helper sets up or cleans up; patient completes activity. [place] assists only prior to or following the activity. 4-Supervision or Touching Assistance-helper provides verbal cues and/or touching/steadying and/or contact guard assistance as patient completes activity. Assistance may be provided throughout the activity or intermittently. 3-Partial/Moderate Assistance-helper does LESS THAN HALF the effort. [place] lifts, holds or supports trunk or limbs, but provides less than half the effort. 2-Substantial/Maximal Assistance-helper does MORE THAN HALF the effort. [place] lifts or holds trunk or limbs and provides more than half the effort. 3-Qbmeomwqk-bfcuay does ALL the effort. Patient does none of the effort to complete the activity. Or, the assistance of 2 or more helpers is required for the patient to complete the activity. If activity was not attempted, code reason: 7-Patient Refused. 9-Not Applicable-not attempted and the patient did not perform the activity before the current illness, exacerbation or injury. 10-Not Attempted due to Environmental Limitations-(lack of equipment, weather restraints, etc.). 88-Not Attempted due to Medical Conditions or Safety Concerns. Roll Left to Right (QC): 5 Sit to Lying (QC): 3 Sit to Stand (QC): 4 Chair/Tix-ga-Lzdke Xfer(QC): 4 Car Transfer (QC): 88 Gait Training Does the Patient Walk?: Yes Distance: x 60 ft, x 150 ft, x 50 ft Walk 10 feet (QC): 4 Walk 50 ft with 2 Turns(QC): 4 (walked 50 ft x 4 reps with FWW platform. Skilled cues for obstacle avoidance due to visual deficit) Walk 150 ft (QC): 4 Walking 10ft/uneven surface-QC: 88 Gait Persons Needed: 1 Gait Assistive Device: FWW Wheelchair Training Does the Pt Use a Wheelchair?: Yes Wheel 50 ft with 2 turns (QC): 4 Wheel 150 ft (QC): 3 Type of Wheelchair: Manual Stair Training 1 Step (curb) (QC): 88 4 Steps (QC): 88 12 Steps (QC): 88 Balance Picking up an Object (QC): 88 ADL-Treatment Eating (QC): 6 Oral Hygiene (QC): 4 Bathing Location: L Arm, R Arm, L Upper Leg, R Upper Leg, L Lower Leg (including foot), R Lower Leg (including foot), Chest, Abdomen, Buttocks, Perineal Area Shower/Bathe Self (QC): 5 Upper Body Dressing (QC): 5 Lower Body Dressing (QC): 4 On/Off Footwear (QC): 3 Toileting Hygiene (QC): 4 Toilet Transfer (QC): 4 Assessment/Plan Assessment and Plan Assess & Plan/Chief Complaint Assessment: 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 Fibromyalgia GERD Gastroparesis Neuropathy GEREMIAS on CPAP DM HTN HLP Glaucoma Diabetic retinopathy Obesity s/p loop recorder placement Dr Watson 11/28/20 Plan: IRF protocol Home meds DM management 11/24/20: Sugar management Monitor pain Monitor dizziness 11/25/20: Vision loss is problematic Cardiology appreciated Monitor closely 11/26/20: Improved ambulation with lucita-cane Doing well Vision loss limiting factor 11/27/20: Monitor BP Improved status CPAP use 11/28/11: Monitor BP Labs reviewed Fall risk 11/29/20: Appreciate Dr Watson Loop recorder in place 11/30/20: Monitor closely Restart Crestor Loop recorder in place 12/01/20: Progressing nicely Continue monitoring Needs eye exam with prisms 12/02/20: Improved left arm function Monitor rash Monitor BP 12/03/20: Monitor BP and BS VIsion will be addressed at DC with prisms Continue progress 12/04/20: Add Pecid Claritin BID Itchiness is an issue Monitor closely Stop scheduled Atarax due to AM drowsiness 12/05/20: Added meds yesterday for the itching Monitor left arm progress Fall risk 12/06/20: Monitor BP Itchiness is diff to manage Pepcid and Claritin BID 12/07/20: Making significant progress Monitor rash Monitor BP 12/08/20: Monitor BP Left side weakness improved Fall risk 12/09/20: Platform walker Monitor left sided weakness Eye exam at DC 12/10/20: Monitor vision loss PT OT Platform walker 12/11/20: Improved bladder function Monitor for falls 12/12/20: Improved ambulation No pain reported Eye exam at DC 12/13/20: DC planned for later in week Continued progress with therapy (1) Fibromyalgia (2) Cervical spine disease (3) Obesity (4) Diabetes (5) Gastroparesis (6) GERD (gastroesophageal reflux disease) (7) Neuropathy (8) Glaucoma (9) Former smoker (10) CVA (cerebral vascular accident) SALVADOR SPARKS DO Dec 13, 2020 11:19
--- NOTE | 2020-12-13 12:06 | Physical Therapy Daily Note ---
PT Daily Note-Current Subjective Pt laying Supine in bed upon arrival. Pt agrees to PT. Pain Location: No Pain Reported Mental Status Patient Orientation: Person, Place, Time, Situation Transfers SCALE: Activities may be completed with or without assistive devices. 2-Pmcakbgfop-jdlhcmz completes the activity by him/herself with no assistance from a helper. 5-Set-up or Clean-up Assistance-helper sets up or cleans up; patient completes activity. [place] assists only prior to or following the activity. 4-Supervision or Touching Assistance-helper provides verbal cues and/or touching/steadying and/or contact guard assistance as patient completes activity. Assistance may be provided throughout the activity or intermittently. 3-Partial/Moderate Assistance-helper does LESS THAN HALF the effort. [place] lifts, holds or supports trunk or limbs, but provides less than half the effort. 2-Substantial/Maximal Assistance-helper does MORE THAN HALF the effort. [place] lifts or holds trunk or limbs and provides more than half the effort. 2-Xwcujwncr-qogunp does ALL the effort. Patient does none of the effort to complete the activity. Or, the assistance of 2 or more helpers is required for the patient to complete the activity. If activity was not attempted, code reason: 7-Patient Refused. 9-Not Applicable-not attempted and the patient did not perform the activity be fore the current illness, exacerbation or injury. 10-Not Attempted due to Environmental Limitations-(lack of equipment, weather restraints, etc.). 88-Not Attempted due to Medical Conditions or Safety Concerns. Lying to Sitting/Side of Bed(Q: 5 Sit to Stand (QC): 5 Chair/Mkp-qn-Deynt Xfer(QC): 5 Weight Bearing Full Weight Bearing Full Weight Bearing Gait Training Does the Patient Walk?: Yes Distance: 150', 75' Walk 10 feet (QC): 5 Walk 50 ft with 2 Turns(QC): 5 Walk 150 ft (QC): 5 Gait Assistive Device: Walker Platform Exercises NuStep Minutes: 15 NuStep Workload: 4 Treatments TF to standing and uses BR. Pt then amb in hallway with VC for direction. Pt uses NuStep for 15m at WL 4. Pt takes short RB then amb. in hallway back to room. Pt resting in recliner at end of tx with all needs met, call light in hand. Assessment Current Status: Good Progress Pt needs VC for directions due to visual deficits. PT Crystalizer Operator Goals Long-Term Goals PT Long-Term Goals Time Frame: Dec 14, 2020 Roll Left & Right (QC): 5 Sit to Lying (QC): 5 Lying-Sitting on Side/Bed(QC): 5 Sit to Stand (QC): 5 Chair/Sfp-us-Csfft Xfer(QC): 5 Toilet Transfer (QC): 5 Car Transfer (QC): 5 Does the Patient Walk: Yes Walk 10 feet (QC): 5 Walk 50ft with 2 Turns (QC): 5 Walk 150 ft (QC): 5 Walking 10ft on Uneven Surface: 5 1 Step (curb) (QC): 4 4 Steps (QC): 9 12 Steps (QC): 9 Picking up an Object (QC): 4 Does the Pt use WC or Scooter?: No Wheel 50 feet with 2 turns (QC: 9 Wheel 150 feet: 9 PT Plan Problem List Problem List: Activity Tolerance, Gait Treatment/Plan Treatment Plan: Continue Plan of Care Treatment Plan: Bed Mobility, Concurrent Therapy, Functional Activity Sola, Functional Strength, Gait, Safety, Therapeutic Exercise, Transfers Treatment Duration: Dec 14, 2020 Frequency: At least 5 of 7 days/Wk (IRF) Estimated Hrs Per Day: 1.5 hours per day Patient and/or Family Agrees t: Yes Safety Risks/Education Patient Education: Gait Training, Safety Issues Teaching Recipient: Patient Teaching Methods: Discussion Response to Teaching: Verbalize Understanding Time/GCodes Time In: 1015 Time Out: 1100 Total Billed Treatment Time: 45 Total Billed Treatment 1, FA (15m), GT (15m) & EX (15m) EMILE CASTILLO PTA Dec 13, 2020 12:06
[2020-12-13] MEDS ORDERED: DICLOFENAC 1% GEL 100 GM (VOLTAREN) TUBE TOP PRN (12:15)
--- NOTE | 2020-12-13 14:04 | Physical Therapy Daily Note ---
PT Daily Note-Current Subjective Patient in recliner pre tx, agrees to PT, has 7/10 fibromyalgia pain. Appearance Patient in recliner post tx with nurse call, phone, tray, all needs met. Mental Status Patient Orientation: Person, Place, Situation Transfers SCALE: Activities may be completed with or without assistive devices. 1-Qvvvdblyui-vanupjp completes the activity by him/herself with no assistance from a helper. 5-Set-up or Clean-up Assistance-helper sets up or cleans up; patient completes activity. [place] assists only prior to or following the activity. 4-Supervision or Touching Assistance-helper provides verbal cues and/or to uching/steadying and/or contact guard assistance as patient completes activity. Assistance may be provided throughout the activity or intermittently. 3-Partial/Moderate Assistance-helper does LESS THAN HALF the effort. [place] lifts, holds or supports trunk or limbs, but provides less than half the effort. 2-Substantial/Maximal Assistance-helper does MORE THAN HALF the effort. [place] lifts or holds trunk or limbs and provides more than half the effort. 1-Iyxzcgrxh-zqxvld does ALL the effort. Patient does none of the effort to complete the activity. Or, the assistance of 2 or more helpers is required for the patient to complete the activity. If activity was not attempted, code reason: 7-Patient Refused. 9-Not Applicable-not attempted and the patient did not perform the activity before the current illness, exacerbation or injury. 10-Not Attempted due to Environmental Limitations-(lack of equipment, weather restraints, etc.). 88-Not Attempted due to Medical Conditions or Safety Concerns. Sit to Stand (QC): 4 Chair/Giy-fw-Suxle Xfer(QC): 4 SBA Weight Bearing Full Weight Bearing Full Weight Bearing Gait Training Distance: 120' Walk 10 feet (QC): 4 Walk 50 ft with 2 Turns(QC): 4 Gait Persons Needed: 1 Gait Assistive Device: Walker Platform SBA, slow but steady, less step through on the left side and poorer foot clearance Wheelchair Training Does the Pt Use a Wheelchair?: Yes Wheel 50 ft with 2 turns (QC): 3 Wheel 150 ft (QC): 3 Type of Wheelchair: Manual Patient has a lot of difficulty coordinating UE and LE to propel WC, if she uses just her legs she gets leg cramps Exercises sit to stand 3 sets of 5 Treatments ambulation, WC mobility, transfers, LE strengthening Assessment Current Status: Fair Progress Patient has a lot of difficulty coordinating WC mobility, visual impairments hinder progress PT Marine Geologist Goals Usp Goals PT Usp Goals Time Frame: Dec 14, 2020 Roll Left & Right (QC): 5 Sit to Lying (QC): 5 Lying-Sitting on Side/Bed(QC): 5 Sit to Stand (QC): 5 Chair/Taf-es-Zdllb Xfer(QC): 5 Toilet Transfer (QC): 5 Car Transfer (QC): 5 Does the Patient Walk: Yes Walk 10 feet (QC): 5 Walk 50ft with 2 Turns (QC): 5 Walk 150 ft (QC): 5 Walking 10ft on Uneven Surface: 5 1 Step (curb) (QC): 4 4 Steps (QC): 9 12 Steps (QC): 9 Picking up an Object (QC): 4 Does the Pt use WC or Scooter?: No Wheel 50 feet with 2 turns (QC: 9 Wheel 150 feet: 9 PT Plan Problem List Problem List: Activity Tolerance, Functional Strength, Safety, Balance, Gait, Transfer, Bed Mobility, ROM Treatment/Plan Treatment Plan: Continue Plan of Care Treatment Plan: Bed Mobility, Concurrent Therapy, Functional Activity Sola, Fu nctional Strength, Gait, Safety, Therapeutic Exercise, Transfers Treatment Duration: Dec 14, 2020 Frequency: At least 5 of 7 days/Wk (IRF) Estimated Hrs Per Day: 1.5 hours per day Patient and/or Family Agrees t: Yes Safety Risks/Education Patient Education: Gait Training, Transfer Techniques, Correct Positioning, W/C Management, Safety Issues Teaching Recipient: Patient Teaching Methods: Demonstration, Discussion Response to Teaching: Reinforcement Needed Time/GCodes Time In: 1300 Time Out: 1330 Total Billed Treatment Time: 30 Total Billed Treatment 1 visit FA 30' KRYSTYNA LONG PT Dec 13, 2020 14:04
[2020-12-13 19:41] VITALS: BP 144/68
[2020-12-13] MEDS: LATANOPROST 0.005% (XALATAN) OPHTH SOLN 2.5 ML OU SCH (20:47)
[2020-12-13] MEDS: MELATONIN 3 MG TABLET PO PRN (20:50)
[2020-12-13] MEDS: OPTH OU SCH (20:57)
[2020-12-13] MEDS: RHOPRESSA 0.02% OU SCH (20:57)
[2020-12-14] MEDS: inSUlin ASPART (NovoLOG) 1 UNIT/0.01 ML (CHARGE PER UNIT) SC SCH ×7 (06:00→21:39)
[2020-12-14 06:25] VITALS: BP 141/61
[2020-12-14 08:30] VITALS: BP 151/66
[2020-12-14] MEDS: PREGABALIN 75 MG (LYRICA) CAP PO SCH ×2 (08:36→20:55)
[2020-12-14] MEDS: ROSUVASTATIN 20 MG (CRESTOR) TABLET PO SCH (08:36)
[2020-12-14] MEDS: LORATADINE (CLARITIN) 10 MG TAB PO SCH ×2 (08:36→20:55)
[2020-12-14] MEDS: lisINopril 40 MG (PRINIVIL) TABLET PO SCH (08:36)
[2020-12-14] MEDS: FAMOTIDINE 20 MG (PEPCID) TABLET PO SCH ×2 (08:36→20:55)
[2020-12-14] MEDS: VITAMIN D3 125 MCG (5,000 UNITS) CAPSULE PO SCH (08:36)
[2020-12-14] MEDS: CLOPIDOGREL 75 MG (PLAVIX) TABLET PO SCH (08:36)
[2020-12-14] MEDS: PANTOPRAZOLE 40 MG (PROTONIX) TAB PO SCH (08:36)
[2020-12-14] MEDS: HYDROCORTISONE 1% OINT 30 GM TUBE TOP SCH ×2 (08:37→20:55)
[2020-12-14] MEDS: DOCUSATE SODIUM 100 MG (COLACE) CAP PO SCH ×2 (08:44→20:56)
[2020-12-14] MEDS: polyethylene glycoL POWDER 17 GM (MIRALAX) PACK PO SCH ×2 (08:44→19:43)
[2020-12-14] MEDS: SENNA W/DOCUSATE (SENOKOT S) TABLET PO SCH ×2 (08:45→20:56)
--- NOTE | 2020-12-14 08:52 | Occupational Ther Daily Note ---
OT Current Status-Daily Note Subjective Pt alert, sitting in recliner. Pt agrees to therapy. Pt c/o pain in lower back and neck, applied ointment to areas. Mental Status/Objective Patient Orientation: Person, Place, Time, Situation Attachments: Other-See Comments (loop recorder) ADL-Treatment Pt agrees to shower. Pt ambulates using platform FWW to toilet and completes transfer and clothing manipulation with close SBA. Completes hygiene sitting on toilet. Standing at sink pt washes hands and completes oral care, SBA. T ransfers into shower with SBA and verbal cues due to visual deficits. Pt completes all shower sitting on bench using grabbars and hand held shower, SBA. After set up, pt don/doffs shirt by self. After set up, pt is able to thread feet into pants then SBA while pt hikes pants over hips with B UE's. Pt able to place sock on sock aide and don socks, by self. Pt then transferred to recliner with SBA. After session, pt sitting in recliner with call light/phone in reach. All needs met in room. Nrsg in room. Therapy Code Descriptions/Definitions Functional [place] Measure: 0=Not Assessed/NA 4=Minimal Assistance 1=Total Assistance 5=Supervision or Setup 2=Maximal Assistance 6=Modified [place] 3=Moderate Assistance 7=Complete IndependenceSCALE: Activities may be completed with or without assistive devices. 4-Bsuexzvxvg-yaldxva completes the activity by him/herself with no assistance from a helper. 5-Set-up or Clean-up Assistance-helper sets up or cleans up; patient completes activity. [place] assists only prior to or following the activity. 4-Supervision or Touching Assistance-helper provides verbal cues and/or touching/steadying and/or contact guard assistance as patient completes activity. Assistance may be provided throughout the activity or intermittently. 3-Partial/Moderate Assistance-helper does LESS THAN HALF the effort. [place] lifts, holds or supports trunk or limbs, but provides less than half the effort. 2-Substantial/Maximal Assistance-helper does MORE THAN HALF the effort. [place] lifts or holds trunk or limbs and provides more than half the effort. 2-Szwrzamik-nykjkx does ALL the effort. Patient does none of the effort to complete the activity. Or, the assistance of 2 or more helpers is required for the patient to complete the activity. If activity was not attempted, code reason: 7-Patient Refused. 9-Not Applicable-not attempted and the patient did not perform the activity bef ore the current illness, exacerbation or injury. 10-Not Attempted due to Environmental Limitations-(lack of equipment, weather r estraints, etc.). 88-Not Attempted due to Medical Conditions or Safety Concerns. Eating (QC): 6 Oral Hygiene (QC): 6 Shower/Bathe Self (QC): 4 Upper Body Dressing (QC): 5 Lower Body Dressing (QC): 4 On/Off Footwear: 5 Toileting Hygiene (QC): 4 Toilet Transfer (QC): 4 OT Short Term Goals Short Term Goals Time Frame: Dec 07, 2020 Eatin Oral hygiene: 6 Toileting hygiene: 2 Shower/bathe self: 2 Upper body dressin Lower body dressin Putting on/taking off footwear: 2 OT Correction Goals Naturalist Goals Time Frame: Dec 24, 2020 Eating (QC): 6 Oral Hygiene (QC): 6 Toileting Hygiene (QC): 4 Shower/Bathe Self (QC): 4 Upper Body Dressing (QC): 6 Lower Body Dressing (QC): 4 On/Off Footwear (QC): 3 Additional Goals: 1-Demonstrate ADL Tasks, 2-Verbalize Understanding, 3- ImproveStrength/Sola 1=Demonstrate adherence to instructed precautions during ADL tasks. 2=Patient will verbalize/demonstrate understanding of assistive device s/modifications for ADL. 3=Patient will improve strength/tolerance for activity to enable patient to perform ADL's. OT Education/Plan Problem List/Assessment Assessment: Impaired Self-Care Skills, Restricted Funct UE ROM, Visual- Perceptual Deficit Discharge Recommendations Plan/Recommendations: Continue POC Treatment Plan/Plan of Care Patient would benefit from OT for education, treatment and training to promote independence in ADL's, mobility, safety and/or upper extremity function for ADL's. Plan of Care: ADL Retraining, Caregiver Training, Concurrent Therapy, Functional Mobility, Group Exercise/Act as Ind, Orthotic Fitting/Training, UE Funct Exercise/Act, UE Neuromus Re-Ed/Coord, Visual/Perceptual Retrain, W/C Management Training Treatment Duration: Dec 24, 2020 Frequency: At least 5 of 7 days/Wk (IRF) Estimated Hrs Per Day: 1.5 hours per day Agreement: Yes Rehab Potential: Good Time/GCodes Start Time: 07:30 Stop Time: 08:45 Total Time Billed (hr/min): 75 Billed Treatment Time 1 visit-ADL 5 (75 min) ALLA MACDONALD Dec 14, 2020 08:52
--- NOTE | 2020-12-14 10:37 | Occupational Ther Daily Note ---
OT Current Status-Daily Note Subjective Pt alert, sitting in recliner. Pt agrees to therapy. No c/o pain at this time. Mental Status/Objective Patient Orientation: Person, Place, Time, Situation Attachments: Other-See Comments (loop recorder) ADL-Treatment Therapy Code Descriptions/Definitions Functional [place] Measure: 0=Not Assessed/NA 4=Minimal Assistance 1=Total Assistance 5=Supervision or Setup 2=Maximal Assistance 6=Modified [place] 3=Moderate Assistance 7=Complete IndependenceSCALE: Activities may be completed with or without assistive devices. 1-Hbqxyzelma-oenwwip completes the activity by him/herself with no assistance from a helper. 5-Set-up or Clean-up Assistance-helper sets up or cleans up; patient completes activity. [place] assists only prior to or following the activity. 4-Supervision or Touching Assistance-helper provides verbal cues and/or touching/steadying and/or contact guard assistance as patient completes activity. Assistance may be provided throughout the activity or intermittently. 3-Partial/Moderate Assistance-helper does LESS THAN HALF the effort. [place] lifts, holds or supports trunk or limbs, but provides less than half the effort. 2-Substantial/Maximal Assistance-helper does MORE THAN HALF the effort. [place] lifts or holds trunk or limbs and provides more than half the effort. 1-Xndaijnjt-wmghsw does ALL the effort. Patient does none of the effort to complete the activity. Or, the assistance of 2 or more helpers is required for the patient to complete the activity. If activity was not attempted, code reason: 7-Patient Refused. 9-Not Applicable-not attempted and the patient did not perform the activity before the current illness, exacerbation or injury. 10-Not Attempted due to Environmental Limitations-(lack of equipment, weather restraints, etc.). 88-Not Attempted due to Medical Conditions or Safety Concerns. Other Treatment Co-treat with PT ([id number]), skills of 2 clinicians required for skilled instruction and modifications when completing functional transfers due to mobility and fatigue. PT focusing on ambulation, transfer and mobility while OT focusing on B UE placement and functional transfer. Pt is demonstrating ability to complete tub bench transfer with less assistance, CGA for safety. Pt uses platform FWW, rigid leg rock climbing team member, grabbars and tub transfer bench to complete transfer into tub/shower. Pt left in care of PT. All needs met. OT Short Term Goals Short Term Goals Time Frame: Dec 07, 2020 Eatin Oral hygiene: 6 Toileting hygiene: 2 Shower/bathe self: 2 Upper body dressin Lower body dressin Putting on/taking off footwear: 2 OT Vegetable Loader Machine Operator Goals Fdc Goals Time Frame: Dec 24, 2020 Eating (QC): 6 Oral Hygiene (QC): 6 Toileting Hygiene (QC): 4 Shower/Bathe Self (QC): 4 Upper Body Dressing (QC): 6 Lower Body Dressing (QC): 4 On/Off Footwear (QC): 3 Additional Goals: 1-Demonstrate ADL Tasks, 2-Verbalize Understanding, 3- ImproveStrength/Sola 1=Demonstrate adherence to instructed precautions during ADL tasks. 2=Patient will verbalize/demonstrate understanding of assistive devices/modifications for ADL. 3=Patient will improve strength/tolerance for activity to enable patient to perform ADL's. OT Education/Plan Problem List/Assessment Assessment: Decreased Activ Tolerance, Decreased UE Strength, Impaired Self- Care Skills, Restricted Funct UE ROM, Visual-Perceptual Deficit Discharge Recommendations Plan/Recommendations: Continue POC Treatment Plan/Plan of Care Patient would benefit from OT for education, treatment and training to promote independence in ADL's, mobility, safety and/or upper extremity function for ADL's. Plan of Care: ADL Retraining, Caregiver Training, Concurrent Therapy, Functional Mobility, Group Exercise/Act as Ind, Orthotic Fitting/Training, UE Funct Exercise/Act, UE Neuromus Re-Ed/Coord, Visual/Perceptual Retrain, W/C Management Training Treatment Duration: Dec 24, 2020 Frequency: At least 5 of 7 days/Wk (IRF) Estimated Hrs Per Day: 1.5 hours per day Agreement: Yes Rehab Potential: Good Time/GCodes Start Time: 10:00 Stop Time: 10:20 Total Time Billed (hr/min): 20 Billed Treatment Time 1 visit-FA 1 (20 min) ALLA MACDONALD Dec 14, 2020 10:37
--- NOTE | 2020-12-14 10:49 | Speech Therapy Daily Note ---
Speech Daily Progress Note Subjective Date Seen by Provider: Dec 14, 2020 Time Seen by Provider: 00:30 Patient was resting in her recliner. She states she ordered her lunch without assistance. Objective Patient completed a series of problem solving for scenarios she may encounter upon her return home at 90% with minimal cues. Assessment Assessment Current Status: Good Progress Treatment Plan Continue Plan of Care Speech Short Term Goals Short Term Goals Short Term Goals 1) The patient will complete memory tasks related to her daily needs at 90% or greater. 2) The patient will complete safety awareness tasks related to her daily needs at 90% or greater. 3) The patient will complete problem solving tasks related to her daily needs at 90% or greater. 4) The patient will complete speech production tasks related to her communic ation needs at 90% or greater. Speech Bariatric Coordinator Goals Bariatric Coordinator Goals Patient will improve speech production to 90% or greater for effective communication. Patient will improve cognitive-communication necessary for safety and daily living tasks with minimal assist. Speech-Plan Patient/Family Goals Patient/Family Goals: Patient is planning on returning to her home where she lives with her . Treatment Plan Speech Therapy Treatment Plan: Continue Plan of Care Treatment Duration: Dec 16, 2020 Frequency: 4 times per week (Patient will receive skilled ST 4-5x per week) Estimated Hrs Per Day: .5 hour per day Rehab Potential: Good Barriers to Learning: Patient's cognitive deficits, although they are mostly resolved Pt/Family Agrees to Plan: Yes Safety Risks/Education Teaching Recipient: Patient Teaching Methods: Demonstration, Discussion Response to Teaching: Verbalize Understanding, Return Demonstration Education Topics Provided: Continued safety upon her return home Time Speech Therapy Time In: 09:30 Speech Therapy Time Out: 10:00 Total Billed Time: 30 Billed Treatment Time 1, SLPELON Bell Dec 14, 2020 10:49
--- NOTE | 2020-12-14 11:08 | PM&R Progress Note ---
Subjective HPI/CC On Admission Date Seen by Provider: Dec 14, 2020 Time Seen by Provider: 11:15 Subjective/Events-last exam 12/14/20: No major issues Progressing well DC Saturday as planned Sugar 111 today 12/13/20: Patient doing well Voltaren gel for right shoulder will be ordered DC on Saturday Edema is present but chronic issue 12/12/20: Patient doing well No pain reported Ambulating with platform walker well BM yesterday 12/11/20: Patient feels like she is progressing well No issues Improved bladder training 12/10/20: Monitoring ambulation closely Uses platform walker well No pain reported Vision loss precludes fast recovery 12/09/20: Patient progressing very well Walking is more deliberate and steady Platform walker is helping a great deal No falls 12/08/20: Patient progressing nicely Left arm and left leg increased in function Monitoring BP No falls BM+ 12/07/20: Bladder training last night A bit groggy last night, did not take Atarax Overall doing pretty well 12/06/20: No major issues Will likely stop the Atarax since it makes her so drowsy Bladder training for incontinence will be completed 12/05/20: Left side is improved Labs look good Walked 60 feet which is great Doing pretty well Labs with blood sugar good 12/04/20: Patient doing well except the itching 12/03/20: Patient doing well Met her at bedside today Vision will be addressed at DC BM today on the commode Incontinence can occur Checked meds and labs 12/02/20: Atarax makes her too drowsy Itchiness is still an issue Monitoring closely Improved left arm movement 12/01/20: Progressing nicely No issues Incontinence noted periodically No pain except Fibromyalgia pain 11/30/20: Pt doing pretty well Sugar is 177 Restarted Statin, although she is allergic to Lipitor she is okay with Crestor Has a chronic headache since the stroke Left arm is improved 11/29/20: Appreciate Dr Watson evaluating the patient s/p loop recorder yesterday Incontinent isolated incident No pain reported VIsion is a limitation Walking with hemicane 11/28/20: Pt feels like she is progressing Loop recorder will be placed today Bowels moved yesterday will come to visit today Overall doing very well 11/27/20: Used CPAP last night BM today BP good Feels like she is progressing 11/26/20: Patient sleepy today Home CPAP will be brought in by family soon BM daily Walked 16 feet with hemicane Transfers are easier 11/25/20: Vision is a significant issue for her now Cardiology will place loop recorder on Saturday No falls Able to regain some function left hand and leg 11/24/20: Pt settling in pretty well Dizziness noted Bowels moved yesterday Reviewed home medications Review of Systems Neurological: Weakness, Incoordination Objective Exam Vital Signs Vital Signs Date Time Temp Pulse Resp B/P (MAP) Pulse Ox O2 Delivery O2 Flow Rate FiO2 12/14/20 18:29 36.6 70 20 154/69 (97) 99 Room Air Capillary Refill : General Appearance: No Apparent Distress, WD/WN, Chronically ill, Obese HEENT: PERRL/EOMI, Normal ENT Inspection, Pharynx Normal Neck: Full Range of Motion, Normal Inspection, Non Tender, Supple, Carotid Bruit Respiratory: Chest Non Tender, Lungs Clear, Normal Breath Sounds, No Accessory Muscle Use, No Respiratory Distress Cardiovascular: Regular Rate, Rhythm, No Edema, No Gallop, No JVD, No Murmur, Normal Peripheral Pulses Gastrointestinal: Normal Bowel Sounds, No Organomegaly, No Pulsatile Mass, Non Tender, Soft Back: Normal Inspection, No CVA Tenderness, No Vertebral Tenderness Extremity: Normal Capillary Refill, Normal Inspection, Non Tender, No Pedal Edema Neurologic/Psychiatric: Alert, Oriented x3, Abnormal Gait, Depressed Affect, Motor Weakness (left side 2/5 upper and lower extremity) Skin: Normal Color, Warm/Dry Lymphatic: No Adenopathy Results/Procedures Lab Patient resulted labs reviewed. FIM Transfers Therapy Code Descriptions/Definitions Functional [place] Measure: 0=Not Assessed/NA 4=Minimal Assistance 1=Total Assistance 5=Supervision or Setup 2=Maximal Assistance 6=Modified [place] 3=Moderate Assistance 7=Complete IndependenceSCALE: Activities may be completed with or without assistive devices. 4-Bhdqhjjxiw-xkpzapc completes the activity by him/herself with no assistance from a helper. 5-Set-up or Clean-up Assistance-helper sets up or cleans up; patient completes activity. [place] assists only prior to or following the activity. 4-Supervision or Touching Assistance-helper provides verbal cues and/or touching/steadying and/or contact guard assistance as patient completes activity. Assistance may be provided throughout the activity or intermittently. 3-Partial/Moderate Assistance-helper does LESS THAN HALF the effort. [place] lifts, holds or supports trunk or limbs, but provides less than half the effort. 2-Substantial/Maximal Assistance-helper does MORE THAN HALF the effort. [place] lifts or holds trunk or limbs and provides more than half the effort. 8-Icolxmtpo-syuvhy does ALL the effort. Patient does none of the effort to complete the activity. Or, the assistance of 2 or more helpers is required for the patient to complete the activity. If activity was not attempted, code reason: 7-Patient Refused. 9-Not Applicable-not attempted and the patient did not perform the activity before the current illness, exacerbation or injury. 10-Not Attempted due to Environmental Limitations-(lack of equipment, weather restraints, etc.). 88-Not Attempted due to Medical Conditions or Safety Concerns. Roll Left to Right (QC): 5 Sit to Lying (QC): 3 Sit to Stand (QC): 4 Chair/Mmk-zx-Llmvg Xfer(QC): 4 Car Transfer (QC): 88 Gait Training Does the Patient Walk?: Yes Distance: 120' Walk 10 feet (QC): 4 Walk 50 ft with 2 Turns(QC): 4 Walk 150 ft (QC): 5 Walking 10ft/uneven surface-QC: 88 Gait Persons Needed: 1 Gait Assistive Device: Walker Platform Wheelchair Training Does the Pt Use a Wheelchair?: Yes Wheel 50 ft with 2 turns (QC): 3 Wheel 150 ft (QC): 3 Type of Wheelchair: Manual Stair Training 1 Step (curb) (QC): 88 4 Steps (QC): 88 12 Steps (QC): 88 Balance Picking up an Object (QC): 88 ADL-Treatment Eating (QC): 6 Oral Hygiene (QC): 6 Bathing Location: L Arm, R Arm, L Upper Leg, R Upper Leg, L Lower Leg (including foot), R Lower Leg (including foot), Chest, Abdomen, Buttocks, Perineal Area Shower/Bathe Self (QC): 4 Upper Body Dressing (QC): 5 Lower Body Dressing (QC): 4 On/Off Footwear (QC): 5 Toileting Hygiene (QC): 4 Toilet Transfer (QC): 4 Assessment/Plan Assessment and Plan Assess & Plan/Chief Complaint Assessment: 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 Fibromyalgia GERD Gastroparesis Neuropathy GEREMIAS on CPAP DM HTN HLP Glaucoma Diabetic retinopathy Obesity s/p loop recorder placement Dr Watson 11/28/20 Plan: IRF protocol Home meds DM management 11/24/20: Sugar management Monitor pain Monitor dizziness 11/25/20: Vision loss is problematic Cardiology appreciated Monitor closely 11/26/20: Improved ambulation with lucita-cane Doing well Vision loss limiting factor 11/27/20: Monitor BP Improved status CPAP use 11/28/11: Monitor BP Labs reviewed Fall risk 11/29/20: Appreciate Dr Watson Loop recorder in place 11/30/20: Monitor closely Restart Crestor Loop recorder in place 12/01/20: Progressing nicely Continue monitoring Needs eye exam with prisms 12/02/20: Improved left arm function Monitor rash Monitor BP 12/03/20: Monitor BP and BS VIsion will be addressed at DC with prisms Continue progress 12/04/20: Add Pecid Claritin BID Itchiness is an issue Monitor closely Stop scheduled Atarax due to AM drowsiness 12/05/20: Added meds yesterday for the itching Monitor left arm progress Fall risk 12/06/20: Monitor BP Itchiness is diff to manage Pepcid and Claritin BID 12/07/20: Making significant progress Monitor rash Monitor BP 12/08/20: Monitor BP Left side weakness improved Fall risk 12/09/20: Platform walker Monitor left sided weakness Eye exam at DC 12/10/20: Monitor vision loss PT OT Platform walker 12/11/20: Improved bladder function Monitor for falls 12/12/20: Improved ambulation No pain reported Eye exam at DC 12/13/20: DC planned for later in week Continued progress with therapy 12/14/20: Monitor closely Monitor BP and BS Fall risk (1) Fibromyalgia (2) Cervical spine disease (3) Obesity (4) Diabetes (5) Gastroparesis (6) GERD (gastroesophageal reflux disease) (7) Neuropathy (8) Glaucoma (9) Former smoker (10) CVA (cerebral vascular accident) SLAVADOR SPARKS DO Dec 14, 2020 11:08
--- NOTE | 2020-12-14 12:01 | Physical Therapy Daily Note ---
PT Daily Note-Current Subjective Pt sitting in recliner upon arrival. Pt agrees to short co-treat w/PT & OT then finish tx with PT. Pain Location: No Pain Reported Mental Status Patient Orientation: Person, Place, Time, Situation Transfers SCALE: Activities may be completed with or without assistive devices. 3-Reiipkffkb-etqvabx completes the activity by him/herself with no assistance from a helper. 5-Set-up or Clean-up Assistance-helper sets up or cleans up; patient completes activity. [place] assists only prior to or following the activity. 4-Supervision or Touching Assistance-helper provides verbal cues and/or touching/steadying and/or contact guard assistance as patient completes activity. Assistance may be provided throughout the activity or intermittently. 3-Partial/Moderate Assistance-helper does LESS THAN HALF the effort. [place] lifts, holds or supports trunk or limbs, but provides less than half the effort. 2-Substantial/Maximal Assistance-helper does MORE THAN HALF the effort. [place] lifts or holds trunk or limbs and provides more than half the effort. 2-Bxtjczuna-hkygep does ALL the effort. Patient does none of the effort to complete the activity. Or, the assistance of 2 or more helpers is required for the patient to complete the activity. If activity was not attempted, code reason: 7-Patient Refused. 9-Not Applicable-not attempted and the patient did not perform the activity before the current illness, exacerbation or injury. 10-Not Attempted due to Environmental Limitations-(lack of equipment, weather restraints, etc.). 88-Not Attempted due to Medical Conditions or Safety Concerns. Sit to Stand (QC): 5 Weight Bearing Full Weight Bearing Full Weight Bearing Gait Training Does the Patient Walk?: Yes Distance: 75', 200', 150' Walk 10 feet (QC): 5 Walk 50 ft with 2 Turns(QC): 5 Walk 150 ft (QC): 5 Gait Persons Needed: 1 Gait Assistive Device: Walker Platform CAR WIPER gives occasional reminders to belt picker L foot instead of dragging as pt fatigues. Treatments Co-treat with PT ([id number]), skills of 2 clinicians required for skilled instruction and modifications when completing functional transfers due to mobility and fatigue. PT focusing on ambulation, transfer and mobility while OT focusing on B UE placement and functional transfer. Pt is demonstrating ability to complete tub bench transfer with less assistance, CGA for safety. Pt uses platform FWW, rigid leg quarry supervisor dimension stone, grab bars and tub transfer bench to complete transfer into tub/shower. OT departs. Pt amb. in hallway to Therapy Gym. Pt uses NuStep for 15m at [facility] 4. After short rest, Pt again amb. in hallway to room. Pt resting in recliner with all needs met, call light in hand. Assessment Current Status: Good Progress Pt is improving with strength, activity tolerance and independence of tasks. Pt still occasionally fatigues and will take RB as needed. PT Fdc Goals Director Of Software Engineering Goals PT Director Of Software Engineering Goals Time Frame: Dec 14, 2020 Roll Left & Right (QC): 5 Sit to Lying (QC): 5 Lying-Sitting on Side/Bed(QC): 5 Sit to Stand (QC): 5 Chair/Mjn-uc-Ipayx Xfer(QC): 5 Toilet Transfer (QC): 5 Car Transfer (QC): 5 Does the Patient Walk: Yes Walk 10 feet (QC): 5 Walk 50ft with 2 Turns (QC): 5 Walk 150 ft (QC): 5 Walking 10ft on Uneven Surface: 5 1 Step (curb) (QC): 4 4 Steps (QC): 9 12 Steps (QC): 9 Picking up an Object (QC): 4 Does the Pt use WC or Scooter?: No Wheel 50 feet with 2 turns (QC: 9 Wheel 150 feet: 9 PT Plan Problem List Problem List: Activity Tolerance Treatment/Plan Treatment Plan: Continue Plan of Care Treatment Plan: Bed Mobility, Concurrent Therapy, Functional Activity Sola, Functional Strength, Gait, Safety, Therapeutic Exercise, Transfers Treatment Duration: Dec 14, 2020 Frequency: At least 5 of 7 days/Wk (IRF) Estimated Hrs Per Day: 1.5 hours per day Patient and/or Family Agrees t: Yes Safety Risks/Education Patient Education: Transfer Techniques, Correct Positioning Teaching Recipient: Patient Teaching Methods: Discussion Response to Teaching: Verbalize Understanding Time/GCodes Time In: 1000 Time Out: 1100 Total Billed Treatment Time: 60 Total Billed Treatment 1, GT (20m), FA x2 (30m) & EX (10m) Co-treat w/OT for 20m ([id number]) EMILE CASTILLO CAR WIPER Dec 14, 2020 12:01
[2020-12-14 18:29] VITALS: BP 154/69
[2020-12-14] MEDS: MELATONIN 3 MG TABLET PO PRN (20:55)
[2020-12-14] MEDS: RHOPRESSA 0.02% OU SCH (20:55)
[2020-12-14] MEDS: OPTH OU SCH (20:55)
[2020-12-14] MEDS: LATANOPROST 0.005% (XALATAN) OPHTH SOLN 2.5 ML OU SCH (20:55)
[2020-12-15] MEDS: inSUlin ASPART (NovoLOG) 1 UNIT/0.01 ML (CHARGE PER UNIT) SC SCH ×7 (05:43→21:04)
[2020-12-15 06:00] VITALS: BP 167/71
--- NOTE | 2020-12-15 07:11 | PM&R Progress Note ---
Subjective HPI/CC On Admission Date Seen by Provider: Dec 15, 2020 Time Seen by Provider: 09:45 Subjective/Events-last exam 12/15/20: Patient ready for DC tomorrow No issues reported The patient has a mobility limitation that significantly impairs his/her ability to do one or more mobility-related activities of daily living in customary locations in the home. The patients mobility limitation can not be sufficiently resolved by use of an appropriately fitted cane or walker. The patient and family attest the patients home provides adequate access for use of a manual wheelchair. The patient has sufficient upper extremity function and other physical and mental capabilities needed to safely self-propel the manual wheelchair during a typical day. The patient has a caregiver who is available, willing, and able to provide assistance with the wheelchair. 12/14/20: No major issues Progressing well DC Saturday as planned Sugar 111 today 12/13/20: Patient doing well Voltaren gel for right shoulder will be ordered DC on Saturday Edema is present but chronic issue 12/12/20: Patient doing well No pain reported Ambulating with platform walker well BM yesterday 12/11/20: Patient feels like she is progressing well No issues Improved bladder training 12/10/20: Monitoring ambulation closely Uses platform walker well No pain reported Vision loss precludes fast recovery 12/09/20: Patient progressing very well Walking is more deliberate and steady Platform walker is helping a great deal No falls 12/08/20: Patient progressing nicely Left arm and left leg increased in function Monitoring BP No falls BM+ 12/07/20: Bladder training last night A bit groggy last night, did not take Atarax Overall doing pretty well 12/06/20: No major issues Will likely stop the Atarax since it makes her so drowsy Bladder training for incontinence will be completed 12/05/20: Left side is improved Labs look good Walked 60 feet which is great Doing pretty well Labs with blood sugar good 12/04/20: Patient doing well except the itching 12/03/20: Patient doing well Met her at bedside today Vision will be addressed at DC BM today on the commode Incontinence can occur Checked meds and labs 12/02/20: Atarax makes her too drowsy Itchiness is still an issue Monitoring closely Improved left arm movement 12/01/20: Progressing nicely No issues Incontinence noted periodically No pain except Fibromyalgia pain 11/30/20: Pt doing pretty well Sugar is 177 Restarted Statin, although she is allergic to Lipitor she is okay with Crestor Has a chronic headache since the stroke Left arm is improved 11/29/20: Appreciate Dr Watson evaluating the patient s/p loop recorder yesterday Incontinent isolated incident No pain reported VIsion is a limitation Walking with hemicane 11/28/20: Pt feels like she is progressing Loop recorder will be placed today Bowels moved yesterday will come to visit today Overall doing very well 11/27/20: Used CPAP last night BM today BP good Feels like she is progressing 11/26/20: Patient sleepy today Home CPAP will be brought in by family soon BM daily Walked 16 feet with hemicane Transfers are easier 11/25/20: Vision is a significant issue for her now Cardiology will place loop recorder on Saturday No falls Able to regain some function left hand and leg 11/24/20: Pt settling in pretty well Dizziness noted Bowels moved yesterday Reviewed home medications Review of Systems General: Fatigue HEENT: Visual Changes Neurological: Weakness, Incoordination Objective Exam Vital Signs Vital Signs Date Time Temp Pulse Resp B/P (MAP) Pulse Ox O2 Delivery O2 Flow Rate FiO2 12/15/20 17:41 36.3 60 18 148/78 (101) 97 Room Air Capillary Refill : General Appearance: No Apparent Distress, WD/WN, Chronically ill, Obese HEENT: PERRL/EOMI, Normal ENT Inspection, Pharynx Normal Neck: Full Range of Motion, Normal Inspection, Non Tender, Supple, Carotid Bruit Respiratory: Chest Non Tender, Lungs Clear, Normal Breath Sounds, No Accessory Muscle Use, No Respiratory Distress Cardiovascular: Regular Rate, Rhythm, No Edema, No Gallop, No JVD, No Murmur, Normal Peripheral Pulses Gastrointestinal: Normal Bowel Sounds, No Organomegaly, No Pulsatile Mass, Non Tender, Soft Back: Normal Inspection, No CVA Tenderness, No Vertebral Tenderness Extremity: Normal Capillary Refill, Normal Inspection, Non Tender, No Pedal Edema Neurologic/Psychiatric: Alert, Oriented x3, Abnormal Gait, Depressed Affect, Motor Weakness (left side 2/5 upper and lower extremity) Skin: Normal Color, Warm/Dry Lymphatic: No Adenopathy Results/Procedures Lab Patient resulted labs reviewed. FIM Transfers Therapy Code Descriptions/Definitions Functional [place] Measure: 0=Not Assessed/NA 4=Minimal Assistance 1=Total Assistance 5=Supervision or Setup 2=Maximal Assistance 6=Modified [place] 3=Moderate Assistance 7=Complete IndependenceSCALE: Activities may be completed with or without assistive devices. 0-Sxpleshiun-qilzbpb completes the activity by him/herself with no assistance from a helper. 5-Set-up or Clean-up Assistance-helper sets up or cleans up; patient completes activity. [place] assists only prior to or following the activity. 4-Supervision or Touching Assistance-helper provides verbal cues and/or touch ing/steadying and/or contact guard assistance as patient completes activity. Assistance may be provided throughout the activity or intermittently. 3-Partial/Moderate Assistance-helper does LESS THAN HALF the effort. [place] lifts, holds or supports trunk or limbs, but provides less than half the effort. 2-Substantial/Maximal Assistance-helper does MORE THAN HALF the effort. [place] lifts or holds trunk or limbs and provides more than half the effort. 6-Lqccyrmlz-prmfuu does ALL the effort. Patient does none of the effort to complete the activity. Or, the assistance of 2 or more helpers is required for the patient to complete the activity. If activity was not attempted, code reason: 7-Patient Refused. 9-Not Applicable-not attempted and the patient did not perform the activity before the current illness, exacerbation or injury. 10-Not Attempted due to Environmental Limitations-(lack of equipment, weather restraints, etc.). 88-Not Attempted due to Medical Conditions or Safety Concerns. Roll Left to Right (QC): 5 Sit to Lying (QC): 3 Sit to Stand (QC): 5 Chair/Srl-ad-Mzplr Xfer(QC): 4 Car Transfer (QC): 88 Gait Training Does the Patient Walk?: Yes Distance: 75', 200', 150' Walk 10 feet (QC): 5 Walk 50 ft with 2 Turns(QC): 5 Walk 150 ft (QC): 5 Walking 10ft/uneven surface-QC: 88 Gait Persons Needed: 1 Gait Assistive Device: Walker Platform Wheelchair Training Does the Pt Use a Wheelchair?: Yes Wheel 50 ft with 2 turns (QC): 3 Wheel 150 ft (QC): 3 Type of Wheelchair: Manual Stair Training 1 Step (curb) (QC): 88 4 Steps (QC): 88 12 Steps (QC): 88 Balance Picking up an Object (QC): 88 ADL-Treatment Eating (QC): 6 Oral Hygiene (QC): 6 Bathing Location: L Arm, R Arm, L Upper Leg, R Upper Leg, L Lower Leg (including foot), R Lower Leg (including foot), Chest, Abdomen, Buttocks, Perineal Area Shower/Bathe Self (QC): 4 Upper Body Dressing (QC): 5 Lower Body Dressing (QC): 4 On/Off Footwear (QC): 5 Toileting Hygiene (QC): 4 Toilet Transfer (QC): 4 Assessment/Plan Assessment and Plan Assess & Plan/Chief Complaint Assessment: 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 Fibromyalgia GERD Gastroparesis Neuropathy GEREMIAS on CPAP DM HTN HLP Glaucoma Diabetic retinopathy Obesity s/p loop recorder placement Dr Watson 11/28/20 Plan: IRF protocol Home meds DM management 11/24/20: Sugar management Monitor pain Monitor dizziness 11/25/20: Vision loss is problematic Cardiology appreciated Monitor closely 11/26/20: Improved ambulation with lucita-cane Doing well Vision loss limiting factor 11/27/20: Monitor BP Improved status CPAP use 11/28/11: Monitor BP Labs reviewed Fall risk 11/29/20: Appreciate Dr Watson Loop recorder in place 11/30/20: Monitor closely Restart Crestor Loop recorder in place 12/01/20: Progressing nicely Continue monitoring Needs eye exam with prisms 12/02/20: Improved left arm function Monitor rash Monitor BP 12/03/20: Monitor BP and BS VIsion will be addressed at [place] with prisms Continue progress 12/04/20: Add Pecid Claritin BID Itchiness is an issue Monitor closely Stop scheduled Atarax due to AM drowsiness 12/05/20: Added meds yesterday for the itching Monitor left arm progress Fall risk 12/06/20: Monitor BP Itchiness is diff to manage Pepcid and Claritin BID 12/07/20: Making significant progress Monitor rash Monitor BP 12/08/20: Monitor BP Left side weakness improved Fall risk 12/09/20: Platform walker Monitor left sided weakness Eye exam at [place] 12/10/20: Monitor vision loss PT OT Platform walker 12/11/20: Improved bladder function Monitor for falls 12/12/20: Improved ambulation No pain reported Eye exam at DC 12/13/20: DC planned for later in week Continued progress with therapy 12/14/20: Monitor closely Monitor BP and BS Fall risk 12/15/20: DC tomorrow The patient has a mobility limitation that significantly impairs his/her ability to do one or more mobility-related activities of daily living in customary locations in the home. The patients mobility limitation can not be sufficiently resolved by use of an appropriately fitted cane or walker. The patient and family attest the patients home provides adequate access for use of a manual wheelchair. The patient has sufficient upper extremity function and other physical and mental capabilities needed to safely self-propel the manual wheelchair during a typical day. The patient has a caregiver who is available, willing, and able to provide assistance with the wheelchair. (1) Fibromyalgia (2) Cervical spine disease (3) Obesity (4) Diabetes (5) Gastroparesis (6) GERD (gastroesophageal reflux disease) (7) Neuropathy (8) Glaucoma (9) Former smoker (10) CVA (cerebral vascular accident) Qualifiers: Qualified Codes: I63.9 - Cerebral infarction, unspecified SALVADOR SPARKS DO Dec 15, 2020 07:11
--- NOTE | 2020-12-15 07:37 | Occupational Ther Daily Note ---
OT Current Status-Daily Note Subjective Pt alert, sitting in recliner. Pt to discharge 09/15/2021. No c/o pain. Mental Status/Objective Patient Orientation: Person, Place, Time, Situation Attachments: Other-See Comments (loop recorder) ADL-Treatment Pt declined shower, agrees to sponge bath. After set up, pt able to complete sponge bath sitting in chair. After set up, pt dressed upper body by self. After set up, pt threaded pants over feet by self then stood and hiked pants over hips with SBA for safety. Using sock aide and hot mix operator, pt is able to doff/don socks by self, takes increased time. Using elastic shoe laces, LH shoe and hot mix operator to don/doff shoes. Sitting at sink, pt is able to complete oral care independently. From previous treatment sessions, pt is able to complete toilet transfer and toileting with SBA using BSC, FWW with platform. Pt able to complete own meal set up and use regular utensils to eat. After session, pt sitting eating meal in recliner. Call light/phone in reach. Therapy Code Descriptions/Definitions Functional [place] Measure: 0=Not Assessed/NA 4=Minimal Assistance 1=Total Assistance 5=Supervision or Setup 2=Maximal Assistance 6=Modified [place] 3=Moderate Assistance 7=Complete IndependenceSCALE: Activities may be completed with or without assistive devices. 2-Mmjonvomdw-crmleuq completes the activity by him/herself with no assistance from a helper. 5-Set-up or Clean-up Assistance-helper sets up or cleans up; patient completes activity. [place] assists only prior to or following the activity. 4-Supervision or Touching Assistance-helper provides verbal cues and/or touching/steadying and/or contact guard assistance as patient completes activity. Assistance may be provided throughout the activity or intermittently. 3-Partial/Moderate Assistance-helper does LESS THAN HALF the effort. Spray lifts, holds or supports trunk or limbs, but provides less than half the effort. 2-Substantial/Maximal Assistance-helper does MORE THAN HALF the effort. Spray lifts or holds trunk or limbs and provides more than half the effort. 0-Ppzljhqmj-mwzvbi does ALL the effort. Patient does none of the effort to complete the activity. Or, the assistance of 2 or more helpers is required for the patient to complete the activity. If activity was not attempted, code reason: 7-Patient Refused. 9-Not Applicable-not attempted and the patient did not perform the activity before the current illness, exacerbation or injury. 10-Not Attempted due to Environmental Limitations-(lack of equipment, weather restraints, etc.). 88-Not Attempted due to Medical Conditions or Safety Concerns. Eating (QC): 6 Oral Hygiene (QC): 6 Shower/Bathe Self (QC): 4 Upper Body Dressing (QC): 5 Lower Body Dressing (QC): 4 On/Off Footwear: 5 Toileting Hygiene (QC): 4 Toilet Transfer (QC): 4 Other Treatment Pt's L UE is continuing to increase in AROM and functional movement. L hand is able to pull up pants, open tooth paste lid and other gross motor hand skills. Pt is able to raise L UE over head for WFL movement. OT Short Term Goals Short Term Goals Time Frame: Dec 07, 2020 Eatin Oral hygiene: 6 Toileting hygiene: 2 Shower/bathe self: 2 Upper body dressin Lower body dressin Putting on/taking off footwear: 2 OT Skilled Nursing Goals Skilled Nursing Goals Time Frame: Dec 24, 2020 Eating (QC): 6 (met) Oral Hygiene (QC): 6 (met) Toileting Hygiene (QC): 4 (met) Shower/Bathe Self (QC): 4 (met) Upper Body Dressing (QC): 6 (not met) Lower Body Dressing (QC): 4 (met) On/Off Footwear (QC): 3 (met) Additional Goals: 1-Demonstrate ADL Tasks, 2-Verbalize Understanding, 3-ImproveStrength/Sola 1=Demonstrate adherence to instructed precautions during ADL tasks. 2=Patient will verbalize/demonstrate understanding of assistive devices/modifications for ADL. 3=Patient will improve strength/tolerance for activity to enable patient to perform ADL's. OT Education/Plan Problem List/Assessment Assessment: Impaired Self-Care Skills, Restricted Funct UE ROM, Visual- Perceptual Deficit Discharge Recommendations Plan/Recommendations: Continue POC Therapy Discharge Recommendati: Post Acute OT Equpiment Recommendations-D/C: Extended Bath Bench, Bedside Commode, Hip Kit Treatment Plan/Plan of Care Patient would benefit from OT for education, treatment and training to promote independence in ADL's, mobility, safety and/or upper extremity function for ADL's. Plan of Care: ADL Retraining, Caregiver Training, Concurrent Therapy, Functional Mobility, Group Exercise/Act as Ind, Orthotic Fitting/Training, UE Funct Exercise/Act, UE Neuromus Re-Ed/Coord, Visual/Perceptual Retrain, W/C Management Training Treatment Duration: Dec 24, 2020 Frequency: At least 5 of 7 days/Wk (IRF) Estimated Hrs Per Day: 1.5 hours per day Agreement: Yes Rehab Potential: Good Time/GCodes Start Time: 07:15 Stop Time: 08:30 Total Time Billed (hr/min): 75 Billed Treatment Time 1 visit-ADL 5 (75 min) ALLA MACDONALD Dec 15, 2020 07:37
[2020-12-15] MEDS: lisINopril 40 MG (PRINIVIL) TABLET PO SCH (07:42)
[2020-12-15] MEDS: PREGABALIN 75 MG (LYRICA) CAP PO SCH ×2 (07:43→20:40)
[2020-12-15] MEDS: PANTOPRAZOLE 40 MG (PROTONIX) TAB PO SCH (07:43)
[2020-12-15] MEDS: VITAMIN D3 125 MCG (5,000 UNITS) CAPSULE PO SCH (07:43)
[2020-12-15] MEDS: DOCUSATE SODIUM 100 MG (COLACE) CAP PO SCH ×2 (07:43→20:16)
[2020-12-15] MEDS: FAMOTIDINE 20 MG (PEPCID) TABLET PO SCH ×2 (07:43→20:40)
[2020-12-15] MEDS: ROSUVASTATIN 20 MG (CRESTOR) TABLET PO SCH (07:43)
[2020-12-15] MEDS: CLOPIDOGREL 75 MG (PLAVIX) TABLET PO SCH (07:43)
[2020-12-15] MEDS: SENNA W/DOCUSATE (SENOKOT S) TABLET PO SCH ×2 (07:44→20:16)
[2020-12-15] MEDS: polyethylene glycoL POWDER 17 GM (MIRALAX) PACK PO SCH ×2 (07:44→20:16)
[2020-12-15] MEDS: HYDROCORTISONE 1% OINT 30 GM TUBE TOP SCH ×2 (07:45→20:48)
[2020-12-15] MEDS: LORATADINE (CLARITIN) 10 MG TAB PO SCH ×2 (07:54→20:40)
--- NOTE | 2020-12-15 09:05 | Speech Therapy Daily Note ---
Speech Daily Progress Note Subjective Date Seen by Provider: Dec 15, 2020 Time Seen by Provider: 00:30 Patient was resting in her recliner. She is anxious to be returning to his home tomorrow. Objective Patient completed general information questions at the intermediate level with 95% given minimal v/c's. Assessment Assessment Current Status: Good Progress Treatment Plan Discontinue ST, Goals Met Speech Short Term Goals Short Term Goals Short Term Goals 1) The patient will complete memory tasks related to her daily needs at 90% or greater. 2) The patient will complete safety awareness tasks related to her daily needs at 90% or greater. 3) The patient will complete problem solving tasks related to her daily needs at 90% or greater. 4) The patient will complete speech production tasks related to her communication needs at 90% or greater. Speech Framing Inspector Goals Framing Inspector Goals Patient will improve speech production to 90% or greater for effective communication. Patient will improve cognitive-communication necessary for safety and daily living tasks with minimal assist. Speech-Plan Patient/Family Goals Patient/Family Goals: Patient is returning to her home where she lives with her . She will have family, friends and home health support. Treatment Plan Speech Therapy Treatment Plan: Discontinue ST, Goals Met Treatment Duration: Dec 16, 2020 Frequency: 4 times per week (Patient will receive skilled ST 4-5x per week) Estimated Hrs Per Day: .5 hour per day Rehab Potential: Good Barriers to Learning: Patient's recent CVA, however her deficits have resolved Pt/Family Agrees to Plan: Yes Safety Risks/Education Teaching Recipient: Patient Teaching Methods: Demonstration, Discussion Response to Teaching: Verbalize Understanding, Return Demonstration Education Topics Provided: Continued safety upon her return home. Time Speech Therapy Time In: 09:30 Speech Therapy Time Out: 10:00 Total Billed Time: 30 Billed Treatment Time 1, SLTS No QUALITY CODES: EXPRESSION OF IDEAS/WANTS: 4 UNDERSTANDING VERBAL CONTENT: 4 BRIEF INTERVIEW MENTAL STATUS: YES REPETITION OF 3 WORDS: 3 TEMPORAL ORIENTATION: YEAR:CORRECT, MONTH, CORRECT, DAY: CORRECT RECALL SOCK: YES, COLOR: YES, BED YES MEMORY/RECALL ABILITY: SEASON, THAT SHE IS IN THE HOSPITAL, STAFF NAMES PELON JOHNSON Dec 15, 2020 09:05
--- NOTE | 2020-12-15 12:03 | Physical Therapy Daily Note ---
PT Daily Note-Current Subjective Pt sitting in recliner upon arrival. Pt agrees to PT for QC scoring for DC tomorrow. Pain Location: No Pain Reported Mental Status Patient Orientation: Person, Place, Time, Situation Transfers SCALE: Activities may be completed with or without assistive devices. 5-Wabnipxabc-cvuctws completes the activity by him/herself with no assistance from a helper. 5-Set-up or Clean-up Assistance-helper sets up or cleans up; patient completes activity. [place] assists only prior to or following the activity. 4-Supervision or Touching Assistance-helper provides verbal cues and/or touchi ng/steadying and/or contact guard assistance as patient completes activity. Assistance may be provided throughout the activity or intermittently. 3-Partial/Moderate Assistance-helper does LESS THAN HALF the effort. [place] lifts, holds or supports trunk or limbs, but provides less than half the effort. 2-Substantial/Maximal Assistance-helper does MORE THAN HALF the effort. [place] lifts or holds trunk or limbs and provides more than half the effort. 1-Fbkclmamh-ellmrv does ALL the effort. Patient does none of the effort to complete the activity. Or, the assistance of 2 or more helpers is required for the patient to complete the activity. If activity was not attempted, code reason: 7-Patient Refused. 9-Not Applicable-not attempted and the patient did not perform the activity before the current illness, exacerbation or injury. 10-Not Attempted due to Environmental Limitations-(lack of equipment, weather restraints, etc.). 88-Not Attempted due to Medical Conditions or Safety Concerns. Roll Left & Right (QC): 6 Sit to Lying (QC): 6 Lying to Sitting/Side of Bed(Q: 6 Sit to Stand (QC): 5 Chair/Gcl-ts-Tmnbj Xfer(QC): 5 Toilet Transfer (QC): 5 Car Transfer (QC): 5 Weight Bearing Full Weight Bearing Full Weight Bearing Gait Training Does the Patient Walk?: Yes Distance: 75', 150' Walk 10 feet (QC): 5 Walk 50 ft with 2 Turns(QC): 5 Walk 150 ft (QC): 5 Walking 10ft/uneven surface-QC: 5 Gait Persons Needed: 1 Gait Assistive Device: Walker Platform Stair Training Stair Training: Handrails/: uses walker #of Steps: 1 1 Step (curb) (QC): 5 4 Steps (QC): 7 12 Steps (QC): 7 Stairs: Pattern: Step to Balance Picking up an Object (QC): 7 Special Test Comments Pt has bit setter for home for safety. Exercises Seated Therapy Exercises: Ankle pumps, Long arc quads, Hip flexion, Kicking activity, Glut set Seated Reps: 15 Treatments TF to standing and uses BR. Amb in hallway using platform FWW. Pt completes QC scoring items listed above. Pt completes Seated EX and takes RB before amb. in hallway back to room. Pt resting in recliner at end of tx with all needs met, call light in hand. [id number]: SHOT BAGGER and pt review written HEP for Seated & Supine EX. Pt has questions on AE for home and SW is working on it currently. Pt has all needs met, resting in recliner with call light in hand. Assessment Current Status: Good Progress Pt marisela. tx well. SHOT BAGGER gives VC for direction due to visual deficits. PT Half-Way Goals Half-Way Goals PT Radius Grinder Goals Time Frame: Dec 14, 2020 Roll Left & Right (QC): 5 Sit to Lying (QC): 5 Lying-Sitting on Side/Bed(QC): 5 Sit to Stand (QC): 5 Chair/Hee-ua-Lccup Xfer(QC): 5 Toilet Transfer (QC): 5 Car Transfer (QC): 5 Does the Patient Walk: Yes Walk 10 feet (QC): 5 Walk 50ft with 2 Turns (QC): 5 Walk 150 ft (QC): 5 Walking 10ft on Uneven Surface: 5 1 Step (curb) (QC): 4 4 Steps (QC): 9 12 Steps (QC): 9 Picking up an Object (QC): 4 Does the Pt use WC or Scooter?: No Wheel 50 feet with 2 turns (QC: 9 Wheel 150 feet: 9 PT Plan Treatment/Plan Treatment Plan: Continue Plan of Care Treatment Plan: Bed Mobility, Concurrent Therapy, Functional Activity Sola, Functional Strength, Gait, Safety, Therapeutic Exercise, Transfers Treatment Duration: Dec 14, 2020 Frequency: At least 5 of 7 days/Wk (IRF) Estimated Hrs Per Day: 1.5 hours per day Patient and/or Family Agrees t: Yes Safety Risks/Education Patient Education: Gait Training, Correct Positioning, Safety Issues Teaching Recipient: Patient Teaching Methods: Discussion Response to Teaching: Verbalize Understanding Time/GCodes Time In: 1015 Time Out: 1330 Total Billed Treatment Time: 90 Total Billed Treatment [id number]: 1, GT (15m), FA x2 (30m) & EX (15m) [id number]: 1, FA (10m) & EX (20m) EMILE CASTILLO SHOT BAGGER Dec 15, 2020 12:03
[2020-12-15 17:41] VITALS: BP 148/78
[2020-12-15] MEDS: OPTH OU SCH (20:39)
[2020-12-15] MEDS: LATANOPROST 0.005% (XALATAN) OPHTH SOLN 2.5 ML OU SCH (20:39)
[2020-12-15] MEDS: RHOPRESSA 0.02% OU SCH (20:39)
[2020-12-15] MEDS: MELATONIN 3 MG TABLET PO PRN (20:40)
[2020-12-15] MEDS ORDERED: PANT40TA52 PO (21:26)
[2020-12-15] MEDS ORDERED: PREG75CA PO (21:26)
[2020-12-15] MEDS ORDERED: FAMO20TA5 PO (21:26)
[2020-12-15] MEDS ORDERED: HYDR453.2 TOP (21:26)
[2020-12-15] MEDS ORDERED: LORA10TA7 PO (21:26)
[2020-12-15] MEDS ORDERED: LISI40TA9 PO (21:26)
[2020-12-15] MEDS ORDERED: ROSU20TA32 PO (21:26)
[2020-12-15] MEDS ORDERED: HYDR-3584 PO (21:26)
[2020-12-15] MEDS ORDERED: CLOP75TA28 PO (21:26)
[2020-12-15] MEDS ORDERED: ALPR.25T PO (21:26)
--- NOTE | 2020-12-15 21:28 | D/C HH Face to Face Order ---
D/C Face to Face Orders Reconcile Patient Problems Problems Reviewed?: Yes Instructions for Patient Home Health Patient Instructions/FollowUp: PCP 1 week Physician to follow Patient: PCP Discharge Diet for Home: ADA Diet Patient Problems: CVA HTN DM Patient Data-Allergies,Ht & Wt Patient Allergies: Coded Allergies: Penicillins (Verified Allergy, Unknown, RASH, 11/23/20) mushroom (Verified Adverse Reaction, Severe, 11/24/20) atorvastatin (Verified Adverse Reaction, Unknown, MADE LEGS LIKE JELLY, 11/23/20) gabapentin (Verified Adverse Reaction, Unknown, 11/23/20) Uncoded Allergies: MUSHROOMS (Allergy, Severe, Anaphylaxis, 11/24/20) Home Health Need/Face to Face Date of Face to Face: Dec 15, 2020 Clinical Findings: Generalized weakness and fatigue, Instability, Muscle weakness, Unsteady gait I have seen Pt xula-[id number]-[id number]: Yes Discharged To: Home Diagnosis/Conditions: CVA HTN DM Patient is Homebound due to: Padmini fall risk due to instabilty, Muscle weakness Homebound Status Due to the above stated illness, injury or surgical procedure (medical condition or diagnosis) and associated clinical findings, the patient is homebound because of his/her inability to leave home except with aid of a supportive device and/or person AND leaving the home requires a considerable and taxing effort or is medically contraindicated. Pt req the following assistanc: Walker, Wheelchair Home Health Nursing Orders Home Health Services Order: Nursing Services, Gauge And Instrument Inspector-Evaluate & Treat, Physical Therapy-Evaluate & Treat Certify Stmt I certify that this patient is under my care and that I, a nurse practitioner or a physician; a assistant professor of theater working with me, had a face to face encounter that - meets the physician face to face encounter requirements with this patient as dated. SALVADOR SPARKS DO Dec 15, 2020 21:28
[2020-12-16 06:17] VITALS: BP 151/66
[2020-12-16] MEDS: inSUlin ASPART (NovoLOG) 1 UNIT/0.01 ML (CHARGE PER UNIT) SC SCH ×4 (06:26→12:58)
[2020-12-16] MEDS: ROSUVASTATIN 20 MG (CRESTOR) TABLET PO SCH (08:49)
[2020-12-16] MEDS: PREGABALIN 75 MG (LYRICA) CAP PO SCH (08:49)
[2020-12-16] MEDS: LORATADINE (CLARITIN) 10 MG TAB PO SCH (08:49)
[2020-12-16] MEDS: VITAMIN D3 125 MCG (5,000 UNITS) CAPSULE PO SCH (08:49)
[2020-12-16] MEDS: PANTOPRAZOLE 40 MG (PROTONIX) TAB PO SCH (08:49)
[2020-12-16] MEDS: CLOPIDOGREL 75 MG (PLAVIX) TABLET PO SCH (08:49)
[2020-12-16] MEDS: lisINopril 40 MG (PRINIVIL) TABLET PO SCH (08:49)
[2020-12-16] MEDS: FAMOTIDINE 20 MG (PEPCID) TABLET PO SCH (08:49)
[2020-12-16] MEDS: HYDROCORTISONE 1% OINT 30 GM TUBE TOP SCH (08:54)
[2020-12-16] MEDS: DOCUSATE SODIUM 100 MG (COLACE) CAP PO SCH (08:54)
[2020-12-16] MEDS: polyethylene glycoL POWDER 17 GM (MIRALAX) PACK PO SCH (08:54)
[2020-12-16] MEDS: SENNA W/DOCUSATE (SENOKOT S) TABLET PO SCH (08:54)
--- NOTE | 2020-12-16 09:16 | Therapy Team Discharge Summary ---
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 Upon evaluation patient performed bed mobility and supine <-> sit with max assist, ambulated 8' with a platform walker. Patient has been performing bed mobility a nd transfer training, balance and endurance training, functional strengthening, gait training, and education. Patient has made some progress but has only met her manager terminal goals for stairs and bed mobility and supine <-> sit. Now, patient performs bed mobility and supine <-> sit with independence, sit <-> stand and transfers with SBA, car transfer SBA, ambulates 150' with a platform walker with SBA (including 50' with at least 2 turns of 90 degrees and 10' over an uneven surface), and can go up and down 1 step using a platform walker with CGA. Patient is discharging from this facility today and will be discharged from PT at this time. Occupational Therapy Impaired Self-Care Skills, Restricted Funct UE ROM, Visual-Perceptual Deficit PT Half-Way Goals Half-Way Goals PT Half-Way Goals Time Frame: Dec 14, 2020 Roll Left to Right (QC): 5 Sit to Lying (QC): 5 Lying-Sitting on Side/Bed(QC): 5 Sit to Stand (QC): 5 Chair/Vgq-rg-Esudf Xfer(QC): 5 Car Transfer (QC): 5 Does the Patient Walk: Yes Walk 10 feet (QC): 5 Walk 10ft-Uneven Surface(QC): 5 Walk 50ft with 2 Turns (QC): 5 Walk 150 ft (QC): 5 Does the Pt use WC or Scooter?: No Wheel 50 feet with 2 turns (QC: 9 1 Step (curb) (QC): 4 4 Steps (QC): 9 12 Steps (QC): 9 Picking up an Object (QC): 4 OT Half-Way Goals Half-Way Goals Time Frame: Dec 24, 2020 Eating (QC): 6 (met) Oral Hygiene (QC): 6 (met) Shower/Bathe Self (QC): 4 (met) Upper Body Dressing (QC): 6 (not met) Lower Body Dressing (QC): 4 (met) On/Off Footwear (QC): 3 (met) Toileting Hygiene (QC): 4 (met) Toilet/Commode Transfer (QC): 5 Additional Goals: 1-Demonstrate ADL Tasks, 2-Verbalize Understanding, 3- ImproveStrength/Sola 1=Demonstrate adherence to instructed precautions during ADL tasks. 2=Patient will verbalize/demonstrate understanding of assistive devices/modifications for ADL. 3=Patient will improve strength/tolerance for activity to enable patient to perform ADL's. Speech White Hat Hacker Goals Half-Way Goals Patient will improve speech production to 90% or greater for effective communication. Patient will improve cognitive-communication necessary for safety and daily living tasks with minimal assist. KRYSTYNA LONG PT Dec 16, 2020 09:16
--- NOTE | 2020-12-16 10:48 | Discharge Summary ---
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 Fibromyalgia GERD Gastroparesis Neuropathy GEREMIAS on CPAP DM HTN HLP Glaucoma Diabetic retinopathy Obesity s/p loop recorder placement Dr Watson 11/28/20 Plan: IRF protocol Home meds DM management 11/24/20: Sugar management Monitor pain Monitor dizziness 11/25/20: Vision loss is problematic Cardiology appreciated Monitor closely 11/26/20: Improved ambulation with lucita-cane Doing well Vision loss limiting factor 11/27/20: Monitor BP Improved status CPAP use 11/28/11: Monitor BP Labs reviewed Fall risk 11/29/20: Appreciate Dr Watson Loop recorder in place 11/30/20: Monitor closely Restart Crestor Loop recorder in place 12/01/20: Progressing nicely Continue monitoring Needs eye exam with prisms 12/02/20: Improved left arm function Monitor rash Monitor BP 12/03/20: Monitor BP and BS VIsion will be addressed at [facility] with prisms Continue progress 12/04/20: Add Pecid Claritin BID Itchiness is an issue Monitor closely Stop scheduled Atarax due to AM drowsiness 12/05/20: Added meds yesterday for the itching Monitor left arm progress Fall risk 12/06/20: Monitor BP Itchiness is diff to manage Pepcid and Claritin BID 12/07/20: Making significant progress Monitor rash Monitor BP 12/08/20: Monitor BP Left side weakness improved Fall risk 12/09/20: Platform walker Monitor left sided weakness Eye exam at [place] 12/10/20: Monitor vision loss PT OT Platform walker 12/11/20: Improved bladder function Monitor for falls 12/12/20: Improved ambulation No pain reported Eye exam at [facility] 12/13/20: DC planned for later in week Continued progress with therapy 12/14/20: Monitor closely Monitor BP and BS Fall risk 12/15/20: DC tomorrow The patient has a mobility limitation that significantly impairs his/her ability to do one or more mobility-related activities of daily living in customary locations in the home. The patients mobility limitation can not be sufficiently resolved by use of an appropriately fitted cane or walker. The patient and family attest the patients home provides adequate access for use of a manual wheelchair. The patient has sufficient upper extremity function and other physical and mental capabilities needed to safely self-propel the manual wheelchair during a typical day. The patient has a caregiver who is available, willing, and able to provide assistance with the wheelchair. (1) Fibromyalgia (2) Cervical spine disease (3) Obesity (4) Diabetes (5) Gastroparesis (6) GERD (gastroesophageal reflux disease) (7) Neuropathy (8) Glaucoma (9) Former smoker (10) CVA (cerebral vascular accident) Qualifiers: Qualified Codes: I63.9 - Cerebral infarction, unspecified Discharge Summary Discharge Physical Examination Allergies: Coded Allergies: Penicillins (Verified Allergy, Unknown, RASH, 11/23/20) mushroom (Verified Adverse Reaction, Severe, 11/24/20) atorvastatin (Verified Adverse Reaction, Unknown, MADE LEGS LIKE JELLY, 11/23/20) gabapentin (Verified Adverse Reaction, Unknown, 11/23/20) Uncoded Allergies: MUSHROOMS (Allergy, Severe, Anaphylaxis, 11/24/20) Vitals & I&Os Vital Signs Date Time Temp Pulse Resp B/P (MAP) Pulse Ox O2 Delivery O2 Flow Rate FiO2 12/16/20 14:40 36.1 59 16 151/66 97 Room Air General Appearance: Alert, Oriented X3, Cooperative Respiratory: Clear to Auscultation Cardiovascular: Regular Rate Psych/Mental Status: Mental Status NL Hospital Course Was the Problem List Reviewed?: Yes Patient had a lengthy but beneficial course while in IRF after suffering a CVA with left sided weakness. Patient had loop recorder placed and had regular Cardiology visits with BP management during her visit. BS remained stable. Labs remained stable. Platform was helpful on walker. No pain except fibromyalgia which is chronic issue. Patient made significant progress and was able to DC in improved condition. Labs (last 24 hrs) Laboratory Tests 11/23/20 16:28: Glucometer 251H 11/23/20 21:10: Glucometer 200H 11/24/20 05:46: Glucometer 133H 11/24/20 06:10: Mean Blood Glucose 166H, Hemoglobin A1c 7.4H 11/24/20 06:11: White Blood Count 4.7, Red Blood Count 4.55, Hemoglobin 12.8, Hematocrit 40, Mean Corpuscular Volume 88, Mean Corpuscular Hemoglobin 28, Mean Corpuscular H emoglobin Concent 32, Red Cell Distribution Width 14.0, Platelet Count 155, Mean Platelet Volume 11.1, Immature Granulocyte % (Auto) 0, Neutrophils (%) (Auto) 52, Lymphocytes (%) (Auto) 31, Monocytes (%) (Auto) 10, Eosinophils (%) (Auto) 7, Basophils (%) (Auto) 1, Neutrophils # (Auto) 2.4, Lymphocytes # (Auto) 1.5, Monocytes # (Auto) 0.5, Eosinophils # (Auto) 0.3, Basophils # (Auto) 0.0, Immature Granulocyte # (Auto) 0.0, Sodium Level 141, Potassium Level 4.1, Chloride Level 104, Carbon Dioxide Level 26, Anion Gap 11, Blood Urea Nitrogen 28H, Creatinine 1.05, Estimat Glomerular Filtration Rate 52, BUN/Creatinine Ratio 27, Glucose Level 143H, Calcium Level 9.4, Corrected Calcium 9.8, Total Bilirubin 0.5, Aspartate Amino Transf (AST/SGOT) 17, Alanine Aminotransferase (ALT/SGPT) 12, Alkaline Phosphatase 64, Total Protein 6.5, Albumin 3.5 11/24/20 11:02: Glucometer 192H 11/24/20 16:12: Glucometer 141H 11/24/20 20:32: Glucometer 142H 11/25/20 06:05: Glucometer 138H 11/25/20 11:00: Glucometer 202H 11/25/20 15:46: Glucometer 132H 11/25/20 20:57: Glucometer 246H 11/26/20 05:17: White Blood Count 4.8, Red Blood Count 4.19, Hemoglobin 12.0, Hematocrit 37, Mean Corpuscular Volume 89, Mean Corpuscular Hemoglobin 29, Mean Corpuscular Hemoglobin Concent 32, Red Cell Distribution Width 14.1, Platelet Count 142, Mean Platelet Volume 11.8, Sodium Level 138, Potassium Level 4.4, Chloride Level 106, Carbon Dioxide Level 21, Anion Gap 11, Blood Urea Nitrogen 46H, Creatinine 0.93, Estimat Glomerular Filtration Rate 60, BUN/Creatinine Ratio 49, Glucose Level 176H, Calcium Level 8.9, Corrected Calcium 9.5, Total Bilirubin 0.5, Aspartate Amino Transf (AST/SGOT) 26, Alanine Aminotransferase (ALT/SGPT) 18, Alkaline Phosphatase 62, Total Protein 6.2L, Albumin 3.3, Triglycerides Level 87, Cholesterol Level 122, LDL Cholesterol Direct 64, VLDL Cholesterol 17, HDL Cholesterol 49 11/26/20 11:12: Glucometer 170H 11/26/20 16:05: Glucometer 104 11/26/20 20:17: Glucometer 125H 11/27/20 05:21: Glucometer 144H 11/27/20 10:40: Glucometer 199H 11/27/20 15:45: Glucometer 95 11/27/20 20:18: Glucometer 171H 11/28/20 04:43: White Blood Count 5.1, Red Blood Count 4.19, Hemoglobin 11.9, Hematocrit 37, Mean Corpuscular Volume 88, Mean Corpuscular Hemoglobin 28, Mean Corpuscular Hemoglobin Concent 32, Red Cell Distribution Width 14.2, Platelet Count 136, Mean Platelet Volume 12.0, Immature Granulocyte % (Auto) 0, Neutrophils (%) (Auto) 56, Lymphocytes (%) (Auto) 27, Monocytes (%) (Auto) 10, Eosinophils (%) (Auto) 6, Basophils (%) (Auto) 1, Neutrophils # (Auto) 2.9, Lymphocytes # (Auto) 1.4, Monocytes # (Auto) 0.5, Eosinophils # (Auto) 0.3, Basophils # (Auto) 0.0, Immature Granulocyte # (Auto) 0.0, Sodium Level 139, Potassium Level 4.6, Chloride Level 105, Carbon Dioxide Level 23, Anion Gap 11, Blood Urea Nitrogen 48H, Creatinine 1.05, Estimat Glomerular Filtration Rate 52, BUN/Creatinine Ratio 46, Glucose Level 175H, Calcium Level 9.1, Corrected Calcium 9.6, Total Bilirubin 0.5, Aspartate Amino Transf (AST/SGOT) 19, Alanine Aminotransferase (ALT/SGPT) 15, Alkaline Phosphatase 59, Total Protein 6.4, Albumin 3.4 11/28/20 12:10: Glucometer 181H 11/28/20 15:49: Glucometer 120H 11/28/20 21:40: Glucometer 154H 11/29/20 05:36: Glucometer 190H 11/29/20 11:00: Glucometer 170H 11/29/20 15:55: Glucometer 209H 11/29/20 20:10: Glucometer 115H 11/30/20 05:38: Glucometer 177H 11/30/20 10:23: Glucometer 176H 11/30/20 16:06: Glucometer 149H 11/30/20 20:21: Glucometer 189H 12/01/20 06:06: Glucometer 156H 12/01/20 11:09: Glucometer 114H 12/01/20 14:54: Glucometer 145H 12/01/20 20:13: Glucometer 281H 12/02/20 05:34: Glucometer 150H 12/02/20 10:50: Glucometer 200H 12/02/20 15:58: Glucometer 137H 12/02/20 20:36: Glucometer 131H 12/03/20 05:53: Glucometer 144H 12/03/20 10:39: Glucometer 164H 12/03/20 15:44: Glucometer 188H 12/03/20 20:29: Glucometer 206H 12/04/20 05:31: Glucometer 150H 12/04/20 10:44: Glucometer 229H 12/04/20 15:31: Glucometer 128H 12/04/20 20:19: Glucometer 90 12/05/20 05:16: Sodium Level 139, Potassium Level 4.9, Chloride Level 106, Carbon Dioxide Level 24, Anion Gap 9, Blood Urea Nitrogen 51H, Creatinine 1.01, Estimat Glomerular Filtration Rate 54, BUN/Creatinine Ratio 50, Glucose Level 137H, Calcium Level 8.5, Corrected Calcium 9.1, Total Bilirubin 0.4, Aspartate Amino Transf (AST/SGOT) 15, Alanine Aminotransferase (ALT/SGPT) 10, Alkaline Phosphatase 58, Total Protein 5.7L, Albumin 3.2 12/05/20 05:40: Glucometer 130H 12/05/20 06:12: White Blood Count 4.3, Red Blood Count 4.13, Hemoglobin 11.9, Hematocrit 36, Mean Corpuscular Volume 88, Mean Corpuscular Hemoglobin 29, Mean Corpuscular Hemoglobin Concent 33, Red Cell Distribution Width 13.9, Platelet Count 141, Mean Platelet Volume 11.8, Immature Granulocyte % (Auto) 0, Neutrophils (%) (Auto) 53, Lymphocytes (%) (Auto) 32, Monocytes (%) (Auto) 7, Eosinophils (%) (Auto) 6, Basophils (%) (Auto) 1, Neutrophils # (Auto) 2.3, Lymphocytes # (Auto) 1.4, Monocytes # (Auto) 0.3, Eosinophils # (Auto) 0.3, Basophils # (Auto) 0.1, Immature Granulocyte # (Auto) 0.0 12/05/20 11:02: Glucometer 194H 12/05/20 16:01: Glucometer 97 12/05/20 20:33: Glucometer 128H 12/06/20 05:31: Glucometer 98 12/06/20 10:54: Glucometer 130H 12/06/20 15:59: Glucometer 94 12/06/20 20:57: Glucometer 157H 12/07/20 05:44: Glucometer 145H 12/07/20 11:38: Glucometer 121H 12/07/20 16:39: Glucometer 188H 12/07/20 20:18: Glucometer 89 12/08/20 05:53: Glucometer 126H 12/08/20 11:07: Glucometer 122H 12/08/20 16:20: Glucometer 111H 12/08/20 20:38: Glucometer 140H 12/09/20 05:37: Glucometer 105 12/09/20 11:06: Glucometer 122H 12/09/20 17:01: Glucometer 123H 12/09/20 20:27: Glucometer 89 12/10/20 06:00: Glucometer 130H 12/10/20 10:59: Glucometer 118H 12/10/20 15:43: Glucometer 121H 12/10/20 20:49: Glucometer 122H 12/11/20 06:18: Glucometer 94 12/11/20 11:01: Glucometer 125H 12/11/20 15:48: Glucometer 126H 12/11/20 20:08: Glucometer 112H 12/12/20 05:56: Glucometer 129H 12/12/20 06:02: White Blood Count 4.8, Red Blood Count 4.12, Hemoglobin 11.9, Hematocrit 36, Mean Corpuscular Volume 87, Mean Corpuscular Hemoglobin 29, Mean Corpuscular Hemoglobin Concent 33, Red Cell Distribution Width 13.8, Platelet Count 130, Mean Platelet Volume 12.1, Immature Granulocyte % (Auto) 0, Neutrophils (%) (Auto) 56, Lymphocytes (%) (Auto) 29, Monocytes (%) (Auto) 9, Eosinophils (%) (Auto) 6, Basophils (%) (Auto) 0, Neutrophils # (Auto) 2.7, Lymphocytes # (Auto) 1.4, Monocytes # (Auto) 0.4, Eosinophils # (Auto) 0.3, Basophils # (Auto) 0.0, Immature Granulocyte # (Auto) 0.0, Sodium Level 142, Potassium Level 4.2, Chloride Level 107, Carbon Dioxide Level 24, Anion Gap 11, Blood Urea Nitrogen 28H, Creatinine 0.94, Estimat Glomerular Filtration Rate 59, BUN/Creatinine Ratio 30, Glucose Level 125H, Calcium Level 8.8, Corrected Calcium 9.1, Total Bilirubin 0.5, Aspartate Amino Transf (AST/SGOT) 16, Alanine Aminotransferase (ALT/SGPT) 12, Alkaline Phosphatase 67, Total Protein 6.6, Albumin 3.6 12/12/20 11:00: Glucometer 138H 12/12/20 15:57: Glucometer 106 12/12/20 21:29: Glucometer 108 12/13/20 05:40: Glucometer 94 12/13/20 11:02: Glucometer 90 12/13/20 16:22: Glucometer 69L 12/13/20 20:43: Glucometer 173H 12/14/20 05:57: Glucometer 111H 12/14/20 11:06: Glucometer 74 12/14/20 11:47: Glucometer 76 12/14/20 13:28: Glucometer 164H 12/14/20 15:44: Glucometer 181H 12/14/20 21:37: Glucometer 111H 12/15/20 05:33: Glucometer 98 12/15/20 11:02: Glucometer 189H 12/15/20 15:36: Glucometer 95 12/15/20 20:47: Glucometer 183H 12/16/20 06:01: Glucometer 104 12/16/20 11:50: Glucometer 162H Pending Labs Laboratory Tests 11/23/20 16:28: Glucometer 251 11/23/20 21:10: Glucometer 200 11/24/20 05:46: Glucometer 133 11/24/20 06:10: Mean Blood Glucose 166, Hemoglobin A1c 7.4 11/24/20 06:11: White Blood Count 4.7, Red Blood Count 4.55, Hemoglobin 12.8, Hematocrit 40, Mean Corpuscular Volume 88, Mean Corpuscular Hemoglobin 28, Mean Corpuscular Hemoglobin Concent 32, Red Cell Distribution Width 14.0, Platelet Count 155, Mean Platelet Volume 11.1, Immature Granulocyte % (Auto) 0, Neutrophils (%) (Auto) 52, Lymphocytes (%) (Auto) 31, Monocytes (%) (Auto) 10, Eosinophils (%) (Auto) 7, Basophils (%) (Auto) 1, Neutrophils # (Auto) 2.4, Lymphocytes # (Auto) 1.5, Monocytes # (Auto) 0.5, Eosinophils # (Auto) 0.3, Basophils # (Auto) 0.0, Immature Granulocyte # (Auto) 0.0, Sodium Level 141, Potassium Level 4.1, Chloride Level 104, Carbon Dioxide Level 26, Anion Gap 11, Blood Urea Nitrogen 28, Creatinine 1.05, Estimat Glomerular Filtration Rate 52, BUN/Creatinine Ratio 27, Glucose Level 143, Calcium Level 9.4, Corrected Calcium 9.8, Total Bilirubin 0.5, Aspartate Amino Transf (AST/SGOT) 17, Alanine Aminotransferase (ALT/SGPT) 12, Alkaline Phosphatase 64, Total Protein 6.5, Albumin 3.5 11/24/20 11:02: Glucometer 192 11/24/20 16:12: Glucometer 141 11/24/20 20:32: Glucometer 142 11/25/20 06:05: Glucometer 138 11/25/20 11:00: Glucometer 202 11/25/20 15:46: Glucometer 132 11/25/20 20:57: Glucometer 246 11/26/20 05:17: White Blood Count 4.8, Red Blood Count 4.19, Hemoglobin 12.0, Hematocrit 37, Me an Corpuscular Volume 89, Mean Corpuscular Hemoglobin 29, Mean Corpuscular Hemoglobin Concent 32, Red Cell Distribution Width 14.1, Platelet Count 142, Mean Platelet Volume 11.8, Sodium Level 138, Potassium Level 4.4, Chloride Level 106, Carbon Dioxide Level 21, Anion Gap 11, Blood Urea Nitrogen 46, Creatinine 0.93, Estimat Glomerular Filtration Rate 60, BUN/Creatinine Ratio 49, Glucose Level 176, Calcium Level 8.9, Corrected Calcium 9.5, Total Bilirubin 0.5, Aspartate Amino Transf (AST/SGOT) 26, Alanine Aminotransferase (ALT/SGPT) 18, Alkaline Phosphatase 62, Total Protein 6.2, Albumin 3.3, Triglycerides Level 87, Cholesterol Level 122, LDL Cholesterol Direct 64, VLDL Cholesterol 17, HDL Cholesterol 49 11/26/20 11:12: Glucometer 170 11/26/20 16:05: Glucometer 104 11/26/20 20:17: Glucometer 125 11/27/20 05:21: Glucometer 144 11/27/20 10:40: Glucometer 199 11/27/20 15:45: Glucometer 95 11/27/20 20:18: Glucometer 171 11/28/20 04:43: White Blood Count 5.1, Red Blood Count 4.19, Hemoglobin 11.9, Hematocrit 37, Mean Corpuscular Volume 88, Mean Corpuscular Hemoglobin 28, Mean Corpuscular Hemoglobin Concent 32, Red Cell Distribution Width 14.2, Platelet Count 136, Mean Platelet Volume 12.0, Immature Granulocyte % (Auto) 0, Neutrophils (%) (Auto) 56, Lymphocytes (%) (Auto) 27, Monocytes (%) (Auto) 10, Eosinophils (%) (Auto) 6, Basophils (%) (Auto) 1, Neutrophils # (Auto) 2.9, Lymphocytes # (Auto) 1.4, Monocytes # (Auto) 0.5, Eosinophils # (Auto) 0.3, Basophils # (Auto) 0.0, Immature Granulocyte # (Auto) 0.0, Sodium Level 139, Potassium Level 4.6, Chloride Level 105, Carbon Dioxide Level 23, Anion Gap 11, Blood Urea Nitrogen 48, Creatinine 1.05, Estimat Glomerular Filtration Rate 52, BUN/Creatinine Ratio 46, Glucose Level 175, Calcium Level 9.1, Corrected Calcium 9.6, Total Bilirubin 0.5, Aspartate Amino Transf (AST/SGOT) 19, Alanine Aminotransferase (ALT/SGPT) 15, Alkaline Phosphatase 59, Total Protein 6.4, Albumin 3.4 11/28/20 12:10: Glucometer 181 11/28/20 15:49: Glucometer 120 11/28/20 21:40: Glucometer 154 11/29/20 05:36: Glucometer 190 11/29/20 11:00: Glucometer 170 11/29/20 15:55: Glucometer 209 11/29/20 20:10: Glucometer 115 11/30/20 05:38: Glucometer 177 11/30/20 10:23: Glucometer 176 11/30/20 16:06: Glucometer 149 11/30/20 20:21: Glucometer 189 12/01/20 06:06: Glucometer 156 12/01/20 11:09: Glucometer 114 12/01/20 14:54: Glucometer 145 12/01/20 20:13: Glucometer 281 12/02/20 05:34: Glucometer 150 12/02/20 10:50: Glucometer 200 12/02/20 15:58: Glucometer 137 12/02/20 20:36: Glucometer 131 12/03/20 05:53: Glucometer 144 12/03/20 10:39: Glucometer 164 12/03/20 15:44: Glucometer 188 12/03/20 20:29: Glucometer 206 12/04/20 05:31: Glucometer 150 12/04/20 10:44: Glucometer 229 12/04/20 15:31: Glucometer 128 12/04/20 20:19: Glucometer 90 12/05/20 05:16: Sodium Level 139, Potassium Level 4.9, Chloride Level 106, Carbon Dioxide Level 24, Anion Gap 9, Blood Urea Nitrogen 51, Creatinine 1.01, Estimat Glomerular Filtration Rate 54, BUN/Creatinine Ratio 50, Glucose Level 137, Calcium Level 8.5, Corrected Calcium 9.1, Total Bilirubin 0.4, Aspartate Amino Transf (AST/SGOT) 15, Alanine Aminotransferase (ALT/SGPT) 10, Alkaline Phosphatase 58, Total Protein 5.7, Albumin 3.2 12/05/20 05:40: Glucometer 130 12/05/20 06:12: White Blood Count 4.3, Red Blood Count 4.13, Hemoglobin 11.9, Hematocrit 36, Mean Corpuscular Volume 88, Mean Corpuscular Hemoglobin 29, Mean Corpuscular Hemoglobin Concent 33, Red Cell Distribution Width 13.9, Platelet Count 141, Mean Platelet Volume 11.8, Immature Granulocyte % (Auto) 0, Neutrophils (%) (Auto) 53, Lymphocytes (%) (Auto) 32, Monocytes (%) (Auto) 7, Eosinophils (%) (Auto) 6, Basophils (%) (Auto) 1, Neutrophils # (Auto) 2.3, Lymphocytes # (Auto) 1.4, Monocytes # (Auto) 0.3, Eosinophils # (Auto) 0.3, Basophils # (Auto) 0.1, Immature Granulocyte # (Auto) 0.0 12/05/20 11:02: Glucometer 194 12/05/20 16:01: Glucometer 97 12/05/20 20:33: Glucometer 128 12/06/20 05:31: Glucometer 98 12/06/20 10:54: Glucometer 130 12/06/20 15:59: Glucometer 94 12/06/20 20:57: Glucometer 157 12/07/20 05:44: Glucometer 145 12/07/20 11:38: Glucometer 121 12/07/20 16:39: Glucometer 188 12/07/20 20:18: Glucometer 89 12/08/20 05:53: Glucometer 126 12/08/20 11:07: Glucometer 122 12/08/20 16:20: Glucometer 111 12/08/20 20:38: Glucometer 140 12/09/20 05:37: Glucometer 105 12/09/20 11:06: Glucometer 122 12/09/20 17:01: Glucometer 123 12/09/20 20:27: Glucometer 89 12/10/20 06:00: Glucometer 130 12/10/20 10:59: Glucometer 118 12/10/20 15:43: Glucometer 121 12/10/20 20:49: Glucometer 122 12/11/20 06:18: Glucometer 94 12/11/20 11:01: Glucometer 125 12/11/20 15:48: Glucometer 126 12/11/20 20:08: Glucometer 112 12/12/20 05:56: Glucometer 129 12/12/20 06:02: White Blood Count 4.8, Red Blood Count 4.12, Hemoglobin 11.9, Hematocrit 36, Mean Corpuscular Volume 87, Mean Corpuscular Hemoglobin 29, Mean Corpuscular Hemoglobin Concent 33, Red Cell Distribution Width 13.8, Platelet Count 130, Mean Platelet Volume 12.1, Immature Granulocyte % (Auto) 0, Neutrophils (%) (Auto) 56, Lymphocytes (%) (Auto) 29, Monocytes (%) (Auto) 9, Eosinophils (%) (Auto) 6, Basophils (%) (Auto) 0, Neutrophils # (Auto) 2.7, Lymphocytes # (Auto) 1.4, Monocytes # (Auto) 0.4, Eosinophils # (Auto) 0.3, Basophils # (Auto) 0.0, Immature Granulocyte # (Auto) 0.0, Sodium Level 142, Potassium Level 4.2, Chloride Level 107, Carbon Dioxide Level 24, Anion Gap 11, Blood Urea Nitrogen 28, Creatinine 0.94, Estimat Glomerular Filtration Rate 59, BUN/Creatinine Ratio 30, Glucose Level 125, Calcium Level 8.8, Corrected Calcium 9.1, Total Bilirubin 0.5, Aspartate Amino Transf (AST/SGOT) 16, Alanine Aminotransferase (ALT/SGPT) 12, Alkaline Phosphatase 67, Total Protein 6.6, Albumin 3.6 12/12/20 11:00: Glucometer 138 12/12/20 15:57: Glucometer 106 12/12/20 21:29: Glucometer 108 12/13/20 05:40: Glucometer 94 12/13/20 11:02: Glucometer 90 12/13/20 16:22: Glucometer 69 12/13/20 20:43: Glucometer 173 12/14/20 05:57: Glucometer 111 12/14/20 11:06: Glucometer 74 12/14/20 11:47: Glucometer 76 12/14/20 13:28: Glucometer 164 12/14/20 15:44: Glucometer 181 12/14/20 21:37: Glucometer 111 12/15/20 05:33: Glucometer 98 12/15/20 11:02: Glucometer 189 12/15/20 15:36: Glucometer 95 12/15/20 20:47: Glucometer 183 12/16/20 06:01: Glucometer 104 12/16/20 11:50: Glucometer 162 Discharge Home Medications: Active Scripts Active Hydrocortisone 453.6 Gm Oint...g. 0 Gm TOP BID Pantoprazole Sodium 40 Mg Tablet.dr 40 Mg PO DAILY Famotidine 20 Mg Tablet 20 Mg PO BID Hydroxyzine HCl 10 Mg Tablet 10 Mg PO TID PRN Xanax Tablet (Alprazolam) 0.25 Mg Tab 0.25 Mg PO Q8H PRN Rosuvastatin Calcium 20 Mg Tablet 20 Mg PO DAILY Clopidogrel (Clopidogrel Bisulfate) 75 Mg Tablet 75 Mg PO DAILY Loratadine 10 Mg Tablet 10 Mg PO BID Lyrica (Pregabalin) 75 Mg Capsule 75 Mg PO BID Lisinopril 40 Mg Tablet 40 Mg PO DAILY Reported Tylenol (Acetaminophen) 325 Mg Tablet 650 Mg PO Q6H PRN Multi-Vitamin Daily (Multivitamin) 1 Each Tablet 1 Each PO DAILY Furosemide 20 Mg Tablet 10 Mg PO BID PRN TAKES 1/2 (10MG) TABLET Humalog Kwikpen (Insulin Lispro) 100 Unit/1 Ml Insuln.pen 11-18 Unit SQ 1200,1700 USES WITH LUNCH AND DINNER FLEXES BETWEEN 11-18 UNITS DEPENDING ON WHAT HER BLOOD SUGAR IS LAST FILLED 03/24/20 #15 50 DAY SUPPLY Rhopressa (Netarsudil Mesylate) 2.5 Ml Drops 1 Drop OU HS INSTILL 5 MINUTES AFTER LATANOPROST LAST FILLED 02/27/20 90 DAY SUPPLY Xalatan (Latanoprost) 2.5 Ml Drops 1 Drop OU HS Humalog Kwikpen (Insulin Lispro) 100 Unit/1 Ml Insuln.pen 7 Unit SQ DAILY TAKES WITH BREAKFAST LAST FILLED 03/24/2020 #15 50 DAY SUPPLY Toujeo Solostar (Insulin Glargine,Hum.rec.anlog) 300 Unit/1 Ml Insuln.pen 40 Unit SQ DAILY Vitamin D3 (Cholecalciferol (Vitamin D3)) 125 Mcg Tablet 125 Mcg PO DAILY Instructions to patient/family Please see electronic discharge instructions given to patient. Diagnosis/Problems Diagnosis/Problems (1) Fibromyalgia (2) Cervical spine disease (3) Obesity (4) Diabetes (5) Gastroparesis (6) GERD (gastroesophageal reflux disease) (7) Neuropathy (8) Glaucoma (9) Former smoker (10) CVA (cerebral vascular accident) Qualifiers: Qualified Codes: I63.9 - Cerebral infarction, unspecified SALVADOR SPARKS DO Dec 16, 2020 10:48
--- NOTE | 2020-12-16 11:09 | Therapy Team Discharge Summary ---
Therapy Discharge Summary Discharge Recommendations Date of Discharge Occupational Therapy Impaired Self-Care Skills, Restricted Funct UE ROM, Visual-Perceptual Deficit Speech-Language Pathology Patient was admitted to the ARU s/p CVA. Patient was given the SLUMS upon arrival which indicated she would benefit from skilled ST related to memory, safety awareness as well as problem solving. The patient has made good progress and met her goals. Patient is discharging to her home today with family and mu-ism support. She will also receive skilled home health services to continue therapy. PT Senior Living Goals Lockstitch Topstitcher Goals PT Senior Living Goals Time Frame: Dec 14, 2020 Roll Left to Right (QC): 5 Sit to Lying (QC): 5 Lying-Sitting on Side/Bed(QC): 5 Sit to Stand (QC): 5 Chair/[id number]-Xnteg Xfer(QC): 5 Car Transfer (QC): 5 Does the Patient Walk: Yes Walk 10 feet (QC): 5 Walk 10ft-Uneven Surface(QC): 5 Walk 50ft with 2 Turns (QC): 5 Walk 150 ft (QC): 5 Does the Pt use WC or Scooter?: No Wheel 50 feet with 2 turns (QC: 9 1 Step (curb) (QC): 4 4 Steps (QC): 9 12 Steps (QC): 9 Picking up an Object (QC): 4 OT Lockstitch Topstitcher Goals Lockstitch Topstitcher Goals Time Frame: Dec 24, 2020 Eating (QC): 6 (met) Oral Hygiene (QC): 6 (met) Shower/Bathe Self (QC): 4 (met) Upper Body Dressing (QC): 6 (not met) Lower Body Dressing (QC): 4 (met) On/Off Footwear (QC): 3 (met) Toileting Hygiene (QC): 4 (met) Toilet/Commode Transfer (QC): 5 Additional Goals: 1-Demonstrate ADL Tasks, 2-Verbalize Understanding, 3- ImproveStrength/Sola 1=Demonstrate adherence to instructed precautions during ADL tasks. 2=Patient will verbalize/demonstrate understanding of assistive devices/modifications for ADL. 3=Patient will improve strength/tolerance for activity to enable patient to perform ADL's. Speech Senior Living Goals Lockstitch Topstitcher Goals Patient will improve speech production to 90% or greater for effective communication. Patient will improve cognitive-communication necessary for safety and daily living tasks with minimal assist. PELON JOHNSON Dec 16, 2020 11:09
--- NOTE | 2020-12-16 11:49 | Therapy Team Discharge Summary ---
Therapy Discharge Summary Discharge Recommendations Date of Discharge Occupational Therapy Pt admits with CVA. Pt has tub with bc, ramp to enter. Pt admitting/ d/c QC's as follows: eating 03/02, oral care 03/02, showering 10/31, UB dressing 12/02, LB dressing 10/31, footwear 11/01, toilet hygiene 10/31. Pt goes from max A w/c transfer to SBA toileting. pt and OT staff complete AE training, safety awareness training, UE training, ADL retraining, home modification education, etc. Pt slightly limited by visual deficit. Pt d/c with needs of FWW with platform and OT recommendations. D/c OT at this time. Impaired Self-Care Skills, Restricted Funct UE ROM, Visual-Perceptual Deficit PT Snf Goals Snf Goals PT Snf Goals Time Frame: Dec 14, 2020 Roll Left to Right (QC): 5 Sit to Lying (QC): 5 Lying-Sitting on Side/Bed(QC): 5 Sit to Stand (QC): 5 Chair/Ave-me-Rbish Xfer(QC): 5 Car Transfer (QC): 5 Does the Patient Walk: Yes Walk 10 feet (QC): 5 Walk 10ft-Uneven Surface(QC): 5 Walk 50ft with 2 Turns (QC): 5 Walk 150 ft (QC): 5 Does the Pt use WC or Scooter?: No Wheel 50 feet with 2 turns (QC: 9 1 Step (curb) (QC): 4 4 Steps (QC): 9 12 Steps (QC): 9 Picking up an Object (QC): 4 OT Snf Goals Snf Goals Time Frame: Dec 24, 2020 Eating (QC): 6 (met) Oral Hygiene (QC): 6 (met) Shower/Bathe Self (QC): 4 (met) Upper Body Dressing (QC): 6 (not met) Lower Body Dressing (QC): 4 (met) On/Off Footwear (QC): 3 (met) Toileting Hygiene (QC): 4 (met) Toilet/Commode Transfer (QC): 5 Additional Goals: 1-Demonstrate ADL Tasks, 2-Verbalize Understanding, 3-Impro veStrength/Sola 1=Demonstrate adherence to instructed precautions during ADL tasks. 2=Patient will verbalize/demonstrate understanding of assistive devices/modifications for ADL. 3=Patient will improve strength/tolerance for activity to enable patient to perform ADL's. Speech Secondary History Teacher Goals Secondary History Teacher Goals Patient will improve speech production to 90% or greater for effective communication. Patient will improve cognitive-communication necessary for safety and daily living tasks with minimal assist. OLIVA CLARK OTR Dec 16, 2020 11:49
[2020-12-16 14:40] VITALS: BP 151/66
== END 2020-12-16 14:40 | disposition home health service (06) | DRG 57 ==
PROVIDERS: ADMIT Internal Medicine; ATTEND Internal Medicine
DX: I69.354 Hemiplegia and hemiparesis following cerebral infarction affecting left non-dominant side (principal); I69.398 Other sequelae of cerebral infarction; H54.7 Unspecified visual loss; I10 Essential (primary) hypertension; E11.43 Type 2 diabetes mellitus with diabetic autonomic (poly)neuropathy; E11.40 Type 2 diabetes mellitus with diabetic neuropathy, unspecified; E11.319 Type 2 diabetes mellitus with unspecified diabetic retinopathy without macular edema; K31.84 Gastroparesis; R32 Unspecified urinary incontinence; M79.7 Fibromyalgia; E78.00 Pure hypercholesterolemia, unspecified; G47.33 Obstructive sleep apnea (adult) (pediatric); M48.9 Spondylopathy, unspecified; E66.9 Obesity, unspecified; K21.9 Gastro-esophageal reflux disease without esophagitis; E78.5 Hyperlipidemia, unspecified; H40.9 Unspecified glaucoma; Z79.4 Long term (current) use of insulin; Z87.891 Personal history of nicotine dependence; Z88.0 Allergy status to penicillin; Z91.018 Allergy to other foods
CPT/HCPCS: 36415; 80053; 80061; 82962; 83036; 85025; 85027; 93306

== ENCOUNTER → 2020-11-28 | Day surgery (SDC) | payer MEDICARE ==
[~2020-11-28] MED LIST: ACET325T38 PO; AMLO-251 PO; CALC-250 PO; CETI10TA17 PO; CLOP75TA28 PO; FURO20TA4 PO; HYDR-3922 PO; HYDR-700 PO; INSU100I23 SQ; INSU300I SQ; LATA2.5D19 OU; LIDOCAINE 1% INJ 20 ML 20 ML VIAL INJ ONE; LIDOCAINE 1% INJ 20 ML 20 ML VIAL ONE; LISI40TA PO; MULT-974 PO; NETA2.5D OU; OMEP40CA27 PO; PREG75CA PO; ROSU20TA32 PO; SIMV40TA25 PO; ZINC50TA51 PO
--- NOTE | 2020-11-28 11:50 | Implantation of Loop Monitor ---
Implant of Loop Monitior IMPLANTATION OF LOOP MONITOR REPORT DATE OF PROCEDURE: 11/28/20 PREOP DIAGNOSIS: Cryptogenic stroke POSTOP DIAGNOSIS: Cryptogenic stroke PROCEDURE DETAILS: The patient is a 70 female with history of paroxysmal atrial fibrillation requiring long-term surveillance. Therefore implantable loop recorder was discussed and agreed with the patient. Informed consent was taken. All risks and complications were discussed at length. The patient was draped and prepped in the usual sterile fashion. Local anesthesia was lidocaine, which was given in the substernal area close to the 4th intercostal space. Loop monitor Group[employer]ger with serial number [id number] was implanted according to the protocol. Steri-Strips were placed at the end of the procedure. There were no complications and the patient tolerated the procedure well. The device was interrogated with a voltage of. ANESTHESIA: Local anesthesia with lidocaine. COMPLICATIONS: None CONTRAST/FLUOROSCOPY: None CONCLUSION: Successful implantation of loop monitor with no complications FINAL DIAGNOSIS: Cryptogenic stroke Hypertension Hyperlipidemia RAMEZ THAKKAR MD Nov 28, 2020 11:50
--- NOTE | 2020-11-28 11:52 | Cardiology History & Physical ---
HPI-Cardiology Cardiology Consultation Date of Consultation 11/28/20 Date of Admission Time Seen by Provider: 10:00 Indication: cryptogenic stroke HPI Subjective/Events-last exam Patient is sitting up in chair, denies any chest pain. Continues to c/o irritati on at [facility] site. Planning for loop monitor implanted due to her cryptogenic stroke Objective-Cardiology Exam Last Set of Vital Signs Vital Signs 11/28/20 11/28/20 05:42 07:58 Temp 36.0 Pulse 63 Resp 18 B/P (MAP) 110/54 (72) Pulse Ox 95 O2 Delivery Room Air Capillary Refill : I&O Intake and Output 11/28/20 00:00 Intake Total 1200 ml Balance 1200 ml Intake Oral 1200 ml # Voids 5 # Bowel Movements 1 General: Alert, Oriented X3, Cooperative HEENT: Atraumatic, PERRLA Neck: Supple, No JVD, No Thyromegaly Lungs: Clear to Auscultation, Normal Air Movement Heart: Regular Rate, Normal S1, Normal S2, No Murmurs Abdomen: Normal Bowel Sounds, Soft, No Tenderness, No Hepatosplenomegaly, No Masses Extremities: No Clubbing, No Cyanosis, No Edema, Normal Pulses, No Tenderness/Swelling Skin: No Rashes, No Breakdown, No Significant Lesion Neuro: Strength at 5/5 X4 Ext, Sensation Intact, Other (hemiplegia) Psych/Mental Status: Mood NL Results Lab Laboratory Tests 11/28/20 04:43 PMH-Cardiology Immunizations Up To Date Date of Influenza Vaccine: Sep 23, 2020 Seasonal Allergies Seasonal Allergies: No Surgeries Yes Respiratory Yes Cardiovascular Yes Chronic Edema/Swelling, Hypertension Neurological Yes (FIBROMYALGIA) Neuropathy Genitourinary Yes (INCONTINENCE, UTI) Gastrointestinal Yes (DIABETIC GASTROPORESIS) Gastroesophageal Reflux Musculoskeletal Yes (CHRONIC DEGENERATIVE SPINAL CHANGES) Fibromyalgia, Chronic Back Pain Endocrine Yes Diabetes, Non-Insulin dep HEENT Yes (DECREASED PERIPHERAL VISION LT) Glaucoma Loss of Vision: Left Psychosocial No Anxiety Integumentary Yes (SCRATCHY AREAS ON ABDOMEN, BUTTOCKS, FEET) Home Medications & Allergies Allergies: Coded Allergies: Penicillins (Verified Allergy, Unknown, RASH, 11/23/20) mushroom (Verified Adverse Reaction, Severe, 11/24/20) atorvastatin (Verified Adverse Reaction, Unknown, MADE LEGS LIKE JELLY, 11/23/20) gabapentin (Verified Adverse Reaction, Unknown, 11/23/20) Uncoded Allergies: MUSHROOMS (Allergy, Severe, Anaphylaxis, 11/24/20) A/P-Cardiology Admission Diagnosis Cryptogenic stroke Admission Status: Other (Same Day Surgery) Assessment/Plan A/P-Cardiology Admission Diagnosis Cryptogenic stroke Hypertension Hyperlipidemia Diabetes mellitus Assessment/Plan Cryptogenic stroke at the right occipital region, workup for the source of embolization so far is negative, patient has itching and erythema at the site of the zio patch, she will benefit from long-term monitoring, discussed with her in length about implantable loop recorder and planning to proceed with the procedure this morning. Hypertension, controlled, continue to monitor blood pressure Diabetes mellitus, followed and managed by primary care physician Lipid profile done on November 26, 2020 showing total cholesterol 122, LDL 64. Continue to monitor Diabetic retinopathy, followed and managed by primary care physician Fibromyalgia, followed and managed by primary care physician Gastroesophageal reflux disease, gastroparesis, obesity. RAMEZ THAKKAR MD Nov 28, 2020 11:52
== END ==
LOC: CATH 10:34
PROVIDERS: ATTEND Internal Medicine Cardiovascular Disease
DX: I63.9 Cerebral infarction, unspecified (principal); I48.0 Paroxysmal atrial fibrillation; I10 Essential (primary) hypertension; E78.5 Hyperlipidemia, unspecified; K21.9 Gastro-esophageal reflux disease without esophagitis; G89.29 Other chronic pain; M54.5 Low back pain; E11.40 Type 2 diabetes mellitus with diabetic neuropathy, unspecified; Z79.899 Other long term (current) drug therapy; Z91.018 Allergy to other foods; Z88.8 Allergy status to other drugs, medicaments and biological substances
CPT/HCPCS: 33285; C1764

== ENCOUNTER → 2021-01-04 | Outpatient (CLI) | payer MEDICARE ==
[~2021-01-04] VITALS: Ht 165 cm; Wt 84.0 kg
[~2021-01-04] MED LIST changes: +ALPR.25T PO; +CATHETER FLUSH 10 ML SYR IV PRN; +FAMO20TA5 PO; +HYDR-3584 PO; +HYDR453.2 TOP; -LIDOCAINE 1% INJ 20 ML 20 ML VIAL INJ ONE; -LIDOCAINE 1% INJ 20 ML 20 ML VIAL ONE; -LISI40TA PO; +LISI40TA9 PO; +LORA10TA7 PO; +PANT40TA52 PO; +REGADENOSON 0.4 MG/5 ML SYR (LEXISCAN) IV ONE
[2021-01-04 08:46] VITALS: BP 179/80
[2021-01-04 08:53] VITALS: BP 144/97
[2021-01-04 08:55] VITALS: BP 153/95
--- NOTE | 2021-01-04 12:33 | Cardiology Stress Test Report ---
Stress Test Report Date of Procedure/Referring: Date of Procedure: Jan 04, 2021 Jennifer Gaston Admitting Physician No,Local Physician Indications: CHF Baseline Heart Rate: 65 Baseline Blood Pressure: Blood Pressure Systolic: 153 Blood Pressure Diastolic: 95 Baseline Vitals Vital Signs Date Time Temp Pulse Resp B/P (MAP) Pulse Ox O2 Delivery O2 Flow Rate FiO2 01/04/21 08:46 67 18 179/80 (113) 97 Room Air Baseline EKG: Baseline EKG: RBBB Summary After explaining the procedure to the patient, she signed a consent and then brought to the stress nuclear laboratory. Patient received 0.4 mg Lexiscan for stress test, ECG, heart rate and blood pressure were monitored continuously. Resting and stress dose of radio tracer were injected, imaging was acquired and reviewed in short axis, horizontal long axis and vertical long axis views. TID: 1.14 SSS: 15 SDS: 9 EF: 48 1. Patient tolerated Lexiscan well 2. Reversible ischemia involving the mid to apical anterior wall, anterolateral wall. Decreased uptake involving the whole inferior wall with subtle reversibility 3. Normal left ventricular size, diffuse hypokinesia, EF 48 percent RAMEZ THAKKAR MD Jan 04, 2021 12:33
== END ==
LOC: CARD 07:30
PROVIDERS: ATTEND Physician Assistant
DX: I50.9 Heart failure, unspecified (principal)
CPT/HCPCS: 78452; 93017; A9502

== ENCOUNTER 2021-01-30 06:41 | Day surgery (SDC) | payer MEDICARE ==
[2021-01-30] VITALS (11 sets, daily range): BP systolic 122–185; BP diastolic 60–90
[~2021-01-30] VITALS: Ht 165 cm; Wt 129.0 kg
[~2021-01-30 06:41] MED LIST changes: -CATHETER FLUSH 10 ML SYR IV PRN; -REGADENOSON 0.4 MG/5 ML SYR (LEXISCAN) IV ONE
[2021-01-30] MEDS ORDERED: NS IV 1000 ML 1,000 ML ONE (06:55)
[2021-01-30] MEDS ORDERED: LIDOCAINE 1% INJ 20 ML 20 ML VIAL ONE (06:55)
[2021-01-30] MEDS ORDERED: HEParin (CATH LAB) 2,000 ML IV ONE (06:55)
[2021-01-30] MEDS ORDERED: NS IV 1000 ML 1,000 ML IV SCH ×2 (07:00→09:30)
[2021-01-30 07:36] LABS: BILIRUBIN,URINE NEGATIVE (NEGATIVE); CLARITY,URINE CLEAR; COLOR,URINE YELLOW; GLUCOSE, URINE (UA) 3+ (NEGATIVE); KETONES,URINE NEGATIVE (NEGATIVE); LEUKOCYTE ESTERASE ,URINE 1+ (NEGATIVE); NITRITE,URINE NEGATIVE (NEGATIVE); PROTEIN,URINE NEGATIVE (NEGATIVE)
[2021-01-30 07:43] LABS: BACTERIA,URINE TRACE /HPF
[2021-01-30] MEDS ORDERED: ZINC50TA51 PO (07:47)
[2021-01-30] MEDS ORDERED: ROSU20TA32 PO (07:47)
[2021-01-30] MEDS ORDERED: LISI40TA9 PO (07:47)
[2021-01-30] MEDS ORDERED: METO50TA7 PO (07:47)
[2021-01-30] MEDS ORDERED: PREG100C55 PO (07:47)
[2021-01-30] MEDS ORDERED: FAMO20TA5 PO (07:47)
[2021-01-30] MEDS ORDERED: CHOL500050 PO (07:47)
[2021-01-30] MEDS ORDERED: CETI10TA17 PO (07:47)
[2021-01-30] MEDS ORDERED: CLOP75TA69 PO (07:47)
[2021-01-30 07:50] LABS: HEMOGLOBIN 13.7 g/dL (11.5-16.0); MEAN PLATELET VOLUME 10.9 fL (9.0-12.2)
--- NOTE | 2021-01-30 07:58 | Diagnostic Imaging Report ---
INDICATION: Coronary artery disease, preoperative evaluation AP view of the chest is obtained. COMPARISON: No previous study is available for comparison at this time. FINDINGS: Heart size and pulmonary vasculature are within normal limits, and the lungs are clear, bilaterally. IMPRESSION: Unremarkable chest. Dictated by: Dictated on workstation # [id number]
[2021-01-30 08:06] LABS: PROTHROMBIN TIME PATIENT 13.1 SEC (12.2-14.7)
[2021-01-30 08:09] LABS: BILIRUBIN,TOTAL 0.9 MG/DL (0.1-1.0); CALCIUM 9.4 MG/DL (8.5-10.1); CREATININE SERUM 0.97 MG/DL (0.60-1.30); POTASSIUM 4.1 MMOL/L (3.6-5.0); TOTAL PROTEIN 7.4 GM/DL (6.4-8.2)
[2021-01-30] MEDS ORDERED: fentaNYL INJ 100 MCG/2 ML AMP ONE (08:27)
[2021-01-30] MEDS ORDERED: MIDAZOLAM 5 MG/5 ML (VERSED) VIAL ONE (08:27)
--- NOTE | 2021-01-30 08:39 | Cardiac Procedure Note-CS/ASA ---
Pre-Procedure Note Pre-Op Procedure Note H&P Reviewed The H&P was reviewed, patient examined and no changes noted. Date H&P Reviewed: Jan 30, 2021 Time H&P Reviewed: 08:38 Conscious Sedation Pre-Proced Time 08:38 ASA Score 3 For ASA 3 and 4: Consider anesthesia and medical clearance. Also, for patients with a history of failed moderate sedation consider anesthesia. Airway Lungs Heart ASA score ASA 1: a normal healthy patient ASA 2: a patient with a mild systemic disease (mid diabetes, controlled hypertension, obesity x ASA 3: a patient with a severe systemic disease that limits activity (angina, COPD, prior Myocardial infarction) ASA 4: a patient with an incapacitating disease that is a constant threat to life (CHF, renal failure) ASA 5: a moribund patient not expected to survive 24 hrs. (ruptured aneurysm) ASA 6: a declared brain- patient whose organs are being harvested. For emergent operations, add the letter E after the classification Mallampati Classification Grade 3 Sedation Plan Analgesia, Amnesia, Plan communicated to team members, Discussed options with patient/fam, Discussed risks with patient/fam The patient is an appropriate candidate to undergo the planned procedure, sedation, and anesthesia. The patient immediately re-assessed prior to indication. RAMEZ THAKKAR MD Jan 30, 2021 08:39
--- NOTE | 2021-01-30 09:21 | Discharge Inst-Post CATH ---
Discharge Inst-CATH/EP Problems Reviewed?: Yes Post Cardiac Cath/EP D/C Inst Follow Up/Plan Appointment with Dr. Watson's office in 2 to 4 weeks <b>CARDIAC CATH/EP PROCEDURE DISCHARGE INSTRUCTIONS</b> ACTIVITY * Go Home directly and rest. * Limit activity of the leg (or wrist if it was used) for 7 days including aer obics, swimming, jogging, bicycling, etc. * Restrict stair-climbing for 7 days if possible, if not, climb up with your non-cath leg, then bring together on the same step. * Avoid lifting, pushing, pulling or excessive movement of the affected extremi ty for 7 days. * Customary sexual activity may be resumed after 2 days-use caution not to use a position that strains or causes pain to the affected extremity. * No driving for 24 hours. * NO SMOKING. * Avoid straining for bowel movements for 7 days. * Gentle walking on level ground is allowed. * Returning to work will depend on the type of procedure and the results. Your doctor will discuss this with you. CALL YOUR DOCTOR FOR ANY OF THE FOLLOWING: *If bleeding from the puncture site occurs- Apply gentle pressure to site with clean cloth and call your doctor or EMS. * If a knot or lump forms under the skin, increases in size, or causes pain. * If bruising appears to be worsening or moving further down your leg instead of disappearing. * Temperature above 101 F. CARE OF YOUR GROIN INCISION; * Bruising or purple discoloration of the skin near the puncture site is common. * You may shower only, no bathtub bathing for 5 days. Be careful to avoid slipping as your leg may feel stiff. * If a closure device was used on your femoral artery, please see the attached guide regarding care of the device and your leg. * Leave dressing on FOR 24 hours. CARE OF YOUR WRIST INCISION; * Bruising or purple discoloration of the skin near the puncture site is common. * You may shower. * DO NOT submerge wrist. * Leave dressing on FOR 24 hours. RAMEZ WATSON MD Jan 30, 2021 9:21 am
[2021-01-30] MEDS ORDERED: inSUlin (REGULAR) HUMAN 1 UNIT/0.01 ML (CHARGE PER UNIT) ONE (09:24)
--- NOTE | 2021-01-30 09:24 | Cardiac Cath Report ---
Cardiac Cath Report Physician (s)/Broom Bundler (s) Physician RAMEZ THAKKAR MD Pre-Procedure Diagnosis Pre-Procedure Diagnosis: Coronary artery disease Post-Procedure Note Procedure Start Date: Jan 30, 2021 Name of Procedure: Left heart catheterization Aortic arch angiogram Findings/Procedure Note PROCEDURE NOTE: 71 years old lady with history of CVA, hypertension hyperlipidemia, had an abnormal stress test in the anterior wall ischemia, scheduled for cardiac catheterization possible PTCA. After explaining the procedure to the patient, all pros and cons were explained, all questions were answered. The patient signed the consent and then she was placed on the cardiac catheterization laboratory. Groin was prepped SL fashion local anesthesia was used. Sheath placed in the femoral artery. Wendy right and left catheter were used to access the coronary system. Pigtail was used to access the left ventricular cavity. Left ventriculogram was not done Aortic arch angiogram was done to evaluate the aortic arch due to the history of CVA At the end of the procedure the sheath was removed. Closure device FINDINGS: Hemodynamics LV 157/18, end-diastolic pressure of 18 Aorta 153/63 mean of 97 ANATOMY: Left Main is free of obstructive disease Left Anterior Descending is tortuous artery with no obstructive disease Left Circumflex is slightly tortuous with no obstructive disease Right Coronary Artery is dominant artery with no obstructive disease LV Gram was not done, pressure was measured Aorta evaluation done with aortic arch angiogram showing normal aortic arch, no dissection or aneurysm, normal origin of the innominate artery, left carotid and left subclavian arteries CONCLUSION: 1. Tortuous coronary system with nonobstructive disease 2. Slightly elevated left ventricular end-diastolic pressure 3. Normal aortic arch and the great vessels of the neck DISCUSSION AND RECOMMENDATION: Medical therapy is recommended, abnormal stress test is probably due to extracardiac attenuation Anesthesia Type: Conscious Sedation Estimated blood loss (mL): 15 ml Contrast Amount: 50 ml Total Radiation Dose: 375 mGy Post-Procedure Diagnosis Post-operative diagnosis: Coronary artery disease CVA Hypertension Hyperlipidemia RAMEZ THAKKAR MD Jan 30, 2021 9:24 am
[2021-01-30] MEDS ORDERED: PATIENT MAY USE OWN MEDS, ALL PO SCH (09:30)
== END 2021-01-30 13:30 | disposition home or self-care (01) ==
LOC: CATH 06:41 → SDC 09:20 → CATH 13:30
PROVIDERS: ATTEND Internal Medicine Cardiovascular Disease
DX: I25.10 Atherosclerotic heart disease of native coronary artery without angina pectoris (principal); E78.5 Hyperlipidemia, unspecified; I63.9 Cerebral infarction, unspecified; I11.0 Hypertensive heart disease with heart failure; I50.9 Heart failure, unspecified; E11.319 Type 2 diabetes mellitus with unspecified diabetic retinopathy without macular edema; K21.9 Gastro-esophageal reflux disease without esophagitis; E66.9 Obesity, unspecified; Z68.42 Body mass index [BMI] 45.0-49.9, adult; Z79.899 Other long term (current) drug therapy; Z88.8 Allergy status to other drugs, medicaments and biological substances; Z88.0 Allergy status to penicillin; Z91.018 Allergy to other foods; Z88.5 Allergy status to narcotic agent
CPT/HCPCS: 36221; 71045; 80053; 80061; 81000; 85027; 85610; 85730; 87081; 87088; 93458; C1760; C1894; 36415

== ENCOUNTER → 2021-08-29 | Outpatient (CLI) | payer MEDICARE ==
[~2021-08-29] MED LIST changes: +CHOL500050 PO; +CLOP75TA69 PO; +METO50TA7 PO; -OMEP40CA27 PO; +OMEP40CA6 PO; +PREG100C55 PO
[2021-08-29 13:49] LABS: HEMOGLOBIN 13.3 g/dL (11.5-16.0); WHITE BLOOD COUNT 4.5 10^3/uL (4.3-11.0)
[2021-08-29 14:08] LABS: ALBUMIN 3.8 GM/DL (3.2-4.5); BILIRUBIN,TOTAL 0.8 MG/DL (0.1-1.0); CALCIUM 9.3 MG/DL (8.5-10.1); CREATININE SERUM 0.83 MG/DL (0.60-1.30); TOTAL PROTEIN 6.8 GM/DL (6.4-8.2)
== END ==
LOC: CARD 13:30
PROVIDERS: ATTEND Internal Medicine Cardiovascular Disease
DX: I11.9 Hypertensive heart disease without heart failure (principal); I34.0 Nonrheumatic mitral (valve) insufficiency
CPT/HCPCS: 36415; 80053; 80061; 83036; 84443; 85027; 93306

== ENCOUNTER 2023-06-18 15:16 | Inpatient (IN) | payer MEDICARE ==
[~2023-06-18] VITALS: Ht 165.1 cm; Wt 127.2 kg
[2023-06-18] VITALS (7 sets, daily range): BP systolic 114–203; BP diastolic 62–115
[~2023-06-18 15:16] MED LIST changes: +CLOP-31 PO; -CLOP75TA69 PO; -ROSU20TA32 PO; +ROSU20TA73 PO
[2023-06-18] MEDS ORDERED: ONDANSETRON INJECTION 4 MG/2 ML (SDV) IV PRN (15:30)
[2023-06-18] MEDS ORDERED: ACETAMINOPHEN 325 MG TABLET PO PRN (15:30)
[2023-06-18] MEDS ORDERED: MELATONIN 3 MG TABLET PO PRN (15:30)
[2023-06-18] MEDS ORDERED: morphine INJ 4 MG/ML 1 ML (VIAL/SYRINGE) IV PRN (15:30)
[2023-06-18] MEDS ORDERED: CALCIUM CARBONATE 500 MG CHEW TABLET PO PRN (15:30)
[2023-06-18] MEDS ORDERED: NITROGLYCERIN 0.4 MG SL TABLETS BTL 25'S SL PRN (15:30)
[2023-06-18] MEDS ORDERED: hydrALAZINE INJECTION 20 MG/ML VIAL IV PRN (19:30)
[2023-06-18 21:09] LABS: CLARITY,URINE CLEAR; COLOR,URINE YELLOW
[2023-06-18 21:10] LABS: BACTERIA,URINE FEW /HPF; BILIRUBIN,URINE NEGATIVE (NEGATIVE); GLUCOSE, URINE (UA) 1+ (NEGATIVE); KETONES,URINE 1+ (NEGATIVE); LEUKOCYTE ESTERASE ,URINE NEGATIVE (NEGATIVE); NITRITE,URINE NEGATIVE (NEGATIVE); PH,URINE 5.5 (5-9); PROTEIN,URINE 3+ (NEGATIVE); SQUAMOUS EPITHELIAL CELL,UR 0-2 /HPF; WBC,URINE RARE /HPF; YEAST,URINE FEW /HPF
[2023-06-19] VITALS (9 sets, daily range): BP systolic 138–175; BP diastolic 60–95
[2023-06-19 05:06] LABS: HEMOGLOBIN 10.2 g/dL (11.5-16.0); WHITE BLOOD COUNT 10.2 10^3/uL (4.3-11.0)
[2023-06-19 05:19] LABS: CALCIUM 8.3 MG/DL (8.5-10.1); CREATININE SERUM 0.98 MG/DL (0.60-1.30); POTASSIUM 3.5 MMOL/L (3.6-5.0)
--- NOTE | 2023-06-19 08:51 | History & Physical-Hospitalist ---
History of Present Illness HPI/Chief Complaint 73-year-old female with past medical history of hypertension, CVA, insulin-dependent diabetes presented to outside ER due to a fall. When asked why she came to the hospital she states it was because she was vomiting and had a fever. When asked if she fell she then recalls her fall and says yes she fell while her was getting coffee and that she falls often and "is a fall risk." She apparently complained of chest pain to the emergency department though she denies that for me. A troponin was checked and was elevated. She was transferred here for cardiology evaluation. Source: patient Date Seen 06/19/23 Time Seen by a Provider: 08:10 Attending Physician No,Local Physician PCP Admitting Physician: Quinton Watson MD Attending Physician: Quinton Watson MD Referring Physician Date of Admission Jun 18, 2023 at 17:00 Home Medications & Allergies Home Medications Reviewed patient Home Medication Reconciliation performed by pharmacy medication reconciliations central lab technician and/or nursing. Patients Allergies have been reviewed. Allergies Allergies Coded Allergies Penicillins (Verified Allergy, Unknown, RASH, 11/23/20) mushroom (Verified Adverse Reaction, Severe, 11/24/20) atorvastatin (Verified Adverse Reaction, Unknown, MADE LEGS LIKE JELLY, ) gabapentin (Verified Adverse Reaction, Unknown, 11/23/20) Uncoded Allergies MUSHROOMS ( Allergy, Severe, Anaphylaxis, 11/24/20) Past [id number]-[id number] Hx Patient Social History Marrital Status: Tobacco Use?: No Use of E-Cig and/or Vaping dev: No Substance use?: No Alcohol Use?: No Pt feels they are or have been: No Immunizations Up To Date Date of Influenza Vaccine: Sep 23, 2020 Date of Pneumonia Vaccine: Aug 19, 2019 Seasonal Allergies Seasonal Allergies: No Current Status Primary Language: Korean Implanted or Applied Medical D: Other Past Medical History Surgeries: Gallbladder, Hysterectomy Pneumonia, Sleep Apnea Currently Using CPAP: Yes Currently Using BIPAP: No High Cholesterol, Hypertension Neuropathy, Stroke Gastroesophageal Reflux Fibromyalgia, Chronic Back Pain Diabetes, Non-Insulin dep Glaucoma Loss of Vision: Left Anxiety Family Medical History Reviewed Nursing Family Hx Review of Systems Constitutional: see HPI Physical Exam Physical Exam Vital Signs Vital Signs - First Documented 06/18/23 06/18/23 06/18/23 17:00 17:15 18:51 Temp 38.5 Pulse 94 Resp 35 B/P (MAP) 198/96 (130) Pulse Ox 97 O2 Delivery Nasal Cannula O2 Flow Rate 2.00 Capillary Refill : Height, Weight, BMI Height: '" Weight: lbs. oz. kg; 46.33 BMI Method: General Appearance: No Apparent Distress, Chronically ill, Obese Respiratory: Lungs Clear, No Respiratory Distress Cardiovascular: Regular Rate, Rhythm, No Murmur Gastrointestinal: Normal Bowel Sounds, Soft Neurologic/Psychiatric: Alert, Other (Vented to person and place and some details of her history) Results Results/Procedures Labs Laboratory Tests 06/20/23 08:23 06/21/23 04:50 Patient resulted labs reviewed. Assessment/Plan Admission Diagnosis NSTEMI Admission Status: Inpatient Order (span 2 midnights) Reason for Inpatient Admission: see below Assessment and Plan NSTEMI Elevated troponin No active chest pain though Cardiology consulted, appreciate recs Telemetry Fall CK mildly elevated PT/OT IDDMII SSI Resume home insulin when med rec done H.o CVA HTN HLD Continue home meds when rec done ?bed bugs Wounds but no bugs seen DVT ppx: Lovenox Diagnosis/Problems Diagnosis/Problems (1) Insulin dependent diabetes mellitus (2) NSTEMI (non-ST elevated myocardial infarction) (3) HTN (hypertension) (4) CVA (cerebral vascular accident) (5) Obesity QUINTON WATSON MD Jun 19, 2023 08:51
[2023-06-19] MEDS: ASPIRIN enteric coated 81MG TABLET PO SCH (09:26)
[2023-06-19] MEDS ORDERED: CATHETER FLUSH 10 ML SYR IVP PRN (11:30)
[2023-06-19] MEDS: ENOXAPARIN 40 MG/0.4 ML SYRINGE SQ SCH ×2 (11:38→21:27)
[2023-06-19] MEDS ORDERED: REGADENOSON 0.4 MG/5 ML SYR IV ONE ×2 (12:50→13:30)
[2023-06-19] MEDS: inSUlin ASPART 1 UNIT/0.01 ML (PER UNIT) SC SCH ×3 (13:01→21:27)
--- NOTE | 2023-06-19 14:36 | Consultation-Cardiology ---
HPI-Cardiology Cardiology Consultation Date of Consultation 06/19/23 Date of Admission Time Seen by Provider: 11:00 Indication: Chest pain HPI Patient is a 73 y/o female with CVA, nonobstructive CAD, frequent falls. Transferred from [facility] for admission d/t unwittnessed fall and mildly elevated troponin. Patient reports she has had intermittent chest pain at home, lasting for seconds, denies any chest pain on this admission. Complaining of dyspnea on exertion. Patient reports she was standing on her porch when she fell and in unsure if she lost consciousness. came home and found her conscious on her back on the ground. Home Medications & Allergies Allergies: Coded Allergies: Penicillins (Verified Allergy, Unknown, RASH, 11/23/20) mushroom (Verified Adverse Reaction, Severe, 11/24/20) atorvastatin (Verified Adverse Reaction, Unknown, MADE LEGS LIKE JELLY, 11/23/20) gabapentin (Verified Adverse Reaction, Unknown, 11/23/20) Uncoded Allergies: MUSHROOMS (Allergy, Severe, Anaphylaxis, 11/24/20) Home Medication List Reviewed: Yes SQU-Elyflr-Idmfga Hx Patient Social History Marital Status: Recent Hopitalizations: Yes Alcohol Use?: No Immunizations Up To Date Date of Pneumonia Vaccine: Aug 19, 2019 Date of Influenza Vaccine: Sep 23, 2020 Past Medical History Nonobstructive CAD HTN Frequent falls CVA Review of Systems-General Review of Systems Constitutional: see HPI; No fever, No malaise; weakness EENTM: see HPI, no symptoms reported Respiratory: see HPI, dyspnea on exertion Cardiovascular: chest pain, edema; No Hx of Intervention, No palpitations, No vascular heart diseas Gastrointestinal: No abdominal pain, No constipation Genitourinary: No dysuria, No frequency Musculoskeletal: No back pain, No joint pain Skin: No lesions Reviewed Test Results Reviewed Test Results Lab Laboratory Tests 06/18/23 19:44: Total Creatine Kinase 174H, Troponin I 0.057H 06/18/23 20:20: Urine Color YELLOW, Urine Clarity CLEAR, Urine pH 5.5, Urine Specific [place] 1.020, Urine Protein 3+H, Urine Glucose (UA) 1+H, Urine Ketones 1+H, Urine Nitrite NEGATIVE, Urine Bilirubin NEGATIVE, Urine Urobilinogen 0.2, Urine Leukocyte Esterase NEGATIVE, Urine RBC (Auto) 3+H, Urine RBC 5-10H, Urine WBC RARE, Urine Squamous Epithelial Cells 0-2, Urine Crystals NONE, Urine Bacteria FEWH, Urine Casts NONE, Urine Mucus NEGATIVE, Urine Yeast FEWH, Urine Culture Indicated YES, Influenza Type A (RT-PCR) Not Detected, Influenza Type B (RT-PCR) Not Detected, SARS-CoV-2 RNA (RT-PCR) Not Detected 06/19/23 04:48: White Blood Count 10.2, Red Blood Count 3.78L, Hemoglobin 10.2L, Hematocrit 32L, Mean Corpuscular Volume 85, Mean Corpuscular Hemoglobin 27, Mean Corpuscular Hemoglobin Concent 32, Red Cell Distribution Width 14.9H, Platelet Count 108L, Mean Platelet Volume 11.0, Percent Immature Platelet Fraction 5.8, Sodium Level 138, Potassium Level 3.5L, Chloride Level 101, Carbon Dioxide Level 26, Anion Gap 11, Blood Urea Nitrogen 14, Creatinine 0.98, Estimat Glomerular Filtration Rate 61, BUN/Creatinine Ratio 14, Glucose Level 217H, Calcium Level 8.3L, Triglycerides Level 79, Cholesterol Level 77, LDL Cholesterol Direct 23, VLDL Cholesterol 16, HDL Cholesterol 39L ECG Impression ECG Initial ECG Rhythm: Normal Sinus Physical Exam Physical Exam Vital Signs Vital Signs - First Documented 06/18/23 06/18/23 06/18/23 17:00 17:15 18:51 Temp 38.5 Pulse 94 Resp 35 B/P (MAP) 198/96 (130) Pulse Ox 97 O2 Delivery Nasal Cannula O2 Flow Rate 2.00 Capillary Refill : Height, Weight, BMI Height: '" Weight: lbs. oz. kg; 46.33 BMI Method: General Appearance: No Apparent Distress, Chronically ill, Obese Respiratory: Lungs Clear, No Respiratory Distress Cardiovascular: Regular Rate, Rhythm, No Murmur Gastrointestinal: Normal Bowel Sounds, Soft Neurologic/Psychiatric: Alert, Other (Vented to person and place and some details of her history) A/P-Cardiology Admission Diagnosis Chest pain Fall at home PAF Hx CVA Assessment/Plan Chest pain, nonspecific etiology, reporting intermittent chest pain at home re cently. EKG showing no acute ST changes, minimally elevated troponin. Denies any active chest pain. Will proceed with LST this afternoon. Unwitnessed fall at home, patient unsure if she had syncopal episode. Does have hx of frequent falls. PAF, maintained on Toprol XL 50mg, Eliquis 5mg BID. s/p LINq implantation. 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 Status post Linq monitor implantation in November 2020 Atrial fibrillation was discovered and she was started on oral anticoagulation. Device was interrogated at last office visit showing no arrhythmia, good sensing and capture Chest pain nonspecific etiology, had an abnormal stress test, cardiac catheterization was done on January 30, 2021 showed tortuous coronary system with nonobstructive disease, slightly elevated left ventricular end-diastolic pressure, normal aortic arch and great vessels of the neck. Planning to repeat stress test. Hypertension, history of labile HTN, occasional episode of dizziness and hypotension. Is unable to wear compression socks. Instructed to use NASRIN wraps. Restart home medications and continue to monitor closely. Hyperlipidemia, maintained on rosuvastatin 20 mg daily. Monitored as outpatient. Dizziness and lightheadedness, multiple falls. Using cane, uses walker at time. Nonobstructive carotid artery stenosis per carotid duplex done August 2022 Congestive heart failure, chronic left ventricular systolic dysfunction, ejection fraction 45-50% Compensated. Maintained on Lasix, lisinopril and Toprol as outpatient. Last echo was done in August 2021. Diabetes mellitus, followed and managed by primary care physician. Diabetic retinopathy, followed and managed by primary care physician Gastroesophageal reflux disease, gastroparesis. Continue to monitor, managed by primary care physician Fibromyalgia, followed and managed by primary care physician BMI 45.9, we discussed weight loss. Thank you for allowing us to participate in the management of Ms De Leon. This is Rodolfo Lemus PA-C, as a scribe for Dr. Watson. Patient was seen and evaluated with Rodolfo, I interviewed and examined the patient. Patient had episode of chest pain nonspecific etiology, intermittent Recommended evaluating stress test, had paroxysmal atrial fibrillation with cry ptogenic stroke Patient had cardiac catheterization done in January 2021 after having an abnormal stress test which showed nonobstructive disease We will continue monitoring blood pressure and heart rate Stress test was abnormal with ischemia involving the inferior wall and inferolateral wall I will arrange for cardiac catheterization possible PTCA in a.m. RODOLFO HARMAN Jun 19, 2023 14:36 RAMEZ WATSON MD Jun 19, 2023 14:49
--- NOTE | 2023-06-19 14:46 | Cardiology Stress Test Report ---
Stress Test Report Date of Procedure/Referring: Date of Procedure: Jun 19, 2023 PCP No,Local Physician Admitting Physician Admitting Physician: Renea Watson MD Attending Physician: Renea Watson MD Baseline Blood Pressure: Blood Pressure Systolic: 147 Blood Pressure Diastolic: 62 Baseline Vitals Vital Signs Date Time Temp Pulse Resp B/P (MAP) Pulse Ox O2 Delivery O2 Flow Rate FiO2 06/18/23 17:00 97 Nasal Cannula 2.00 06/18/23 17:00 94 198/96 (130) 06/18/23 17:15 35 06/18/23 18:51 38.5 Summary After explaining the procedure to the patient, she signed a consent and then brought to the stress nuclear laboratory. Patient received 0.4 mg Lexiscan for stress test, ECG, heart rate and blood pressure were monitored continuously. Resting and stress dose of radio tracer were injected, imaging was acquired and reviewed in short axis, horizontal long axis and vertical long axis views. TID: 0.89 SSS: 11 SDS: 7 EF: 51 Patient tolerated Lexiscan well Reversible ischemia involving the inferior wall and inferoseptum Normal left ventricular size, ejection fraction 51% RAMEZ THAKKAR MD Jun 19, 2023 14:46
--- NOTE | 2023-06-19 15:50 | Physical Therapy Evaluation ---
PT Evaluation-General Medical Diagnosis Admission Date Jun 18, 2023 at 17:00 Medical Diagnosis: NSTEMI Onset Date: Jun 19, 2023 Therapy Diagnosis Therapy Diagnosis: Gait deficit Precautions Precautions/Isolations: Contact Isolation, Fall Prevention, Standard Precautions, Contact/Enteric Isolation Weight Bear Status Right Lower Extremity: Right Full Weight Bearing Left Lower Extremity: Left Full Weight Bearing Referral Physician: Dr. Watson Reason for Referral: Evaluation/Treatment Medical History Pertinent Medical History: CVA, DM, Neuropathy Reviewed History: Yes Social History Home: Single Level Current Living Status: Spouse Entry Into Home: Stairs With Railing PT Steps Into Home: 1 Prior Prior Level of Function SCALE: Activities may be completed with or without assistive devices. 7-Ztgwsaujii-dyquwpk completes the activity by him/herself with no assistance from a helper. 5-Set-up or Clean-up Assistance-helper sets up or cleans up; patient completes activity. [place] assists only prior to or following the activity. 4-Supervision or Touching Assistance-helper provides verbal cues and/or touching/steadying and/or contact guard assistance as patient completes activity. Assistance may be provided throughout the activity or intermittently. 3-Partial/Moderate Assistance-helper does LESS THAN HALF the effort. Early lifts, holds or supports trunk or limbs, but provides less than half the effort. 2-Substantial/Maximal Assistance-helper does MORE THAN HALF the effort. Early lifts or holds trunk or limbs and provides more than half the effort. 6-Vwwtbpikc-vldijm does ALL the effort. Patient does none of the effort to complete the activity. Or, the assistance of 2 or more helpers is required for the patient to complete the activity. If activity was not attempted, code reason: 7-Patient Refused. 9-Not Applicable-not attempted and the patient did not perform the activity before the current illness, exacerbation or injury. 10-Not Attempted due to Environmental Limitations-(lack of equipment, weather restraints, etc.). 88-Not Attempted due to Medical Conditions or Safety Concerns. Bed Mobility: 6 Transfers (B,C,W/C): 6 Gait: 6 Stairs: 6 Indoor Mobility (Ambulation): Independent Stairs: Independent Prior Device Use: Cane PT Evaluation-Current Subjective Patient lying supine in bed upon PT arrival, agreeable to treatment. Patient rates pain at 5/10 in low back. Objective Patient Orientation: Person, Place, Time, Situation Attachments: Metcalf Catheter, IV ROM/Strength ROM Lower Extremities WFLs BLES all planes Strength Lower Extremities 3/5 BLEs all planes Sensory Vision: Wears Glasses Hearing: Functional Sensation Right Lower Extremit: Impaired Sensation Left Lower Extremity: Impaired Transfers Roll Left to Right (QC): 3 Sit to Lying (QC): 3 Lying to Sitting/Side of Bed(Q: 3 Sit to Stand (QC): 3 Gait Does the Patient Walk?: No and Walking Goal IS indicated Balance Sitting Static: Fair Sitting Dynamic: Fair Standing Static: Fair Standing Dynamic: Poor Assessment/Needs Patient tolerated treatment fair. She performs all observed bed mobility and transfers with min/mod A. Patient unsteady on feet with use of cane. Will benefit from further PT training to improve mobility, gait and safety. Patient in bed post treatment with all needs met, nursing notified, call light in hand and in the room. Rehab Potential: Fair PT Care Home Goals Care Home Goals PT Senior Accountant Cpa Goals Time Frame: Jul 27, 2023 Roll Left & Right (QC): 6 Sit to Lying (QC): 6 Lying-Sitting on Side/Bed(QC): 6 Sit to Stand (QC): 6 Chair/Hyj-oq-Tfdfz Xfer(QC): 5 Toilet Transfer (QC): 5 Does the Patient Walk: Yes Walk 10 feet (QC): 4 Walk 50ft with 2 Turns (QC): 4 Walk 150 ft (QC): 3 1 Step (curb) (QC): 3 PT Plan Problem List Problem List: Activity Tolerance, Functional Strength, Safety, Balance, Gait, Transfer, Bed Mobility, ROM Treatment/Plan Treatment Plan: Continue Plan of Care Treatment Plan: Bed Mobility, Education, Functional Activity Sola, Functional Strength, Group Therapy, Gait, Safety, Therapeutic Exercise, Transfers Treatment Duration: Jul 27, 2023 Frequency: 6 times per week Estimated Hrs Per Day: .25 hour per day Patient and/or Family Agrees t: Yes Safety Risks/Education Patient Education: Gait Training, Transfer Techniques Teaching Recipient: Patient Teaching Methods: Demonstration, Discussion Response to Teaching: Verbalize Understanding, Return Demonstration Time Time In: 1530 Time Out: 1545 DATE: Jun 19, 2023 Total Billed Treatment Time: 15 Total Billed Treatment Visit, DEWAYNE CUTLER PT Jun 19, 2023 15:50
[2023-06-19] MEDS ORDERED: PANT40TA52 PO (16:16)
[2023-06-19] MEDS ORDERED: LISI20TA26 PO (16:16)
[2023-06-19] MEDS ORDERED: PREG75CA75 PO (16:16)
[2023-06-19] MEDS ORDERED: POTA8CAP20 PO (16:16)
[2023-06-19] MEDS ORDERED: DULA0.75 SQ (16:16)
[2023-06-19] MEDS ORDERED: BRIM5DRO3 OU (16:16)
[2023-06-19] MEDS ORDERED: SERT-412 PO (16:16)
[2023-06-19] MEDS ORDERED: RIVA20TA2 PO (16:16)
[2023-06-20] VITALS (18 sets, daily range): BP systolic 86–167; BP diastolic 48–89
[2023-06-20] MEDS: inSUlin ASPART 1 UNIT/0.01 ML (PER UNIT) SC SCH ×4 (06:06→21:51)
[2023-06-20 08:56] LABS: CALCIUM 8.5 MG/DL (8.5-10.1); CREATININE SERUM 0.86 MG/DL (0.60-1.30); POTASSIUM 3.2 MMOL/L (3.6-5.0)
[2023-06-20] MEDS ORDERED: LIDOCAINE 1% INJ 20 ML VIAL ONE (09:14)
[2023-06-20] MEDS ORDERED: NS IV 1000 ML 1,000 ML ONE (09:14)
[2023-06-20] MEDS ORDERED: HEParin (CATH LAB) 2,000 ML IV ONE (09:14)
[2023-06-20] MEDS: ASPIRIN enteric coated 81MG TABLET PO SCH ×2 (09:23→10:51)
[2023-06-20] MEDS: ENOXAPARIN 40 MG/0.4 ML SYRINGE SQ SCH (09:24)
--- NOTE | 2023-06-20 09:41 | Progress Note - Hospitalist ---
Subjective HPI/CC On Admission Date Seen by Provider: Jun 20, 2023 73-year-old female with past medical history of hypertension, CVA, insulin-dependent diabetes presented to outside ER due to a fall. When asked why she came to the hospital she states it was because she was vomiting and had a fever. When asked if she fell she then recalls her fall and says yes she fell while her was getting coffee and that she falls often and "is a fall risk." She apparently complained of chest pain to the emergency department though she denies that for me. A troponin was checked and was elevated. She was transferred here for cardiology evaluation. Subjective/Events-last exam Pt reports doing well today. No complaints. Plan for cath today. Objective Exam Vital Signs Vital Signs Date Time Temp Pulse Resp B/P (MAP) Pulse Ox O2 Delivery O2 Flow Rate FiO2 06/21/23 08:00 97 Nasal Cannula 2.00 06/21/23 08:00 36.7 69 21 178/80 (112) Capillary Refill : General Appearance: No Apparent Distress, Chronically ill Respiratory: Lungs Clear, No Respiratory Distress Cardiovascular: Regular Rate, Rhythm, No Murmur Neurologic/Psychiatric: Alert, Oriented x3 Results/Procedures Lab Laboratory Tests 06/21/23 04:50 Patient resulted labs reviewed. Assessment/Plan Assessment and Plan Assess & Plan/Chief Complaint NSTEMI Elevated troponin No active chest pain though Cardiology consulted, appreciate recs Telemetry Stress test positive Planning for cath today Fall CK mildly elevated PT/OT Consider IRF pending course IDDMII SSI Continue home meds H.o CVA HTN HLD Continue home meds ?bed bugs Wounds but no bugs seen- on precautions DVT ppx: Lovenox Diagnosis/Problems Diagnosis/Problems (1) Insulin dependent diabetes mellitus (2) NSTEMI (non-ST elevated myocardial infarction) (3) HTN (hypertension) (4) CVA (cerebral vascular accident) (5) Obesity QUINTON JUAREZ MD Jun 20, 2023 09:41
[2023-06-20] MEDS: PANTOPRAZOLE 40 MG TABLET PO SCH (10:52)
[2023-06-20] MEDS: PREGABALIN 75 MG CAPSULE PO SCH ×2 (10:52→21:51)
[2023-06-20] MEDS: ROSUVASTATIN 20 MG TABLET PO SCH (10:52)
[2023-06-20] MEDS: SERTRALINE 50 MG TABLET PO SCH (10:52)
[2023-06-20] MEDS ORDERED: VERAPAMIL 5 MG/2 ML (CALAN) VIAL IV ONE (11:14)
[2023-06-20] MEDS ORDERED: fentaNYL INJECTION 100 MCG/2 ML VIAL ONE (11:14)
[2023-06-20] MEDS ORDERED: MIDAZOLAM INJ 5 MG/5 ML VIAL ONE (11:14)
[2023-06-20] MEDS ORDERED: HEParin 1000 UNIT/ML (10ML VIAL) FOR BOLUS ONE (11:14)
[2023-06-20] MEDS ORDERED: NITRO DRIP 25000 MCG/D5W 250 ML IV ONE (11:15)
--- NOTE | 2023-06-20 11:39 | Physical Therapy Progress Note ---
Therapy Progress Note Patient having a heart cath. PT to resume tomorrow JUAN ANTONIO Agudelo PT Jun 20, 2023 11:39
[2023-06-20] MEDS ORDERED: NS IV 500 ML 500 ML IV PRN (11:45)
--- NOTE | 2023-06-20 12:21 | Cardiology Progress Note ---
Subjective Date Seen by Provider: Jun 20, 2023 Time Seen by Provider: 12:20 Subjective/Events-last exam Patient was seen at bedside, no chest pain was reported no new complaint Objective-Cardiology Exam Last Set of Vital Signs Vital Signs 06/20/23 10:59 Temp 35.7 I&O Intake and Output 06/20/23 00:00 Intake Total 350 ml Output Total 650 ml Balance -300 ml Intake Oral 350 ml Output Urine Total 650 ml # Bowel Movements 1 General: Alert, Oriented X3, Cooperative HEENT: Atraumatic, PERRLA Neck: Supple, No JVD, No Thyromegaly Lungs: Clear to Auscultation, Normal Air Movement Heart: Regular Rate, Normal S1, Normal S2, No Murmurs Abdomen: Normal Bowel Sounds, Soft, No Tenderness, No Hepatosplenomegaly, No Masses Extremities: No Clubbing, No Cyanosis, No Edema, Normal Pulses, No Tenderness/Swelling Skin: No Rashes, No Breakdown, No Significant Lesion Neuro: Normal Gait, Normal Speech, Strength at 5/5 X4 Ext, Normal Tone, Sensation Intact Psych/Mental Status: Mental Status NL, Mood NL Results Lab Laboratory Tests 06/20/23 08:23 A/P-Cardiology Admission Diagnosis Chest pain Fall at home PAF Hx CVA Assessment/Plan Chest pain, nonspecific etiology, reporting intermittent chest pain at home recently. EKG showing no acute ST changes, minimally elevated troponin. Denies any active chest pain. Stress test is abnormal Cardiac catheterization was recommended Cardiac catheterization was carried out showing nonobstructive disease. Okay for discharge or arrange for placement Unwitnessed fall at home, patient unsure if she had syncopal episode. Does have hx of frequent falls. PAF, maintained on Toprol XL 50mg, Eliquis 5mg BID. s/p LINq implantation. 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 Status post Linq monitor implantation in November 2020 Atrial fibrillation was discovered and she was started on oral anticoagulation. Device was interrogated at last office visit showing no arrhythmia, good sensing and capture Chest pain nonspecific etiology, had an abnormal stress test, cardiac catheterization was done on January 30, 2021 showed tortuous coronary system with nonobstructive disease, slightly elevated left ventricular end-diastolic pressure, normal aortic arch and great vessels of the neck. Planning to repeat stress test. Hypertension, history of labile HTN, occasional episode of dizziness and hypotension. Is unable to wear compression socks. Instructed to use NASIRN wraps. Restart home medications and continue to monitor closely. Hyperlipidemia, maintained on rosuvastatin 20 mg daily. Monitored as outpatient. Dizziness and lightheadedness, multiple falls. Using cane, uses walker at time. Nonobstructive carotid artery stenosis per carotid duplex done August 2022 Congestive heart failure, chronic left ventricular systolic dysfunction, ejection fraction 45-50% Compensated. Maintained on Lasix, lisinopril and Toprol as outpatient. Last echo was done in August 2021. Diabetes mellitus, followed and managed by primary care physician. Diabetic retinopathy, followed and managed by primary care physician Gastroesophageal reflux disease, gastroparesis. Continue to monitor, managed by primary care physician Fibromyalgia, followed and managed by primary care physician BMI 45.9, we discussed weight loss. Thank you for allowing us to participate in the management of Ms De Leon. This is Jennifer Lemus PA-C, as a scribe for Dr. Thakkar. Patient was seen and evaluated with Jennifer, I interviewed and examined the patient. Patient had episode of chest pain nonspecific etiology, intermittent Recommended evaluating stress test, had paroxysmal atrial fibrillation with cryptogenic stroke Patient had cardiac catheterization done in January 2021 after having an abnormal stress test which showed nonobstructive disease We will continue monitoring blood pressure and heart rate Stress test was abnormal with ischemia involving the inferior wall and inferolateral wall I will arrange for cardiac catheterization possible PTCA in a.m. RAMEZ THAKKAR MD Jun 20, 2023 12:21
--- NOTE | 2023-06-20 12:22 | Cardiac Procedure Note-CS/ASA ---
Pre-Procedure Note Pre-Op Procedure Note Date of Available H&P: Jun 20, 2023 Date H&P Reviewed: Jun 20, 2023 Time H&P Reviewed: 11:00 History & Physical: H&P Reviewed, Patient Examed, No changes noted Pre-Operative Diagnosis: Coronary artery disease Moderate Sedation PreProcedure Time 11:00 ASA Score 3 Airway Lungs Heart ASA score ASA 1: a normal healthy patient ASA 2: a patient with a mild systemic disease (mid diabetes, controlled hypertension, obesity ASA 3: a patient with a severe systemic disease that limits activity (angina, COPD, prior Myocardial infarction) ASA 4: a patient with an incapacitating disease that is a constant threat to life (CHF, renal failure) ASA 5: a moribund patient not expected to survive 24 hrs. (ruptured aneurysm) ASA 6: a declared brain- patient whose organs are being harvested. For emergent operations, add the letter E after the classification Mallampati Classification Grade 3 Sedation Plan Analgesia, Amnesia, Plan communicated to team members, Discussed options with patient/fam, Discussed risks with patient/fam The patient is an appropriate candidate to undergo the planned procedure, sedation, and anesthesia. The patient immediately re-assessed prior to indication. RAMEZ THAKKAR MD Jun 20, 2023 12:21
--- NOTE | 2023-06-20 12:24 | Cardiac Cath Report ---
Cardiac Cath Report Physician (s)/Park Superintendent (s) Physician RAMEZ THAKKAR MD Pre-Procedure Diagnosis Pre-Procedure Diagnosis: Coronary artery disease Post-Procedure Note Procedure Start Date: Jun 20, 2023 Name of Procedure: Left heart catheterization Findings/Procedure Note PROCEDURE NOTE: 73-year-old lady with history of multiple falls, had mild elevation in troponin, chest pain, had an abnormal stress test, cardiac catheterization was advised. After explaining the procedure to the patient, all pros and cons were explained, all questions were answered. The patient signed the consent and then she was placed in the cardiac catheterization laboratory. Groin was prepped in SL fashion local anesthesia was used. Sheath placed in the right radial artery, [place] catheter was advanced to the left ventricular cavity, pressure was niraj ured, pullback LV to aorta was done, engage the right and left coronary system, angiogram was done. At the end of the procedure the sheath was removed. Vascular band was used FINDINGS: Hemodynamics LV 147/9, end-diastolic pressure of 9 Aorta 140/67 mean of 88 ANATOMY: Left Main is free of obstructive disease Left Anterior Descending is free of obstructive disease Left Circumflex is free of obstructive disease Right Coronary Artery is dominant artery with no obstructive disease LV Gram was not done, pressure was measured CONCLUSION: Mild coronary artery disease no significant obstructive disease Normal left ventricular end-diastolic pressure DISCUSSION AND RECOMMENDATION: Abnormal stress test is probably due to extracardiac attenuation Anesthesia Type: Conscious Sedation Estimated blood loss (mL): 10 ml Contrast Amount: 44 ml Total Radiation Dose: 585 mGy Post-Procedure Diagnosis Post-operative diagnosis: Chest pain Coronary artery disease Hypertension Hyperlipidemia RAMEZ THAKKAR MD Jun 20, 2023 12:24
[2023-06-20] MEDS: NS IV 1000 ML 1,000 ML IV SCH ×2 (13:41→21:59)
[2023-06-20] MEDS ORDERED: POTASSIUM CHLORIDE 20 MEQ TABLET PO ONE (14:15)
[2023-06-20] MEDS ORDERED: POTASSIUM CHLORIDE 20 MEQ TABLET PO NR ×2 (14:30→16:00)
[2023-06-20] MEDS: RIVAROXABAN 20 MG TABLET PO SCH (17:24)
[2023-06-20] MEDS ORDERED: inSUlin DETERMIR 1 UNIT/0.01 ML (CHARGE PER UNIT) SQ SCH (21:00)
[2023-06-20] MEDS: cefTRIAXone IV/IM 1,000 MG in NS (IVPB) 50 ML 50 ML IV SCH (21:50)
[2023-06-20] MEDS: BRIMONIDINE 0.2% OPHTH SOLN 5 ML BTL OU SCH (21:51)
[2023-06-21] VITALS: BP 138/75
[2023-06-21 03:46] VITALS: BP 129/70
[2023-06-21 05:05] LABS: HEMOGLOBIN 9.1 g/dL (11.5-16.0)
[2023-06-21 05:07] LABS: MEAN PLATELET VOLUME 11.8 fL (9.0-12.2); WHITE BLOOD COUNT 5.2 10^3/uL (4.3-11.0)
[2023-06-21 05:42] LABS: POTASSIUM 4.3 MMOL/L (3.6-5.0)
[2023-06-21 05:44] LABS: CALCIUM 8.2 MG/DL (8.5-10.1)
[2023-06-21 05:48] LABS: CREATININE SERUM 0.82 MG/DL (0.60-1.30); PHOSPHORUS 2.8 MG/DL (2.3-4.7)
[2023-06-21 05:51] LABS: MAGNESIUM 1.6 MG/DL (1.6-2.4)
[2023-06-21] MEDS: POTASSIUM CL 10MEQ/50ML IVPB 50 ML IV SCH (06:13)
[2023-06-21] MEDS: POTASSIUM CHLORIDE 20 MEQ TABLET PO SCH (06:14)
[2023-06-21] MEDS: MAGNESIUM 1 GM/100 ML IVPB 100 ML IV SCH ×4 (06:14→09:19)
[2023-06-21] MEDS: POTASSIUM BICARB 20 MEQ effervescent TABLET PO SCH (06:14)
[2023-06-21] MEDS: inSUlin ASPART 1 UNIT/0.01 ML (PER UNIT) SC SCH ×4 (06:30→21:52)
[2023-06-21] MEDS ORDERED: MAGNESIUM 1 GM/100 ML IVPB 400 ML IV ONE (06:39)
[2023-06-21 08:00] VITALS: BP 178/80
--- NOTE | 2023-06-21 08:05 | Physical Therapy Daily Note ---
PT Daily Note-Current Subjective Patient agrees to PT. Pain Section J - Health Conditions 1. Rarely or not at all 2. Occasionally 3. Frequently 4. Almost constantly 8. Unable to answer Pain Effect on Sleep: 1 Pain Interference with Therapy: 1 Pain Interference w/Day-to-Day: 1 Mental Status Attachments: Oxygen, Metcalf Catheter, IV Transfers SCALE: Activities may be completed with or without assistive devices. 2-Xtgjshkhgl-bvwmprx completes the activity by him/herself with no assistance from a helper. 5-Set-up or Clean-up Assistance-helper sets up or cleans up; patient completes activity. [place] assists only prior to or following the activity. 4-Supervision or Touching Assistance-helper provides verbal cues and/or touching/steadying and/or contact guard assistance as patient completes activity. Assistance may be provided throughout the activity or intermittently. 3-Partial/Moderate Assistance-helper does LESS THAN HALF the effort. [place] l ifts, holds or supports trunk or limbs, but provides less than half the effort. 2-Substantial/Maximal Assistance-helper does MORE THAN HALF the effort. [place] lifts or holds trunk or limbs and provides more than half the effort. 6-Wtmanbcju-cjgcif does ALL the effort. Patient does none of the effort to complete the activity. Or, the assistance of 2 or more helpers is required for t he patient to complete the activity. If activity was not attempted, code reason: 7-Patient Refused. 9-Not Applicable-not attempted and the patient did not perform the activity before the current illness, exacerbation or injury. 10-Not Attempted due to Environmental Limitations-(lack of equipment, weather restraints, etc.). 88-Not Attempted due to Medical Conditions or Safety Concerns. Lying to Sitting/Side of Bed(Q: 4 Sit to Stand (QC): 4 Chair/Iqy-hn-Crdsl Xfer(QC): 4 Weight Bearing Right Lower Extremity: Right Full Weight Bearing Left Lower Extremity: Left Full Weight Bearing Gait Training Distance: 10' x 2 Walk 10 feet (QC): 4 Gait Assistive Device: FWW WBOS/slow, steady Exercises Supine Ex: Ankle pumps, Quad Set, Heel Slides Supine Reps: 12 Seated Therapy Exercises: Long arc quads Seated Reps: 15 Assessment Patient up in recliner with needs met. Patient has not c/o at this time. Continue to increase activity as tolerated by patient. PT Railroad Car Loader Goals Care Home Goals PT Railroad Car Loader Goals Time Frame: Jul 27, 2023 Roll Left & Right (QC): 6 Sit to Lying (QC): 6 Lying-Sitting on Side/Bed(QC): 6 Sit to Stand (QC): 6 Chair/Shx-ha-Zuoag Xfer(QC): 5 Toilet Transfer (QC): 5 Does the Patient Walk: Yes Walk 10 feet (QC): 4 Walk 50ft with 2 Turns (QC): 4 Walk 150 ft (QC): 3 1 Step (curb) (QC): 3 PT Plan Treatment/Plan Treatment Plan: Continue Plan of Care Treatment Plan: Bed Mobility, Education, Functional Activity Sola, Functional Strength, Group Therapy, Gait, Safety, Therapeutic Exercise, Transfers Treatment Duration: Jul 27, 2023 Frequency: 6 times per week Estimated Hrs Per Day: .25 hour per day Patient and/or Family Agrees t: Yes Time Time In: 700 Time Out: 723 DATE: Jun 21, 2023 Total Billed Treatment Time: 23 Total Billed Treatment 1 visit EX 13 min FA 10 min JUAN ANTONIO JULIEN PT Jun 21, 2023 08:05
--- NOTE | 2023-06-21 09:04 | Cardiology Progress Note ---
Subjective Date Seen by Provider: Jun 21, 2023 Time Seen by Provider: 09:02 Subjective/Events-last exam Patient was seen at bedside, laying down comfortably, feeling better. Objective-Cardiology Exam Last Set of Vital Signs Vital Signs 06/21/23 08:00 Temp 36.7 Pulse 69 Resp 21 B/P (MAP) 178/80 (112) Pulse Ox 99 O2 Delivery Nasal Cannula O2 Flow Rate 2.00 I&O Intake and Output 06/21/23 00:00 Intake Total 1490 ml Output Total 750 ml Balance 740 ml Intake Oral 1440 ml IV Total 50 ml Output Urine Total 750 ml General: Alert, Oriented X3, Cooperative HEENT: Atraumatic, PERRLA Neck: Supple, No JVD, No Thyromegaly Lungs: Clear to Auscultation, Normal Air Movement Heart: Regular Rate, Normal S1, Normal S2, No Murmurs Abdomen: Normal Bowel Sounds, Soft, No Tenderness, No Hepatosplenomegaly, No Masses Extremities: No Clubbing, No Cyanosis, No Edema, Normal Pulses, No Tenderness/Swelling Skin: No Rashes, No Breakdown, No Significant Lesion Neuro: Normal Gait, Normal Speech, Strength at 5/5 X4 Ext, Normal Tone, Sensation Intact Psych/Mental Status: Mental Status NL, Mood NL Results Lab Laboratory Tests 06/21/23 04:50 A/P-Cardiology Admission Diagnosis Chest pain Fall at home PAF Hx CVA Assessment/Plan Chest pain, nonspecific etiology, reporting intermittent chest pain at home recently. EKG showing no acute ST changes, minimally elevated troponin. Denies any active chest pain. Stress test is abnormal Cardiac catheterization was recommended Cardiac catheterization was carried out showing nonobstructive disease. Okay for discharge or arrange for placement Unwitnessed fall at home, patient unsure if she had syncopal episode. Does have hx of frequent falls. PAF, maintained on Toprol XL 50mg, Eliquis 5mg BID. s/p LINq implantation. 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 Status post Linq monitor implantation in November 2020 Atrial fibrillation was discovered and she was started on oral anticoagulation. Device was interrogated at last office visit showing no arrhythmia, good sensing and capture Chest pain nonspecific etiology, had an abnormal stress test, cardiac catheterization was done on January 30, 2021 showed tortuous coronary system with nonobstructive disease, slightly elevated left ventricular end-diastolic pressure, normal aortic arch and great vessels of the neck. Had an abnormal stress test then cardiac catheterization carried out on June 20, 2023 showing nonobstructive disease. Hypertension, history of labile HTN, occasional episode of dizziness and hypotension. Is unable to wear compression socks. Instructed to use NASRIN wraps. Restart home medications and continue to monitor closely. Hyperlipidemia, maintained on rosuvastatin 20 mg daily. Monitored as outpatient. Dizziness and lightheadedness, multiple falls. Using cane, uses walker at time. Nonobstructive carotid artery stenosis per carotid duplex done August 2022 Congestive heart failure, chronic left ventricular systolic dysfunction, ejection fraction 45-50% Compensated. Maintained on Lasix, lisinopril and Toprol as outpatient. Last echo was done in August 2021. Diabetes mellitus, followed and managed by primary care physician. Diabetic retinopathy, followed and managed by primary care physician Gastroesophageal reflux disease, gastroparesis. Continue to monitor, managed by primary care physician Fibromyalgia, followed and managed by primary care physician BMI 45.9, we discussed weight loss. RAMEZ THAKKAR MD Jun 21, 2023 09:04
--- NOTE | 2023-06-21 10:41 | Progress Note - Hospitalist ---
Subjective HPI/CC On Admission Date Seen by Provider: Jun 21, 2023 73-year-old female with past medical history of hypertension, CVA, insulin-dependent diabetes presented to outside ER due to a fall. When asked why she came to the hospital she states it was because she was vomiting and had a fever. When asked if she fell she then recalls her fall and says yes she fell while her was getting coffee and that she falls often and "is a fall risk." She apparently complained of chest pain to the emergency department though she denies that for me. A troponin was checked and was elevated. She was transferred here for cardiology evaluation. Subjective/Events-last exam Pt reports doing better. No complaints. Discussed blood cultures results from other facility and need for repeat blood cultures and abx for now. She also reports she is still quite weak from her baseline. She has been to IRF before and would be interested in returning if able. Objective Exam Vital Signs Vital Signs Date Time Temp Pulse Resp B/P (MAP) Pulse Ox O2 Delivery O2 Flow Rate FiO2 06/21/23 08:00 97 Nasal Cannula 2.00 06/21/23 08:00 36.7 69 21 178/80 (112) Capillary Refill : Less Than 3 Seconds General Appearance: No Apparent Distress Respiratory: Lungs Clear Cardiovascular: Regular Rate, Rhythm, No Murmur Neurologic/Psychiatric: Alert, Oriented x3 Results/Procedures Lab Laboratory Tests 06/21/23 04:50 Patient resulted labs reviewed. Assessment/Plan Assessment and Plan Assess & Plan/Chief Complaint NSTEMI Cardiology consulted, appreciate recs Telemetry Stress test positive negative cath Bacteremia Blood cultures from [place] show strep in blood Abx added and repeat blood cultures ordered Does not clinically appear to be septic or ill so may be a contaminant but was in 2/2 bottles there Fall CK mildly elevated PT/OT IRF eval placed given she is only walking 10 ft with assistance IDDMII SSI Continue home meds H.o CVA HTN HLD Continue home meds ?bed bugs Wounds but no bugs seen- on precautions DVT ppx: Xarelto Diagnosis/Problems Diagnosis/Problems (1) Insulin dependent diabetes mellitus (2) NSTEMI (non-ST elevated myocardial infarction) (3) HTN (hypertension) (4) CVA (cerebral vascular accident) (5) Obesity QUINTON JUAREZ MD Jun 21, 2023 10:41
[2023-06-21] MEDS: ROSUVASTATIN 20 MG TABLET PO SCH (11:10)
[2023-06-21] MEDS: PANTOPRAZOLE 40 MG TABLET PO SCH (11:10)
[2023-06-21] MEDS: PREGABALIN 75 MG CAPSULE PO SCH ×2 (11:11→19:53)
[2023-06-21] MEDS: ASPIRIN enteric coated 81MG TABLET PO SCH (11:11)
[2023-06-21] MEDS: SERTRALINE 50 MG TABLET PO SCH (11:12)
[2023-06-21] MEDS: BRIMONIDINE 0.2% OPHTH SOLN 5 ML BTL OU SCH ×2 (11:13→22:27)
[2023-06-21] MEDS: NS IV 1000 ML 1,000 ML IV SCH ×3 (11:15→19:32)
[2023-06-21 12:00] VITALS: BP 178/80
[2023-06-21 15:15] VITALS: BP 137/64
--- NOTE | 2023-06-21 15:21 | Occupational Therapy Eval ---
OT Evaluation-General/PLF Medical Diagnosis Admission Date Jun 18, 2023 at 17:00 Medical Diagnosis: NSTEMI Onset Date: Jun 19, 2023 Therapy Diagnosis Therapy Diagnosis: weakness, falls Precautions Precautions/Isolations: Contact Isolation, Fall Prevention, Standard Precautions, Contact/Enteric Isolation Weight Bear Status Weight Bearing Restriction: Full Weight Bearing Location Restriction: LE Bilateral Referral Physician: Dr. Watson Referral Reason: Activity Tolerance, Self Care, Evaluation/Treatment Medical History Pertinent Medical History: CVA, DM, Neuropathy Current History SCORE 15 BIMS Reviewed History: Yes Social History Home: Single Level Current Living Status: Spouse Entry Into Home: Stairs With Railing Steps Into Home: 1 ADL-Prior Level of Function SCALE: Activities may be completed with or without assistive devices. 7-Xsnlgnyhlw-zscavva completes the activity by him/herself with no assistance from a helper. 5-Set-up or Clean-up Assistance-helper sets up or cleans up; patient completes activity. [place] assists only prior to or following the activity. 4-Supervision or Touching Assistance-helper provides verbal cues and/or touching/steadying and/or contact guard assistance as patient completes activity. Assistance may be provided throughout the activity or intermittently. 3-Partial/Moderate Assistance-helper does LESS THAN HALF the effort. [place] lifts, holds or supports trunk or limbs, but provides less than half the effort. 2-Substantial/Maximal Assistance-helper does MORE THAN HALF the effort. [place] lifts or holds trunk or limbs and provides more than half the effort. 7-Wvfagstyf-uyvigq does ALL the effort. Patient does none of the effort to co mplete the activity. Or, the assistance of 2 or more helpers is required for the patient to complete the activity. If activity was not attempted, code reason: 7-Patient Refused. 9-Not Applicable-not attempted and the patient did not perform the activity before the current illness, exacerbation or injury. 10-Not Attempted due to Environmental Limitations-(lack of equipment, weather restraints, etc.). 88-Not Attempted due to Medical Conditions or Safety Concerns. ADL PLOF Comments Patient has a sock aid, film maker, FWW, cane at home. During eval patient is able to remove and don both socks w/o ADs, stand from reclienr w/o ADS, Supervision level Self Care: Independent Functional Cognition: Independent (STM challenged as day progresses) DME/Equipment: Grab Bars, Reachers, Sock Aid Drive Self: No OT Current Status Subjective Pleasant and agreeable to therapy, in room. Pain Numeric Pain Scale: 3 ([place] cath removed minutes ago) Mental Status/Objective Patient Orientation: Person, Place, Time, Situation Attachments: Oxygen (2 litters, 99%, no 02 at home) Current Glasses/Contacts: Yes Hearing Aids: No Dentures/Partials: No Hand Dominance: Right Upper Extremity ROM EXCESSIVE SOFT TISSUE LIMITS ROM, however ROM WFLs to perform ADLS and hygiene needs. Upper Extremity Coordination FAIR + Upper Extremity Strength 4/5 ADL-Treatment ADL-Current Performed on recliner, snaps and ties on hospital gown, pulled over head and replaced, figure 4 sitting for sock management, disposable brief for LB garments, Eating (QC): 6 Oral Hygiene (QC): 5 Shower/Bathe Self (QC): 7 (declined, however OT recommended) Upper Body Dressing (QC): 5 Lower Body Dressing (QC): 5 On/Off Footwear (QC): 5 Toileting Hygiene (QC): 5 Education OT Patient Education: Correct positioning, Energy conservation, Exercise program, Instructions to caregiver, Modified ADL techniques, Progress toward Goal/Update tx plan, Purpose of tx/functional activities, Reviewed precautions, Rehab process, Safety issues, Transfer techniques, Use of adapted equipment Teaching Recipient: Patient, Family Teaching Methods: Demonstration Response to Teaching: Verbalize Understanding, Return Demonstration OT Prison Goals Prison Goals Eating (QC): 6 Oral Hygiene (QC): 6 Toileting Hygiene (QC): 6 Shower/Bathe Self (QC): 6 Upper Body Dressing (QC): 6 Lower Body Dressing (QC): 6 On/Off Footwear (QC): 6 Patient will problem solve safety scenarios to return to PLOF 1=Demonstrate adherence to instructed precautions during ADL tasks. 2=Patient will verbalize/demonstrate understanding of assistive device s/modifications for ADL. 3=Patient will improve strength/tolerance for activity to enable patient to perform ADL's. OT Education/Plan Problem List/Assessment Assessment: Decreased Activ Tolerance, Impaired Funct Balance, Impaired Self- Care Skills Discharge Recommendations Plan/Recommendations: Continue POC Therapy Discharge Recommendati: Post Acute OT Treatment Plan/Plan of Care Treatment,Training & Education: Yes Patient would benefit from OT for education, treatment and training to promote independence in ADL's, mobility, safety and/or upper extremity function for ADL's. Plan of Care: ADL Retraining, Cognitive Retraining, Concurrent Therapy, Functional Mobility, Group Exercise/Act as Ind, UE Funct Exercise/Act Treatment Duration: Jun 25, 2023 Frequency: 3 times per week (3-5 times per week) Estimated Hrs Per Day: .25 hour per day Agreement: Yes Rehab Potential: Guarded Time Start Time: 15:00 Stop Time: 15:15 DATE: Jun 21, 2023 Total Time Billed (hr/min): 15 Billed Treatment Time EVM 15 YARED KWAN OT Jun 21, 2023 15:21
[2023-06-21] MEDS: RIVAROXABAN 20 MG TABLET PO SCH (17:48)
[2023-06-21] MEDS: cefTRIAXone IV/IM 1,000 MG in NS (IVPB) 50 ML 50 ML IV SCH (19:52)
[2023-06-21 21:00] VITALS: BP 180/73
[2023-06-21] MEDS: inSUlin DETERMIR 1 UNIT/0.01 ML (CHARGE PER UNIT) SQ SCH (21:52)
[2023-06-22] VITALS: BP 170/72
[2023-06-22 04:00] VITALS: BP 140/65
[2023-06-22 05:16] LABS: HEMOGLOBIN 9.7 g/dL (11.5-16.0)
[2023-06-22 05:18] LABS: MEAN PLATELET VOLUME 11.5 fL (9.0-12.2); WHITE BLOOD COUNT 3.8 10^3/uL (4.3-11.0)
[2023-06-22 05:27] LABS: CALCIUM 8.7 MG/DL (8.5-10.1)
[2023-06-22 05:31] LABS: CREATININE SERUM 0.8 MG/DL (0.60-1.30); PHOSPHORUS 3.6 MG/DL (2.3-4.7)
[2023-06-22] MEDS: MAGNESIUM 1 GM/100 ML IVPB 100 ML IV SCH (05:49)
[2023-06-22] MEDS: POTASSIUM BICARB 20 MEQ effervescent TABLET PO SCH (05:49)
[2023-06-22] MEDS: POTASSIUM CL 10MEQ/50ML IVPB 50 ML IV SCH (05:49)
[2023-06-22] MEDS: POTASSIUM CHLORIDE 20 MEQ TABLET PO SCH (05:49)
[2023-06-22] MEDS: inSUlin ASPART 1 UNIT/0.01 ML (PER UNIT) SC SCH ×4 (06:18→21:10)
[2023-06-22 08:57] VITALS: BP 141/74
[2023-06-22] MEDS: BRIMONIDINE 0.2% OPHTH SOLN 5 ML BTL OU SCH ×2 (09:10→19:19)
[2023-06-22] MEDS: SERTRALINE 50 MG TABLET PO SCH (09:11)
[2023-06-22] MEDS: PREGABALIN 75 MG CAPSULE PO SCH ×2 (09:11→19:17)
[2023-06-22] MEDS: ROSUVASTATIN 20 MG TABLET PO SCH (09:11)
[2023-06-22] MEDS: PANTOPRAZOLE 40 MG TABLET PO SCH (09:11)
[2023-06-22] MEDS: ASPIRIN enteric coated 81MG TABLET PO SCH (09:11)
--- NOTE | 2023-06-22 10:07 | Progress Note - Hospitalist ---
Subjective HPI/CC On Admission Date Seen by Provider: Jun 22, 2023 73-year-old female with past medical history of hypertension, CVA, insulin-dependent diabetes presented to outside ER due to a fall. When asked why she came to the hospital she states it was because she was vomiting and had a fever. When asked if she fell she then recalls her fall and says yes she fell while her was getting coffee and that she falls often and "is a fall risk." She apparently complained of chest pain to the emergency department though she denies that for me. A troponin was checked and was elevated. She was transferred here for cardiology evaluation. Subjective/Events-last exam Pt repors doing well. No complaints. Doing better with PT. Objective Exam Vital Signs Vital Signs Date Time Temp Pulse Resp B/P (MAP) Pulse Ox O2 Delivery O2 Flow Rate FiO2 06/22/23 08:57 36.4 65 19 141/74 (96) 99 Nasal Cannula 2.00 Capillary Refill : Less Than 3 Seconds General Appearance: No Apparent Distress, Chronically ill, Obese Respiratory: Lungs Clear, No Respiratory Distress Cardiovascular: Regular Rate, Rhythm, No Murmur Neurologic/Psychiatric: Alert, Oriented x3 Results/Procedures Lab Laboratory Tests 06/22/23 05:00 Patient resulted labs reviewed. Assessment/Plan Assessment and Plan Assess & Plan/Chief Complaint NSTEMI Cardiology consulted, appreciate recs Telemetry Stress test positive negative cath Bacteremia Blood cultures from [place] show strep in blood Continue abx Blood cultures with GPR per report Fall CK mildly elevated PT/OT IRF eval placed and she is doing to well to qualify IDDMII SSI Continue home meds H.o CVA HTN HLD Continue home meds ?bed bugs Wounds but no bugs seen- on precautions DVT ppx: Xarelto Diagnosis/Problems Diagnosis/Problems (1) Insulin dependent diabetes mellitus (2) NSTEMI (non-ST elevated myocardial infarction) (3) HTN (hypertension) (4) CVA (cerebral vascular accident) (5) Obesity QUINTON JUAREZ MD Jun 22, 2023 10:07
[2023-06-22 12:28] VITALS: BP 140/80
--- NOTE | 2023-06-22 12:51 | Physical Therapy Progress Note ---
Therapy Progress Note PT treatment attempted. Patient stated that she was doing well and doing exercises on her own. [address] PT Jun 22, 2023 12:51
[2023-06-22] MEDS: NS IV 1000 ML 1,000 ML IV SCH ×2 (15:54→21:10)
[2023-06-22 16:12] VITALS: BP 130/64
[2023-06-22] MEDS: RIVAROXABAN 20 MG TABLET PO SCH (17:12)
[2023-06-22] MEDS: cefTRIAXone IV/IM 1,000 MG in NS (IVPB) 50 ML 50 ML IV SCH (18:43)
[2023-06-22 19:41] VITALS: BP 121/77
[2023-06-22] MEDS: inSUlin DETERMIR 1 UNIT/0.01 ML (CHARGE PER UNIT) SQ SCH (21:10)
[2023-06-23] VITALS (7 sets, daily range): BP systolic 133–182; BP diastolic 69–80
[2023-06-23 05:12] LABS: HEMATOCRIT 35 % (35-52); MEAN CORPUSCULAR HEMOGLOBIN 27 pg (25-34); MEAN CORPUSCULAR HGB CONC 32 g/dL (32-36); MEAN CORPUSCULAR VOLUME 85 fL (80-99); MEAN PLATELET VOLUME 11.3 fL (9.0-12.2); PLATELET COUNT 132 10^3/uL (130-400); WHITE BLOOD COUNT 3.9 10^3/uL (4.3-11.0)
[2023-06-23 05:23] LABS: POTASSIUM 4.2 MMOL/L (3.6-5.0)
[2023-06-23 05:24] LABS: CALCIUM 9.1 MG/DL (8.5-10.1)
[2023-06-23 05:28] LABS: CREATININE SERUM 0.9 MG/DL (0.60-1.30); PHOSPHORUS 4.1 MG/DL (2.3-4.7)
[2023-06-23] MEDS: POTASSIUM CL 10MEQ/50ML IVPB 50 ML IV SCH (05:30)
[2023-06-23] MEDS: POTASSIUM BICARB 20 MEQ effervescent TABLET PO SCH (05:30)
[2023-06-23 05:31] LABS: MAGNESIUM 1.8 MG/DL (1.6-2.4)
[2023-06-23] MEDS: POTASSIUM CHLORIDE 20 MEQ TABLET PO SCH (05:31)
[2023-06-23] MEDS: MAGNESIUM 1 GM/100 ML IVPB 100 ML IV SCH ×3 (05:32→06:03)
[2023-06-23] MEDS: inSUlin ASPART 1 UNIT/0.01 ML (PER UNIT) SC SCH ×4 (05:57→21:15)
[2023-06-23] MEDS: SERTRALINE 50 MG TABLET PO SCH (09:26)
[2023-06-23] MEDS: PREGABALIN 75 MG CAPSULE PO SCH ×2 (09:27→19:43)
[2023-06-23] MEDS: ASPIRIN enteric coated 81MG TABLET PO SCH (09:27)
[2023-06-23] MEDS: BRIMONIDINE 0.2% OPHTH SOLN 5 ML BTL OU SCH ×2 (09:27→19:44)
[2023-06-23] MEDS: NS IV 1000 ML 1,000 ML IV SCH (09:27)
[2023-06-23] MEDS: ROSUVASTATIN 20 MG TABLET PO SCH (09:27)
[2023-06-23] MEDS: PANTOPRAZOLE 40 MG TABLET PO SCH (09:27)
--- NOTE | 2023-06-23 11:22 | Progress Note - Hospitalist ---
Subjective HPI/CC On Admission Date Seen by Provider: Jun 23, 2023 73-year-old female with past medical history of hypertension, CVA, insulin-dependent diabetes presented to outside ER due to a fall. When asked why she came to the hospital she states it was because she was vomiting and had a fever. When asked if she fell she then recalls her fall and says yes she fell while her was getting coffee and that she falls often and "is a fall risk." She apparently complained of chest pain to the emergency department though she denies that for me. A troponin was checked and was elevated. She was transferred here for cardiology evaluation. Subjective/Events-last exam Pt reports pain in her arm. IV appears to have infiltrated and she states it's quite sore. She is worried about being able to apply weight on it to walk with a walker. Objective Exam Vital Signs Vital Signs Date Time Temp Pulse Resp B/P (MAP) Pulse Ox O2 Delivery O2 Flow Rate FiO2 06/23/23 08:00 36.4 72 16 168/80 (109) 99 Room Air 06/23/23 08:00 2.00 Capillary Refill : Less Than 3 Seconds General Appearance: No Apparent Distress, Chronically ill, Obese Respiratory: Lungs Clear, No Respiratory Distress Cardiovascular: Regular Rate, Rhythm, No Murmur Extremity: Other (left fore arm swollen and tender to touch, has good pulses and sensation) Neurologic/Psychiatric: Alert, Oriented x3 Results/Procedures Lab Laboratory Tests 06/23/23 04:54 Patient resulted labs reviewed. Assessment/Plan Assessment and Plan Assess & Plan/Chief Complaint NSTEMI Cardiology consulted, appreciate recs Telemetry Stress test positive negative cath Bacteremia Blood cultures from [place] show strep in blood Continue abx Blood cultures with GPR per report Fall CK mildly elevated PT/OT IRF eval placed and she is doing to well to qualify IV infiltrated and has significant pain in arm RN to place warm blanket Hopefully home tomorrow IDDMII SSI Continue home meds as able Increased Levemir H.o CVA HTN HLD Continue home meds ?bed bugs Wounds but no bugs seen- on precautions DVT ppx: Xarelto Diagnosis/Problems Diagnosis/Problems (1) Insulin dependent diabetes mellitus (2) NSTEMI (non-ST elevated myocardial infarction) (3) HTN (hypertension) (4) CVA (cerebral vascular accident) (5) Obesity ANN,QUINTON M MD Jun 23, 2023 11:22
[2023-06-23] MEDS: RIVAROXABAN 20 MG TABLET PO SCH (16:16)
[2023-06-23] MEDS: CEPHALEXIN 250 MG CAPSULE PO SCH (19:43)
[2023-06-23] MEDS ORDERED: inSUlin DETERMIR 1 UNIT/0.01 ML (CHARGE PER UNIT) SQ SCH (21:00)
[2023-06-24 03:40] VITALS: BP 172/80
[2023-06-24 05:15] LABS: HEMATOCRIT 32 % (35-52); HEMOGLOBIN 10.4 g/dL (11.5-16.0); MEAN CORPUSCULAR HEMOGLOBIN 27 pg (25-34); MEAN CORPUSCULAR HGB CONC 32 g/dL (32-36); MEAN CORPUSCULAR VOLUME 84 fL (80-99); PLATELET COUNT 158 10^3/uL (130-400); WHITE BLOOD COUNT 4.1 10^3/uL (4.3-11.0)
[2023-06-24 05:32] LABS: POTASSIUM 4.1 MMOL/L (3.6-5.0)
[2023-06-24 05:34] LABS: CALCIUM 9.2 MG/DL (8.5-10.1)
[2023-06-24 05:38] LABS: CREATININE SERUM 0.86 MG/DL (0.60-1.30); PHOSPHORUS 3.5 MG/DL (2.3-4.7)
[2023-06-24 05:41] LABS: MAGNESIUM 1.7 MG/DL (1.6-2.4)
[2023-06-24] MEDS: POTASSIUM CL 10MEQ/50ML IVPB 50 ML IV SCH (05:45)
[2023-06-24] MEDS: MAGNESIUM 1 GM/100 ML IVPB 100 ML IV SCH (05:47)
[2023-06-24] MEDS: POTASSIUM CHLORIDE 20 MEQ TABLET PO SCH (05:47)
[2023-06-24] MEDS: POTASSIUM BICARB 20 MEQ effervescent TABLET PO SCH (05:47)
[2023-06-24] MEDS: inSUlin ASPART 1 UNIT/0.01 ML (PER UNIT) SC SCH ×3 (05:48→12:08)
[2023-06-24] MEDS: PANTOPRAZOLE 40 MG TABLET PO SCH (07:09)
[2023-06-24] MEDS: ASPIRIN enteric coated 81MG TABLET PO SCH (07:09)
[2023-06-24] MEDS: SERTRALINE 50 MG TABLET PO SCH (07:09)
[2023-06-24] MEDS: PREGABALIN 75 MG CAPSULE PO SCH (07:09)
[2023-06-24] MEDS: BRIMONIDINE 0.2% OPHTH SOLN 5 ML BTL OU SCH (07:09)
[2023-06-24] MEDS: ROSUVASTATIN 20 MG TABLET PO SCH (07:09)
[2023-06-24] MEDS: CEPHALEXIN 250 MG CAPSULE PO SCH (07:10)
[2023-06-24 08:00] VITALS: BP 123/69
--- NOTE | 2023-06-24 09:12 | Physical Therapy Daily Note ---
PT Daily Note-Current Subjective Patient reports she hopes to go home today. Agrees to PT. Pain Section J - Health Conditions 1. Rarely or not at all 2. Occasionally 3. Frequently 4. Almost constantly 8. Unable to answer Pain Effect on Sleep: 1 Pain Interference with Therapy: 1 Pain Interference w/Day-to-Day: 1 Mental Status Patient Orientation: Normal For Age Transfers SCALE: Activities may be completed with or without assistive devices. 6-Xlmrbpcobh-hzpnnpj completes the activity by him/herself with no assistance from a helper. 5-Set-up or Clean-up Assistance-helper sets up or cleans up; patient completes activity. [place] assists only prior to or following the activity. 4-Supervision or Touching Assistance-helper provides verbal cues and/or touching/steadying and/or contact guard assistance as patient completes act ivity. Assistance may be provided throughout the activity or intermittently. 3-Partial/Moderate Assistance-helper does LESS THAN HALF the effort. [place] lifts, holds or supports trunk or limbs, but provides less than half the effort. 2-Substantial/Maximal Assistance-helper does MORE THAN HALF the effort. [place] lifts or holds trunk or limbs and provides more than half the effort. 0-Ywyzfkiug-lqmymf does ALL the effort. Patient does none of the effort to complete the activity. Or, the assistance of 2 or more helpers is required for the patient to complete the activity. If activity was not attempted, code reason: 7-Patient Refused. 9-Not Applicable-not attempted and the patient did not perform the activity before the current illness, exacerbation or injury. 10-Not Attempted due to Environmental Limitations-(lack of equipment, weather restraints, etc.). 88-Not Attempted due to Medical Conditions or Safety Concerns. Lying to Sitting/Side of Bed(Q: 6 Sit to Stand (QC): 4 Chair/Gwa-mk-Eyfro Xfer(QC): 4 Weight Bearing Right Lower Extremity: Right Full Weight Bearing Left Lower Extremity: Left Full Weight Bearing Gait Training Distance: 15' Walk 10 feet (QC): 4 Walk 50 ft with 2 Turns(QC): 7 Gait Assistive Device: Cane Single Point slow, WBOS Assessment Patient up in recliner with needs met. PT to continue to increase activity as tolerated/allow by patient. PT Penitentiary Goals [place] Tender Goals PT Penitentiary Goals Time Frame: Jul 27, 2023 Roll Left & Right (QC): 6 Sit to Lying (QC): 6 Lying-Sitting on Side/Bed(QC): 6 Sit to Stand (QC): 6 Chair/Coq-ip-Amcii Xfer(QC): 5 Toilet Transfer (QC): 5 Does the Patient Walk: Yes Walk 10 feet (QC): 4 Walk 50ft with 2 Turns (QC): 4 Walk 150 ft (QC): 3 1 Step (curb) (QC): 3 PT Plan Treatment/Plan Treatment Plan: Continue Plan of Care Treatment Plan: Bed Mobility, Education, Functional Activity S[place], Functional Strength, Group Therapy, Gait, Safety, Therapeutic Exercise, Transfers Treatment Duration: Jul 27, 2023 Frequency: 6 times per week Estimated Hrs Per Day: .25 hour per day Patient and/or Family Agrees t: Yes Time Time In: 835 Time Out: 845 DATE: Jun 24, 2023 Total Billed Treatment Time: 10 Total Billed Treatment 1 visit FA 10 min JUAN ANTONIO JULIEN PT Jun 24, 2023 09:12
--- NOTE | 2023-06-24 10:00 | Occupational Ther Daily Note ---
OT Current Status-Daily Note Subjective Pt alert, sitting in recliner. Pt agrees to therapy. No c/o pain at this time, itching on lower legs. Mental Status/Objective Patient Orientation: Person, Place, Time, Situation Attachments: IV ADL-Treatment Pt discusses home environment and what she was completing at home. Pt states that she is doing some cooking by self and with . Pt ambulates with cane with SBA to supervision. Pt agrees to oral care. Standing at sink, pt completes oral care and grooming independently. After session, pt sitting in recliner with call light/phone in reach. All needs met in room. Therapy Code Descriptions/Definitions Functional [place] Measure: 0=Not Assessed/NA 4=Minimal Assistance 1=Total Assistance 5=Supervision or Setup 2=Maximal Assistance 6=Modified [place] 3=Moderate Assistance 7=Complete IndependenceSCALE: Activities may be completed with or without assistive devices. 1-Likqcjudiv-arejcua completes the activity by him/herself with no assistance from a helper. 5-Set-up or Clean-up Assistance-helper sets up or cleans up; patient completes activity. [place] assists only prior to or following the activity. 4-Supervision or Touching Assistance-helper provides verbal cues and/or touching/steadying and/or contact guard assistance as patient completes ac tivity. Assistance may be provided throughout the activity or intermittently. 3-Partial/Moderate Assistance-helper does LESS THAN HALF the effort. [place] lifts, holds or supports trunk or limbs, but provides less than half the effort. 2-Substantial/Maximal Assistance-helper does MORE THAN HALF the effort. [place] lifts or holds trunk or limbs and provides more than half the effort. 9-Zivipqkey-dewfrz does ALL the effort. Patient does none of the effort to complete the activity. Or, the assistance of 2 or more helpers is required for the patient to complete the activity. If activity was not attempted, code reason: 7-Patient Refused. 9-Not Applicable-not attempted and the patient did not perform the activity before the current illness, exacerbation or injury. 10-Not Attempted due to Environmental Limitations-(lack of equipment, weather restraints, etc.). 88-Not Attempted due to Medical Conditions or Safety Concerns. Oral Hygiene (QC): 6 OT Biomechanical Engineer Goals Biomechanical Engineer Goals Eating (QC): 6 Oral Hygiene (QC): 6 Toileting Hygiene (QC): 6 Shower/Bathe Self (QC): 6 Upper Body Dressing (QC): 6 Lower Body Dressing (QC): 6 On/Off Footwear (QC): 6 Patient will problem solve safety scenarios to return to PLOF 1=Demonstrate adherence to instructed precautions during ADL tasks. 2=Patient will verbalize/demonstrate understanding of assistive devices/modifications for ADL. 3=Patient will improve strength/tolerance for activity to enable patient to perform ADL's. OT Education/Plan Problem List/Assessment Assessment: Decreased Activ Tolerance, Impaired Self-Care Skills Discharge Recommendations Plan/Recommendations: Continue POC Treatment Plan/Plan of Care Patient would benefit from OT for education, treatment and training to promote independence in ADL's, mobility, safety and/or upper extremity function for ADL's. Plan of Care: ADL Retraining, Cognitive Retraining, Concurrent Therapy, Functional Mobility, Group Exercise/Act as Ind, UE Funct Exercise/Act Treatment Duration: Jun 25, 2023 Frequency: 3 times per week (3-5 times per week) Estimated Hrs Per Day: .25 hour per day Agreement: Yes Rehab Potential: Guarded Time Start Time: 09:04 Stop Time: 09:27 DATE: Jun 24, 2023 Total Time Billed (hr/min): 23 Billed Treatment Time 1 visit-ADL 1 (10 min) FA 1 (13 min) ALLA MACDONALD Jun 24, 2023 09:59
--- NOTE | 2023-06-24 11:26 | Cardiology Progress Note ---
Subjective Date Seen by Provider: Jun 24, 2023 Time Seen by Provider: 10:30 Subjective/Events-last exam Patient is sitting up in chair, denies any chest pain or dyspnea. No new complaints Objective-Cardiology Exam Last Set of Vital Signs Vital Signs 06/23/23 06/24/23 06/24/23 21:09 12:00 12:59 Temp 36.5 Pulse 63 Resp 20 B/P (MAP) 147/73 (97) Pulse Ox 96 O2 Delivery Room Air O2 Flow Rate 2.00 I&O Intake and Output 06/24/23 00:00 Intake Total 2090 ml Output Total 1200 ml Balance 890 ml Intake Oral 1840 ml IV Total 250 ml Output Urine Total 1200 ml # Voids 3 General: Alert, Oriented X3, Cooperative HEENT: Atraumatic, PERRLA Neck: Supple, No JVD, No Thyromegaly Lungs: Clear to Auscultation, Normal Air Movement Heart: Regular Rate, Normal S1, Normal S2, No Murmurs Abdomen: Normal Bowel Sounds, Soft, No Tenderness, No Hepatosplenomegaly, No Masses Extremities: No Clubbing, No Cyanosis, No Edema, Normal Pulses, No Tenderness/Swelling Skin: No Rashes, No Breakdown, No Significant Lesion Neuro: Normal Gait, Normal Speech, Strength at 5/5 X4 Ext, Normal Tone, Sensation Intact Psych/Mental Status: Mental Status NL, Mood NL Results Lab Laboratory Tests 06/24/23 04:55 A/P-Cardiology Admission Diagnosis Chest pain Fall at home PAF Hx CVA Assessment/Plan Chest pain, nonspecific etiology, reporting intermittent chest pain at home rec ently. EKG showing no acute ST changes, minimally elevated troponin. Denies any active chest pain. Stress test was abnormal Cardiac catheterization was carried out June 20, 2023 showing nonobstructive disease. Okay for discharge or arrange for placement Unwitnessed fall at home, patient unsure if she had syncopal episode. Does have hx of frequent falls. PAF, maintained on Toprol XL 50mg, Eliquis 5mg BID. s/p LINq implantation. Continue to monitor. 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 Status post Linq monitor implantation in November 2020 Atrial fibrillation was discovered and she was started on oral anticoagulation. Chest pain nonspecific etiology, had an abnormal stress test, cardiac catheterization was done on January 30, 2021 showed tortuous coronary system with nonobstructive disease, slightly elevated left ventricular end-diastolic pressure, normal aortic arch and great vessels of the neck. Had an abnormal stress test then cardiac catheterization carried out on June 20, 2023 showing nonobstructive disease. Hypertension, history of labile HTN, occasional episode of dizziness and hypotension. Is unable to wear compression socks. Instructed to use NASRIN wraps. Restart home medications and continue to monitor closely. Hyperlipidemia, maintained on rosuvastatin 20 mg daily. Monitored as outpatient. Dizziness and lightheadedness, multiple falls. Using cane, uses walker at time. Nonobstructive carotid artery stenosis per carotid duplex done August 2022 Congestive heart failure, chronic left ventricular systolic dysfunction, ejection fraction 45-50% Compensated. Maintained on Lasix, lisinopril and Toprol as outpatient. Last echo was done in August 2021. Diabetes mellitus, followed and managed by primary care physician. Diabetic retinopathy, followed and managed by primary care physician Gastroesophageal reflux disease, gastroparesis. Continue to monitor, managed by primary care physician Fibromyalgia, followed and managed by primary care physician BMI 45.9, we discussed weight loss. Supervisory-Addendum Brief Supervisory Addendum Participated in pt care: history, MDM, physical Personally performed: exam, history, MDM Care discussed with: ANABELLA Results interpretation: Verified all documentation Notes: Patient was seen and evaluated with Jennifer, examination performed, management plan was discussed, agree with the current scribed note, I made few changes to the note using Italic font Patient was seen at bedside, sitting comfortably, no new complaint There was a strep positive blood culture at the other facility, repeat blood culture at our hospital was negative Currently asymptomatic, waiting for placement Managed by primary care team JENNIFER HARMAN Jun 24, 2023 11:26 RAMEZ THAKKAR MD Jun 24, 2023 13:35
[2023-06-24 12:00] VITALS: BP 147/73
[2023-06-24] MEDS ORDERED: CEPH250C PO (12:11)
[2023-06-24] MEDS ORDERED: ASPI-1238 PO (12:11)
[2023-06-24 14:50] VITALS: BP 147/73
--- NOTE | 2023-06-24 22:25 | Discharge Summary ---
Discharge Summary Hospital Course Problems/Dx: (1) Fall Status: Acute (2) NSTEMI (non-ST elevated myocardial infarction) Status: Acute (3) HTN (hypertension) (4) CVA (cerebral vascular accident) (5) Obesity (6) Insulin dependent diabetes mellitus (7) Infestation by bed bug Status: Acute (8) Positive blood cultures Status: Acute (9) Debility Status: Acute Hospital Course Date of Admission: Jun 18, 2023 at 17:00 Admission Diagnosis : NSTEMI Family Physician/Provider: TyraLocal Physician Date of Discharge: 06/24/23 Discharge Diagnosis: NSTEMI, Fall, bed bugs, positive blood cultures Hospital Course: Rachel De Leon is a 73 year old female with PMH HTN, HLD, T2DM, history of CVA, morbid obesity, who was admitted after a fall. She presented to an outside ER and was found to have an elevated troponin. She was transferred for Cardiology evaluation due to NSTEMI. She had a stress test which was positive. She had a left heart cath which showed no obstructive CAD. She was also found to have bed bugs. Her blood cultures from the outside ER were positive for Strep. She was given a course of antibiotics for possible bacteremia. She refused to discharge anywhere other than home. She refused home health care. She was discharged home in improved, fair condition. She should follow up with her PCP in about a week. Labs and Pending Lab Test: Laboratory Tests 06/24/23 04:55: White Blood Count 4.1L, Red Blood Count 3.88, Hemoglobin 10.4L, Hematocrit 32L, Mean Corpuscular Volume 84, Mean Corpuscular Hemoglobin 27, Mean Corpuscular Hemoglobin Concent 32, Red Cell Distribution Width 14.3, Platelet Count 158, Mean Platelet Volume 11.0, Sodium Level 140, Potassium Level 4.1, Chloride Level 103, Carbon Dioxide Level 29, Anion Gap 8, Blood Urea Nitrogen 18, Creatinine 0.86, Estimat Glomerular Filtration Rate 72, BUN/Creatinine Ratio 21, Glucose Level 136H, Calcium Level 9.2, Phosphorus Level 3.5, Magnesium Level 1.7 06/24/23 04:58: Glucometer 136H 06/24/23 11:31: Glucometer 262H Microbiology 06/20/23 Blood Culture - Preliminary, Resulted No growth 06/20/23 MRSA Screen - Final, Complete MRSA not isolated 06/18/23 Urine Culture - Final, Complete NO GROWTH Home Meds Active Aspirin EC (Aspirin) 81 Mg Tablet.dr 81 Mg PO DAILY 30 Days Cephalexin 250 Mg Capsule 500 Mg PO BID 5 Days Reported Xarelto Tablet (Rivaroxaban) 20 Mg Tablet 20 Mg PO DAILY Brimonidine Tartrate 0.2 % Btl 1 Drop OU BID Potassium Chloride 8 Meq Capsule.er 8 Meq PO DAILY PRN Pregabalin 75 Mg Capsule 75 Mg PO BID Pantoprazole Sodium 40 Mg Tablet.dr 40 Mg PO DAILY Lisinopril 20 Mg Tablet 20 Mg PO HS Sertraline HCl 25 Mg Tablet 25 Mg PO DAILY Trulicity (Dulaglutide) 0.75 Mg/0.5 Ml Pen.injctr 0.75 Mg SQ THUR Rosuvastatin Calcium 20 Mg Tablet 20 Mg PO DAILY Metoprolol Succinate 50 Mg Tab.er.24h 50 Mg PO DAILY Furosemide 20 Mg Tablet 20 Mg PO DAILY PRN Humalog Kwikpen (Insulin Lispro) 100 Unit/Ml Insuln.pen 10 Unit SQ AC Toujeo Solostar (Insulin Glargine,Hum.rec.anlog) 300 Unit/Ml (1.5 Ml) Insuln.pen 33 Unit SQ BID Assessment/Pt Instructions See instructions Discharge Planning: >30 minutes discharge planning Discharge Instructions Discharge Diet: No Restrictions Activity as Tolerated: Yes Discharge Physical Examination Vital Signs Vital Signs Date Time Temp Pulse Resp B/P (MAP) Pulse Ox O2 Delivery O2 Flow Rate FiO2 06/24/23 14:50 36.5 63 20 147/73 96 Room Air 2.00 General Appearance: No Apparent Distress, Obese Respiratory: Lungs Clear, No Respiratory Distress Cardiovascular: Regular Rate, Rhythm, No Edema Gastrointestinal: Normal Bowel Sounds, Soft Extremity: Normal Inspection, No Pedal Edema Skin: Normal Color, Warm/Dry Neurologic/Psychiatric: Alert, Normal Mood/Affect Allergies: Coded Allergies: Penicillins (Verified Allergy, Unknown, RASH, 11/23/20) mushroom (Verified Adverse Reaction, Severe, 11/24/20) atorvastatin (Verified Adverse Reaction, Unknown, MADE LEGS LIKE JELLY, 11/23/20) gabapentin (Verified Adverse Reaction, Unknown, 11/23/20) Uncoded Allergies: MUSHROOMS (Allergy, Severe, Anaphylaxis, 11/24/20) Discharge Summary Date of Admission Jun 18, 2023 at 17:00 Date of Discharge Jun 24, 2023 at 14:57 Discharge Date: Jun 24, 2023 Discharge Time: 14:57 Admission Diagnosis NSTEMI Discharge Diagnosis (1) Fall Status: Acute (2) NSTEMI (non-ST elevated myocardial infarction) Status: Acute (3) HTN (hypertension) (4) CVA (cerebral vascular accident) (5) Obesity (6) Insulin dependent diabetes mellitus (7) Debility Status: Acute (8) Infestation by bed bug Status: Acute (9) Positive blood cultures Status: Acute HERMILO GROSS MD Jun 24, 2023 22:15
== END 2023-06-24 14:57 | disposition home or self-care (01) | DRG 281 ==
LOC: CSD 17:00 → 4TH 06-21 15:15
PROVIDERS: ADMIT Family Medicine; ATTEND Internal Medicine
PROC: 4A023N7 Measurement of Cardiac Sampling and Pressure, Left Heart, Percutaneous Approach (ICD-10-PCS; principal; 2023-06-20)
PROC: B2111ZZ Fluoroscopy of Multiple Coronary Arteries using Low Osmolar Contrast (ICD-10-PCS; 2023-06-20)
DX: I21.4 Non-ST elevation (NSTEMI) myocardial infarction (principal); I50.22 Chronic systolic (congestive) heart failure; R78.81 Bacteremia; Z68.42 Body mass index [BMI] 45.0-49.9, adult; I11.0 Hypertensive heart disease with heart failure; Z86.73 Personal history of transient ischemic attack (TIA), and cerebral infarction without residual deficits; E78.00 Pure hypercholesterolemia, unspecified; E11.40 Type 2 diabetes mellitus with diabetic neuropathy, unspecified; K21.9 Gastro-esophageal reflux disease without esophagitis; M79.7 Fibromyalgia; G89.29 Other chronic pain; M54.9 Dorsalgia, unspecified; H40.9 Unspecified glaucoma; B88.8 Other specified infestations; E66.01 Morbid (severe) obesity due to excess calories; I48.0 Paroxysmal atrial fibrillation; E11.319 Type 2 diabetes mellitus with unspecified diabetic retinopathy without macular edema; Z20.822 Contact with and (suspected) exposure to COVID-19
CPT/HCPCS: 36415; 78452; 80048; 80061; 81000; 82550; 82947; 83735; 84100; 84484; 85027; 87040; 87081; 87088; 87636; 93017; 93458; 94761